=== PATIENT | female | born 1970 | race Hispanic/Latino ===

== ENCOUNTER 2018-05-09 15:28 | Observation (INO) | payer BC ==
[2018-05-09 16:14] LABS: Absolute Lymphocytes (CBC) 1.6 K/uL (0.7-4.9); Absolute Monocytes 0.3 K/uL (0.1-1.3); Absolute Neutrophil 4.6 K/uL (1.8-8.0); Basophils % 0.3 % (0-1.3); Eosinophils % 1.2 % (0-4.4); Hematocrit 40.6 % (36.0-45.0); Lymphocytes % 23.9 % (15.3-44.8); MCH 28.9 pg (27.0-35.0); MCV 86.2 fL (80-100); MPV 8.1 fL (7.6-11.3); Monocytes % 5.3 % (3.3-12.3)
[2018-05-09 16:32] LABS: ALT/SGPT 38 U/L (12-78); AST/SGOT 22 U/L (15-37); Albumin 3.5 g/dL (3.4-5.0); Alkaline Phosphatase 75 U/L (45-117); BUN Blood Urea Nitrogen 15 mg/dL (7-18); Bicarbonate 26 mmol/L (21-32); Bilirubin Direct < 0.1 mg/dL (0-0.2); Bilirubin Total 0.2 mg/dL (0.2-1.0); CKMB Creatine Kinase MB 1.6 ng/mL (0.3-3.6); Creatine Phosphokinase 101 U/L (26-192); Glucose Level 157 mg/dL (74-106); Potassium 3.4 mmol/L (3.5-5.1); Protein, Total 6.9 g/dL (6.4-8.2); Sodium Level 143 mmol/L (136-145)
--- NOTE | 2018-05-09 17:13 | RAD REPORT ---
EXAM DESCRIPTION: RAD - Chest Single View - 05/09/2018 4:58 pm CLINICAL HISTORY: Left-sided chest pain COMPARISON: October 2016 TECHNIQUE: AP portable chest image was obtained 1615 hour . FINDINGS: Lung volumes are low. This accentuates heart, vasculature and lung markings. Significant f ailure or volume overload are not suspected. No focal lung parenchymal process. Heart and vasculature are normal. No measurable pleural effusion and no pneumothorax. No gross bony abnormality seen. No a cute aortic findings suspected. IMPRESSION: No acute cardiopulmonary process. After adjusting for shallow inspiration, chest is not substantially different from comparison.
--- NOTE | 2018-05-09 17:14 | EDPHYS ---
Physician Documentation [facility] Name: Ema Turner Age: 47 yrs Sex: Female : 1970 Arrival Date: 05/09/2018 Time: 15:29 Bed 27 Private MD: Jarrod Martin E ED Physician Garett Demarco HPI: 05/09 17:08 This 47 yrs old Female presents to ER via Ambulatory with complaints of Chest rn Pain, Arm Pain, Numbness Of Arm. 17:08 The patient or guardian reports chest pain that is located primarily in the substernal rn area. Onset: yesterday. The pain radiates to the left arm. Associated signs and symptoms: Pertinent positives: nausea, Pertinent negatives: abdominal pain, shortness of breath, syncope, vomiting. The chest pain is described as a heaviness, squeezing. Duration: The patient or guardian reports multiple episodes, that are intermittent. Modifying factors: The symptoms are alleviated by nothing. the symptoms are aggravated by nothing. Severity of pain: At its worst the pain was moderate in the emergency department the pain is unchanged. The patient has not experienced similar symptoms in the past. Reports chest pain, radiates to left arm, significant famhx of CAD, this feels different from previous anxiety, no fever/cough. 10/10 pain. . 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 - Social history:: Smoking status: Patient/guardian denies using tobacco. - Ebola Screening: : No symptoms or risks identified at this time. - Family history:: not pertinent. - Hospitalizations: : No recent hospitalization is reported. ROS: 17:08 Constitutional: Negative for fever, chills, and weight loss, Eyes: Negative for injury, rn pain, redness, and discharge, Neck: Negative for injury, pain, and swelling, Cardiovascular: Negative for palpitations, and edema, Respiratory: Negative for shortness of breath, cough, wheezing, and pleuritic chest pain, Abdomen/GI: Negative for abdominal pain,vomiting, diarrhea, and constipation, MS/Extremity: Negative for injury and deformity, Skin: Negative for injury, rash, and discoloration, Neuro: Negative for headache, weakness, and seizure. Exam: 17:08 Constitutional: This is a well developed, well nourished patient who is awake, alert, rn appears emotional Head/Face: Normocephalic, atraumatic. Eyes: Pupils equal round and reactive to light, extra-ocular motions intact. Lids and lashes normal. Conjunctiva and sclera are non-icteric and not injected. Cornea within normal limits. Periorbital areas with no swelling, redness, or edema. Cardiovascular: Regular rate and rhythm with a normal S1 and S2. No gallops, murmurs, or rubs. Normal PMI, no JVD. No pulse deficits. Respiratory: Lungs have equal breath sounds bilaterally, clear to auscultation and percussion. No rales, rhonchi or wheezes noted. No increased work of breathing, no retractions or nasal flaring. Abdomen/GI: Soft, non-tender, with normal bowel sounds. No distension or tympany. No guarding or rebound. No evidence of tenderness throughout. Skin: Warm, dry with normal turgor. Normal color with no rashes, no lesions, and no evidence of cellulitis. MS/ Extremity: Pulses equal, no cyanosis. Neurovascular intact. Full, normal range of motion. Equal circumference. Neuro: Awake and alert, GCS 15, oriented to person, place, time, and situation. Cranial nerves II-XII grossly intact. Motor strength 5/5 in all extremities. Sensory grossly intact. Vital Signs: 15:41 BP 159 / 91; Pulse 89; Resp 15; Temp 97.9; Pulse Ox 97% on R/A; Pain 10/10; hb 17:12 BP 146 / 76; Pulse 82; Pulse Ox 97% on R/A; rv 18:13 BP 150 / 81; Pulse 77; Pulse Ox 98% on R/A; rv MDM: 15:41 Patient medically screened. rn 17:08 Differential diagnosis: abnormal EKG, acute myocardial infarction, acute pericarditis, rn anxiety, coronary artery disease chest wall pain, costochondritis, pleurisy, pneumonia, pneumothorax, pulmonary embolus. The patient was given aspirin in the Emergency Department. Data reviewed: vital signs, nurses notes, lab test result(s), EKG, radiologic studies, plain films, and as a result, I will admit patient. Counseling: I had a detailed discussion with the patient and/or guardian regarding: the historical points, exam findings, and any diagnostic results supporting the discharge/admit diagnosis, lab results, radiology results, the need for further work-up and treatment in the hospital. Admission orders: after a detailed discussion of the patient's condition and case, the admit orders are written by me. 05/09 15:50 Order name: Basic Metabolic Panel; Complete Time: 16:37 rn 05/09 15:50 Order name: CBC with Diff; Complete Time: 16:37 rn 05/09 15:50 Order name: Ckmb; Complete Time: 16:37 rn 05/09 15:50 Order name: CPK; Complete Time: 16:37 rn 05/09 15:50 Order name: LFT's; Complete Time: 16:37 rn 05/09 15:50 Order name: Troponin (emerg Dept Use Only); Complete Time: 16:37 rn 05/09 15:50 Order name: XRAY Chest (1 view); Complete Time: 17:14 rn 05/09 15:50 Order name: EKG; Complete Time: 15:51 rn 05/09 15:50 Order name: Cardiac monitoring; Complete Time: 16:07 rn 05/09 15:50 Order name: EKG - Nurse/Tech; Complete Time: 16:25 rn 05/09 15:50 Order name: IV Saline Lock; Complete Time: 16: rn 05/09 15:50 Order name: D-Dimer; Complete Time: 16:37 rn 05/09 15:50 Order name: Labs collected and sent; Complete Time: 16:07 rn 05/09 15:50 Order name: O2 Per Protocol; Complete Time: 17:05 rn 05/09 15:50 Order name: O2 Sat Monitoring; Complete Time: 16:07 rn Administered Medications: 17:31 Drug: Aspirin Chewable Tablet 324 mg Route: PO; rv 18:11 Follow up: Response: No adverse reaction rv 17:31 Drug: Nitroglycerin 0.4 mg Route: Sublingual; rv 18:12 Follow up: Response: No adverse reaction rv Disposition: 08/12/18 17:13 Hospitalization ordered by Matty Pruitt for Observation. Preliminary diagnosis is Chest pain, unspecified. - Bed requested for Telemetry/MedSurg (observation). - Status is Observation. rv - Condition is Stable. - Problem is new. - Symptoms have improved. UTI on Admission? No Signatures: Dispatcher [employer] EDLA Garett Demarco MD MD rn Baxter, Heather, RN RN hb Botello, Elizabeth eb Vicente, Ronaldo, RN RN rv Corrections: (The following items were deleted from the chart) 17:53 17:13 Hospitalization Ordered by Matty Pruitt DO for Observation. Preliminary eb diagnosis is Chest pain, unspecified. Bed requested for Telemetry/MedSurg (observation). Status is Observation. Condition is Stable. Problem is new. Symptoms have improved. UTI on Admission? No. rn 18:13 17:53 05/09/2018 17:13 Hospitalization Ordered by Matty Pruitt DO for Observation. rv Preliminary diagnosis is Chest pain, unspecified. Bed requested for Telemetry/MedSurg (observation). Status is Observation. Condition is Stable. Problem is new. Symptoms have improved. UTI on Admission? No. eb
--- NOTE | 2018-05-09 17:14 | ER ---
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 Transition of care: patient was not received from another setting of care. Onset of symptoms was May 09, 2018. Risk Assessment: Do you want to hurt yourself or someone else? Patient reports no desire to harm self or others. Care prior to arrival: None. 15:39 Method Of Arrival: Ambulatory hb 15:39 Acuity: AGUSTIN 3 hb 16:26 Initial Sepsis Screen: Does the patient meet any 2 criteria? No. Patient's initial rv sepsis screen is negative. Does the patient have a suspected source of infection? No. Patient's initial sepsis screen is negative. 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 - Social history:: Smoking status: Patient/guardian denies using tobacco. - Ebola Screening: : No symptoms or risks identified at this time. - Family history:: not pertinent. - Hospitalizations: : No recent hospitalization is reported. Screenin:42 Abuse screen: Denies threats or abuse. Denies injuries from another. Nutritional hb screening: No deficits noted. Tuberculosis screening: No symptoms or risk factors identified. Fall Risk None identified. Assessment: 16:15 General: Appears in no apparent distress. comfortable, Behavior is calm, cooperative. rv 16:15 Pain: Complains of pain in chest Pain does not radiate. Pain began 3 hours ago. Neuro: rv Level of Consciousness is awake, alert, obeys commands, Oriented to person, place, time, situation. Cardiovascular: Capillary refill < 3 seconds. Respiratory: Airway is patent. GI: No signs and/or symptoms were reported involving the gastrointestinal system. : No signs and/or symptoms were reported regarding the genitourinary system. EENT: No signs and/or symptoms were reported regarding the EENT system. Derm: Skin is intact. Vital Signs: 15:41 BP 159 / 91; Pulse 89; Resp 15; Temp 97.9; Pulse Ox 97% on R/A; Pain 10/10; hb 17:12 BP 146 / 76; Pulse 82; Pulse Ox 97% on R/A; rv 18:13 BP 150 / 81; Pulse 77; Pulse Ox 98% on R/A; rv ED Course: 15:29 Patient arrived in ED. as 15:29 Jarrod Martin MD is Private Physician. as 15:40 Triage completed. hb 15:41 Garett Demarco MD is Attending Physician. rn 15:41 Arm band placed on left wrist. hb 16:00 Inserted saline lock: 20 gauge in right antecubital area, using aseptic technique. kr2 Blood collected. 16:27 Patient has correct armband on for positive identification. Placed in gown. Bed in low rv position. Call light in reach. Side rails up X 1. Adult w/ patient. monitoring analyst on. Pulse ox on. NIBP on. 16:27 Patient maintains SpO2 saturation greater than 95% on room air. rv 16:58 XRAY Chest (1 view) In Process Unspecified. EDMS 17:13 Matty Pruitt DO is Hospitalizing Provider. rn 18:12 No provider procedures requiring assistance completed. Patient admitted, IV remains in rv place. intact. Administered Medications: 17:31 Drug: Aspirin Chewable Tablet 324 mg Route: PO; rv 18:11 Follow up: Response: No adverse reaction rv 17:31 Drug: Nitroglycerin 0.4 mg Route: Sublingual; rv 18:12 Follow up: Response: No adverse reaction rv Outcome: 17:13 Decision to Hospitalize by Provider. rn 18:12 Admitted to Tele accompanied by augie, via wheelchair, room 426, with chart, Report rv called to TAMIE RN 18:12 Condition: good 18:12 Instructed on the need for admit. 18:13 Patient left the ED. rv Signatures: Dispatcher [employer] EDMS Dwayne, Katerin as Demarco, Garett, MD MD rn Freda Phelan RN RN Flaca Mckeon RN RN kr2 Randall Santos RN RN rv
[2018-05-09] MEDS ORDERED: ALPRAZOLAM 0.25 MG TABLET PO PRN (17:24)
[2018-05-09] MEDS ORDERED: ACETAMINOPHEN 500 MG TAB PO PRN (17:24)
[2018-05-09] MEDS ORDERED: HYDROCODONE/APAP 7.5/325 MG TAB PO PRN (17:24)
[2018-05-09] MEDS ORDERED: NITROGLYCERIN 0.4 MG/TAB SL PRN (17:24)
[2018-05-09] MEDS ORDERED: ONDANSETRON 4 MG/2 ML VIAL IV PRN (17:24)
[2018-05-09] MEDS ORDERED: TRAMADOL HCL 50 MG TAB PO PRN (17:24)
[2018-05-09] MEDS ORDERED: ASPIRIN 81 MG CHEWABLE TABLET ONE (17:28)
[2018-05-09] MEDS ORDERED: NITROGLYCERIN 0.4 MG/TAB SL ONE (17:28)
--- NOTE | 2018-05-09 17:37 | P.HP ---
Certification for Inpatient Patient admitted to: Observation With expected LOS: <2 Midnights Patient will require the following post-hospital care: None Practitioner: I am a practitioner with admitting privileges, knowledge of patient current condition, hospital course, and medical plan of care. Services: Services provided to patient in accordance with Admission requirements found in Title 42 Section 412.3 of the Code of Federal Regulations Patient History Date of Service: 05/09/18 Primary Care Provider: Dr. Martin Reason for admission: Chest pain, shortness of breath History of Present Illness: 47 yo HF presented to the ER with chest pain and shortness of breath. She reports the pain started yesterday and got worse. It a constant pain that would settle but then get worse. It is mainly to the left side. She rates the pain about a 10/10. While in [facility] she had more pain. The pain would radiate to the left arm. She felt a heaviness. It was associated with shortness of breath. It was not worse with anything. She has not had this chest pain before. No palpitations, nausea or vomiting was noted. She has HTN and no longer smokes. She drinks on occasion. She has anxiety and takes Cymbalta. She has not been under stress. Her sister was recently hospitalized and had a stent placed. In the ER her BP was elevated. Lab showed K 3.4, troponin was normal. Her d dimer was normal. CXR unremarkable. No EKG changes noted. She was admitted for observation. When I saw her in the ER, she remained stable and in no distress. Family at bedside. She appeared anxious. Allergies No Known Allergies Allergy (Unverified 04/21/12 00:42) Home medications list reviewed: Yes - Past Medical/Surgical History Diabetic: No -: HTN -: Anxiety -: Former tobacco use -: Hysterectomy -: Eye surgery Psychosocial/ Personal History: She is . SHe has 2 children. 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 - Family History Sister -: Heart disease, Hypertension - Social History Smoking Status: Former smoker Alcohol use: Yes CD- Drugs: No Caffeine use: Yes Place of Residence: Home Review of Systems General: As per HPI Eyes: Unremarkable ENT: Unremarkable Respiratory: Shortness of Breath, As per HPI Cardiovascular: Chest Pain, As per HPI Gastrointestinal: As per HPI Genitourinary: Unremarkable Musculoskeletal: Unremarkable Integumentary: Unremarkable Neurological: As per HPI Lymphatics: Unremarkable Physical Examination - Physical Exam General: Alert, In no apparent distress, Oriented x3, Cooperative, Other ( anxious) HEENT: Atraumatic, Normocephalic, PERRLA, Mucous membr. moist/pink Neck: Supple, No Thyromegaly Respiratory: Clear to auscultation bilaterally, Normal air movement, Other ( poor inspiration effort) Cardiovascular: Normal pulses, Regular rate/rhythm Gastrointestinal: Normal bowel sounds, Soft and benign, Non-distended, No ascites, No tenderness, No masses, No rebound, No guarding Musculoskeletal: No erythema, No tenderness, No warmth Integumentary: No tenderness/swelling, No erythema, No warmth, No cyanosis Neurological: Normal speech, Normal strength at 5/5 x4 extr, Normal tone, Abnormal affect (very anxious appearing) - Studies Laboratory Data (last 24 hrs) 05/09/18 16:00: WBC 6.6, Hgb 13.6, Hct 40.6, Plt Count 227 05/09/18 16:00: Sodium 143, Potassium 3.4 L, BUN 15, Creatinine 0.70, Glucose 157 H, Total Bilirubin 0.2, AST 22, ALT 38, Alkaline Phosphatase 75 Assessment and Plan - Problems (Diagnosis) (1) Chest pain Current Visit: Yes Status: Acute Plan: Will monitor on telemetry, check ECHO, and follow cardiac enzymes. Will consult Cardiology to further address. Patient has family history of heart disease. Her BP is not well controlled. Will increase her metoprolol. Will add ASA, Lipitor. Anticipate cardiac workup due to her cardiac risk factors. Await recommendations by Cardiology. Will keep her NPO after midnight. Qualifiers: Chest pain type: unspecified Qualified Code(s): R07.9 - Chest pain, unspecified (2) Shortness of breath Current Visit: Yes Status: Acute Plan: Will monitor. D dimer negative. Likely related to anxiety. (3) HTN (hypertension) Current Visit: Yes Status: Chronic Plan: Not well controlled. Will increase her Metoprolol. May need to add Lisinopril for better control. Qualifiers: Hypertension type: essential hypertension Qualified Code(s): I10 - Essential (primary) hypertension (4) Anxiety Current Visit: Yes Status: Chronic Plan: Will continue with Cymbalta. Will provide medication for anxiety prn. (5) GERD (gastroesophageal reflux disease) Current Visit: Yes Status: Suspected Plan: Will provide PPI Qualifiers: Esophagitis presence: esophagitis presence not specified Qualified Code(s) : K21.9 - Gastro-esophageal reflux disease without esophagitis (6) Hypokalemia Current Visit: Yes Status: Acute Plan: Will monitor and replace. Replacement protocol in place. Discharge Plan: Home Plan to discharge in: 24 Hours - Advance Directives Does patient have a Living Will: No Does patient have a Durable POA for Healthcare: No - Code Status/Comfort Care Code Status Assessed: Yes Time Spent Managing Pts Care (In Minutes): 55
[2018-05-09] MEDS: PANTOPRAZOLE 40MG TABLET PO SCH (19:16)
[2018-05-09] MEDS: ENOXAPARIN 40 MG/0.4 ML SQ SCH (19:16)
[2018-05-09] MEDS: NA CHLORIDE 0.9% 1,000 ML IV SCH (19:17)
[2018-05-09] MEDS: METOPROLOL TAR 50 MG TAB PO SCH (20:53)
[2018-05-09] MEDS ORDERED: ATORVASTATIN 40 MG TAB PO SCH (21:00)
[2018-05-09 22:46] VITALS: BMI 37.1
[2018-05-09 23:19] LABS: CKMB Creatine Kinase MB 1.7 ng/mL (0.3-3.6)
[2018-05-09] MEDS ORDERED: POTASSIUM 25 MEQ EFFERV TAB PO ONE (23:41)
[2018-05-09 23:51] LABS: Urine Appearance TURBID; Urine Bilirubin NEGATIVE (NEG); Urine Blood NEGATIVE (NEG); Urine Color YELLOW; Urine Glucose NEGATIVE (NEG); Urine Microscopic Reflex ORDER UMIC; Urine Protein NEGATIVE (NEG); Urine Specific Gravity 1.025 (1.005-1.030)
[2018-05-09 23:57] LABS: Urine Amorphous Sediment 4+ /HPF (NONE SEEN); Urine Bacteria 20-50 /HPF (<20); Urine Culture Reflex Order REFLEXED; Urine RBC NONE SEEN /HPF (NONE SEEN)
[2018-05-10] MEDS: NA CHLORIDE 0.9% 1,000 ML IV SCH ×2 (05:09→14:00)
--- NOTE | 2018-05-10 05:42 | EKG ---
Test Date: 2018-05-09 Test Time: 15:43:54 Door Machine Operator: MEASUREMENT RESULTS: Intervals: Rate: 87 AK: 140 QRSD: 90 QT: 384 QTc: 462 [place]: P: 57 AK: 140 QRS: 69 T: 60 INTERPRETIVE STATEMENTS: Normal sinus rhythm Normal ECG Compared to ECG 05/09/2018 15:43:11 No significant changes Electronically Signed On 05-10-18 05:41:37 CDT by Sheldon Adair
--- NOTE | 2018-05-10 05:42 | EKG ---
Test Date: 2018-05-09 Test Time: 15:43:11 Voice Coach: MEASUREMENT RESULTS: Intervals: Rate: 85 UT: 140 QRSD: 88 QT: 376 QTc: 447 [place]: P: 57 UT: 140 QRS: 68 T: 48 INTERPRETIVE STATEMENTS: Normal sinus rhythm Normal ECG Compared to ECG 04/02/2017 10:23:10 Myocardial infarct finding no longer present Electronically Signed On 05-10-18 05:41:40 CDT by Sheldon Adair
[2018-05-10 07:12] LABS: Absolute Lymphocytes (CBC) 2.4 K/uL (0.7-4.9); Absolute Monocytes 0.4 K/uL (0.1-1.3); Absolute Neutrophil 2.2 K/uL (1.8-8.0); Basophils % 0.4 % (0-1.3); Eosinophils % 2.7 % (0-4.4); Hematocrit 38.5 % (36.0-45.0); Lymphocytes % 46.6 % (15.3-44.8); MCV 86.2 fL (80-100); MPV 8.4 fL (7.6-11.3); Monocytes % 8.2 % (3.3-12.3); RBC Red Blood Cell Count 4.46 M/uL (3.86-4.86)
[2018-05-10 07:25] LABS: CKMB Creatine Kinase MB 1.8 ng/mL (0.3-3.6)
[2018-05-10] MEDS: PANTOPRAZOLE 40MG TABLET PO SCH (07:30)
[2018-05-10 07:31] LABS: BUN Blood Urea Nitrogen 13 mg/dL (7-18); Bicarbonate 27 mmol/L (21-32); Glucose Level 104 mg/dL (74-106); HDL Cholesterol 36 mg/dL (40-60); LDL Cholesterol, Calculated 115 (<130); Magnesium 2.2 mg/dL (1.8-2.4); Potassium 4.3 mmol/L (3.5-5.1); Sodium Level 143 mmol/L (136-145)
[2018-05-10] MEDS ORDERED: REGADENOSON 0.4 MG/5 ML SYR IV ONE (07:52)
[2018-05-10 08:11] VITALS: BP 122/65; TEMP 97.8
[2018-05-10 08:19] VITALS: O2SAT 96
--- NOTE | 2018-05-10 08:30 | EKG ---
Test Date: 2018-05-09 Test Time: 20:46:29 Regional Administrative Assistant: RT Jacobo MEASUREMENT RESULTS: Intervals: Rate: 72 [place]: 144 QRSD: 86 QT: 404 QTc: 442 [place]: P: 61 WI: 144 QRS: 61 T: 65 INTERPRETIVE STATEMENTS: Normal sinus rhythm Normal ECG Compared to ECG 05/09/2018 15:43:54 No significant changes Electronically Signed On 05-10-18 08:29:53 CDT by Sheldon Adair
[2018-05-10] MEDS: METOPROLOL TAR 50 MG TAB PO SCH (09:00)
[2018-05-10] MEDS: ENOXAPARIN 40 MG/0.4 ML SQ SCH (09:00)
[2018-05-10] MEDS: DULOXETINE 30 MG CAP PO SCH ×2 (09:00→13:47)
[2018-05-10] MEDS: ASPIRIN EC 81 MG TAB PO SCH ×2 (09:00→13:47)
[2018-05-10 09:07] LABS: Blood Morphology Comment NOT SEEN (NOT SEEN); Platelet Estimate ADEQ
--- NOTE | 2018-05-10 10:44 | P.DS ---
Admission Date: 05/09/18 Discharge Date: 05/10/18 Primary Care Provider: Dr. Martin Disposition: ROUTINE DISCHARGE Discharge Condition: GOOD Reason for Admission: Chest pain, shortness of breath Consultations: Cardiology-Dr. Adair Procedures: Echocardiogram: Ejection fraction within normal range. LEFT VENTRICULAR WALL MOTION: NORMAL. DOPPLER/COLOR FLOW: PHYSIOLOGIC TRICUSPID REGURGITATION. NORMAL RIGHT VENTRICULAR SYSTOLIC PRESSURE. COMMENTS: NORMAL LEFT VENTRICULAR EJECTION FRACTION. DILATED LEFT ATRIUM OTHERWISE NORMAL 2D ECHO WITH DOPPLER. Cardiac stress test: FINDINGS: The end diastolic volume is 86 ml, the end systolic volume is 28 ml, and the ejection fraction is 67 %. No definite evidence for stress induced ischemia. Small focus of diminished activity in the anterior wall near the apex not clearly different from the rest sequencing. Activity within the left ventricular myocardium is somewhat heterogeneous. No large area of scarring. Diminished activity along the inferolateral wall is believed to be attenuation artifact and does not change between rest and stress imaging. IMPRESSION: No evidence for stress induced ischemia. No large area of scarring identifiable. Ventricular volumes and ejection fraction are normal range. - Problems (1) Chest pain Onset Date: 05/10/18 Current Visit: Yes Status: Acute Qualifiers: Chest pain type: unspecified Qualified Code(s): R07.9 - Chest pain, unspecified (2) Shortness of breath Onset Date: 05/10/18 Current Visit: Yes Status: Acute (3) HTN (hypertension) Onset Date: 05/10/18 Current Visit: Yes Status: Chronic Qualifiers: Hypertension type: essential hypertension Qualified Code(s): I10 - Essential (primary) hypertension (4) Anxiety Onset Date: 05/10/18 Current Visit: Yes Status: Chronic (5) GERD (gastroesophageal reflux disease) Onset Date: 05/10/18 Current Visit: Yes Status: Suspected Qualifiers: Esophagitis presence: esophagitis presence not specified Qualified Code(s) : K21.9 - Gastro-esophageal reflux disease without esophagitis (6) Hypokalemia Onset Date: 05/10/18 Current Visit: Yes Status: Acute (7) Hyperlipidemia Current Visit: Yes Status: Chronic Qualifiers: Hyperlipidemia type: unspecified Qualified Code(s): E78.5 - Hyperlipidemia , unspecified Brief History of Present Illness: 47 yo HF presented to the ER with chest pain and shortness of breath. She reports the pain started yesterday and got worse. It a constant pain that would settle but then get worse. It is mainly to the left side. She rates the pain about a 10/10. While in [facility] she had more pain. The pain would radiate to the left arm. She felt a heaviness. It was associated with shortness of breath. It was not worse with anything. She has not had this chest pain before. No palpitations, nausea or vomiting was noted. She has HTN and no longer smokes. She drinks on occasion. She has anxiety and takes Cymbalta. She has not been under stress. Her sister was recently hospitalized and had a stent placed. In the ER her BP was elevated. Lab showed K 3.4, troponin was normal. Her d dimer was normal. CXR unremarkable. No EKG changes noted. She was admitted for observation. When I saw her in the ER, she remained stable and in no distress. Family at bedside. She appeared anxious. Hospital Course: Patient did well in the course of her stay. Patient presented with chest pain. Cardiac enzymes remained negative. Cardiology evaluated patient. Echocardiogram and stress test was ordered. Echo showed normal ejection fraction. Stress test showed no stress induced ischemia. No further intervention was required. At discharge, Patient may continue with aspirin 81 mg daily. Patient has hypertension. Medications were adjusted. Metoprolol was increased. At discharge she will continue with metoprolol 50 mg 1 pill twice daily. Recommendation is to maintain blood pressures less 150/80. Further adjustment can be done by her PCP. Patient has anxiety. Patient will continue with her medication-Cymbalta 20 mg daily. Patient will need to be further evaluated as an outpatient. Further adjustment in medication can be done by PCP as an outpatient. Patient likely has GERD. Patient will continue with Protonix 40 mg 1 pill once daily. Patient may require GI evaluation as an outpatient. Patient has hyperlipidemia. Total cholesterol 174, total triglycerides 115, LDL 115, HDL 36. Recommendation to continue with a [employer] diet. Recommendation to recheck lab in 4 weeks. Patient may require medication in the future. Vital Signs/Physical Exam: Temp Pulse Resp BP Pulse Ox 97.8 F 61 20 122/65 97 05/10/18 08:00 05/10/18 08:00 05/10/18 08:00 05/10/18 08:00 05/10/18 08:00 General: Alert, In no apparent distress, Oriented x3, Cooperative HEENT: Atraumatic Neck: Supple Respiratory: Clear to auscultation bilaterally, Normal air movement Cardiovascular: Normal pulses, Regular rate/rhythm Gastrointestinal: Normal bowel sounds, Soft and benign, Non-distended, No tenderness, No masses, No rebound, No guarding Musculoskeletal: No erythema, No tenderness, No warmth Integumentary: No tenderness/swelling, No erythema, No warmth, No cyanosis Neurological: Normal speech, Normal strength at 5/5 x4 extr, Normal tone, Abnormal affect (Increase anxiety noted.) Laboratory Data at Discharge: WBC 5.1 K/uL (4.3-10.9) D 05/10/18 06:47 Hgb 12.9 g/dL (12.0-15.0) 05/10/18 06:47 Hct 38.5 % (36.0-45.0) 05/10/18 06:47 Plt Count 227 K/uL (152-406) 05/10/18 06:47 Sodium 143 mmol/L (136-145) 05/10/18 06:47 Potassium 4.3 mmol/L (3.5-5.1) 05/10/18 06:47 BUN 13 mg/dL (7-18) 05/10/18 06:47 Creatinine 0.50 mg/dL (0.55-1.3) L 05/10/18 06:47 Glucose 104 mg/dL (74-106) 05/10/18 06:47 Magnesium 2.2 mg/dL (1.8-2.4) 05/10/18 06:47 Total Bilirubin 0.2 mg/dL (0.2-1.0) 05/09/18 16:00 AST 22 U/L (15-37) 05/09/18 16:00 ALT 38 U/L (12-78) 05/09/18 16:00 Alkaline Phosphatase 75 U/L (45-117) 05/09/18 16:00 Troponin I < 0.02 ng/mL (0.0-0.045) 05/10/18 06:47 Triglycerides 115 mg/dL (<150) 05/10/18 06:47 Cholesterol 174 mg/dL (<200) 05/10/18 06:47 HDL Cholesterol 36 mg/dL (40-60) L 05/10/18 06:47 Cholesterol/HDL Ratio 4.83 05/10/18 06:47 Home Medications: Duloxetine [Cymbalta *] 20 mg PO BEDTIME 05/09/18 Aspirin [Aspirin EC 81 MG] 81 mg PO DAILY #30 tablet. 05/10/18 Metoprolol Tartrate [Lopressor*] 50 mg PO BID #60 tab 05/10/18 Pantoprazole [Protonix Tab*] 40 mg PO DAILY #30 tab 05/10/18 New Medications: Aspirin [Aspirin EC 81 MG] 81 mg PO DAILY #30 tablet. Metoprolol Tartrate [Lopressor*] 50 mg PO BID #60 tab Pantoprazole [Protonix Tab*] 40 mg PO DAILY #30 tab Patient Discharge Instructions: 1. Patient will need a follow up with her PCP in 1 week to follow up this hospitalization. 2. Patient presented with chest pain. Cardiac enzymes were unremarkable. Cardiology evaluated patient. Cardiology recommended echocardiogram and cardiac stress test. Echo showed normal ejection fraction. Cardiac stress test showed no stress induced ischemia. No further intervention was required. Recommendation to continue with aspirin 81 mg daily. 3. Patient has hypertension. Medications were adjusted. Metoprolol was increased. At discharge she will continue with metoprolol 50 mg 1 pill twice daily. Recommendation is to maintain blood pressures less 150/80. Further adjustment can be done by her PCP. 4. Patient has anxiety. Patient will continue with her medication-Cymbalta 20 mg daily. Patient will need to be further evaluated as an outpatient. Further adjustment in medication can be done by PCP as an outpatient. 5. Patient likely has GERD. Patient continue with Protonix 40 mg 1 pill once daily. Patient may require GI evaluation as an outpatient. 6. Patient has hyperlipidemia. Total cholesterol 174, total triglycerides 115, LDL 115, HDL 36. Recommendation to continue with a [employer] diet. Recommendation to recheck lab in 4 weeks. Patient may require medication in the future. Diet: AHA Activity: Ad tommie Time spent managing pt's care (in minutes): 55
--- NOTE | 2018-05-10 11:36 | CON ---
Identification: A 47-year-old woman. Chief Complaint: Chest pain. History Of Present Illness: Ms. Turner has been having chest pain for about 2 days, roughly 48 katt rs at this point. It has not really increased or lead-up. It has been nearly constant. Does not se em to get worse with taking a deep breath, different body positions, or anything else that she can th ink of. Since she has been in the hospital, EKGs and enzymes reveal no myocardial necrosis. She has never had myocardial infarction, stroke, diabetes, or dyslipidemia. She takes blood pressure medici jhoan. Social History: Uses no tobacco. Outpatient Medications: Metoprolol and duloxetine. Physical Examination: General: She is 5 feet 2 inches, 203 pounds. HEENT: Normal. Neck: Carotids, no bruit. Lungs: Clear. Cardiac: Normal. No friction rub, murmur, or gallop. Abdomen: Soft. Extremities: No cyanosis, clubbing, or edema. Distal pulses palpable. Impression: This is probably noncardiac pain. We will do an echo and pharmacologic nuclear stress t est. If those are normal, she could be discharged. LAURYN/ALICIA Voice ID: [id number] Report ID: [id number]
--- NOTE | 2018-05-10 12:39 | ECHO ---
HEIGHT: 5 ft 2 in WEIGHT: 203 lb 0 oz DATE OF STUDY: 05/10/[address]: Matty Pruitt DO 2-DIMENSIONAL: YES M.MODE: YES DOPPLER: YES COLOR FLOW: YES TDS: YES PORTABLE: NO DEFINITY: NO BUBBLE STUDY: NO DIAGNOSIS: CHEST PAIN CARDIAC HISTORY: CATHERIZATION: NO SURGERY: NO PROSTHETIC VALVE: NO PACEMAKER: NO MEASUREMENTS (cm) DIASTOLIC (NORMALS) SYSTOLIC (NORMALS) IVSd 1.1 (0.6-1.2) LA Diam 4.2 (1.9-4.0) LVEF 61% LVIDd 4.1 (3.5-5.7) LVIDs 2.8 (2.0-3.5) %FS 32% LVPWd 1.2 (0.6-1.2) Ao Diam 2.5 (2.0-3.7) 2 DIMENSIONAL ASSESSMENT: RIGHT ATRIUM: NORMAL LEFT ATRIUM: DILATED RIGHT VENTRICLE: NORMAL LEFT VENTRICLE: NORMAL TRICUSPID VALVE: NORMAL MITRAL VALVE: NORMAL PULMONIC VALVE: NORMAL AORTIC VALVE: NORMAL PERICARDIAL EFFUSION: NONE AORTIC ROOT: NORMAL LEFT VENTRICULAR WALL MOTION: NORMAL. DOPPLER/COLOR FLOW: PHYSIOLOGIC TRICUSPID REGURGITATION. NORMAL RIGHT VENTRICULAR SYSTOLIC PRESSURE. COMMENTS: NORMAL LEFT VENTRICULAR EJECTION FRACTION. DILATED LEFT ATRIUM OTHERWISE NORMAL 2D ECHO WITH DOPPLER. TECHNOLOGIST: ROSEMARY MOORE
--- NOTE | 2018-05-10 12:45 | TREADPHA ---
DX: CHEST PAIN, HYPERTENSION Date of Study: 05/10/2018 Ht: 5 2 Wt: 203 lb 0 oz Consulting Physician: JEFF MEDICATIONS: TYLENOL, NORCO, XANAX, LIPITOR, ASPIRIN, LOVENOX, LOPRESSOR, PROTONIX, ULTRAM HISTORY: 47 YEAR OLD FEMALE HERE FOR CHEST PAIN AND HYPERTENSION. HISTORY OF HYPERTENSION. PHYSICIAL EXAMINATION: RESTING B.P.: 124/80 RESTING H.R.: 66 RESTING EKG: NORMAL PROTOCOL: LEXISCAN EXERCISE TIME: 3:30 B.P. AT PEAK STRESS: 128/70 IMPRESSION: LEXISCAN STRESS TEST PERFORMED. CARDIOLITE INJECTED PER PROTOCOL. NO ARRHYTHMIAS. COMPLAINTS OF LEFT SIDED CHEST PAIN THAT RADIEATES TO LEFT ARM AND HAND THAT TINGLES ON A SCALE OF SEVEN OUT OF 10 THROUGHOUT TEST. SEE NUCLEAR MEDICINE REPORT. NON-DIAGNOSTIC ELECTROCARDIOGRAM WITH LEXISCAN STRESS.
--- NOTE | 2018-05-10 12:59 | RAD REPORT ---
EXAM DESCRIPTION: NM - Rest Stress Cardiac Imaging - 05/10/2018 12:31 pm CLINICAL HISTORY: Chest pain COMPARISON: None. TECHNIQUE: The patient was administered 10.8 mCi of Tc 99m Sestamibi prior to resting SPECT imaging of the heart. The patient was then administered 32.9 mCi of Tc 99m Sestamibi following exercise or ph armacologic stress. Multiplanar SPECT images were reviewed. FINDINGS: The end diastolic volume is 86 ml, the end systolic volume is 28 ml, and the ejection frac tion is 67 %. No definite evidence for stress induced ischemia. Small focus of diminished activity in the anterior wall near the apex not clearly different from the rest sequencing. Activity within the left ventricul ar myocardium is somewhat heterogeneous. No large area of scarring. Diminished activity along the inf erolateral wall is believed to be attenuation artifact and does not change between rest and stress im aging. IMPRESSION: No convincing evidence for stress induced ischemia. No large area of scarring identifiab le. Ventricular volumes and ejection fraction are normal range.
== END 2018-05-10 15:54 | disposition home or self-care (01) ==
LOC: ER 15:28 → ERHOLD 17:15 → 4TH 18:03
PROVIDERS: ADMIT Family Medicine; ATTEND Family Medicine
DX: R07.9 Chest pain, unspecified (principal); I07.1 Rheumatic tricuspid insufficiency; I10 Essential (primary) hypertension; R06.02 Shortness of breath; E87.6 Hypokalemia; E78.5 Hyperlipidemia, unspecified; Z87.891 Personal history of nicotine dependence; F41.9 Anxiety disorder, unspecified; Z79.82 Long term (current) use of aspirin
CPT/HCPCS: 36415; 71045; 78452; 80048; 80061; 80076; 81003; 81015; 82550; 82553; 83735; 84439; 84443; 84484; 85025; 85379; 87077; 87086; 87088; 87186; 93005; 93017; 93306; 99285; A9500; G0378; J1650; J2785; J7030

== ENCOUNTER 2018-08-29 09:36 | Emergency (ER) | payer BC ==
[2018-08-29] MEDS ORDERED: HYDROCODONE/APAP 10/325 TAB ONE (11:54)
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
--- NOTE | 2018-08-29 12:41 | EDPHYS ---
Physician Documentation [facility] Name: Ema Turner Age: 47 yrs Sex: Female : 1970 Arrival Date: 08/29/2018 Time: 09:38 Bed 9 Private MD: Jarrod Martin E ED Physician Juan Warner HPI: 08/29 11:53 This 47 yrs old Female presents to ER via Ambulatory with complaints of Back kb Pain, Shoulder Pain. 11:53 The patient or guardian complains of decreased range of motion, pain, that is acute, kb tenderness. left shoulder. Context: The problem was sustained outdoors, resulted from walking into parked truck, The patient experiences decreased range of motion, when attempts to raise arm, The patient reports no obvious deformity. Onset: The symptoms/episode began/occurred yesterday. Modifying factors: the symptoms are alleviated by nothing. The symptoms are aggravated by movement. Associated signs and symptoms: Pertinent positives: severe pain, Pertinent negatives: abdominal pain, chest pain, diaphoresis, dyspnea, neck pain, shortness of breath, tingling. Severity of symptoms: At their worst the symptoms were moderate, severe, in the emergency department the symptoms are unchanged. Treatment prior to arrival includes: no previous treatment. The patient has not experienced similar symptoms in the past. The patient has not recently seen a physician. Pt states she walked backwards into a parked truck and hit her shoulder on the rearview mirror. Reports severe pain to left shoulder ("around shoulder blade") that radiates to entire left side of back. STates she needs to be checked for fibromyalgia because she always has a lot of pain. . 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 - Social history:: Smoking status: Patient/guardian denies using tobacco. - Ebola Screening: : No symptoms or risks identified at this time. ROS: 11:50 Constitutional: Negative for fever, chills, and weight loss, Cardiovascular: Negative kb for chest pain, palpitations, and edema, Respiratory: Negative for shortness of breath, cough, wheezing, and pleuritic chest pain, Abdomen/GI: Negative for abdominal pain, nausea, vomiting, diarrhea, and constipation, : Negative for injury, bleeding, discharge, and swelling, Skin: Negative for injury, rash, and discoloration, Neuro: Negative for headache, weakness, numbness, tingling, and seizure. 11:50 Back: Positive for pain at rest, pain with movement. 11:50 MS/extremity: Positive for injury or acute deformity, decreased range of motion, pain, tenderness, of the posterior aspect of left shoulder. Exam: 11:51 Constitutional: This is a well developed, well nourished patient who is awake, alert, kb and in no acute distress. Head/Face: Normocephalic, atraumatic. Neck: Trachea midline, no thyromegaly or masses palpated, and no cervical lymphadenopathy. Supple, full range of motion without nuchal rigidity, or vertebral point tenderness. No Meningismus. Chest/axilla: Normal chest wall appearance and motion. Nontender with no deformity. No lesions are appreciated. Cardiovascular: Regular rate and rhythm with a normal S1 and S2. No gallops, murmurs, or rubs. Normal PMI, no JVD. No pulse deficits. Respiratory: Lungs have equal breath sounds bilaterally, clear to auscultation and percussion. No rales, rhonchi or wheezes noted. No increased work of breathing, no retractions or nasal flaring. Abdomen/GI: Soft, non-tender, with normal bowel sounds. No distension or tympany. No guarding or rebound. No evidence of tenderness throughout. Skin: Warm, dry with normal turgor. Normal color with no rashes, no lesions, and no evidence of cellulitis. Neuro: Awake and alert, GCS 15, oriented to person, place, time, and situation. Cranial nerves II-XII grossly intact. Motor strength 5/5 in all extremities. Sensory grossly intact. Cerebellar exam normal. Normal gait. 11:51 Back: pain, that is moderate, of the left flank, ROM is painful, normal spinal alignment noted. 11:51 Musculoskeletal/extremity: Extremities: grossly normal except: noted in the posterior aspect of left shoulder: decreased ROM, pain, tenderness, ROM: limited active range of motion due to pain, Circulation is intact in all extremities. Sensation intact. Vital Signs: 09:54 BP 152 / 75; Pulse 69; Resp 16; Temp 98.2; Pulse Ox 98% on R/A; Weight 90.72 kg; Height hb 5 ft. 1 in. (154.94 cm); Pain 10/10; 12:00 BP 142 / 74; Pulse 66; Resp 16; Pulse Ox 100% on R/A; Pain 5/10; hb 09:54 Body Mass Index 37.79 (90.72 kg, 154.94 cm) hb MDM: 11:36 Patient medically screened. kb 11:50 Data reviewed: vital signs, nurses notes. Data interpreted: Pulse oximetry: on room air kb is 98 %. Interpretation: normal. 12:31 Counseling: I had a detailed discussion with the patient and/or guardian regarding: the kb historical points, exam findings, and any diagnostic results supporting the discharge/admit diagnosis, radiology results, the need for outpatient follow up, a family practitioner, to return to the emergency department if symptoms worsen or persist or if there are any questions or concerns that arise at home. 08/29 11:44 Order name: Shoulder Left (2 View) XRAY kb 08/29 12:31 Order name: Sling; Complete Time: 12:41 kb Administered Medications: 11:51 Drug: [place] 10 mg-325 mg 1 tabs Route: PO; hb 12:45 Follow up: Response: No adverse reaction; Pain is decreased hb Disposition: 08/30 07:29 Co-signature as Attending Physician, Juan Warner MD I agree with the assessment and tang plan of care. Disposition: 08/29/18 12:40 Discharged to Home. Impression: Pain in left shoulder. - Condition is Stable. - Discharge Instructions: Muscle Pain, Adult, Shoulder Pain, [id number]. - Prescriptions for Cyclobenzaprine 10 mg Oral Tablet - take 1 tablet by ORAL route every 8 hours As needed; 21 tablet. Diclofenac Sodium 75 mg Oral Tablet, Delayed Release (E.C.) - take 1 tablet by ORAL route 2 times per day As needed; 30 tablet. - Medication Reconciliation Form, Thank You Letter, Antibiotic Education, Prescription Opioid Use form. - Follow up: Emergency Department; When: As needed; Reason: Worsening of condition. Follow up: Private Physician; When: 2 - 3 days; Reason: Recheck today's complaints, Continuance of care, Re-evaluation by your physician. Signatures: Dispatcher [employer] EDShelly Armijo, MANAGER OF HUMAN RESOURCES-C MANAGER OF HUMAN RESOURCES-Stevenb Juan Warner MD MD cha Baxter, Heather, RN RN hb Corrections: (The following items were deleted from the chart) 08/29 13:01 12:40 08/29/2018 12:40 Discharged to Home. Impression: Pain in left shoulder. Condition hb is Stable. Discharge Instructions: Muscle Pain, Adult, Shoulder Pain, [id number]. Prescriptions for Cyclobenzaprine 10 mg Oral Tablet - take 1 tablet by ORAL route every 8 hours As needed; 21 tablet, Diclofenac Sodium 75 mg Oral Tablet, Delayed Release (E.C.) - take 1 tablet by ORAL route 2 times per day As needed; 30 tablet. and Forms are Medication Reconciliation Form, Thank You Letter, Antibiotic Education, Prescription Opioid Use. Follow up: Emergency Department; When: As needed; Reason: Worsening of condition. Follow up: Private Physician; When: 2 - 3 days; Reason: Recheck today's complaints, Continuance of care, Re-evaluation by your physician. kb
--- NOTE | 2018-08-29 13:40 | RAD REPORT ---
EXAM DESCRIPTION: RAD - Shoulder Left 2 View - 08/29/2018 12:38 pm CLINICAL HISTORY: Left shoulder pain, lifting injury COMPARISON: None. TECHNIQUE: Internal and external rotation views of the left shoulder were obtained. FINDINGS: There is no fracture or dislocation. Degenerative changes are present along the undersurfa ce of the acromion and there is slight narrowing of the acromial humeral joint space. No abnormal sof t tissue calcifications. No acute or suspicious findings. IMPRESSION: Negative two-view left shoulder examination for acute finding. Degenerative changes of the acromial humeral joint space noted.
[2018-08-29 16:15] VITALS: TEMP 98.2
[2018-08-29 16:27] VITALS: BP 142/74; O2SAT 100
== END 2018-08-29 13:01 | disposition home or self-care (01) ==
LOC: ER 09:36
DX: M25.512 Pain in left shoulder (principal); W22.8XXA Striking against or struck by other objects, initial encounter; I10 Essential (primary) hypertension; Z79.899 Other long term (current) drug therapy
CPT/HCPCS: 99283

== ENCOUNTER 2019-12-31 21:37 | Emergency (ER) | payer BC ==
--- OUTSIDE RECORDS SUMMARY | 2019-12-31 21:39 | XMS REPORT ---
:1970 [facility] Address [address] [place] [address] Dr. Nunez [address] [place] [id number] Care Team Providers Name Role Phone Unavailable Unavailable Unavailable Problems This patient has no known problems. Allergies, Adverse Reactions, Alerts This patient has no known allergies or adverse reactions. Medications This patient has no known medications.
[2019-12-31 22:14] LABS: Absolute Lymphocytes (CBC) 2.7 K/uL (0.7-4.9); Basophils % 0.3 % (0-1.3); Hematocrit 43.4 % (36.0-45.0); Lymphocytes % 33.1 % (15.3-44.8); MPV 8.2 fL (7.6-11.3); RBC Red Blood Cell Count 4.97 M/uL (3.86-4.86)
[2019-12-31] MEDS ORDERED: MORPHINE 4 MG/ML SYR ONE (22:16)
[2019-12-31] MEDS ORDERED: ONDANSETRON 4 MG/2 ML VIAL ONE (22:17)
[2019-12-31 22:22] LABS: Urine Bacteria <20 /HPF (<20); Urine Culture Reflex Order NOT NEEDED; Urine RBC <5 /HPF (NONE SEEN)
[2019-12-31 22:29] LABS: ALT/SGPT 30 U/L (12-78); AST/SGOT 17 U/L (15-37); Alkaline Phosphatase 108 U/L (45-117); BUN Blood Urea Nitrogen 16 mg/dL (7-18); Bicarbonate 28 mmol/L (21-32); Bilirubin Direct < 0.1 mg/dL (0-0.2); Bilirubin Total 0.2 mg/dL (0.2-1.0); Glucose Level 133 mg/dL (74-106); Lipase 124 U/L (73-393); Potassium 4.1 mmol/L (3.5-5.1); Protein, Total 7.7 g/dL (6.4-8.2); Sodium Level 140 mmol/L (136-145)
[2019-12-31] MEDS ORDERED: FENTANYL CITR 100 MCG/2 ML ONE (23:32)
[2020-01-01] MEDS ORDERED: metroNIDAZOLE 500 MG TABLET ONE (00:36)
[2020-01-01] MEDS ORDERED: levoFLOXacin 500 MG TAB ONE (00:36)
--- NOTE | 2020-01-01 00:43 | EDPHYS ---
Physician Documentation [facility] Name: Ema Turner Age: 49 yrs Sex: Female : 1970 Arrival Date: 12/31/2019 Time: 21:39 Bed 19 Private MD: Jarrod Martin E ED Physician Karl Ferguson HPI: 12/31 06:43 This 49 yrs old Female presents to ER via Ambulatory with complaints of tw4 Abdominal Pain. 06:43 The patient presents with abdominal pain. Onset: The symptoms/episode began/occurred 3 tw4 day(s) ago. The symptoms do not radiate. Associated signs and symptoms: none. The symptoms are described as dull, sharp. Modifying factors: The symptoms are alleviated by remaining still, the symptoms are aggravated by movement. The patient has not experienced similar symptoms in the past. 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 Historical: - Allergies: 21:51 Motrin; fc - Home Meds: 21:51 Cymbalta 60 mg oral cpDR 1 cap once daily [Active]; meloxicam 15 mg oral tab 1 tab once fc daily [Active]; hydrochlorothiazide 12.5 mg Oral cap 1 cap once daily [Active]; atorvastatin 10 mg oral tab 1 tab once daily [Active]; clonazepam 1 mg Oral tab 1 tab 2 times per day [Active]; metoprolol tartrate 50 mg oral tab 1 tab 2 times per day [Active]; aspirin 81 mg Oral chew 1 tab once daily [Active]; ProAir HFA 90 mcg/actuation inhalation HFAA 2 puffs as needed [Active]; - PMHx: 21:51 Hypertension; High Cholesterol; Arthritis; Anxiety; Fibromyalgia; fc - PSHx: 21:51 Tubal ligation; L eye; Hysterectomy; Left ovary removal; fc - Immunization history:: Last tetanus immunization: up to date Flu vaccine is up to date. - Social history:: Smoking status: Patient denies any tobacco usage or history of. Patient uses alcohol, occasionally. Patient/guardian denies using street drugs. ROS: 12/31 06:43 Constitutional: Negative for fever, chills, and weight loss, Eyes: Negative for injury, tw4 pain, redness, and discharge, Cardiovascular: Negative for chest pain, palpitations, and edema, Abdomen/GI: Negative for abdominal pain, nausea, vomiting, diarrhea, and constipation, MS/Extremity: Negative for injury and deformity, Skin: Negative for injury, rash, and discoloration, Neuro: Negative for headache, weakness, numbness, tingling, and seizure. Abdomen/GI: Positive for Abdomen/GI: Positive for abdominal pain, nausea, Negative for diarrhea, abdominal cramps, abdominal distension, anorexia, dysphagia, hematemesis, black/tarry stool. Exam: 06:43 Constitutional: This is a well developed, well nourished patient who is awake, alert, tw4 and in no acute distress. Head/Face: Normocephalic, atraumatic. Chest/axilla: Normal chest wall appearance and motion. Nontender with no deformity. No lesions are appreciated. Cardiovascular: Regular rate and rhythm with a normal S1 and S2. No gallops, murmurs, or rubs. Normal PMI, no JVD. No pulse deficits. Respiratory: Lungs have equal breath sounds bilaterally, clear to auscultation and percussion. No rales, rhonchi or wheezes noted. No increased work of breathing, no retractions or nasal flaring. Back: No spinal tenderness. No costovertebral tenderness. Full range of motion. MS/ Extremity: Pulses equal, no cyanosis. Neurovascular intact. Full, normal range of motion. Neuro: Awake and alert, GCS 15, oriented to person, place, time, and situation. Cranial nerves II-XII grossly intact. Motor strength 5/5 in all extremities. Sensory grossly intact. Cerebellar exam normal. Normal gait. 06:43 Abdomen/GI: Inspection: abdomen appears normal, Bowel sounds: normal, Palpation: moderate abdominal tenderness, in the left lower quadrant. Vital Signs: 12/30 22:04 BP 170 / 87; Pulse 71; Resp 20; Temp 97.8(O); Pulse Ox 100% ; lt1 23:00 BP 159 / 79; Pulse 67; Resp 16; Pulse Ox 99% ; rv 12/31 00:00 BP 149 / 81; Pulse 65; Resp 16; Pulse Ox 98% on R/A; rv 00:59 BP 150 / 76; Pulse 62; Resp 15; Temp 98; Pulse Ox 99% on R/A; rv MDM: 12/30 21:54 Patient medically screened. tw4 12/31 06:46 Data reviewed: vital signs, nurses notes, lab test result(s), CBC, electrolytes, hepatic panel, radiologic studies, CT scan. Data interpreted: sql ssis developer: Interpretation: Pulse oximetry: Interpretation: normal. Counseling: I had a detailed discussion with the patient and/or guardian regarding: the historical points, exam findings, and any diagnostic results supporting the discharge/admit diagnosis, radiology results. Medication response: Response to treatment: There is no appreciated change of the patient's symptoms at this time. Special discussion: Based on the patient's Hx, exam, and Dx evaluation, there is no indication for emergent surgery or inpatient Tx. It is understood by the patient/guardian that if the Sx's persist or worsen they need to return immediately for re-evaluation. I discussed with the patient/guardian in detail that at this point there is no indication for admission to the hospital. It is understood, however, that if the symptoms persist or worsen the patient needs to return immediately for re-evaluation. 12/30 21:57 Order name: Basic Metabolic Panel; Complete Time: 00:14 12/31 00:14 Interpretation: Normal except: GLUC 133. 12/30 21:57 Order name: CBC with Diff; Complete Time: 00:14 12/31 00:14 Interpretation: Normal except: RBC 4.97. 12/30 21:57 Order name: Creatinine for Radiology; Complete Time: 00:14 12/31 00:15 Interpretation: Within normal limits: CRE 0.65. 12/30 21:57 Order name: Hepatic Function; Complete Time: 00:14 12/31 00:14 Interpretation: Normal except: GLOB 3.7. 12/30 21:57 Order name: Lipase; Complete Time: 00:14 12/31 00:15 Interpretation: Within normal limits: LIP 124. 12/30 21:57 Order name: Urine Microscopic Only; Complete Time: 00:14 12/31 00:15 Interpretation: Within normal limits. 12/30 21:57 Order name: IV Saline Lock; Complete Time: 22:15 12/30 21:57 Order name: Labs collected and sent; Complete Time: 22:15 12/30 22:46 Order name: CT Abd/Pelvis - IV Contrast Only rr5 12/30 21:57 Order name: Urine Dipstick-Ancillary (obtain specimen); Complete Time: 22:15 tw4 Administered Medications: 12/30 22:15 Drug: Zofran (Ondansetron) 4 mg Route: IVP; Site: right forearm; rr5 23:11 Follow up: Response: No adverse reaction rv 22:17 Drug: morphine 4 mg {Note: rass 0.} Route: IVP; Site: right forearm; rr5 23:12 Follow up: Response: No adverse reaction; Pain is unchanged, physician notified; RASS: rv Alert and Calm (0) 23:30 Drug: fentaNYL (PF) 50 mcg Route: IVP; Site: right forearm; rv 12/31 00:58 Follow up: Response: No adverse reaction; Pain is decreased; RASS: Alert and Calm (0) rv 00:58 Drug: LevaQUIN 500 mg Route: PO; rv 00:58 Follow up: Response: Medication administered at discharge. rv 00:58 Drug: Flagyl 500 mg Route: PO; rv 00:58 Follow up: Response: Medication administered at discharge. rv Disposition: 01/01/20 00:42 Discharged to Home. Impression: Diverticulitis of large intestine without perforation or abscess without bleeding. - Condition is Stable. - Discharge Instructions: High-Fiber Diet, Diverticulitis. - Prescriptions for Flagyl 500 mg Oral Tablet - take 1 tablet by ORAL route every 6 hours for 10 days; 40 tablet. Levaquin 500 mg Oral Tablet - take 1 tablet by ORAL route once daily for 7 days; 7 tablet. - Medication Reconciliation Form, Thank You Letter, Antibiotic Education, Prescription Opioid Use form. - Follow up: Orion Romero MD; When: Upon discharge from the Emergency Department; Reason: Recheck today's complaints, Continuance of care, Re-evaluation by your physician. Follow up: Lianna Stoll MD; When: Upon discharge from the Emergency Department; Reason: Recheck today's complaints, Continuance of care, Re-evaluation by your physician. - Problem is new. - Symptoms have improved. Signatures: Dispatcher [employer] EDMS Eleanor Samuel RN RN fc Wadley, Terrence, MD MD tw4 Randall Santos RN RN Roberto Emerson RN RN rr5 Corrections: (The following items were deleted from the chart) 01:00 00:42 01/01/2020 00:42 Discharged to Home. Impression: Diverticulitis of large rv intestine without perforation or abscess without bleeding. Condition is Stable. Forms are Medication Reconciliation Form, Thank You Letter, Antibiotic Education, Prescription Opioid Use. Follow up: Orion Romero; When: Upon discharge from the Emergency Department; Reason: Recheck today's complaints, Continuance of care, Re-evaluation by your physician. Follow up: Lianna Stoll; When: Upon discharge from the Emergency Department; Reason: Recheck today's complaints, Continuance of care, Re-evaluation by your physician. Problem is new. Symptoms have improved. tw4
--- NOTE | 2020-01-01 00:43 | ER ---
Nurse's Notes [facility] Name: Ema Turner Age: 49 yrs Sex: Female : 1970 Arrival Date: 12/31/2019 Time: 21:39 Bed 19 Private MD: Jarrod Martin E Diagnosis: Diverticulitis of large intestine without perforation or abscess without bleeding Presentation: 12/30 21:45 Chief complaint: Patient states: that 2 days ago she started to have pain to left back fc and left lower abd. Denies any fever, diarrhea, constipation or urinary problems. Coronavirus screen: Patient denies fever greater than 100.4F, cough, shortness of breath, or difficulty breathing. Proceed with normal triage process. Ebola Screen: Patient negative for fever greater than or equal to 101.5 degrees Fahrenheit, and additional compatible Ebola Virus Disease symptoms Patient denies exposure to infectious person. Patient denies travel to an Ebola-affected area in the 21 days before illness onset. Risk Assessment: Do you want to hurt yourself or someone else? Patient reports no desire to harm self or others. Onset of symptoms was December 29, 2019. Care prior to arrival: None. 21:45 Method Of Arrival: Ambulatory fc 21:45 Acuity: AGUSTIN 3 fc 22:12 Initial Sepsis Screen: Does the patient meet any 2 criteria? No. Patient's initial fc sepsis screen is negative. Does the patient have a suspected source of infection? No. Patient's initial sepsis screen is negative. 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 fc Historical: - Allergies: 21:51 Motrin; fc - Home Meds: 21:51 Cymbalta 60 mg oral cpDR 1 cap once daily [Active]; meloxicam 15 mg oral tab 1 tab once fc daily [Active]; hydrochlorothiazide 12.5 mg Oral cap 1 cap once daily [Active]; atorvastatin 10 mg oral tab 1 tab once daily [Active]; clonazepam 1 mg Oral tab 1 tab 2 times per day [Active]; metoprolol tartrate 50 mg oral tab 1 tab 2 times per day [Active]; aspirin 81 mg Oral chew 1 tab once daily [Active]; ProAir HFA 90 mcg/actuation inhalation HFAA 2 puffs as needed [Active]; - PMHx: 21:51 Hypertension; High Cholesterol; Arthritis; Anxiety; Fibromyalgia; fc - PSHx: 21:51 Tubal ligation; L eye; Hysterectomy; Left ovary removal; fc - Immunization history:: Last tetanus immunization: up to date Flu vaccine is up to date. - Social history:: Smoking status: Patient denies any tobacco usage or history of. Patient uses alcohol, occasionally. Patient/guardian denies using street drugs. Screenin:59 Abuse screen: Denies threats or abuse. Denies injuries from another. Nutritional rv screening: No deficits noted. Tuberculosis screening: No symptoms or risk factors identified. Fall Risk None identified. Assessment: 22:15 General: Appears in no apparent distress. uncomfortable, Behavior is calm, cooperative. rv 22:15 Pain: Complains of pain in abdomen. Neuro: Level of Consciousness is awake, alert, rv obeys commands, Oriented to person, place, time, situation. Cardiovascular: Patient's skin is warm and dry. Respiratory: Airway is patent. GI: Bowel sounds present X 4 quads. Abd is soft and non tender X 4 quads. Derm: Skin is intact. 23:14 Reassessment: patient taken to CT scan. rv 12/31 01:01 Reassessment: test results explained to the patient and plan of care. patient rv understood and agreed. discharged ambulatory. Vital Signs: 12/30 22:04 BP 170 / 87; Pulse 71; Resp 20; Temp 97.8(O); Pulse Ox 100% ; lt1 23:00 BP 159 / 79; Pulse 67; Resp 16; Pulse Ox 99% ; rv 12/31 00:00 BP 149 / 81; Pulse 65; Resp 16; Pulse Ox 98% on R/A; rv 00:59 BP 150 / 76; Pulse 62; Resp 15; Temp 98; Pulse Ox 99% on R/A; rv ED Course: 12/30 21:39 Patient arrived in ED. mr 21:40 Jarrod Martin MD is Private Physician. mr 21:47 Triage completed. fc 21:51 Arm band placed on Patient placed in an exam room, on a stretcher. fc 21:54 Karl Ferguson MD is Attending Physician. tw4 22:03 Inserted saline lock: 20 gauge in right forearm, using aseptic technique. Blood rr5 collected. 22:56 Randall Santos RN is Primary Nurse. rv 22:59 Patient has correct armband on for positive identification. Bed in low position. Call rv light in reach. Side rails up X 1. Pulse ox on. NIBP on. 23:32 CT Abd/Pelvis - IV Contrast Only In Process Unspecified. EDAL 12/31 00:41 Orion Romero MD is Referral Physician. tw4 00:41 Lianna Stoll MD is Referral Physician. tw4 00:59 No provider procedures requiring assistance completed. IV discontinued, intact, rv bleeding controlled, No redness/swelling at site. Pressure dressing applied. Administered Medications: 12/30 22:15 Drug: Zofran (Ondansetron) 4 mg Route: IVP; Site: right forearm; rr5 23:11 Follow up: Response: No adverse reaction rv 22:17 Drug: morphine 4 mg {Note: rass 0.} Route: IVP; Site: right forearm; rr5 23:12 Follow up: Response: No adverse reaction; Pain is unchanged, physician notified; RASS: rv Alert and Calm (0) 23:30 Drug: fentaNYL (PF) 50 mcg Route: IVP; Site: right forearm; rv 12/31 00:58 Follow up: Response: No adverse reaction; Pain is decreased; RASS: Alert and Calm (0) rv 00:58 Drug: LevaQUIN 500 mg Route: PO; rv 00:58 Follow up: Response: Medication administered at discharge. rv 00:58 Drug: Flagyl 500 mg Route: PO; rv 00:58 Follow up: Response: Medication administered at discharge. rv Outcome: 00:42 Discharge ordered by . tw4 01:00 Discharged to home ambulatory, with family. rv 01:00 Condition: good 01:00 Discharge instructions given to patient, Instructed on discharge instructions, follow up and referral plans. medication usage, Demonstrated understanding of instructions, follow-up care, medications, Prescriptions given X 2. 01:00 Patient left the ED. rv Signatures: Dispatcher [employer] EDAL HéctorCaitphilippEleanor, RN Karl Moore MD MD tw4 Randall Santos RN RN rv Roque, Raymond, RN RN rr5 Elsie Mcintyre lt1
[2020-01-01 01:16] VITALS: BP 150/76; TEMP 98; O2SAT 99
--- NOTE | 2020-01-01 13:10 | RAD REPORT ---
EXAM DESCRIPTION: CT Abdomen Pelvis W Contrast CLINICAL HISTORY: 49 years Female Left-sided abdominal pain. TECHNIQUE: Contiguous axial images obtained through the abdomen and pelvis following intravenous con trast administration. Coronal and sagittal reformatted images provided. This CT exam was performed according to our departmental dose-optimization program, which includes on e or more of the following dose reduction techniques: automated exposure control, adjustment of the m A and/or kV according to patient size, and/or use of iterative reconstruction technique. COMPARISON: No prior exams provided for comparison. FINDINGS: Minimal bibasilar atelectasis. Steatosis of the liver, which is mildly enlarged without focal lesion. The biliary tree, gallbladder, pancreas, spleen, adrenal glands, kidneys, urinary bladder, and osseou s structures demonstrate no acute findings. Prior hysterectomy. There is diffuse descending colonic diverticulosis without diverticulitis, bowel inflammation, obstru ction, free intraperitoneal air, or ascites. The appendix is normal. Small fat containing periumbilical hernia. IMPRESSION: No acute abdominal or pelvic abnormalities. Colonic diverticulosis without diverticulitis. Steatosis of the liver, which is mildly enlarged. Electronically signed by: Nereida White MD 12/31/2019 11:47 PM CDT Due to temporary technical issues with the PACS/Fluency reporting system, reports are being signed by the in house radiologist as a courtesy to ensure prompt reporting. The interpreting radiologist is f ully responsible for the content of the report.
== END 2020-01-01 01:00 | disposition home or self-care (01) ==
LOC: ER 21:37
DX: K57.32 Diverticulitis of large intestine without perforation or abscess without bleeding (principal); I10 Essential (primary) hypertension; E78.00 Pure hypercholesterolemia, unspecified; F41.9 Anxiety disorder, unspecified; Z79.82 Long term (current) use of aspirin; Z88.8 Allergy status to other drugs, medicaments and biological substances
CPT/HCPCS: 85025; 80048; 36415; 80076; 81015; 83690; 74177; 96375; 96374; 99284; Q9967; J3010; J2405

== ENCOUNTER 2020-10-12 13:34 | Emergency (ER) | payer SELFPAY ==
--- NOTE | 2020-10-12 14:00 | ER ---
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 Had SOB and airway irritation right away. Used her inhaler albuterol, which helped. SOB began again today while at work. Coronavirus screen: Client denies travel out of the [place] in the last 14 days. cough unrelated to allergies, difficulty breathing, shortness of breath, sore throat, Client presents with at least one sign or symptom that may indicate coronavirus-19. Standard/surgical mask placed on the client. Ebola Screen: Patient denies travel to an Ebola-affected area in the 21 days before illness onset. Initial Sepsis Screen: Does the patient meet any 2 criteria? No. Patient's initial sepsis screen is negative. Does the patient have a suspected source of infection? Yes: Productive cough/pneumonia. Risk Assessment: Do you want to hurt yourself or someone else? Patient reports no desire to harm self or others. Onset of symptoms was October 11, 2020. 13:39 Method Of Arrival: Ambulatory ll1 13:39 Acuity: AGUSTIN 3 ll1 Triage Assessment: 13:44 General: Appears uncomfortable, Behavior is calm, cooperative, appropriate for age. ll1 Pain:. Neuro: No deficits noted. Cardiovascular: No deficits noted. Respiratory: Reports shortness of breath cough that is Airway is patent Trachea midline Respiratory effort is even, labored, Respiratory pattern is regular, symmetrical, Breath sounds are clear bilaterally. Onset: The symptoms/episode began/occurred yesterday, the patient has mild shortness of breath. Historical: - Allergies: 13:43 Motrin; ll1 - PMHx: 13:43 Anxiety; High Cholesterol; Hypertension; Fibromyalgia; Arthritis; Diverticulitis; ll1 - PSHx: 13:43 L eye; Tubal ligation; Hysterectomy; Left ovary removal; ll1 - Immunization history:: Flu vaccine is not up to date. - Social history:: Smoking status: Patient denies any tobacco usage or history of. Vital Signs: 13:39 BP 150 / 80; Pulse 88; Resp 18; Temp 97.6; Pulse Ox 99% on R/A; Weight 90.72 kg; Height ll1 5 ft. 1 in. (154.94 cm); Pain 8/10; 13:39 Body Mass Index 37.79 (90.72 kg, 154.94 cm) ll1 ED Course: 13:36 Patient arrived in ED. rg4 13:42 Triage completed. ll1 13:44 Arm band placed on. ll1 Administered Medications: No medications were administered Outcome: 13:59 Patient left the ED. ll1 13:59 AMA Other Her boss wanted her to go to occupational health for her job since this is a ll1 work related incident. Left without being seen. Signatures: Lisa Adamson rg4 Izabela Sandoval, RN RN ll1
--- OUTSIDE RECORDS SUMMARY | 2020-10-12 14:54 | XMS REPORT | Continuity of Care Document ---
:1970 [address] [facility] t Address [address] [place] [address] Care Team Providers Name Role Phone Radiology Attending Clinician Unavailable Doctor Unassigned, Name Attending Clinician Unavailable Problems This patient has no known problems. Allergies, Adverse Reactions, Alerts This patient has no known allergies or adverse reactions. Medications This patient has no known medications. Procedures This patient has no known procedures. Encounters Start End Encounter Admission Attending Care Care Encounter Source Date/Time Date/Time Type Type Clinicians Facility Department ID 2020-08-16 2020-08-16 [facility] Radiology [facility] [id number] 11:35:20 23:59:00 Encounter SPECIALTY [id number] [facility] [id number] CENTER AT [phone] [place] [address] [facility] 2020-08-16 2020-08-16 [facility] Radiology [facility] [id number] 11:32:50 11:34:00 Encounter SPECIALTY [id number] [facility] [id number] CENTER AT [id number] [place] 800 [facility] 2020-04-24 2020-04-24 [facility] Radiology [facility] [id number] 14:40:00 23:59:00 Encounter [place] [id number] [place] [id number] [place] [phone] 800 2020-04-24 2020-04-24 Orders Doctor GARCIA [id number] 00:00:00 00:00:00 Only Unassigned, ANYA [id number] [place] [facility] [id number] Results This patient has no known results.
--- OUTSIDE RECORDS SUMMARY | 2020-10-12 14:55 | XMS REPORT | Summary of Care ---
:1970 Author Organization [facility] Address [address] [place] [address] Care Team Providers Name Role Phone [facility] Primary Care Provider Reason for Visit Radiology Services (Routine) Status Reason Specialty Diagnoses / Referred By Referred To Procedures Contact Contact New Request Diagnostic Diagnoses Abnormal mammogram [facility] Radiology Procedures BI ULTRASOUND BREAST COMPLETE LEFT BI ULTRASOUND BREAST LIMITED LEFT [address] [facility] [address] [place] [address] Encounter Details Date Type Department Care Team Description 08/16/2020 Hospital Encounter [facility] Radiology [facility] Breast [address] [facility] [place] [address] [address] [place] [address] Allergies No Known Allergiesdocumented as of this encounter (statuses as of 08/17/2020) Medications Medication Sig Dispensed Refills Start Date End Date Status metoprolol tartrate Take 1 Tab by 60 Tab 0 03/30/2015 Active (LOPRESSOR) 25 mg mouth 2 (two) tablet times daily. 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 DOS: 12/07/2012. Pelvic US: Large fundal submucosal uterine fibroid. Uterus is enlarged measuring 10.5x 6.0x7 .0cm and contains a large 6cm fundal fibroid. Endometrial stripe is distorted and not measurable. 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 Irregular menstrual cycle 11/24/2012 01/10/2015 Morbid obesity 11/24/2012 01/10/2015 documented as of this encounter (statuses as of 08/17/2020) Immunizations Name Administration Dates Next Due TDAP (ADACEL) VACCINE 11/27/2015 Td 09/28/2006 documented as of this encounter Social History Tobacco Use Types Packs/Day Years Used Date Former Smoker 0.05 5 05/18/2000 - 0 09/28/2002 Smokeless Tobacco: Never Used Alcohol Use Drinks/Week oz/Week Comments No Sex Assigned at Date Recorded Not on file COVID-19 Exposure Response Date Recorded In the last month, have you been in contact with No / Unsure 08/16/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 documented as of this encounter Last Filed Vital Signs Not on filedocumented in this encounter Plan of Treatment Health Maintenance Due Date Last Done Comments Depression Screening 1980 COLON CANCER SCREENING 2018 ANNUAL FIT/FOBT COLON CANCER SCREENING FIT 2018 DNA EVERY 3 YEARS COLON CANCER SCREENING 2018 SIGMOIDOSCOPY EVERY 5 YEARS COLONOSCOPY 2018 Colorectal Cancer Screening 2018 Zoster Recombinant Vaccine 2018 (SHINGRIX) (1 of 2) INFLUENZA VACCINE (#1) 2020 Breast Cancer Screening 04/24/2021 04/24/2020, 12/06/2012, (MAMMOGRAM) 05/27/2010 DTaP,Tdap,and Td Vaccines 11/26/2025 11/27/2015, 09/28/2006 (2 - Td) PAP SMEAR Discontinued 01/12/2015, 11/24/2012, 01/15/2010, Additional history exists PNEUMOCOCCAL 0-64 YEARS Aged Out No longe r eligible COMBINED SERIES based on patient 's age to complete this topic documented as of this encounter Procedures Procedure Name Priority Date/Time Associated Comments Diagnosis BI ULTRASOUND BREAST Routine 08/16/2020 12:36 PM Abnormal mamm ogram Results for this COMPLETE LEFT FLIGHT TEST MECHANIC procedure are in the results section. documented in this encounter Results BI ULTRASOUND BREAST COMPLETE LEFT (08/16/2020 12:36 PM FLIGHT TEST MECHANIC) Specimen Narrative Performed At This result has an attachment that is no t available. Examination: PACS BI DIAGNOSTIC TOMOSYNTHESIS LEFT BI ULTRASOUND BREAST COMPLETE LEFT History: Patient is 49 year old and is seen for: Subtle signs of possible lesion in central retro areloar left breast, not consistently seen in all views. further evaluation by ultrasound and, if necessary, wi th spot compression tomosynthesis requested.. Computer-aided detection (CAD) utilized. Comparisons: 04/24/2020 BI SCREENING MAMMOGRAM BILATER AL, 12/06/2012 DIGITAL MAMMOGRAM, SCREENING, and 05/27/2010 DIGITAL M AMMOGRAM, SCREENING Exam dated 04/24/20 with the following findings: Impression: Subtle signs of possible lesion in central retro arelo ar LEFT breast, not consistently seen in all views. Further evaluation by ultrasound and, if necessary, with spot compression tomosynthesis request ed. CURRENT EXAM: Findings: BI DIAGNOSTIC TOMOSYNTHESIS LEFT The left breast is almost entirely fatty. There is no evidence of suspicious masses, calcifications, or other abnormal f indings in the left breast. The mammographic asymmetry noted at recent scr eening mammography in the central retroareolar region of the left breast did not persist with additional imaging and this is most consistent with dodd perimposition of normal breast tissue. BI ULTRASOUND BREAST COMPLETE LEFT Survey ultrasound of the left breast and axilla was pe rformed. There is no evidence of suspicious masses or other abn ormal findings in the left breast. Specifically, normal-appearing breast tissue is identi fied in the subareolar region of the left breast. Normal-appearing left axillary lymph nodes are identif ied. Impression: Left: There is no evidence of malignancy. The patient is due for annual bilateral mammogram in March 2021. Recommendation: Annual mammographic follow-up - Left BI-RADS Category: Left 1 - Negative Performing Organization Address City/State/Zipcode Phone Number PACS documented in this encounter Visit Diagnoses Diagnosis Abnormal mammogram Abnormal mammogram, unspecified documented in this encounter Insurance Payer Benefit Plan Subscriber ID Effective Dates Phone Address Type / Group [facility] [id number] 2020-Prese [phone] [address] [place] PPO/POS [place] - [place] OF nt [id number] [place] [address] (Work) [id number] documented as of this encounter Advance Directives Name Relationship Healthcare Agent Relationship Co mmunication Nam Card Child Health Care Agent
--- OUTSIDE RECORDS SUMMARY | 2020-10-12 14:55 | XMS REPORT | Summary of Care ---
:1970 Author Organization [facility] Address [address] [place] [address] Care Team Providers Name Role Phone [place] Primary Care Provider Reason for Referral Radiology Services (Routine) Status Reason Specialty Diagnoses / Referred By Referred To Procedures Contact Contact Closed Diagnostic Diagnoses Abnormal mammogram [facility] Radiology Procedures BI DIAGNOSTIC TOMOSYNTHESIS LEFT [address] [place] [address] Reason for Visit Radiology Services (Routine) Status Reason Specialty Diagnoses / Referred By Referred To Procedures Contact Contact Closed Diagnostic Diagnoses Abnormal mammogram [facility] Radiology Procedures BI DIAGNOSTIC TOMOSYNTHESIS LEFT 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 DOS: 12/07/2012. Pelvic US: Large fundal submucosal uterine fibroid. Uterus is enlarged measuring 10.5x 6.0x7 .0cm and contains a large 6cm fundal fibroid. Endometrial stripe is distorted and not measurable. 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 documented in this encounter Results BI DIAGNOSTIC TOMOSYNTHESIS LEFT (08/16/2020 12:05 PM STEAM AND GAS TURBINE ASSEMBLER) Specimen Narrative Performed At This result has an attachment that is no t available. Examination: PACS BI DIAGNOSTIC TOMOSYNTHESIS LEFT BI ULTRASOUND BREAST COMPLETE LEFT History: Patient is 49 year old and is seen for: Subtle signs of possible lesion in central retro areloar left breast, not consistently seen in all views. further evaluation by ultrasound and, if necessary, wi spot compression tomosynthesis requested.. Computer-aided detection (CAD) [...] Effective Dates Phone Address Type / Group [facility] [facility] [id number] 2020-Prese [phone] [address] PPO/POS [place] - OUT OF nt [id number] [place] [address] (Work) [id number] documented as of this encounter Advance Directives Name Relationship Healthcare Agent Relationship Co mmunication Nam Card Child Health Care Agent
== END 2020-10-12 13:59 | disposition left against medical advice (07) ==
LOC: ER 13:34
DX: Z53.21 Procedure and treatment not carried out due to patient leaving prior to being seen by health care provider (principal)
CPT/HCPCS: 99281

== ENCOUNTER 2021-03-22 16:06 | Observation (INO) | payer BC ==
--- OUTSIDE RECORDS SUMMARY | 2021-03-22 16:10 | XMS REPORT | Continuity of Care Document ---
:1970 Author Organization [facility] t Address [address] [place] [address] Care Team Providers Name Role Phone Radiology [...] Type Clinicians Facility Department ID 2020-08-16 2020-08-16 [facility] Radiology [facility] [id number] 11:35:20 23:59:00 Encounter SPECIALTY [id number] [facility] [id number] CENTER AT [phone] Z[place]A [address] [facility] 2020-08-16 2020-08-16 [facility] Radiology [facility] [id number] 11:32:50 11:34:00 Encounter SPECIALTY [id number] [facility] [id number] CENTER AT [phone] Z[place]IL[place] [address] [facility] 2020-04-24 2020-04-24 [facility] Radiology [facility] [id number] 14:40:00 23:59:00 Encounter [place] [id number] [place] [id number] [place] [phone] 800 2020-04-24 2020-04-24 Orders Doctor GARCIA [id number] 00:00:00 00:00:00 Only Unassigned, ANYA [id number] [place] [facility] [id number] Results This patient has no known results.
[2021-03-22 17:18] LABS: Urine Blood Negative (Negative); Urine Glucose Negative (Negative); Urine Protein Negative (Negative)
[2021-03-22 17:20] LABS: Absolute Lymphocytes (CBC) 2.3 K/uL (0.7-4.9); Basophils % 0.6 % (0-1.3); Hematocrit 42.2 % (36.0-45.0); Lymphocytes % 33.5 % (15.3-44.8); MPV 8.1 fL (7.6-11.3); RBC Red Blood Cell Count 5.01 M/uL (3.86-4.86)
[2021-03-22 17:26] LABS: Protime INR 0.97
--- NOTE | 2021-03-22 17:37 | RAD REPORT ---
EXAM DESCRIPTION: RAD - Chest Single View - 03/22/2021 5:31 pm CLINICAL HISTORY: CHEST PAIN Chest pain. COMPARISON: Chest Single View dated 05/09/2018; Chest Single View dated 11/07/2016; Chest Single View dated 01/06/2016 FINDINGS: Portable technique limits examination quality. The lungs are grossly clear. The heart is normal in size. No displaced fractures. IMPRESSION: No acute intrathoracic process suspected.
[2021-03-22] MEDS ORDERED: ASPIRIN 81 MG CHEWABLE TABLET ONE (17:40)
[2021-03-22] MEDS ORDERED: NA CHLORIDE 0.9% 1,000 ML ONE (17:40)
[2021-03-22] MEDS ORDERED: NITROGLYCERIN 0.4 MG/TAB SL ONE (17:41)
[2021-03-22 17:42] LABS: ALT/SGPT 31 U/L (12-78); AST/SGOT 17 U/L (15-37); Albumin 3.9 g/dL (3.4-5.0); Alkaline Phosphatase 100 U/L (45-117); BUN Blood Urea Nitrogen 15 mg/dL (7-18); Bicarbonate 28 mmol/L (21-32); Bilirubin Direct 0.1 mg/dL (0-0.2); Bilirubin Total 0.4 mg/dL (0.2-1.0); Glucose Level 96 mg/dL (74-106); Magnesium 2.1 mg/dL (1.8-2.4); NT PRO-BNP 40 pg/mL (<125); Potassium 3.7 mmol/L (3.5-5.1); Protein, Total 8.2 g/dL (6.4-8.2); Sodium Level 140 mmol/L (136-145); Troponin (Emerg Dept Use Only) < 0.02 ng/mL (0.0-0.045)
--- NOTE | 2021-03-22 18:19 | ER ---
Nurse's Notes [facility] Name: Ema Turner Age: 50 yrs Sex: Female : 1970 Arrival Date: 03/22/2021 Time: 16:08 Bed 19 Private MD: Diagnosis: Chest pain, unspecified Presentation: 03/22 16:15 Chief complaint: Patient states: Pain and and tingling to left arm and left side of kg face/jaw at 14:00. Pt stated she felt as though she is slurring but it has resolved. No slurring noted on speach. Coronavirus screen: Client denies travel out of the [place] in the last 14 days. At this time, unable to obtain information related to travel outside the [place] At this time, the client does not indicate any symptoms associated with coronavirus-19. Ebola Screen: Patient negative for fever greater than or equal to 101.5 degrees Fahrenheit, and additional compatible Ebola Virus Disease symptoms Patient denies exposure to infectious person. Patient denies travel to an Ebola-affected area in the 21 days before illness onset. Initial Sepsis Screen: Does the patient meet any 2 criteria? No. Patient's initial sepsis screen is negative. Does the patient have a suspected source of infection? No. Patient's initial sepsis screen is negative. Risk Assessment: Do you want to hurt yourself or someone else? Patient reports no desire to harm self or others. Onset of symptoms was March 22, 2021 at 14:00. 16:15 Method Of Arrival: Ambulatory kg 16:15 Acuity: AGUSTIN 3 kg Triage Assessment: 16:19 General: Appears. General: Appears in no apparent distress. Behavior is calm, kg cooperative, appropriate for age, quiet. Pain: Complains of pain in chest Pain radiates to left arm Pain currently is 9 out of 10 on a pain scale. at worst was 9 out of 10 on a pain scale. level that patient reports is acceptable is 3 out of 10 on a pain scale. Quality of pain is described as aching, tingling. 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 - Social history:: Smoking status: Patient denies any tobacco usage or history of. Screenin:19 Abuse screen: Denies threats or abuse. Denies injuries from another. Nutritional kg screening: No deficits noted. Tuberculosis screening: No symptoms or risk factors identified. Fall Risk None identified. No fall in past 12 months (0 pts). No secondary diagnosis (0 pts). IV access (20 points). Ambulatory Aid- None/Bed Rest/Nurse Assist (0 pts). Gait- Normal/Bed Rest/Wheelchair (0 pts) Mental Status- Oriented to own ability (0 pts). Total Abdul Fall Scale indicates No Risk (0-24 pts). Assessment: 16:30 General: SEE TRIAGE NOTE. bp 17:33 Reassessment: No changes from previously documented assessment. Patient and/or family bp updated on plan of care and expected duration. Pain level reassessed. Patient is alert, oriented x 3, equal unlabored respirations, skin warm/dry/pink. 19:30 General: Appears in no apparent distress. uncomfortable. Pain: Complains of pain in rr5 chest Pain radiates to left arm Pain Quality of pain is described as aching, Pain began gradually, Is intermittent. Neuro: Level of Consciousness is awake, alert, obeys commands, Oriented to person, place, time, Reports numbness in left arm. Cardiovascular: Reports chest pain, Capillary refill < 3 seconds Patient's skin is warm and dry. Respiratory: Airway is patent Respiratory effort is even, unlabored, Respiratory pattern is regular, symmetrical. GI: No signs and/or symptoms were reported involving the gastrointestinal system. : No signs and/or symptoms were reported regarding the genitourinary system. EENT: No signs and/or symptoms were reported regarding the EENT system. Derm: Skin is intact, is healthy with good turgor, Skin temperature is warm. Musculoskeletal: Circulation, motion, and sensation intact. 20:30 Reassessment: Patient appears in no apparent distress at this time. Patient is alert, rr5 oriented x 3, equal unlabored respirations, skin warm/dry/pink. 20:47 Reassessment: awaiting for covid result. rr5 21:48 Reassessment: Patient appears in no apparent distress at this time. Patient is alert, rr5 oriented x 3, equal unlabored respirations, skin warm/dry/pink. for admission to 4 th floor. awaiting for covid result. Vital Signs: 16:15 BP 150 / 92; Pulse 85; Resp 20; Temp 97.7(TE); Pulse Ox 99% on R/A; Weight 87 kg (M); kg Height 5 ft. 1 in. (154.94 cm); Pain 9/10; 17:33 BP 105 / 57; Pulse 79; Resp 23; Pulse Ox 99% ; bp 19:30 BP 110 / 50; Pulse 70; Resp 19; Temp 98; Pulse Ox 99% ; rr5 20:35 BP 126 / 89; Pulse 85; Resp 17; Pulse Ox 98% ; rr5 21:49 BP 134 / 81; Pulse 59; Resp 17; Temp 98; Pulse Ox 100% ; rr5 22:50 BP 121 / 70; Pulse 60; Resp 19; Pulse Ox 98% ; rr5 16:15 Body Mass Index 36.24 (87.00 kg, 154.94 cm) kg ED Course: 16:08 Patient arrived in ED. am2 16:19 Triage completed. kg 16:20 Arm band placed on right wrist. kg 16:24 Patient has correct armband on for positive identification. Placed in gown. Bed in low kg position. Call light in reach. Side rails up X2. 16:25 Juan Willis PA is PHCP. cp 16:26 Juan Warner MD is Attending Physician. cp 16:33 Todd Davis, EKATERINA is Primary Nurse. bp 17:00 Inserted saline lock: 20 gauge in right forearm, using aseptic technique. Blood bp collected. 17:31 XRAY Chest (1 view) In Process Unspecified. EDMS 18:18 Micheal Brennan FNP-C is Hospitalizing Provider. cp 18:22 CT Head Brain wo Cont In Process Unspecified. EDMS 19:45 COVID swab sent to lab. rr5 20:04 Primary Nurse role handed off by Todd Davis RN mw2 20:42 Roberto Garrison, RN is Primary Nurse. rr5 21:47 Patient admitted, IV remains in place. intact, No redness/swelling at site. rr5 21:48 No provider procedures requiring assistance completed. rr5 Administered Medications: 17:00 Drug: Aspirin Chewable Tablet 324 mg Route: PO; bp 18:42 Follow up: Response: No adverse reaction bp 17:00 Drug: Nitroglycerin 0.4 mg Route: Sublingual; bp 18:42 Follow up: Response: Pain is decreased; Blood pressure is lowered bp 17:00 Drug: NS 0.9% 1000 ml Route: IV; Rate: 1 bolus; Site: right forearm; bp 18:42 Follow up: IV Status: Completed infusion; IV Intake: 1000ml bp 18:30 Drug: fentaNYL (PF) 25 mcg Route: IVP; Site: right forearm; bp 18:42 Follow up: Response: No adverse reaction; Pain is decreased bp Intake: 18:42 IV: 1000ml; Total: 1000ml. bp Outcome: 18:19 Decision to Hospitalize by Provider. cp 21:47 Admitted to Tele accompanied by tech, via stretcher, room 430, with chart, Report rr5 called to caprice 21:47 Condition: stable 21:47 Instructed on the need for admit. 22:53 Patient left the ED. mw2 Signatures: Dispatcher [employer] EDDC Juan Willsi PA PA cp Cheyenne Jose am2 Todd Davis RN RN bp Tae Goodwin mw2 Roberto Garrison, EKATERINA TOBAR rr5 Emmie Taylor RN RN kg Corrections: (The following items were deleted from the chart) 22:50 21:49 BP 134 / 81; Pulse 99bpm; Resp 17bpm; Pulse Ox 100%; Temp 98F; rr5 rr5
--- NOTE | 2021-03-22 18:19 | EDPHYS ---
Physician Documentation [facility] Name: Ema Turner Age: 50 yrs Sex: Female : 1970 Arrival Date: 03/22/2021 Time: 16:08 Bed 19 Private MD: ED Physician Juan Warner HPI: 03/22 16:35 This 50 yrs old Female presents to ER via Ambulatory with complaints of Arm cp Pain, Numbness Of Face. 16:35 The patient or guardian reports chest pain that is located primarily in the anterior cp chest wall, left. 16:35 Onset: today, at 14:00. cp 16:35 The pain radiates to the left arm, the left shoulder, left jaw. Associated signs and cp symptoms: Pertinent positives: numbness of left hand and left jaw, Pertinent negatives: abdominal pain, diaphoresis, headache, lower extremity pain, lower extremity swelling, shortness of breath, syncope, vomiting. The chest pain is described as sharp. Duration: The patient or guardian reports a single episode, that is still ongoing, and unchanged. 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 - Social history:: Smoking status: Patient denies any tobacco usage or history of. ROS: 16:40 Cardiovascular: Positive for chest pain, of the left side of chest, Negative for edema, cp palpitations. 16:40 Eyes: Negative for injury, pain, redness, and discharge. cp 16:40 Constitutional: Negative for body aches, chills, fever, poor PO intake. 16:40 Neck: Negative for pain with movement, pain at rest, stiffness. 16:40 Respiratory: Negative for cough, shortness of breath, wheezing. 16:40 Abdomen/GI: Negative for abdominal pain, nausea, vomiting, and diarrhea. 16:40 MS/extremity: Positive for pain, tingling, of the left hand and left arm, Negative for injury or acute deformity, decreased range of motion. 16:40 Neuro: Negative for altered mental status, headache, weakness. 16:40 All other systems are negative. Exam: 16:44 Constitutional: The patient appears in no acute distress, alert, awake, cp non-diaphoretic, non-toxic, well developed, well nourished, obese. 16:44 Head/Face: Normocephalic, atraumatic. cp 16:44 Eyes: Periorbital structures: appear normal, Conjunctiva: normal, no exudate, no injection, Sclera: no appreciated abnormality, Lids and lashes: appear normal, bilaterally. 16:44 ENT: External ear(s): are unremarkable, Nose: is normal, Mouth: Lips: moist, Oral mucosa: moist, Posterior pharynx: Airway: no evidence of obstruction, patent. 16:44 Neck: ROM/movement: is normal, is supple, without pain, no range of motions limitations. 16:44 Chest/axilla: Inspection: normal. 16:44 Cardiovascular: Rate: normal, Rhythm: regular, Edema: is not appreciated, JVD: is not appreciated. 16:44 Respiratory: the patient does not display signs of respiratory distress, Respirations: normal, no use of accessory muscles, no retractions, labored breathing, is not present, Breath sounds: are clear throughout, no decreased breath sounds, no stridor, no wheezing. 16:44 Abdomen/GI: Exam negative for discomfort, distension, guarding, Inspection: abdomen appears normal. 16:44 Back: pain, is absent, ROM is normal. 16:44 Musculoskeletal/extremity: Exam is negative for decreased range of motion, deformity, injury, Extremities: grossly normal except: noted in the left arm: pain. 16:44 Skin: cellulitis, is not appreciated, no rash present. 16:44 Neuro: Orientation: to person, place \\T\\ time. Mentation: is normal, Motor: moves all fours, strength is normal, Sensation: tingling, that is mild, of the left hand and left arm. 16:47 ECG was reviewed by the Attending Physician. Vital Signs: 16:15 BP 150 / 92; Pulse 85; Resp 20; Temp 97.7(TE); Pulse Ox 99% on R/A; Weight 87 kg (M); kg Height 5 ft. 1 in. (154.94 cm); Pain 9/10; 17:33 BP 105 / 57; Pulse 79; Resp 23; Pulse Ox 99% ; bp 19:30 BP 110 / 50; Pulse 70; Resp 19; Temp 98; Pulse Ox 99% ; rr5 20:35 BP 126 / 89; Pulse 85; Resp 17; Pulse Ox 98% ; rr5 21:49 BP 134 / 81; Pulse 59; Resp 17; Temp 98; Pulse Ox 100% ; rr5 22:50 BP 121 / 70; Pulse 60; Resp 19; Pulse Ox 98% ; rr5 16:15 Body Mass Index 36.24 (87.00 kg, 154.94 cm) kg MDM: 16:33 Patient medically screened. cp 18:20 The patient was given aspirin in the Emergency Department. cp 18:20 Data reviewed: vital signs, nurses notes, lab test result(s), EKG, radiologic studies, cp plain films, and as a result, I will admit patient. Test interpretation: by ED physician or midlevel provider: ECG, plain radiologic studies. 18:20 Physician consultation: Micheal MCGILL was contacted at 18:15, regarding admission, cp to the telemetry unit. patient's condition. 03/22 16:32 Order name: Basic Metabolic Panel; Complete Time: 17:44 cp 03/22 16:32 Order name: CBC with Diff; Complete Time: 17:44 cp 03/22 16:32 Order name: LFT's; Complete Time: 17:44 cp 03/22 16:32 Order name: Magnesium; Complete Time: 17:44 cp 03/22 16:32 Order name: NT PRO-BNP; Complete Time: 17:44 cp 03/22 16:32 Order name: PT-INR; Complete Time: 17:44 cp 03/22 16:32 Order name: Troponin (emerg Dept Use Only); Complete Time: 17:44 cp 03/22 17:45 Interpretation: Within normal limits: TROPED < 0.02. 03/22 16:32 Order name: XRAY Chest (1 view); Complete Time: 17:44 03/22 17:18 Order name: Urine Dipstick-Ancillary; Complete Time: 17:44 EDMN 03/22 18:05 Order name: CT Head Brain wo Cont; Complete Time: 20:07 03/22 20:07 Interpretation: Report reviewed. 03/22 19:33 Order name: COVID-19 : Document "Date of Symptom Onset" if Symptomatic. rr5 03/22 21:11 Order name: CORONAVIRUS [facility] 03/22 22:14 Order name: SARS-COV-2 RT PCR [facility] 03/22 16:32 Order name: EKG; Complete Time: 16:33 03/22 16:32 Order name: Cardiac monitoring; Complete Time: 17:07 03/22 16:32 Order name: EKG - Nurse/Tech; Complete Time: 17:07 03/22 16:32 Order name: IV Saline Lock; Complete Time: 17:06 03/22 16:32 Order name: Labs collected and sent; Complete Time: 17:06 03/22 16:32 Order name: O2 Per Protocol; Complete Time: 16:34 03/22 16:32 Order name: O2 Sat Monitoring; Complete Time: 16:34 03/22 16:32 Order name: Urine Dipstick-Ancillary (obtain specimen); Complete Time: 17:29 03/22 16:32 Order name: Urine Test (obtain specimen); Complete Time: 17:29 cp EC:47 Rate is 74 beats/min. Rhythm is regular. CA interval is normal. QRS interval is normal. cp QT interval is normal. T waves are Inverted in lead aVR. Interpreted by me. Reviewed by me. Administered Medications: 17:00 Drug: Aspirin Chewable Tablet 324 mg Route: PO; bp 18:42 Follow up: Response: No adverse reaction bp 17:00 Drug: Nitroglycerin 0.4 mg Route: Sublingual; bp 18:42 Follow up: Response: Pain is decreased; Blood pressure is lowered bp 17:00 Drug: NS 0.9% 1000 ml Route: IV; Rate: 1 bolus; Site: right forearm; bp 18:42 Follow up: IV Status: Completed infusion; IV Intake: 1000ml bp 18:30 Drug: fentaNYL (PF) 25 mcg Route: IVP; Site: right forearm; bp 18:42 Follow up: Response: No adverse reaction; Pain is decreased bp Disposition: 03/23 21:14 Co-signature as Attending Physician, Juan Warner MD I agree with the assessment and [facility] plan of care. Disposition: 03/22/21 18:19 Hospitalization ordered by Micheal Brennan for Observation. Preliminary diagnosis is Chest pain, unspecified. - Bed requested for Telemetry/MedSurg (observation). - Status is Observation. mw2 - Condition is Stable. - Problem is new. - Symptoms have improved. Signatures: Dispatcher [employer] EDMN Juan Warner MD MD cha Page, Corey, PA PA cp Todd Davis, RN RN bp Tae Goodwin mw2 Emmie Taylor RN RN kg Corrections: (The following items were deleted from the chart) 03/22 20:11 18:19 Hospitalization Ordered by Micheal Brennan SENIOR RESERVOIR ENGINEER-C for Observation. Preliminary mw2 diagnosis is Chest pain, unspecified. Bed requested for Telemetry/MedSurg (observation). Status is Observation. Condition is Stable. Problem is new. Symptoms have improved. cp 22:53 20:11 03/22/2021 18:19 Hospitalization Ordered by Micheal Brennan SENIOR RESERVOIR ENGINEER-C for Observation. mw2 Preliminary diagnosis is Chest pain, unspecified. Bed requested for Telemetry/MedSurg (observation). Status is Observation. Condition is Stable. Problem is new. Symptoms have improved. mw2
--- NOTE | 2021-03-22 18:53 | RAD REPORT ---
EXAM DESCRIPTION: CT - Head Brain Wo Cont - 03/22/2021 6:22 pm CLINICAL HISTORY: tingling left arm;Pain Headache, drowsiness COMPARISON: No comparisons TECHNIQUE: All CT scans are performed using dose optimization technique as appropriate and may inclu de automated exposure control or mA/KV adjustment according to patient size. FINDINGS: No intracranial hemorrhage, hydrocephalus or extra-axial fluid collection.No areas of brai n edema or evidence of midline shift. The paranasal sinuses and mastoids are clear. The calvarium is intact. IMPRESSION: No acute intracranial abnormality.
[2021-03-22] MEDS ORDERED: FENTANYL CITR 100 MCG/2 ML ONE (18:57)
--- NOTE | 2021-03-22 19:25 | P.HP ---
Certification for Inpatient Patient admitted to: Observation With expected LOS: <2 Midnights Patient will require the following post-hospital care: None Practitioner: I am a practitioner with admitting privileges, knowledge of patient current condition, hospital course, and medical plan of care. Services: Services provided to patient in accordance with Admission requirements found in Title 42 Section 412.3 of the Code of Federal Regulations Patient History Date of Service: 03/22/21 Primary Care Provider: Dr. Martin Reason for admission: Chest pain History of Present Illness: 50-year-old female with history of hypertension hyperlipidemia, anxiety, arthritis, diverticulitis presents emergency department for chest pain. Patient reports the pain began around 1400 today radiating to left jaw, left shoulder, down left arm pain is described as pressure-like/sharp/tingling associated with some lightheadedness. Patient evaluated in the emergency department, labs remarkable nurse troponin negative EKG unremarkable chest x-ray unremarkable. ED provider wishes to admit for chest pain rule out. Allergies No Known Allergies Allergy (Unverified 04/21/12 00:42) Home Medications: Duloxetine [Cymbalta *] 20 mg PO BEDTIME 05/09/18 Aspirin [Aspirin EC 81 MG] 81 mg PO DAILY #30 tablet. 05/10/18 Metoprolol Tartrate [Lopressor*] 50 mg PO BID #60 tab 05/10/18 Pantoprazole [Protonix Tab*] 40 mg PO DAILY #30 tab 05/10/18 - Past Medical/Surgical History Diabetic: No -: HTN -: Anxiety -: Former tobacco use -: Hyperlipidemia -: Diverticulitis -: Hysterectomy -: Eye surgery Psychosocial/ Personal History: She is . SHe has 2 children. She works in the local [employer]. - Family History Sister -: Heart disease, Hypertension Father -: Heart disease Mother -: Heart disease, Other (see notes) Notes: aneurysm abdominal - Social History Smoking Status: Former smoker Alcohol use: Yes CD- Drugs: No Caffeine use: Yes Place of Residence: Home Review of Systems 10-point ROS is otherwise unremarkable Cardiovascular: Chest Pain, Light Headedness, As per HPI Physical Examination - Physical Exam General: Alert, In no apparent distress, Oriented x3 HEENT: Atraumatic, PERRLA, Mucous membr. moist/pink Neck: Supple, 2+ carotid pulse no bruit, No LAD Respiratory: Clear to auscultation bilaterally, Normal air movement Cardiovascular: Regular rate/rhythm, Normal S1 S2 Gastrointestinal: Normal bowel sounds, No tenderness Musculoskeletal: No tenderness Integumentary: No rashes Neurological: Normal speech, Normal strength at 5/5 x4 extr, Normal tone, Normal affect - Studies Laboratory Data (last 24 hrs) 03/22/21 17:00: PT 11.2, INR 0.97 03/22/21 17:00: WBC 6.90, Hgb 13.9, Hct 42.2, Plt Count 267 03/22/21 17:00: Sodium 140, Potassium 3.7, BUN 15, Creatinine 0.72, Glucose 96, Magnesium 2.1, Total Bilirubin 0.4, AST 17, ALT 31, Alkaline Phosphatase 100 Assessment and Plan - Plan Assessment Chest pain rule out ACS Hypertension Hyperlipidemia Plan: Chest pain rule out ACS: Monitor on telemetry, trend troponins, aspirin, statin, beta-constantine therapy. Cardiology consult in place. DVT prophylaxis Lovenox 40 mg subcutaneous once daily. Hypertension: Continue medications, adjust as necessary Hyperlipidemia: Initiate statin therapy, lipid panel with morning labs Discharge Plan: Home Plan to discharge in: 24 Hours - Advance Directives Does patient have a Living Will: No Does patient have a Durable POA for Healthcare: No - Code Status/Comfort Care Code Status Assessed: Yes (Full code) Critical Care: No Time Spent Managing Pts Care (In Minutes): 55
[2021-03-22] MEDS ORDERED: MORPHINE 2 MG/ML SYR IV PRN (22:59)
[2021-03-22] MEDS ORDERED: ONDANSETRON 4 MG/2 ML VIAL IV PRN (22:59)
[2021-03-22] MEDS ORDERED: ATORVASTATIN 40 MG TAB PO SCH (22:59)
[2021-03-22 23:16] VITALS: O2SAT 98
[2021-03-23 02:47] VITALS: BMI 36.2
[2021-03-23] MEDS ORDERED: METOPROLOL TAR 25 MG TAB PO SCH (06:00)
--- NOTE | 2021-03-23 06:21 | P.DS ---
Admission Date: 03/22/21 Discharge Date: 03/23/21 Primary Care Provider: Dr. Martin Disposition: ROUTINE DISCHARGE Discharge Condition: GOOD Reason for Admission: Chest pain Consultations: Cardiology: Dr. Garcia Procedures: Medical problem list: Chest pain Hypertension Hyperlipidemia Brief History of Present Illness: 50-year-old female with history of hypertension, GERD, hyperlipidemia, anxiety, arthritis, and diverticulitis presents emergency department for chest pain. Patient reports the pain began around 1400 today radiating to left jaw, left shoulder, down left arm pain is described as pressure-like/sharp/tingling associated with some lightheadedness. Patient evaluated in the emergency depa rtment, labs remarkable nurse troponin negative EKG unremarkable chest x-ray unremarkable. Patient was admitted for further evaluation and observation. Hospital Course: Patient presented with chest pain. Patient with history of hypertension, hyperlipidemia and GERD. Patient was monitored overnight. No significant EKG changes noted. Cardiac enzymes unremarkable. Patient was seen and evaluated by cardiology. No inpatient cardiac intervention was required. Blood pressure remained stable. At discharge she will continue with aspirin 81 mg daily and metoprolol 50 mg 1 pill twice daily. Patient will follow up with cardiology in 1 to 2 weeks to follow-up hospitalization. Patient will have outpatient cardiac stress test and echocardiogram to further evaluate. Recommend follow-up with PCP in 1 week to follow-up his hospitalization. Patient with hypertension. This is remained stable. At discharge she will continue with metoprolol 50 mg 1 pill twice daily. Recommend to maintain blood pressure less than 150/80. Further adjustment can be done by her PCP. Patient with history of hyperlipidemia. LDL 117. Patient has maintained this with diet. Recommend to continue with dietary changes. Recommend to recheck fasting lipid panel in 4 to 6 weeks. If still elevated recommend initiation of medication. This can be done with the help of her PCP. Patient with GERD. At discharge she will continue with Protonix 40 mg daily. Patient with anxiety. At discharge she will continue with Cymbalta 20 mg at bedtime. Vital Signs/Physical Exam: Temp Pulse Resp BP Pulse Ox 97.8 F 57 16 121/58 L 96 03/23/21 04:00 03/23/21 05:55 03/23/21 04:00 03/23/21 05:55 03/23/21 04:00 General: Alert, In no apparent distress, Oriented x3, Cooperative HEENT: Atraumatic Neck: Supple Respiratory: Clear to auscultation bilaterally, Normal air movement Cardiovascular: Normal pulses, Regular rate/rhythm Gastrointestinal: Normal bowel sounds, No tenderness, No masses, No rebound, No guarding Musculoskeletal: No erythema, No tenderness, No warmth Integumentary: No tenderness/swelling Neurological: Normal speech, Normal strength at 5/5 x4 extr, Normal tone, Normal affect Laboratory Data at Discharge: WBC 6.90 K/uL (4.3-10.9) 03/22/21 17:00 Hgb 13.9 g/dL (12.0-15.0) 03/22/21 17:00 Hct 42.2 % (36.0-45.0) 03/22/21 17:00 Plt Count 267 K/uL (152-406) 03/22/21 17:00 PT 11.2 SECONDS (9.5-12.5) 03/22/21 17:00 INR 0.97 03/22/21 17:00 Sodium 140 mmol/L (136-145) 03/22/21 17:00 Potassium 3.7 mmol/L (3.5-5.1) 03/22/21 17:00 BUN 15 mg/dL (7-18) 03/22/21 17:00 Creatinine 0.72 mg/dL (0.55-1.3) 03/22/21 17:00 Glucose 96 mg/dL (74-106) 03/22/21 17:00 Magnesium 2.1 mg/dL (1.8-2.4) 03/22/21 17:00 Total Bilirubin 0.4 mg/dL (0.2-1.0) 03/22/21 17:00 AST 17 U/L (15-37) 03/22/21 17:00 ALT 31 U/L (12-78) 03/22/21 17:00 Alkaline Phosphatase 100 U/L (45-117) 03/22/21 17:00 Troponin I < 0.02 ng/mL (0.0-0.045) 03/22/21 23:28 Home Medications: Duloxetine [Cymbalta *] 20 mg PO BEDTIME 05/09/18 Aspirin [Aspirin EC 81 MG] 81 mg PO DAILY #30 tablet.dr 05/10/18 Metoprolol Tartrate [Lopressor*] 50 mg PO BID #60 tab 05/10/18 Pantoprazole [Protonix Tab*] 40 mg PO DAILY #30 tab 05/10/18 Physician Discharge Instructions: Patient presented with chest pain. Patient with history of hypertension, hyperlipidemia and GERD. Patient was monitored overnight. No significant EKG changes noted. Cardiac enzymes unremarkable. Patient was seen and evaluated by cardiology. No inpatient cardiac intervention was required. Blood pressure remained stable. At discharge she will continue with aspirin 81 mg daily and metoprolol 50 mg 1 pill twice daily. Patient will follow up with cardiology in 1 to 2 weeks to follow-up hospitalization. Patient will have outpatient cardiac stress test and echocardiogram to further evaluate. Recommend follow-up with PCP in 1 week to follow-up his hospitalization. Patient with hypertension. This is remained stable. At discharge she will continue with metoprolol 50 mg 1 pill twice daily. Recommend to maintain blood pressure less than 150/80. Further adjustment can be done by her PCP. Patient with history of hyperlipidemia. LDL 117. Patient has maintained this with diet and weight loss. Recommend to continue with dietary changes. Recommend to recheck fasting lipid panel in 4 to 6 weeks. If still elevated recommend initiation of medication. This can be done with the help of her PCP. Patient with GERD. At discharge she will continue with Protonix 40 mg daily. Patient with anxiety. At discharge she will continue with Cymbalta 20 mg at bedtime. Diet: AHA Activity: Ad tommie Followup: Porter Pizarro PA [Primary Care Provider] - Time spent managing pt's care (in minutes): 55
--- NOTE | 2021-03-23 06:58 | EKG ---
Test Date: 2021-03-22 Test Time: 16:40:46 Wrapping Machine Tender: STEFANIA MEASUREMENT RESULTS: Intervals: Rate: 74 MD: 138 QRSD: 88 QT: 392 QTc: 435 [place]: P: 57 MD: 138 QRS: 63 T: 48 INTERPRETIVE STATEMENTS: Normal sinus rhythm Normal ECG Compared to ECG 05/09/2018 20:46:29 No significant changes Electronically Signed On 03-23-21 06:56:22 CDT by Alphonse Garcia
[2021-03-23 07:06] LABS: Absolute Lymphocytes (CBC) 2.2 K/uL (0.7-4.9); Basophils % 0.4 % (0-1.3); Hematocrit 38.8 % (36.0-45.0); Lymphocytes % 41.7 % (15.3-44.8); MPV 8.1 fL (7.6-11.3)
[2021-03-23 07:32] LABS: ALT/SGPT 26 U/L (12-78); AST/SGOT 13 U/L (15-37); Albumin 3.3 g/dL (3.4-5.0); Alkaline Phosphatase 90 U/L (45-117); BUN Blood Urea Nitrogen 12 mg/dL (7-18); Bicarbonate 25 mmol/L (21-32); Bilirubin Total 0.5 mg/dL (0.2-1.0); Glucose Level 101 mg/dL (74-106); HDL Cholesterol 37 mg/dL (40-60); LDL Cholesterol, Calculated 117 (<130); Potassium 3.7 mmol/L (3.5-5.1); Protein, Total 6.8 g/dL (6.4-8.2); Sodium Level 141 mmol/L (136-145); Troponin I < 0.02 ng/mL (0.0-0.045)
[2021-03-23] MEDS ORDERED: ENOXAPARIN 40 MG/0.4 ML SQ SCH (09:00)
[2021-03-23] MEDS ORDERED: ASPIRIN EC 81 MG TAB PO SCH (09:00)
[2021-03-23 09:30] VITALS: BP 130/68; TEMP 97.2
--- NOTE | 2021-03-25 11:13 | CON ---
Date of Consultation: 03/22/2021 Reason For Consultation: Chest pain. History Of Present Illness: Johnny is a 50-year-old woman who has a history of hypertension, depre ssion, gastroesophageal reflux disease and fibromyalgia. Came in with chest pain, arm pain, numbness of the face, nonexertional. No nausea, vomiting, diaphoresis, PND, orthopnea, pedal edema, palpitat ions, or syncope. She has already ruled out for [place]. Allergies: NONE. Review of Systems: Negative. Social History: Negative. Family History: Noncontributory. Medications: At home include aspirin, Cymbalta, Lopressor, and Protonix. Physical Examination: Vital Signs: Stable. She was afebrile. HEENT: Negative. Neck: Supple without any bruit, lymphadenopathy, JVD, or thyromegaly. Chest: Clear to auscultation and percussion. Cardiac: Revealed a regular rhythm and rate. No murmurs, gallops, or rubs. Abdomen: Benign. Extremities: Revealed no clubbing, cyanosis, or edema. Diagnostic Data: All normal EKG, normal troponin, normal chest x-ray, normal CT of her head. Impression And Plan: My impression is that she has atypical chest pain, could certainly be related t o cervical spondylosis considering her face numbness and her arm numbness. She does have hypertensio n. She is over 48 and I think she deserves to have an echocardiogram and an MPI as an outpatient. S he can go home whenever it is okay with Dr. Pruitt and I will make an arrangement for her for outpati ent workup. MARIELLA/ALICIA Voice ID: [id number] Report ID: [id number]
== END 2021-03-23 10:20 | disposition home or self-care (01) ==
LOC: ER 16:06 → ERHOLD 19:29 → 4TH 22:45
PROVIDERS: ADMIT Family Medicine; ATTEND Family Medicine
DX: R07.89 Other chest pain (principal); I10 Essential (primary) hypertension; E78.5 Hyperlipidemia, unspecified; F41.9 Anxiety disorder, unspecified; K21.9 Gastro-esophageal reflux disease without esophagitis; M19.90 Unspecified osteoarthritis, unspecified site; M79.7 Fibromyalgia; K57.92 Diverticulitis of intestine, part unspecified, without perforation or abscess without bleeding; F32.9 Major depressive disorder, single episode, unspecified; Z20.822 Contact with and (suspected) exposure to COVID-19; Z79.82 Long term (current) use of aspirin; Z87.891 Personal history of nicotine dependence; Z90.710 Acquired absence of both cervix and uterus; Z82.49 Family history of ischemic heart disease and other diseases of the circulatory system
CPT/HCPCS: 96361; 93005; 85025 ×2; 80048; 36415; 83735; 85610; 80061; 80076; 84443; 81003; 84484 ×3; 84439; 80053; 83880; 70450; 71045; 96374; 99285; U0003; J1650; J3010; J7030; G0378 ×2

== ENCOUNTER 2022-06-25 15:08 | Emergency (ER) | payer SELFPAY ==
--- OUTSIDE RECORDS SUMMARY | 2022-06-25 15:12 | XMS REPORT | Continuity of Care Document ---
:1970 Author Organization [facility] t Address [address] [place] [address] Care Team Providers Name Role Phone LANDON OCONNOR Attending Clinician Unavailable Radiology Attending Clinician Unavailable RADIOLOGY Attending Clinician Unavailable Doctor Unassigned, [place] Attending Clinician Unavailable Payers Payer Name Policy Type Policy Number Effective Date Expiration Date S [facility] - [id number] 2020 00:00:00 OUT OF STATE Problems Condition Condition Condition Status Onset Resolution Last Treating Co mments Source Name Details Category Date Date Treatment Clinician Date History of History of Disease Active U nivers hysterecto hysterecto 2-13 it y of my my 00:00: Medical Branch BMI BMI Disease Active 2019- Univers 37.0-37.9, 37.0-37.9, 2-13 it y of adult adult 00:00: Medical Branch Slow Slow Disease Active Univers transit transit 2-13 ity of constipati [place] 00:[place] Pelvic Pelvic Disease Active 2019-0 Univers pain in pain in 2-13 ity of female female 00:00: [place] [facility] History of History of Disease Active U nivers tubal tubal 4-15 ity of ligation ligation 00:00: Medical Branch Essential Essential Disease Active Overview: Univers hypertensi hypertensi 2-27 ICD10 it y of on on 00:00: 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 Allergies, Adverse Reactions, Alerts Allergy Allergy Status Severity Reaction(s) Onset Inactive Treating Comm ents Source Name Type Date Date Clinician NO KNOWN Drug Active Univers ALLERGIE Class ity of S [facility] Social History Social Habit Start Date Stop Date Quantity Comments Source Sex Assigned At Universit y of [facility] Exposure to Not sure [facility] SARS-CoV-2 (event) [facility] Cigarettes smoked 2018-11-10 2018-11-10 Univers ity of current (pack per 00:00:00 00:00:00 [place] ) - Reported Branch Cigarette 2018-11-10 2018-11-10 University of pack-years 00:00:00 00:00:00 [facility] Alcohol intake 2018-11-10 2018-11-10 Current University of 00:00:00 00:00:00 non-drinker of [facility] alcohol [place] (finding) Tobacco use and 2018-11-10 2018-11-10 Never used Universit y of exposure 00:00:00 00:00:00 [facility] History of tobacco 2000-05-18 2002-09-28 Smoker Univer sity of use 00:00:00 00:00:00 [facility] Smoking Status Start Date Stop Date Source Former smoker 2018-11-10 00:00:00 2018-11-10 00:00:00 Universi ty [facility] Medications Ordered Filled Start Stop Current Ordering Indication Dosage Frequency Signature Comments Components Source Medication Medication Date Date Medication? Clinician (SIG) Name Name metoprolol 2015 Yes 25mg Take 1 Tab U nivers tartrate 7-03 by mouth 2 ity o f (LOPRESSOR) 00:00: (two) [place] 25 mg 00 times Medical tablet daily. Branch metoprolol 2014-0 Yes 25mg Take 1 Tab U nivers tartrate 7-03 by mouth 2 ity o f (LOPRESSOR) 00:00: (two) [place] 25 mg 00 times Medical tablet daily. Branch metoprolol 2014-0 Yes 25mg Take 1 Tab U nivers tartrate 7-03 by mouth 2 ity o f (LOPRESSOR) 00:00: (two) [place] 25 mg 00 times Medical tablet daily. Branch metoprolol 2015-0 Yes 25mg Take 1 Tab U nivers tartrate 7-03 by mouth 2 ity o f (LOPRESSOR) 00:00: (two) [place] 25 mg 00 times Medical tablet daily. Branch Immunizations Ordered Filled Immunization Date Status Comments [facility] e Immunization Name Name TDAP (ADACEL) 2015-11-27 Completed University of VACCINE 00:00:00 [facility] Branch TDAP (ADACEL) 2015-11-27 Completed University of VACCINE 00:00:00 [facility] Branch TDAP (ADACEL) 2015-11-27 Completed University of VACCINE 00:00:00 [facility] Branch TDAP (ADACEL) 2015-11-27 Completed University of VACCINE 00:00:00 [place] [facility] Td 2006-09-28 Completed University of 00:00:00 [place] [facility] Td 2006-09-28 Completed University of 00:00:00 [place] [facility] Td 2006-09-28 Completed University of 00:00:00 [place] [facility] Td 2006-09-28 Completed University of 00:00:00 [facility] Procedures Procedure Date / Time Performing Clinician Source Performed BI ULTRASOUND BREAST 2020-08-16 18:36:53 Requisition, Paper [facility] COMPLETE LEFT Medical Branch BI DIAGNOSTIC 2020-08-16 18:05:19 Requisition, Paper [facility] TOMOSYNTHESIS LEFT Medical [facility] h BI SCREENING MAMMOGRAM 2020-04-24 20:11:00 Requisition, Paper [facility] BILATERAL Medical Branch ASSIGNMENT OF BENEFITS 2020-04-24 19:40:32 Doctor Unassigned, No [facility] Name Medical Branch Encounters Start End Encounter Admission Attending Care Care Encounter Source Date/Time Date/Time Type Type Clinicians Facility Department ID 2020-12-25 2020-12-[address] [facility] [id number] Univers 10:10:00 10:10:00 LANDON [facility] 2020-12-04 2020-12-[address] [facility] [id number] Univers 10:10:00 10:10:00 LANDON [facility] 2020-08-16 2020-08-16 [facility] Radiology [facility] [id number] 11:35:20 23:59:00 Encounter SPECIALTY [id number] CARE [id number] CENTER AT [id number] ZOILA [address] [place] [address] 2020-08-16 2020-08-16 [facility] Radiology [facility] [id number] Univers 11:35:20 23:59:00 Encounter SPECIALTY [id number] ity of CARE [id number] [facility] C[facility] AT [id number] Sd kyler CUMMINGS [address] [place] [address] 2020-08-16 2020-08-[address] [facility] [id number] Univers 12:00:00 12:00:00 [id number] ity of [facility] 2020-08-16 2020-08-16 [facility] [place]iology [place] [id number] 11:32:50 11:34:00 Encounter SPECIALTY [id number] CARE [id number] CENTER AT [id number] ZOILA [address] [place] [address] 2020-08-16 2020-08-16 [facility] Radiology [place] [id number] Univers 11:32:50 11:34:00 Encounter SPECIALTY [id number] ity of CARE [id number] [facility] s CENTER AT [id number] Sd kyler CUMMINGS [address] [place] [address] 2020-08-16 2020-08-[address] [facility] [id number] Univers 00:00:00 00:00:00 ity of [facility] 2020-07-19 2020-07-[address] [facility] [id number] Univers 10:00:00 10:00:00 [id number] ity of [facility] 2020-06-19 2020-06-[address] [facility] [id number] Univers 00:00:00 00:00:00 [id number] ity of [facility] 2020-06-19 2020-06-[address] [facility] [id number] Univers 00:00:00 00:00:00 ity of [facility] 2020-05-24 2020-05-[address] [facility] [id number] Univers 08:30:00 08:30:00 [id number] ity of [facility] 2020-05-24 2020-05-[address] [facility] [id number] Univers 00:00:00 00:00:00 ity of [facility] 2020-04-24 2020-04-24 [facility] Radiology [place] [id number] 14:40:00 23:59:00 Encounter [place] [id number] [place] [id number] [place] [id number] 2020-04-24 2020-04-24 Hospital Radiology [facility] [id number] Univers 14:40:00 23:59:00 Encounter [place] [id number] ity of [place] [id number] [facility] [place] [id number] [facility] 800 Branch 2020-04-24 2020-04-[address] [facility] [id number] Univers 15:00:00 15:00:00 [id number] ity of [facility] 2020-04-24 2020-04-[address] [facility] [id number] Univers 00:00:00 00:00:00 ity of [facility] 2020-04-24 2020-04-24 Orders Doctor RADHA [id number] Univers 00:00:00 00:00:00 Only Unassigned, ANYA [id number] ity of [place] [facility] [id number] [place] [id number] [facility] 009 Branch 2020-04-24 2020-04-24 Orders Doctor RADHA [id number] 00:00:00 00:00:00 Only Unassigned, ANYA [id number] [place] [facility] [id number] Results Test Description Test Time Test Comments Results Result [facility] e Comments BI ULTRASOUND 2020-07-29 Examination:BI Univers ity of BREAST COMPLETE 9 DIAGNOSTIC [facility] ical LEFT 19:46:03 TOMOSYNTHESIS Branch LEFTBI ULTRASOUND BREAST COMPLETE LEFT History:Patient is 49 year old and is seen for: ?Subtle signs of possible lesion in central retro areloar left breast, not consistently seen in all views. further evaluation by ultrasound and, if necessary, with spot compression tomosynthesis requested.. Computer-aided detection (CAD) utilized. Comparisons: 04/24/2020 BI SCREENING MAMMOGRAM BILATERAL, 12/06/2012 DIGITAL MAMMOGRAM, SCREENING, and 05/27/2010 DIGITAL MAMMOGRAM, SCREENING Exam dated 04/24/20 with the following findings: Impression:Subtle signs of possible lesion in central retro areloar LEFT breast, not consistently seen in all views. Further evaluation by ultrasound and, if necessary, with spot compression tomosynthesis requested. CURRENT EXAM: Findings:BI DIAGNOSTIC TOMOSYNTHESIS LEFTThe left breast is almost entirely fatty. There is no evidence of suspicious masses, calcifications, or other abnormal findings in the left breast. The mammographic asymmetry noted at recent screening mammography in the central retroareolar region of the left breast did not persist with additional imaging and this is most consistent with superimposition of normal breast tissue. BI ULTRASOUND BREAST COMPLETE LEFTSurvey ultrasound of the left breast and axilla was performed. There is no evidence of suspicious masses or other abnormal findings in the left breast. Specifically, normal-appearing breast tissue is identified in the subareolar region of the left breast. Normal-appearing left axillary lymph nodes are identified. Impression: Left: There is no evidence of malignancy. The patient is due for annual bilateral mammogram in March 2021. Recommendation:Leandra cantrell mammographic follow-up - Left BI-RADS Category: Left 1 - Negative BI DIAGNOSTIC 2020-07-29 Examination:BI Univers ity of TOMOSYNTHESIS LEFT 9 DIAGNOSTIC [facility] 19:46:02 TOMOSYNTHESIS Branch LEFTBI ULTRASOUND BREAST COMPLETE LEFT History:Patient is 49 year old and is seen for: ?Subtle signs of possible lesion in central retro areloar left breast, not consistently seen in all views. further evaluation by ultrasound and, if necessary, with spot compression tomosynthesis requested.. Computer-aided detection (CAD) utilized. Comparisons: 04/24/2020 BI SCREENING MAMMOGRAM BILATERAL, 12/06/2012 DIGITAL MAMMOGRAM, SCREENING, and 05/27/2010 DIGITAL MAMMOGRAM, SCREENING Exam dated 04/24/20 with the following findings: Impression:Subtle signs of possible lesion in central retro areloar LEFT breast, not consistently seen in all views. Further evaluation by ultrasound and, if necessary, with spot compression tomosynthesis requested. CURRENT EXAM: Findings:BI DIAGNOSTIC TOMOSYNTHESIS LEFTThe left breast is almost entirely fatty. There is no evidence of suspicious masses, calcifications, or other abnormal findings in the left breast. The mammographic asymmetry noted at recent screening mammography in the central retroareolar region of the left breast did not persist with additional imaging and this is most consistent with superimposition of normal breast tissue. BI ULTRASOUND BREAST COMPLETE LEFTSurvey ultrasound of the left breast and axilla was performed. There is no evidence of suspicious masses or other abnormal findings in the left breast. Specifically, normal-appearing breast tissue is identified in the subareolar region of the left breast. Normal-appearing left axillary lymph nodes are identified. Impression: Left: There is no evidence of malignancy. The patient is due for annual bilateral mammogram in March 2021. Recommendation:Leandra cantrell mammographic follow-up - Left BI-RADS Category: Left 1 - Negative BI SCREENING 2020-03-29 Examination:BI Universi ty of MAMMOGRAM 8 SCREENING MAMMOGRAM [facility] 21:24:53 BILATERAL Branch History:Patient is 49 year old and is seen for: ?Visit for screening mammogram. Computer-aided detection (CAD) utilized. Comparisons: 12/06/2012 DIGITAL MAMMOGRAM, SCREENING and 05/27/2010 DIGITAL MAMMOGRAM, SCREENING Findings:The breasts are almost entirely fatty. LeftThere is an 8 mm equal density, round mass with microlobulated margins seen in the retroareolar region of the left breast in the anterior depth, 3 cm from the nipple on the XCCL view. RightThere is no evidence of suspicious masses, calcifications, or other abnormal findings in the right breast. Impression:Subtle signs of possible lesion in central retro areloar LEFT breast, not consistently seen in all views. Further evaluation by ultrasound and, if necessary, with spot compression tomosynthesis requested. Recommendation:Leandra cantrell mammographic follow-up - RightUltrasound with possible tomosynthesis spot compression - Left BI-RADS Category: Left: 0 - Incomplete: Needs Additional Imaging EvaluationRight: 1 - NegativeOverall: 0 - Incomplete: Needs Additional Imaging Evaluation
[2022-06-25 15:36] LABS: Urine Blood Trace-intact (Negative); Urine Glucose Negative (Negative); Urine Protein Negative (Negative); Urine Specific Gravity 1.025 (1.005-1.030)
[2022-06-25] MEDS ORDERED: ONDANSETRON 4 MG/2 ML VIAL ONE ×2 (15:39→15:42)
[2022-06-25] MEDS ORDERED: NA CHLORIDE 0.9% 1,000 ML ONE (15:42)
[2022-06-25] MEDS ORDERED: MORPHINE 2 MG/ML SYR ONE (15:42)
[2022-06-25 15:53] LABS: Absolute Lymphocytes (CBC) 2.3 K/uL (0.7-4.9); Hematocrit 40.5 % (36.0-45.0); Lymphocytes % 39.8 % (15.3-44.8); MCV 86.1 fL (80-100); MPV 7.9 fL (7.6-11.3)
[2022-06-25 16:07] LABS: Albumin 3.8 g/dL (3.4-5.0); Bilirubin Total 0.2 mg/dL (0.2-1.0); Potassium 4.1 mmol/L (3.5-5.1); Protein, Total 7.5 g/dL (6.4-8.2)
--- NOTE | 2022-06-25 16:45 | RAD REPORT ---
EXAM DESCRIPTION: CT - Abdomen Pelvis W Contrast - 06/25/2022 4:29 pm CLINICAL HISTORY: Abdominal pain COMPARISON: October 2021 TECHNIQUE: Computed axial tomography of the abdomen pelvis was obtained. 100 cc Isovue-300 was admin istered intravenously. Oral contrast was not requested which limits evaluation of bowel and appendix All CT scans are performed using dose optimization technique as appropriate and may include automated exposure control or mA/KV adjustment according to patient size. FINDINGS: Fatty liver The Spleen, pancreas, adrenal and kidneys appear unremarkable. There is no evidence of diverticulitis. Normal appendix. Hysterectomy. No adnexal mass Small umbilical hernia IMPRESSION: No acute abnormality is displayed.
--- NOTE | 2022-06-25 17:08 | EDPHYS ---
Physician Documentation [facility] Name: Ema Turner Age: 51 yrs Sex: Female : 1970 Arrival Date: 06/25/2022 Time: 15:11 Bed 8 Private MD: ED Physician Garett Demarco HPI: 06/25 16:52 This 51 yrs old Female presents to ER via Ambulatory with complaints of jl9 Abdominal Pain. Patient reports having lower abdominal pain s/p lifting a heavy object yesterday. Patient states she may have overextended. . 16:52 The patient presents with abdominal pain in the lower abdomen. Onset: The jl9 symptoms/episode began/occurred yesterday. The symptoms do not radiate. Associated signs and symptoms: none. The symptoms are described as dull. Modifying factors: The symptoms are alleviated by remaining still, the symptoms are aggravated by movement. Severity of pain: in the emergency department the pain is a 3 / 10. The patient has not experienced similar symptoms in the past. 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 iw Historical: - Home Meds: 15:20 aspirin 81 mg Oral chew 1 tab once daily [Active]; atorvastatin 10 mg Oral tab 1 tab iw once daily [Active]; metoprolol tartrate 50 mg Oral tab 1 tab 2 times per day [Active]; Cymbalta 60 mg Oral cpDR 1 cap once daily [Active]; hydrochlorothiazide 12.5 mg Oral cap 1 cap once daily [Active]; - PMHx: 15:20 Hypertension; High Cholesterol; Fibromyalgia; Diverticulitis; Arthritis; Anxiety; iw - Immunization history:: Adult Immunizations up to date, Client reports receiving the 2nd dose of the Covid vaccine, Client reports receiving the 1st dose of the Covid vaccine. - Social history:: Smoking status: Patient denies any tobacco usage or history of. ROS: 16:53 Constitutional: Negative for fever, chills, and weight loss, Eyes: Negative for injury, jl9 pain, redness, and discharge, ENT: Negative for injury, pain, and discharge, Neck: Negative for injury, pain, and swelling, Cardiovascular: Negative for chest pain, palpitations, and edema, Respiratory: Negative for shortness of breath, cough, wheezing, and pleuritic chest pain. 16:53 Back: Negative for injury and pain, : Negative for injury, bleeding, discharge, and swelling, MS/Extremity: Negative for injury and deformity, Skin: Negative for injury, rash, and discoloration, Neuro: Negative for headache, weakness, numbness, tingling, and seizure, Psych: Negative for depression, anxiety, suicide ideation, homicidal ideation, and hallucinations, Allergy/Immunology: Negative for hives, rash, and allergies, Endocrine: Negative for neck swelling, polydipsia, polyuria, polyphagia, and marked weight changes, Hematologic/Lymphatic: Negative for swollen nodes, abnormal bleeding, and unusual bruising. 16:53 Abdomen/GI: Positive for abdominal pain. Exam: 16:53 Constitutional: This is a well developed, well nourished patient who is awake, alert, jl9 and in no acute distress. Head/Face: Normocephalic, atraumatic. Eyes: Pupils equal round and reactive to light, extra-ocular motions intact. Lids and lashes normal. Conjunctiva and sclera are non-icteric and not injected. Cornea within normal limits. Periorbital areas with no swelling, redness, or edema. ENT: Mucous membranes moist. Neck: Trachea midline, no thyromegaly or masses palpated, and no cervical lymphadenopathy. Supple, full range of motion without nuchal rigidity, or vertebral point tenderness. No Meningismus. Chest/axilla: Normal chest wall appearance and motion. Nontender with no deformity. No lesions are appreciated. Cardiovascular: Regular rate and rhythm with a normal S1 and S2. No gallops, murmurs, or rubs. Normal PMI, no JVD. No pulse deficits. Respiratory: Lungs have equal breath sounds bilaterally, clear to auscultation and percussion. No rales, rhonchi or wheezes noted. No increased work of breathing, no retractions or nasal flaring. 16:53 Back: No spinal tenderness. No costovertebral tenderness. Full range of motion. Pelvic Exam: Normal external genitalia. Speculum exam with closed cervical os, no discharge or bleeding noted. Bimanual exam with normal adnexa, no adnexal or cervical motion tenderness. Normal uterus. Skin: Warm, dry with normal turgor. Normal color with no rashes, no lesions, and no evidence of cellulitis. MS/ Extremity: Pulses equal, no cyanosis. Neurovascular intact. Full, normal range of motion. Neuro: Awake and alert, GCS 15, oriented to person, place, time, and situation. Cranial nerves II-XII grossly intact. Motor strength 5/5 in all extremities. Sensory grossly intact. Cerebellar exam normal. Normal gait. Psych: Awake, alert, with orientation to person, place and time. Behavior, mood, and affect are within normal limits. 16:53 Abdomen/GI: Inspection: abdomen appears normal, Bowel sounds: normal, Palpation: mild abdominal tenderness, in the right lower quadrant and left lower quadrant. Vital Signs: 15:18 BP 158 / 81; Pulse 71; Resp 16; Temp 98.7(TE); Pulse Ox 98% on R/A; Weight 90.72 kg iw (R); Height 5 ft. 1 in. (154.94 cm); Pain 9/10; 15:59 BP 143 / 73; Pulse 68; Resp 16; Pulse Ox 95% ; mb8 16:35 BP 136 / 66; Pulse 69; Resp 16; Pulse Ox 99% ; Pain 7/10; mb8 17:26 BP 134 / 79; Pulse 75; Resp 16; Pulse Ox 98% ; Pain 6/10; mb8 15:18 Body Mass Index 37.79 (90.72 kg, 154.94 cm) iw MDM: 15:13 Patient medically screened. [facility] 16:53 Data reviewed: vital signs, nurses notes. [facility] 16:54 Counseling: I had a detailed discussion with the patient and/or guardian regarding: the [facility] historical points, exam findings, and any diagnostic results supporting the discharge/admit diagnosis, lab results, radiology results, to return to the emergency department if symptoms worsen or persist or if there are any questions or concerns that arise at home. 17:07 Response to treatment: the patient's symptoms have resolved after treatment. [facility] 06/25 15:22 Order name: CBC with Diff; Complete Time: 15:58 [facility] 06/25 15:22 Order name: CMP; Complete Time: 16:11 [facility] 06/25 15:22 Order name: Lipase; Complete Time: 16:11 [facility] 06/25 15:37 Order name: Urine Dipstick-Ancillary; Complete Time: 15:38 [facility] 06/25 15:38 Order name: CT Abd/Pelvis - IV Contrast Only; Complete Time: 16:51 [facility] 06/25 15:22 Order name: IV Saline Lock; Complete Time: 15:38 [facility] 06/25 15:22 Order name: Labs collected and sent; Complete Time: 15:38 [facility] 06/25 15:22 Order name: Urine Dipstick-Ancillary (obtain specimen); Complete Time: 15:38 jl Administered Medications: 15:43 Drug: Zofran (Ondansetron) 4 mg Route: IVP; Site: left antecubital; [facility] 15:47 Drug: morphine 2 mg Route: IVP; Infused Over: 4 mins; Site: left antecubital; [facility] 17:12 Follow up: Response: No adverse reaction 8 15:47 Drug: NS 0.9% 1000 ml Route: IV; Rate: 1000 ml; Site: left antecubital; [facility] 17:12 Follow up: Response: No adverse reaction; IV Status: Completed infusion mb8 17:20 Drug: Cyclobenzaprine 10 mg Route: PO; mb8 Disposition: 17:31 Co-signature as Attending Physician, Garett Demarco MD. rn Disposition Summary: 06/25/22 17:07 Discharge Ordered Location: Home jl9 Condition: Stable jl9 Diagnosis - Abdominal pain, unspecified jl9 Followup: jl9 - With: Private Physician - When: 1 - 2 days - Reason: Recheck today's complaints, Continuance of care, Re-evaluation by your physician Discharge Instructions: - Discharge Summary Sheet jl9 - Abdominal Pain, Adult, [id number] jl9 - Muscle Strain, [id number] jl9 Forms: - Medication Reconciliation Form jl9 - Thank You Letter jl9 - Antibiotic Education jl9 - Prescription Opioid Use jl9 Prescriptions: - Cyclobenzaprine 5 mg Oral Tablet - take 1 tablet by ORAL route 3 times per day As needed; 15 tablet; Refills: 0, jl9 Product Selection Permitted Signatures: Dispatcher [employer] Radhika Harmon RN RN iw Nieto, Roman, MD MD rn Hastedt, Jennifer, RN RN jh Drake Soares jl9 Niles Plunkett RN RN mb8 Corrections: (The following items were deleted from the chart) 15:21 15:20 Home Meds: clonazepam 1 mg Oral tab 1 tab 2 times per day; [facility] 16:54 16:52 This 51 yrs old Female presents to ER via Ambulatory with complaints of jl9 Abdominal Pain. Patient reports having lower abdominal pain s/p lifting a heavy object yesterday. . jl9
--- NOTE | 2022-06-25 17:08 | ER ---
Nurse's Notes [facility] Name: Ema Turner Age: 51 yrs Sex: Female : 1970 Arrival Date: 06/25/2022 Time: 15:11 Bed 8 Private MD: Diagnosis: Abdominal pain, unspecified Presentation: 06/25 15:19 Chief complaint: Patient states: I am having really bad lower abdominal pain that is iw going into my back with some nausea. I am not sure if I pulled a muscle or something else is going on. Coronavirus screen: At this time, the client does not indicate any symptoms associated with coronavirus-19. Ebola Screen: No symptoms or risks identified at this time. Initial Sepsis Screen: Does the patient meet any 2 criteria? Does the patient have a suspected source of infection? No. Patient's initial sepsis screen is negative. Risk Assessment: Do you want to hurt yourself or someone else? Patient reports no desire to harm self or others. Onset of symptoms is unknown. 15:19 Method Of Arrival: Ambulatory iw 15:19 Acuity: AGUSTIN 3 iw Triage Assessment: 15:20 General: Appears in no apparent distress. uncomfortable, Behavior is calm, cooperative, iw appropriate for age. Pain: Complains of pain in right lower quadrant and left lower quadrant Pain radiates to back. EENT: No deficits noted. No signs and/or symptoms were reported regarding the EENT system. Neuro: No deficits noted. Cardiovascular: No deficits noted. Respiratory: No deficits noted. GI: Abdomen is round non-distended, Bowel sounds present X 4 quads. Abd is soft X 4 quads Abdomen is tender to palpation in right lower quadrant and left lower quadrant. : No deficits noted. No signs and/or symptoms were reported regarding the genitourinary system. Derm: No deficits noted. No signs and/or symptoms reported regarding the dermatologic system. Musculoskeletal: Reports pain in back. 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 iw Historical: - Home Meds: 15:20 aspirin 81 mg Oral chew 1 tab once daily [Active]; atorvastatin 10 mg Oral tab 1 tab iw once daily [Active]; metoprolol tartrate 50 mg Oral tab 1 tab 2 times per day [Active]; Cymbalta 60 mg Oral cpDR 1 cap once daily [Active]; hydrochlorothiazide 12.5 mg Oral cap 1 cap once daily [Active]; - PMHx: 15:20 Hypertension; High Cholesterol; Fibromyalgia; Diverticulitis; Arthritis; Anxiety; iw - Immunization history:: Adult Immunizations up to date, Client reports receiving the 2nd dose of the Covid vaccine, Client reports receiving the 1st dose of the Covid vaccine. - Social history:: Smoking status: Patient denies any tobacco usage or history of. Screenin:51 Abuse screen: Denies threats or abuse. Denies injuries from another. Nutritional jh6 screening: No deficits noted. Tuberculosis screening: No symptoms or risk factors identified. Fall Risk IV access (20 points). Assessment: 15:48 General: Appears in no apparent distress. Behavior is calm, cooperative. Pain: jh6 Complains of pain in suprapubic area, right inguinal area and left inguinal area Pain currently is 8 out of 10 on a pain scale. Quality of pain is described as sharp, shooting, Pain began A WEEK AGO. GI: Abdomen is flat, Abd is soft X 4 quads Abdomen is tender to palpation in suprapubic area, right lower quadrant and left lower quadrant Reports lower abdominal pain. 16:34 Reassessment: Patient and/or family updated on plan of care and expected duration. Pain mb8 level reassessed. Patient is alert, oriented x 3, equal unlabored respirations, skin warm/dry/pink. Patient states feeling better. Vital Signs: 15:18 BP 158 / 81; Pulse 71; Resp 16; Temp 98.7(TE); Pulse Ox 98% on R/A; Weight 90.72 kg iw (R); Height 5 ft. 1 in. (154.94 cm); Pain 9/10; 15:59 BP 143 / 73; Pulse 68; Resp 16; Pulse Ox 95% ; mb8 16:35 BP 136 / 66; Pulse 69; Resp 16; Pulse Ox 99% ; Pain 7/10; mb8 17:26 BP 134 / 79; Pulse 75; Resp 16; Pulse Ox 98% ; Pain 6/10; mb8 15:18 Body Mass Index 37.79 (90.72 kg, 154.94 cm) ED Course: 15:11 Patient arrived in ED. mr 15:13 [facility] jl9 15:13 Garett Demarco MD is Attending Physician. jl9 15:20 Triage completed. iw 15:20 Arm band placed on right wrist. iw 15:33 Niles Plunkett, RN is Primary Nurse. mb8 15:38 CBC with Diff Sent. kc6 15:38 CMP Sent. kc6 15:38 Lipase Sent. kc6 15:38 Inserted saline lock: 20 gauge in left antecubital area, using aseptic technique. Blood kc6 collected. 15:51 Placed in gown. Bed in low position. Call light in reach. Side rails up X 1. jh6 16:31 CT Abd/Pelvis - IV Contrast Only In Process Unspecified. EDMS 17:27 No provider procedures requiring assistance completed. IV discontinued, intact, mb8 bleeding controlled, No redness/swelling at site. Pressure dressing applied. Administered Medications: 15:43 Drug: Zofran (Ondansetron) 4 mg Route: IVP; Site: left antecubital; 6 15:47 Drug: morphine 2 mg Route: IVP; Infused Over: 4 mins; Site: left antecubital; 6 17:12 Follow up: Response: No adverse reaction mb8 15:47 Drug: NS 0.9% 1000 ml Route: IV; Rate: 1000 ml; Site: left antecubital; jh6 17:12 Follow up: Response: No adverse reaction; IV Status: Completed infusion mb8 17:20 Drug: Cyclobenzaprine 10 mg Route: PO; mb8 Medication: 17:27 VIS not applicable for this client. mb8 Outcome: 17:07 Discharge ordered by . jl9 17:27 Discharged to home ambulatory. mb8 17:27 Condition: stable 17:27 Discharge instructions given to patient, Instructed on discharge instructions, follow up and referral plans. no drinking with medication, no driving heavy equipment, medication usage, Demonstrated understanding of instructions, follow-up care, medications, Prescriptions given X 1. 17:28 Patient left the ED. mb8 Signatures: Dispatcher [employer] EDUT Cait Anaya Radhika Salinas RN RN Michelle Bhardwaj RN RN 6 Drake Soares jl9 Bridgette Ureña kc6 Niles Plunkett, RN RN mb8 Corrections: (The following items were deleted from the chart) 15:21 15:20 Home Meds: clonazepam 1 mg Oral tab 1 tab 2 times per day; [facility]
[2022-06-25] MEDS ORDERED: CYCLOBENZAPRINE 10 MG TAB ONE (17:17)
[2022-06-27 09:36] VITALS: TEMP 98.7
[2022-06-27 09:40] VITALS: BP 134/79; O2SAT 98
== END 2022-06-25 17:28 | disposition home or self-care (01) ==
LOC: ER 15:08
DX: R10.30 Lower abdominal pain, unspecified (principal); I10 Essential (primary) hypertension; Z79.82 Long term (current) use of aspirin
CPT/HCPCS: 36415; 74177; 80053; 81003; 83690; 85025; 96361; 96374; 96375; 99284; J2270; J2405; J7030; Q9967

== ENCOUNTER 2024-05-08 22:56 | Emergency (ER) | payer OTHER, SELFPAY ==
--- OUTSIDE RECORDS SUMMARY | 2024-05-08 23:00 | XMS REPORT | Continuity of Care Document ---
Author Name Unknown Address [address] [facility] [address] [place] [address] [facility] thconnect Address [address] [facility]. [address] [place] [address] Care Team Providers Care Returned Telephone Equipment Appraiser Name Role Phone Geoff Shore Primary Care Physician [phone] Sudhakar Baker Attending Clinician Unavailable Doctor Unassigned, [place] Attending Clinician U LANODN Dow Attending Clinician Unavailable Radiology Attending Clinician Unavailable RADIOLOGY Attending Clinician Unavailable Ralph Slater Admitting Clinician Unavailable Payers Payer Name Policy Type Policy Number Effective Date Expirati on Date Source Problems Condition Name Condition Details Condition Category Status Onset Date Resolution Date Last Treatment Date Treating Clinician Comments Source History of hysterecto my History of hysterecto my Disease Active 11-10 00:00: 00 [facility] BMI 37.0-37.9, adult BMI 37.0-37.9, adult Disease Active 11-10 00:00: 00 [facility] Slow transit constipati on Slow transit constipati on Disease Active 11-10 00:00: 00 [facility] Pelvic pain in female Pelvic pain in female Disease Active 11-10 00:00: 00 [facility] History of tubal ligation History of tubal ligation Disease Active 01-10 00:00: 00 [facility] Essential hypertensi on Essential hypertensi on Disease Active 11-24 00:00: 00 Overview: Formattin g of this note might be different from the original. 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 [facility] Allergies, Adverse Reactions, Alerts Allergy Name Allergy Type Status Severity Reaction(s) Onset Date Inactive Date Treating Clinician Comments Source No Known Allergie s DA Active U 2021-09 00:00: 00 [facility] NO KNOWN ALLERGIE S Drug Class Active [facility] Social History Social Habit Start Date Stop Date Quantity Comments Source Exposure to SARS-CoV-2 (event) Not sure [facility] Sexual orientation [facility] History of Social function 2019-04-07 00:00:00 2019-04-07 00:00:00 [facility] Alcohol intake 2018-11-10 00:00:00 2018-11-10 00:00:00 Current non-drinker of alcohol (finding) [facility] Cigarettes smoked current (pack per day) - Reported 2017-05-18 00:00:00 2017-05-18 00:00:00 [facility] Cigarette pack-years 2017-05-18 00:00:00 2017-05-18 00:00:00 [facility] Tobacco use and exposure 2017-05-18 00:00:00 2017-05-18 00:00:00 Smokeless tobacco non-user [facility] History of tobacco use 2000-05-18 00:00:00 2002-09-28 00:00:00 Cigarette Smoker [facility] Sex Assigned At 1970 00:00:00 1970 00:00:00 [facility] Smoking Status Start Date Stop Date Source Ex-smoker 2017-05-18 00:00:00 2017-05-18 00:00:00 [facility] Medications Ordered Medication Name Filled Medication Name Start Date Stop Date Current Medication? Ordering Clinician Indication Dosage Frequency Signature (SIG) Comments Components Source metformin 500 mg tablet 04-18 00:00: 00 Yes 1mg Juvenal Buenrostro lisinopril 20 mg-hydrochl orothiazide 12.5 mg tablet 04-18 00:00: 00 Yes 1mg Juvenal Buenrostro metformin 500 mg tablet 8- 00:00: 00 Yes mg Juvenal Buenrostro lisinopril 20 mg-hydrochl orothiazide 12.5 mg tablet 05-19 00:00: 00 Yes mg Juvenal Buenrostro LISINOPRIL/ HYDROCHLORO THIAZIDE 20-12.5 MG TABS 6-16 00:00: 00 Yes Juvenal Buenrostro TAKE 1 TABLET DAILY. 6-16 00:00: 00 12-22 00:00 :00 No 500 Juvenal Buenrostro TAKE 1 TABLET TWICE DAILY WITH FOOD. -18 00:00: 00 12-22 00:00 :00 No [id number] Juvenal Buenrostro TAKE 1 TABLET DAILY. 01-13 00:00: 00 12-22 00:00 :00 No 10 Juvenal Buenrostro TAKE 1 TABLET DAILY. 12-24 00:00: 00 12-22 00:00 :00 No [id number] Juvenal Buenrostro INJECT 0.25 WEEKLY 12-24 00:00: 00 12-22 00:00 :00 No 215 Juvenal Buenrostro TAKE 1 TABLET DAILY. 12-24 00:00: 00 12-22 00:00 :00 No 500 Juvenal Buenrostro TAKE 5 ML EVERY 4 TO 6 HOURS NEEDED. 1- 00:00: 00 12-22 00:00 :00 No Juvenal Buenrostro TAKE 2 TABLETS ON DAY 1 THEN TAKE 1 TABLET A DAY FOR 4 DAYS. 1- 00:00: 00 12-22 00:00 :00 No Juvenal Buenrostro Dose Unknown 2021-09- 00:00: 00 Yes Juvenal Buenrostro Dose Unknown 2021-09 00:00: 00 Yes Juvenal Buenrostro Dose Unknown 2020-09 00:00: 00 Yes Juvenal Buenrostro fluticasone propionate 50 mcg/actuati on nasal spray,suspe nsion 2020-09 00:00: 00 Yes 12mcg/a ctuatio n Juvenal Buenrostro Dose Unknown 2020-09 00:00: 00 Yes Juvenal Buenrostro prednisone 10 mg tablet 06-10 00:00: 00 Yes 1mg Juvenal Buenrostro Zithromax 250 mg tablet 06-10 00:00: 00 Yes 1mg Juvenal Buenrostro ProAir HFA 90 mcg/actuati on aerosol inhaler 01-07 00:00: 00 Yes 12mcg/a ctuatio n Juvenal Buenrostro metoprolol tartrate 25 mg tablet 01-07 00:00: 00 Yes 1mg Juvenal Buenrostro promethazin e-DM 6.25 mg-15 mg/5 mL syrup 01-07 00:00: 00 Yes 5mg/5 mL Juvenal Buenrostro meloxicam 15 mg tablet 2014-09 00:00: 00 Yes 1mg Juvenal Buenrostro metoprolol tartrate 25 mg tablet 2014-09 00:00: 00 Yes 1mg Juvenal Buenrostro metoprolol tartrate (LOPRESSOR) 25 mg tablet 03-30 00:00: 00 Yes 25mg Take 1 Tab by mouth 2 (two) times daily. [facility] Ciprodex 0.3 %-0.1 % ear drops,suspe nsion 02-22 00:00: 00 Yes 4% Juvenal Buenrostro metoprolol tartrate 25 mg tablet 02-22 00:00: 00 Yes 1mg Juvenal Buenrostro metoprolol tartrate 25 mg tablet 02-21 00:00: 00 Yes 1mg Juvenal Buenrostro meloxicam 15 mg tablet 10-16 00:00: 00 Yes 1mg Juvenal Buenrostro Immunizations Ordered Immunization Name Filled Immunization Name Date Status Comments Source TDAP (ADACEL) VACCINE 2015-11-27 00:00:00 Completed [facility] TDAP (ADACEL) VACCINE 2015-11-27 00:00:00 Completed [facility] TDAP (ADACEL) VACCINE 2015-11-27 00:00:00 Completed [facility] TDAP (ADACEL) VACCINE 2015-11-27 00:00:00 Completed [facility] Td 2006-09-28 00:00:00 Completed [facility] Td 2006-09-28 00:00:00 Completed [facility] Td 2006-09-28 00:00:00 Completed [facility] Td 2006-09-28 00:00:00 Completed [facility] TD, NOS Unknown Completed [facility] TDAP (ADACEL) VACCINE Unknown Completed [facility] SARS-COV-2 COVID-19 PFIZER VACCINE Unknown Completed [facility] SARS-COV-2 COVID-19 PFIZER VACCINE Unknown Completed [facility] Vital Signs Vital Name Observation Time Observation Value Comments S ource Respiratory Rate 2024-04-18 11:28:00 18.00 /min Juvenal F Porter BP Systolic 2024-04-18 11:28:00 157 mm[Hg] Step hen F Porter BP Diastolic 2024-04-18 11:28:00 79 mm[Hg] Rick phen F Porter Weight Measured 2024-04-18 11:28:00 226.00 pounds Juvenal F Porter Height Measured 2024-04-18 11:28:00 61.00 inches Juvenal F Porter Body Temperature 2024-04-18 11:28:00 97.40 degrees Juvenal F Porter Heart Rate 2024-04-18 11:28:00 72.00 /min Mary Beth en F Porter BP Systolic 2023-06-09 10:16:00 136 mm[Hg] Step hen F Porter BP Diastolic 2023-06-09 10:16:00 84 mm[Hg] Rick phen F Porter Weight Measured 2023-06-09 10:16:00 212.00 pounds Juvenal F Porter Height Measured 2023-06-09 10:16:00 61.00 inches Juvenal F Porter Body Temperature 2023-06-09 10:16:00 98.40 degrees Juvenal F Porter Heart Rate 2023-06-09 10:16:00 62.00 /min Mary Beth en F Porter Respiratory Rate 2023-06-09 10:16:00 Juvenal F Porter BP Systolic 2023-03-13 09:57:00 149 mm[Hg] Step hen F Porter BP Diastolic 2023-03-13 09:57:00 83 mm[Hg] Rick phen F Porter Weight Measured 2023-03-13 09:57:00 210.80 pounds Juvenal F Porter Height Measured 2023-03-13 09:57:00 61.00 inches Juvenal F Porter Body Temperature 2023-03-13 09:57:00 98.30 degrees Juvenal F Porter Heart Rate 2023-03-13 09:57:00 73.00 /min Mary Beth en F Porter Respiratory Rate 2023-03-13 09:57:00 17.00 /min Juvenal F Porter BP Systolic 2023-01-13 11:33:00 132 mm[Hg] Step hen F Porter BP Diastolic 2023-01-13 11:33:00 83 mm[Hg] Rick phen F Porter Weight Measured 2023-01-13 11:33:00 213.40 pounds Juvenal F Porter Height Measured 2023-01-13 11:33:00 61.00 inches Juvenal F Porter Body Temperature 2023-01-13 11:33:00 97.10 degrees Juvenal F Porter Heart Rate 2023-01-13 11:33:00 74.00 /min Mary Beth en F Porter Respiratory Rate 2023-01-13 11:33:00 Juvenal F Porter BP Systolic 2022-12-24 16:17:00 156 mm[Hg] Step hen F Porter BP Diastolic 2022-12-24 16:17:00 83 mm[Hg] Rick phen F Porter Weight Measured 2022-12-24 16:17:00 219.80 pounds Juvenal F Porter Height Measured 2022-12-24 16:17:00 61.00 inches Juvenal F Porter Body Temperature 2022-12-24 16:17:00 98.20 degrees Juvenal F Porter Heart Rate 2022-12-24 16:17:00 89.00 /min Mary Beth en F Porter Respiratory Rate 2022-12-24 16:17:00 17.00 /min Juvenal F Porter BP Systolic 2022-10-01 10:43:00 140 mm[Hg] Step hen F Porter BP Diastolic 2022-10-01 10:43:00 80 mm[Hg] Rick phen F Porter Weight Measured 2022-10-01 10:43:00 216.00 pounds Juvenal F Porter Height Measured 2022-10-01 10:43:00 61.00 inches Juvenal F Porter Body Temperature 2022-10-01 10:43:00 97.50 degrees Juvenal F Porter Heart Rate 2022-10-01 10:43:00 75.00 /min Mary Beth en F Porter Respiratory Rate 2022-10-01 10:43:00 18.00 /min Juvenal F Porter BP Systolic 2022-09-24 15:49:00 158 mm[Hg] Step hen F Porter BP Diastolic 2022-09-24 15:49:00 86 mm[Hg] Rick phen F Porter Weight Measured 2022-09-24 15:49:00 218.40 pounds Juvenal F Porter Height Measured 2022-09-24 15:49:00 61.00 inches Juvenal F Porter Body Temperature 2022-09-24 15:49:00 99.40 degrees Juvenal F Porter Heart Rate 2022-09-24 15:49:00 72.00 /min Mary Beth en F Porter Respiratory Rate 2022-09-24 15:49:00 17.00 /min Juvenal F Porter BP Systolic 2016-07-31 15:58:00 151 mm[Hg] Step hen F Porter BP Diastolic 2016-07-31 15:58:00 87 mm[Hg] Rick phen F Porter Weight Measured 2016-07-31 15:58:00 205.00 pounds Juvenal F Porter Height Measured 2016-07-31 15:58:00 61.00 inches Juvenal F Porter Body Temperature 2016-07-31 15:58:00 97.90 degrees Juvenal F Porter Heart Rate 2016-07-31 15:58:00 78.00 /min Mary Beth en F Porter Respiratory Rate 2016-07-31 15:58:00 16.00 /min Juvenal F Porter BP Systolic 2016-06-10 13:43:00 151 mm[Hg] Step hen F Porter BP Diastolic 2016-06-10 13:43:00 84 mm[Hg] Rick phen F Porter Weight Measured 2016-06-10 13:43:00 208.20 pounds Juvenal F Porter Height Measured 2016-06-10 13:43:00 61.00 inches Juvenal F Porter Body Temperature 2016-06-10 13:43:00 97.60 degrees Juvenal F Porter Heart Rate 2016-06-10 13:43:00 58.00 /min Mary Beth en F Porter Respiratory Rate 2016-06-10 13:43:00 17.00 /min Juvenal F Porter BP Systolic 2016-01-08 13:12:00 140 mm[Hg] Step hen F Porter BP Diastolic 2016-01-08 13:12:00 83 mm[Hg] Rick Buenrostro Weight Measured 2016-01-08 13:12:00 198.00 pounds Juvenal Buenrostro Height Measured 2016-01-08 13:12:00 61.00 inches Juvenal Buenrostro Body Temperature 2016-01-08 13:12:00 98.00 degrees Juvenal Buenrostro Heart Rate 2016-01-08 13:12:00 16.00 /min Mary Beth Buenrostro Respiratory Rate 2016-01-08 13:12:00 16.00 /min Juvneal Buenrostro Procedures Procedure Date / Time Performed Performing Clinician Source [id number] 2022-09-08 00:00:00 JEROM [facility] [id number] 2022-09-08 00:00:00 JEROM [facility] BI ULTRASOUND BREAST COMPLETE LEFT 2020-08-16 18:36:53 Requisition, Paper [facility] BI DIAGNOSTIC TOMOSYNTHESIS LEFT 2020-08-16 18:05:19 Requisition, Paper [facility] BI SCREENING MAMMOGRAM BILATERAL 2020-04-24 20:11:00 Requisition, Paper [facility] ASSIGNMENT OF BENEFITS 2020-04-24 19:40:32 Docto r Unassigned, [place] [facility] Encounters Start Date/Time End Date/Time Encounter Type Admission Type Attending Clinicians Care Facility Care Department Encounter ID Source 2024-04-18 11:17:36 2024-04-18 11:17:36 Outpatient [facility] [id number] Juvenal Buenrostro 2024-04-18 00:00:00 2024-04-18 00:00:00 Outpatient Visit SFA [id number] Juvenal Buenrostro 2023-06-09 10:10:40 2023-06-09 10:10:40 Outpatient S[facility] [id number] Juvenal Buenrostro 2023-03-13 09:43:37 2023-03-13 09:43:37 Outpatient SFA [facility] [id number] Juvenal Buenrostro 2023-01-13 11:28:20 2023-01-13 11:28:20 Outpatient SFA SFA [id number] Juvenal Buenrostro 2022-12-24 16:04:29 2022-12-24 16:04:29 Outpatient S[facility] [id number] Juvenal Buenrostro 2022-10-01 10:38:57 2022-10-01 10:38:57 Outpatient SFA [facility] [id number] Juvenal Buenrostro 2022-09-06 12:03:00 2022-09-08 21:56:00 Inpatient EM Sudhakar Baker HCACL MEDI.01 [id number] [facility] 2021-09-13 00:00:00 2021-09-13 00:00:00 Patient Secure Msg Doctor Unassigned, [place] [facility] [id number] [id number] [id number] [facility] 2020-12-25 10:10:00 2020-12-25 10:10:00 Outpatient LANDON ALVARADO [facility] [id number] [facility] 2020-12-04 10:10:00 2020-12-04 10:10:00 Outpatient LANDON ALVARADO [facility] [id number] [facility] 2020-08-16 11:35:20 2020-08-16 23:59:00 Hospital Encounter Radiology [facility] [place] [facility] [id number] [facility] 2020-08-16 11:35:20 2020-08-16 23:59:00 Hospital Encounter Radiology [facility] [id number] [id number] 2020-08-16 11:32:50 2020-08-16 11:34:00 Hospital Encounter Radiology [facility] [id number] [id number] [id number] [facility] 2020-08-16 11:32:50 2020-08-16 11:34:00 Hospital Encounter Radiology [facility] [id number] [id number] [id number] 2020-08-16 00:00:00 2020-08-16 00:00:00 Outpatient R RADIOLOGY [facility] [id number] [facility] 2020-06-19 00:00:00 2020-06-19 00:00:00 Outpatient R RADIOLOGY [facility] [id number] [facility] 2020-05-24 00:00:00 2020-05-24 00:00:00 Outpatient R RADIOLOGY [facility] [id number] [facility] 2020-04-24 14:40:00 2020-04-24 23:59:00 Hospital Encounter Radiology [facility] [id number] [id number] [id number] [facility] 2020-04-24 14:40:00 2020-04-24 23:59:00 Hospital Encounter Radiology [facility] [id number] 350.1.13.10 4.2.7.2.686 [id number] 2020-04-24 00:00:00 2020-04-24 00:00:00 Outpatient R RADIOLOGY [facility] [id number] [facility] 2020-04-24 00:00:00 2020-04-24 00:00:00 Orders Only Doctor Unassigned, [place] [facility] [id number] [id number] [id number] [id number] [facility] 2020-04-24 00:00:00 2020-04-24 00:00:00 Orders Only Doctor Unassigned, [place] [facility] [id number] [id number] Results Test Description Test Time Test Comments Results Result Co mments Source LIPID [id number] 05:00:53* Test Item Value Reference Range Interpretation Comme nts CHOLESTEROL (test code = 2210) 222 MG/DL <200 H TRIGLYCERIDES (test code = 2232) 112 MG/DL <150 HDL CHOLESTEROL (test code = 2220) 42 MG/DL >39 CALC LDL CHOL (test code = 2237) 157 MG/DL <100 H NOTE: CALCULATED LDL IS BASED ON RAYMOND-DUENAS METHOD WHICHINCLUDES ADJUSTABLE TRIGLYCERIDE:VLDL CHOLESTEROL RATIO.THIS FACTOR VARIES BY MEASURED TRIGLYCERIDE AND NON-HDLCHOLESTEROL CONCENTRATIONS WITH INCREASED CALCULATED LDL SEENIN HIGHER TRIGLYCERIDE OR LOWER NON-HDL SPECIMENS. FOR MOREINFORMATION, SEE CLIENT ANNOUNCEMENT AT [email or web address] [email or web address] RATIO LDL/HDL (test code = 2238) 3.74 RATIO <3.22 H COMPREHENSIVE METABOLIC [id number] 05:00:53* Test Item Value Reference Range Interpretation Comme nts GLUCOSE (test code = 2217) 121 MG/DL 70-99 H BUN (test code = 2208) 11 MG/DL 6-20 CREATININE (test code = 2214) 0.73 MG/DL 0.60-1.30 eGFR (2020 CKD-EPI) (test code = 03359) 97 ML/MIN/1.73 >60 CALC BUN/CREAT (test code = 2235) 15 RATIO 6-28 SODIUM (test code = 223) 142 MEQ/L 133-146 POTASSIUM (test code = 2228) 4.4 MEQ/L 3.5-5.4 CHLORIDE (test code = 2215) 106 MEQ/L 95-107 CARBON DIOXIDE (test code = 2206) 24 MEQ/L 19-31 CALCIUM (test code = 2209) 9.0 MG/DL 8.5-10.5 PROTEIN, TOTAL (test code = 222) 6.7 G/DL 6.1-8.3 ALBUMIN (test code = 2201) 4.2 G/DL 3.5-5.2 CALC GLOBULIN (test code = 2240) 2.5 G/DL 1.9-3.7 CALC A/G RATIO (test code = 2234) 1.7 RATIO 1.0-2.6 BILIRUBIN, TOTAL (test code = 2207) 0.4 MG/DL <=1.2 ALKALINE PHOSPHATASE (test code = 2204) 99 U/L 40-133 AST (test code = 2218) 22 U/L 9-40 ALT (test code = 2219) 28 U/L 5-40 UNLESS OTHERWISE INDICATED, ALL TESTING PERFORMED AT [facility] [address] [place] [id number] SUPERVISOR COMPRESSED YEAST: AMINAH SANCHEZ M.D. [place] NUMBER [id number] [facility] [place]. [id number] COMPREHENSIVE METABOLIC [id number] 04:13:15* Test Item Value Reference Range Interpretation Comme nts GLUCOSE (test code = 2217) 113 MG/DL 70-99 H BUN (test code = 2208) 13 MG/DL 6-20 CREATININE (test code = 2214) 0.66 MG/DL 0.60-1.30 eGFR (2020 CKD-EPI) (test code = 53711) 104 ML/MIN/1.73 >60 CALC BUN/CREAT (test code = 2235) 20 RATIO 6-28 SODIUM (test code = 2231) 140 MEQ/L 133-146 POTASSIUM (test code = 2228) 4.4 MEQ/L 3.5-5.4 CHLORIDE (test code = 2215) 103 MEQ/L 95-107 CARBON DIOXIDE (test code = 2206) 26 MEQ/L 19-31 CALCIUM (test code = 2209) 9.3 MG/DL 8.5-10.5 PROTEIN, TOTAL (test code = 2229) 6.9 G/DL 6.1-8.3 ALBUMIN (test code = 2201) 4.5 G/DL 3.5-5.2 CALC GLOBULIN (test code = 2240) 2.4 G/DL 1.9-3.7 CALC A/G RATIO (test code = 2234) 1.9 RATIO 1.0-2.6 BILIRUBIN, TOTAL (test code = 2207) 0.4 MG/DL See_Comment [Automated me ssage] The system which generated this result transmitted reference range: <=1.2. The reference range was not used to interpret this result as normal/abnormal. ALKALINE PHOSPHATASE (test code = 2204) 90 U/L 40-133 AST (test code = 2218) 25 U/L 9-40 ALT (test code = 2219) 34 U/L 5-40 LIPID [id number] 04:13:15* Test Item Value Reference Range Interpretation Comme nts CHOLESTEROL (test code = 2210) 213 MG/DL <200 H TRIGLYCERIDES (test code = 2232) 122 MG/DL <150 HDL CHOLESTEROL (test code = 2220) 39 MG/DL >39 L CALC LDL CHOL (test code = 2237) 150 MG/DL <100 H NOTE: CALCULATED LDL IS BASED ON RAYMOND-DUENAS METHOD WHICHINCLUDES ADJUSTABLE TRIGLYCERIDE:VLDL CHOLESTEROL RATIO.THIS FACTOR VARIES BY MEASURED TRIGLYCERIDE AND NON-HDLCHOLESTEROL CONCENTRATIONS WITH INCREASED CALCULATED LDL SEENIN HIGHER TRIGLYCERIDE OR LOWER NON-HDL SPECIMENS. FOR MOREINFORMATION, SEE CLIENT ANNOUNCEMENT AT [email or web address] [email or web address] RATIO LDL/HDL (test code = 2238) 3.85 RATIO <3.22 H HEMOGLOBIN [id number] 02:47:35* Test Item Value Reference Range Interpretation Comme nts HEMOGLOBIN A1c (test code = 10276) 6.3 % 4.2-5.6 H [employer] GUIDELINES FOR HGB A1C: PREDIABETES/INCREASED RISK . . . . . . . 5.7-6.4% DIAGNOSIS OF DIABETES . . . . . . . . . >=6.5% WITH CONFIRMATION OR APPROPRIATE SYMPTOMS NOTE: ASSAY MAY BE AFFECTED BY HEMOGLOBINOPATHIES (SICKLE CELL ANEMIA, S-C DISEASE, OTHERS) OR ARTIFICIALLY LOWERED BY DECREASED RED CELL SURVIVAL (HEMOLYTIC ANEMIAS, BLOOD LOSS, ETC.). CONSIDER ALTERNATE TESTING OR LABORATORY CONSULTATION. UNLESS OTHERWISE INDICATED, ALL TESTING PERFORMED AT [facility] [address] [place] [address] SUPERVISOR COMPRESSED YEAST: AMINAH SANCHEZ M.D. CLIA NUMBER [id number] [facility] [place]. [id number] CBC W/AUTO DIFF WITH [id number] 02:01:11* Test Item Value Reference Range Interpretation Comme nts WBC (test code = 1001) 5.5 K/UL 3.5-11.0 RBC (test code = 1002) 4.80 M/UL 3.80-5.40 HEMOGLOBIN (test code = 1003) 13.7 G/DL 11.5-15.5 HEMATOCRIT (test code = 1004) 40.5 % 34.0-45.0 MCV (test code = 1005) 84.4 fL 80.0-99.0 MCH (test code = 1006) 28.5 PG 25.0-33.0 MCHC (test code = 1007) 33.8 G/DL 31.0-36.0 RDW (test code = 1038) 13.1 % 11.5-15.0 NEUTROPHILS (test code = 1008) 50.3 % LYMPHOCYTES (test code = 1010) 41.8 % MONOCYTES (test code = 1011) 5.6 % EOSINOPHILS (test code = 1012) 1.6 % BASOPHILS (test code = 1013) 0.5 % IMMATURE GRANULOCYTES (test code = 1036) 0.2 % NUCLEATED RBCS (test code = 1065) 0.0 /100 WBC'S See_Comment [Automated messa ge] The system which generated this result transmitted reference range: 0.0. The reference range was not used to interpret this result as normal/abnormal. PLATELET COUNT (test code = 1015) 283 K/UL 130-400 ABSOLUTE NEUTROPHILS (test code = 1066) 2.78 K/UL 1.50-7.50 ABSOLUTE LYMPHOCYTES (test code = 1067) 2.31 K/UL 1.00-4.00 ABSOLUTE MONOCYTES (test code = 1068) 0.31 K/UL 0.2-3.8 ABSOLUTE EOSINOPHILS (test code = 1040) 0.09 K/UL 0.00-0.50 ABSOLUTE BASOPHILS (test code = 1069) 0.03 K/UL 0.00-0.20 ABS IMMATURE GRANULOCYTES (test code = 1020) 0.01 K/UL 0.00-0.10 ABS NUCLEATED RBCS (test code = 04878) 0.00 K/UL 0.00-0.11 CBC W/AUTO [id number] 00:00:00* Test Item Value Reference Range Interpretation Comme nts WBC (test code = 1001) 5.5 K/UL RBC (test code = 1002) 4.80 M/UL HEMOGLOBIN (test code = 1003) 13.7 G/DL HEMATOCRIT (test code = 1004) 40.5 % MCV (test code = 1005) 84.4 fL MCH (test code = 1006) 28.5 PG MCHC (test code = 1007) 33.8 G/DL RDW (test code = 1038) 13.1 % NEUTROPHILS (test code = 1008) 50.3 % LYMPHOCYTES (test code = 1010) 41.8 % MONOCYTES (test code = 1011) 5.6 % EOSINOPHILS (test code = 1012) 1.6 % BASOPHILS (test code = 1013) 0.5 % IMMATURE GRANULOCYTES (test code = 1036) 0.2 % NUCLEATED RBCS (test code = 1065) 0.0 /100WBC'S PLATELET COUNT (test code = 1015) 283 K/UL ABSOLUTE NEUTROPHILS (test c ode = 1066) 2.78 K/UL ABSOLUTE LYMPHOCYTES (test c ode = 1067) 2.31 K/UL ABSOLUTE MONOCYTES (test cod e = 1068) 0.31 K/UL ABSOLUTE EOSINOPHILS (test c ode = 1040) 0.09 K/UL ABSOLUTE BASOPHILS (test cod e = 1069) 0.03 K/UL ABS IMMATURE GRANULOCYTES (t est code = 1020) 0.01 K/UL ABS NUCLEATED RBCS (test cod e = 45638) 0.00 K/UL Juvenal BuenrostroCOMPREHENSIVE METABOLIC [id number] 00:00:00* Test Item Value Reference Range Interpretation Comme nts GLUCOSE (test code = 2217) 113 MG/DL BUN (test code = 2208) 13 MG/DL CREATININE (test code = 2214) 0.66 MG/DL eGFR (2020 CKD-EPI) (test code = 21880) 104 ML/MIN/1.73 CALC BUN/CREAT (test code = 2235) 20 RATIO SODIUM (test code = 2231) 140 MEQ/L POTASSIUM (test code = 2228) 4.4 MEQ/L CHLORIDE (test code = 2215) 103 MEQ/L CARBON DIOXIDE (test code = 2206) 26 MEQ/L CALCIUM (test code = 2209) 9.3 MG/DL PROTEIN, TOTAL (test code = 2229) 6.9 G/DL ALBUMIN (test code = 2201) 4.5 G/DL CALC GLOBULIN (test code = 2240) 2.4 G/DL CALC A/G RATIO (test code = 2234) 1.9 RATIO BILIRUBIN, TOTAL (test code = 2207) 0.4 MG/DL ALKALINE PHOSPHATASE (test code = 2204) 90 U/L AST (test code = 2218) 25 U/L ALT (test code = 2219) 34 U/L Juvenal BuenrostroLIPID [id number] 00:00:00* Test Item Value Reference Range Interpretation Comme nts CHOLESTEROL (test code = 2210) 213 MG/DL TRIGLYCERIDES (test code = 2232) 122 MG/DL HDL CHOLESTEROL (test code = 2220) 39 MG/DL CALC LDL CHOL (test code = 2237) 150 MG/DL RISK RATIO LDL/HDL (test cod e = 2238) 3.85 RATIO Juvenal BuenrostroHEMOGLOBIN [id number] 00:00:00* Test Item Value Reference Range Interpretation Comme jo HEMOGLOBIN A1c (test code = 98443) 6.3 % Juvenal BuenrostroTSH, THIRD [id number] 05:10:00* Test Item Value Reference Range Interpretation Comme jo TSH, THIRD GENERATION (test code = 2821) 0.650 UIU/ML 0.400-4.100 UNLESS OTHERWISE INDICATED, ALL TESTING PERFORMED [email or web address] [employer] [address] [place] [address] SUPERVISOR COMPRESSED YEAST: JACOB OCHOA M.D. CLIA NUMBER [id number] [facility] [place]. [id number] HEMOGLOBIN [id number] 04:49:05* Test Item Value Reference Range Interpretation Comme nts HEMOGLOBIN A1c (test code = 07724) 6.4 % 4.2-5.6 H COMPREHENSIVE METABOLIC [id number] 04:05:12* Test Item Value Reference Range Interpretation Comme nts GLUCOSE (test code = 2217) 137 MG/DL 70-99 H BUN (test code = 2208) 17 MG/DL 6-20 CREATININE (test code = 2214) 0.67 MG/DL 0.60-1.30 eGFR (2020 CKD-EPI) (test code = 82915) 104 ML/MIN/1.73 >60 CALC BUN/CREAT (test code = 2235) 25 RATIO 6-28 SODIUM (test code = 2231) 140 MEQ/L 133-146 POTASSIUM (test code = 2228) 4.7 MEQ/L 3.5-5.4 CHLORIDE (test code = 2215) 103 MEQ/L 95-107 CARBON DIOXIDE (test code = 2206) 26 MEQ/L 19-31 CALCIUM (test code = 2208) 9.7 MG/DL 8.5-10.5 PROTEIN, TOTAL (test code = 2228) 7.1 G/DL 6.1-8.3 ALBUMIN (test code = 2201) 4.4 G/DL 3.5-5.2 CALC GLOBULIN (test code = 2240) 2.7 G/DL 1.9-3.7 CALC A/G RATIO (test code = 2234) 1.6 RATIO 1.0-2.6 BILIRUBIN, TOTAL (test code = 2206) 0.5 MG/DL See_Comment [Automated me ssage] The system which generated this result transmitted reference range: <=1.2. The reference range was not used to interpret this result as normal/abnormal. ALKALINE PHOSPHATASE (test code = 2203) 102 U/L 40-133 AST (test code = 2218) 17 U/L 9-40 ALT (test code = 2218) 34 U/L 5-40 LIPID [id number] 04:05:12* Test Item Value Reference Range Interpretation Comme nts CHOLESTEROL (test code = 2210) 215 MG/DL <200 H TRIGLYCERIDES (test code = 2) 75 MG/DL <150 HDL CHOLESTEROL (test code = 0) 50 MG/DL >39 CALC LDL CHOL (test code = 2236) 147 MG/DL <100 H NOTE: CALCULATED LDL IS BASED ON RAYMOND-DUENAS METHOD WHICHINCLUDES ADJUSTABLE TRIGLYCERIDE:VLDL CHOLESTEROL RATIO.THIS FACTOR VARIES BY MEASURED TRIGLYCERIDE AND NON-HDLCHOLESTEROL CONCENTRATIONS WITH INCREASED CALCULATED LDL SEENIN HIGHER TRIGLYCERIDE OR LOWER NON-HDL SPECIMENS. FOR MOREINFORMATION, SEE CLIENT ANNOUNCEMENT AT [email or web address] RISK RATIO LDL/HDL (test code = 2238) 2.94 RATIO <3.22 CBC W/AUTO DIFF WITH [id number] 03:58:54* Test Item Value Reference Range Interpretation Comme nts WBC (test code = 1001) 10.5 K/UL 3.5-11.0 RBC (test code = 1002) 5.05 M/UL 3.80-5.40 HEMOGLOBIN (test code = 1003) 14.3 G/DL 11.5-15.5 HEMATOCRIT (test code = 1004) 41.2 % 34.0-45.0 MCV (test code = 1005) 81.6 fL 80.0-99.0 MCH (test code = 1006) 28.3 PG 25.0-33.0 MCHC (test code = 1007) 34.7 G/DL 31.0-36.0 RDW (test code = 1038) 12.8 % 11.5-15.0 NEUTROPHILS (test code = 1008) 80.2 % LYMPHOCYTES (test code = 1010) 17.4 % MONOCYTES (test code = 1011) 1.9 % EOSINOPHILS (test code = 1012) 0.0 % BASOPHILS (test code = 1013) 0.1 % IMMATURE GRANULOCYTES (test code = 1036) 0.4 % NUCLEATED RBCS (test code = 1065) 0.0 /100 WBC'S See_Comment [Automated messa ge] The system which generated this result transmitted reference range: 0.0. The reference range was not used to interpret this result as normal/abnormal. PLATELET COUNT (test code = 1015) 305 K/UL 130-400 ABSOLUTE NEUTROPHILS (test code = 1066) 8.42 K/UL 1.50-7.50 H ABSOLUTE LYMPHOCYTES (test code = 1067) 1.83 K/UL 1.00-4.00 ABSOLUTE MONOCYTES (test code = 1068) 0.20 K/UL 0.20-1.00 ABSOLUTE EOSINOPHILS (test code = 1040) 0.00 K/UL 0.00-0.50 ABSOLUTE BASOPHILS (test code = 1069) 0.01 K/UL 0.00-0.20 ABS IMMATURE GRANULOCYTES (test code = 1020) 0.04 K/UL 0.00-0.10 ABS NUCLEATED RBCS (test code = 41087) 0.00 K/UL 0.00-0.11 HEMOGLOBIN [id number] 00:00:00* Test Item Value Reference Range Interpretation Comme nts HEMOGLOBIN A1c (test code = 17283) 6.4 % [facility]AUTO [id number] 00:00:00* Test Item Value Reference Range Interpretation Comme nts WBC (test code = 1001) 10.5 K/UL RBC (test code = 1002) 5.05 M/UL HEMOGLOBIN (test code = 1003) 14.3 G/DL HEMATOCRIT (test code = 1004) 41.2 % MCV (test code = 1005) 81.6 fL MCH (test code = 1006) 28.3 PG MCHC (test code = 1007) 34.7 G/DL RDW (test code = 1038) 12.8 % NEUTROPHILS (test code = 1008) 80.2 % LYMPHOCYTES (test code = 1010) 17.4 % MONOCYTES (test code = 1011) 1.9 % EOSINOPHILS (test code = 1012) 0.0 % BASOPHILS (test code = 1013) 0.1 % IMMATURE GRANULOCYTES (test code = 1036) 0.4 % NUCLEATED RBCS (test code = 1065) 0.0 /100WBC'S PLATELET COUNT (test code = 1015) 305 K/UL ABSOLUTE NEUTROPHILS (test c ode = 1066) 8.42 K/UL ABSOLUTE LYMPHOCYTES (test c ode = 1067) 1.83 K/UL ABSOLUTE MONOCYTES (test cod e = 1068) 0.20 K/UL ABSOLUTE EOSINOPHILS (test c ode = 1040) 0.00 K/UL ABSOLUTE BASOPHILS (test cod e = 1069) 0.01 K/UL ABS IMMATURE GRANULOCYTES (t est code = 1020) 0.04 K/UL ABS NUCLEATED RBCS (test cod e = 32450) 0.00 K/UL Juvenal BuenrostroCOMPREHENSIVE METABOLIC [id number] 00:00:00* Test Item Value Reference Range Interpretation Comme nts GLUCOSE (test code = 2217) 137 MG/DL BUN (test code = 2208) 17 MG/DL CREATININE (test code = 2214) 0.67 MG/DL eGFR (2020 CKD-EPI) (test code = 26712) 104 ML/MIN/1.73 CALC BUN/CREAT (test code = 2235) 25 RATIO SODIUM (test code = 2231) 140 MEQ/L POTASSIUM (test code = 2228) 4.7 MEQ/L CHLORIDE (test code = 2215) 103 MEQ/L CARBON DIOXIDE (test code = 2206) 26 MEQ/L CALCIUM (test code = 2209) 9.7 MG/DL PROTEIN, TOTAL (test code = 2229) 7.1 G/DL ALBUMIN (test code = 2201) 4.4 G/DL CALC GLOBULIN (test code = 2240) 2.7 G/DL CALC A/G RATIO (test code = 2234) 1.6 RATIO BILIRUBIN, TOTAL (test code = 2207) 0.5 MG/DL ALKALINE PHOSPHATASE (test code = 2204) 102 U/L AST (test code = 2218) 17 U/L ALT (test code = 2219) 34 U/L Juvenal BuenrostroLIPID [id number] 00:00:00* Test Item Value Reference Range Interpretation Comme nts CHOLESTEROL (test code = 2210) 215 MG/DL TRIGLYCERIDES (test code = 2232) 75 MG/DL HDL CHOLESTEROL (test code = 2220) 50 MG/DL CALC LDL CHOL (test code = 2237) 147 MG/DL RISK RATIO LDL/HDL (test cod e = 2238) 2.94 RATIO Juvenal BuenrostroTSH, THIRD [id number] 00:00:00* Test Item Value Reference Range Interpretation Comme nts TSH, THIRD GENERATION (test code = 2821) 0.650 UIU/ML Juvenal BuenrostroBASIC METABOLIC [id number] 07:22:00* Test Item Value Reference Range Interpretation Comme nts SODIUM (test code = NA) 142 mEq/L 134-147 N POTASSIUM (test code = K) 4.2 mEq/L 3.4-5.0 N CHLORIDE (test code = CL) 107 mEq/L 100-108 N CARBON DIOXIDE (test code = CO2) 27 mEq/l 21-33 N ANION GAP (test code = GAP) 12 0-20 N GLUCOSE (test code = GLU) 112 mg/dL 70-110 H BLOOD UREA NITROGEN (test code = BUN) 11 mg/dL 7-18 N GLOMERULAR FILTRATION RATE (test code = GFR) 103.4 90-95 H The Glomerular Filtration Rate is a calculated parameterbased on serum Creatinine, patient age and sex. GFR valuesless than 60 mL/min/1.73 square meters are indicative ofChronic Kidney Disease. Values less than 15 mL/min/1.73square meters indicate Kidney failure. The calculation forGFR is based on the CKD-EPI (2020) calculation. This formulais race indifferent and is the recommended formula for GFRby the National Kidney Foundation for Adults.The GFR will not calculate if the sex is unknown or if thepatient's age is <18 years. CREATININE (test code = CREAT) 0.7 mg/dL 0.6-1.3 N CALCIUM (test code = CA) 8.6 mg/dL 8.0-10.5 N COMMENTS: To be done morning of Heart CathCBC W/AUTO [id number] 06:56:00* Test Item Value Reference Range Interpretation Comme nts WHITE BLOOD CELL (test code = WBC) 5.3 x10 3/uL 4.5-11.0 N RED BLOOD CELL (test code = RBC) 4.85 x10 6/uL 3.54-5.02 N HEMOGLOBIN (test code = HGB) 13.5 g/dL 11.0-15.0 N HEMATOCRIT (test code = HCT) 41.7 % 33.0-45.0 N MEAN CELL VOLUME (test code = MCV) 86.0 fL 81.0-99.0 N MEAN CELL HGB (test code = MCH) 27.8 pg 27.0-33.0 N MEAN CELL HGB CONCETRATION (test code = MCHC) 32.4 g/dL 33.0-37.0 L RED CELL DISTRIBUTION WIDTH CV (test code = RDW) 12.8 % 11.5-14.5 N RED CELL DISTRIBUTION WIDTH SD (test code = RDW-SD) 40.3 fL 37.0-54.0 N PLATELET COUNT (test code = PLT) 247 x10 3/uL 150-400 N MEAN PLATELET VOLUME (test c ode = MPV) 9.7 fL 7.0-9.0 H NEUTROPHIL % (test code = NT%) 46.8 % 56.0-77.0 L IMMATURE GRANULOCYTE % (test code = IG%) 0.2 % 0.0-2.0 N LYMPHOCYTE % (test code = LY%) 43.5 % 14.0-32.0 H MONOCYTE % (test code = MO%) 6.6 % 4.8-9.0 N EOSINOPHIL % (test code = EO%) 2.3 % 0.3-3.7 N BASOPHIL % (test code = BA%) 0.6 % 0.0-2.0 N NUCLEATED RBC % (test code = NRBC%) 0.0 % 0-0 N NEUTROPHIL # (test code = NT#) 2.50 x10 3/uL 2.0-7.6 N IMMATURE GRANULOCYTE # (test code = IG#) 0.01 x10 3/uL 0.00-0.03 N LYMPHOCYTE # (test code = LY#) 2.32 x10 3/uL 1.0-3.8 N MONOCYTE # (test code = MO#) 0.35 x10 3/uL 0.1-0.8 N EOSINOPHIL # (test code = EO#) 0.12 x10 3/uL 0.0-0.2 N BASOPHIL # (test code = BA#) 0.03 x10 3/uL 0.0-0.2 N NUCLEATED RBC # (test code = NRBC#) 0.00 x10 3/uL 0.0-0.1 N MANUAL DIFF REQUIRED (test c ode = MDIFF) NO COMMENTS: To be done morning of Heart CathLIPID PROFILE (CORONARY RISK) 2022-09-06 14:03:00* Test Item Value Reference Range Interpretation Comme nts TRIGLYCERIDES (test code = TRIG) 134 mg/dL 40-150 N CHOLESTEROL (test code = CHOL) 175 mg/dL <200 CHOLESTEROL/HDL RATIO (test code = CHOLHDL) 5.95 RATIO 3.27-4.44 H RISK ASSOCIATED WITH CHOL/HDL RATIOS: RISK MALE FEMALE1/2 AVERAGE 3.43 3.27AVERAGE 4.97 4.442X AVERAGE 9.55 7.053X AVERAGE 23.39 11.04 NOTE THAT THE REFERENCE VALUE IS RELATEDTO RISK LEVELS RECOMMENDED BY THE NATL.HEART, LUNG, AND BLOOD INST. HDL CHOLESTEROL (test code = HDL) 29.4 mg/dL 39-96 L LIPOPROTEIN LDL (test code = LDL) 152.2 mg/dL 0-100 H <100 [id number] 0-129 NEAR OPTIMAL/ABOVE [id number] HIGH>WS=533 VERY HIGH*Guidelines provided by the National Cholesterol EducationProgram Adult Treatment Panel III COMMENTS: If already ordered in ED, Adjust times to equal only 3 sets 2 hoursComment: apart.TSH REFLEX TO [id number] 14:03:00* Test Item Value Reference Range Interpretation Comme nts TSH REFLEX TO FT4 (test code = TSHREFLEX) 1.22 IU/mL 0.42-5.47 N COMMENTS: If already ordered in ED, Adjust times to equal only 3 sets 2 hoursComment: apart.TROP-I HIGH [id number] 14:03:00* Test Item Value Reference Range Interpretation Comme nts TROP-I HIGH SENSITIVITY (test code = TROPIHS) < 3 ng/L 0-34 N CAUTION: Units o f the current test methodology (ng/L) differfrom the prior test methodology (ng/mL) by a factor of 1000. 99th Percentile Upper Reference Limit (URL): Females: 34 ng/LMales: 54 ng/L In order to distinguish acute elevations of high sensitivitytroponin from other clinical conditions, the FourthUniversal Definition of Myocardial Infarction stressesclinical assessment and the demonstration of a rise and/orfall in serial troponin results above the URL. These results were obtained using Siemens [employer] IM TnIHreagent. Results from different methodologies should not becompared to one another as quantitative results and URLs mayvary by method. COMMENTS: If already ordered in ED, Adjust times to equal only 3 sets 2 hoursComment: apart.SED RATE [id number] 12:16:00* Test Item Value Reference Range Interpretation Comme nts SED RATE GIBERTREN (test co de = SEDW) 8 mm/hr 0-20 N HGBA1C%2022-09-06 11:57:00* Test Item Value Reference Range Interpretation Comme nts HGBA1C% (test code = HGBA1C%) 5.9 %A1C 4.8-6.0 N C REACTIVE [id number] 11:43:00* Test Item Value Reference Range Interpretation Comme nts C REACTIVE PROTEIN (test cod e = CRP) 10.0 mg/L <10.0 H HGBA1C%2022-09-06 10:14:00* Test Item Value Reference Range Interpretation Comme nts HGBA1C% (test code = HGBA1C%) 5.9 %A1C 4.8-6.0 N COMMENTS: If patient DiabeticB-TYPE NATRIURETIC [id number] 08:26:00* Test Item Value Reference Range Interpretation Comme nts B-TYPE NATRIURETIC PEPTIDE ( test code = BNP) 12.0 PG/ML 0-100 N COMPREHENSIVE METABOLIC [id number] 08:10:00* Test Item Value Reference Range Interpretation Comme nts SODIUM (test code = NA) 140 mEq/L 134-147 N POTASSIUM (test code = K) 3.8 mEq/L 3.4-5.0 N CHLORIDE (test code = CL) 109 mEq/L 100-108 H CARBON DIOXIDE (test code = CO2) 27 mEq/l 21-33 N ANION GAP (test code = GAP) 8 0-20 N GLUCOSE (test code = GLU) 108 mg/dL 70-110 N BLOOD UREA NITROGEN (test code = BUN) 14 mg/dL 7-18 N GLOMERULAR FILTRATION RATE (test code = GFR) 103.4 90-95 H The Glomerular Filtration Rate is a calculated parameterbased on serum Creatinine, patient age and sex. GFR valuesless than 60 mL/min/1.73 square meters are indicative ofChronic Kidney Disease. Values less than 15 mL/min/1.73square meters indicate Kidney failure. The calculation forGFR is based on the CKD-EPI (2020) calculation. This formulais race indifferent and is the recommended formula for GFRby the National Kidney Foundation for Adults.The GFR will not calculate if the sex is unknown or if thepatient's age is <18 years. CREATININE (test code = CREAT) 0.7 mg/dL 0.6-1.3 N TOTAL PROTEIN (test code = PROT) 6.1 g/dL 6.4-8.2 L ALBUMIN (test code = ALB) 3.30 g/dL 3.4-5.0 L CALCIUM (test code = CA) 8.2 mg/dL 8.0-10.5 N BILIRUBIN TOTAL (test code = BILT) 0.40 mg/dL 0.0-1.0 N SGOT/AST (test code = AST) 17 IUnit/L 15-37 N SGPT/ALT (test code = ALT) 25 IUnit/L 30-65 L ALKALINE PHOSPHATASE TOTAL (test code = ALKP) 74 IUnit/L 20-125 N COMMENTS: If already ordered in ED, Adjust times to equal only 3 sets 2 hoursComment: apart.[id number] 08:10:00* Test Item Value Reference Range Interpretation Comme nts MAGNESIUM (test code = MAG) 1.80 mg/dL 1.80-2.40 N COMMENTS: If already ordered in ED, Adjust times to equal only 3 sets 2 hoursComment: apart.TROP-I HIGH [id number] 08:10:00* Test Item Value Reference Range Interpretation Comme nts TROP-I HIGH SENSITIVITY (test code = TROPIHS) < 3 ng/L 0-34 N CAUTION: Units o f the current test methodology (ng/L) differfrom the prior test methodology (ng/mL) by a factor of 1000. 99th Percentile Upper Reference Limit (URL): Females: 34 ng/LMales: 54 ng/L In order to distinguish acute elevations of high sensitivitytroponin from other clinical conditions, the FourthUniversal Definition of Myocardial Infarction stressesclinical assessment and the demonstration of a rise and/orfall in serial troponin results above the URL. These results were obtained using Siemens [employer] IM TnIHreagent. Results from different methodologies should not becompared to one another as quantitative results and URLs mayvary by method. COMMENTS: If already ordered in ED, Adjust times to equal only 3 sets 2 hoursComment: apart.TROP-I HIGH [id number] 07:12:00* Test Item Value Reference Range Interpretation Comme nts TROP-I HIGH SENSITIVITY (test code = TROPIHS) < 3 ng/L 0-34 N CAUTION: Units o f the current test methodology (ng/L) differfrom the prior test methodology (ng/mL) by a factor of 1000. 99th Percentile Upper Reference Limit (URL): Females: 34 ng/LMales: 54 ng/L In order to distinguish acute elevations of high sensitivitytroponin from other clinical conditions, the FourthUniversal Definition of Myocardial Infarction stressesclinical assessment and the demonstration of a rise and/orfall in serial troponin results above the URL. These results were obtained using Siemens [employer] IM TnIHreagent. Results from different methodologies should not becompared to one another as quantitative results and URLs mayvary by method. COMMENTS: If already ordered in ED, Adjust times to equal only 3 sets 2 hoursComment: apart.PROTHROMBIN [id number] 05:42:00* Test Item Value Reference Range Interpretation Comme nts PROTHROMBIN TIME PATIENT (test code = PTP) 11.5 SECONDS 9.3-12.9 N INTERNATIONAL NORMAL RATIO (test code = INR) 1.0 0.8-1.2 N TARGET INR BY INDICATION Indication INR1. Prophylaxis of venous thrombosis 2.0 - 3.0 (orthopedic surgery), Prophylaxis of venous thrombosis (other than high-risk surgery), Treatment of Deep Vein Thrombosis/Pulmonary Embolism, Prevention of systemic embolism - Tissue heart valves, Acute Myocardial Infarction (to prevent systemic embolism), Valvular heart disease, Atrial Fibrillation, Bileaflet mechanical valve in aortic position.2. Mechanical prosthetic valves (high risk), 2.5 - 3.5 Presence of Lupus Anticoagulant or Antiphospholipid Antibodies, Prevention of systemic embolism - Acute Myocardial Infarction (to prevent recurrent infarct). COMMENTS: If on Coumadin/with pacer/Swanz-Cortney insertion/heparinization therapy THROMBOPLASTIN TIME [id number] 05:42:00* Test Item Value Reference Range Interpretation Comme nts THROMBOPLASTIN TIME PARTIAL (test code = PTT) 29.0 Seconds 25.0-39.5 N Therapeutic Rang e: 50.4 - 88.3 Seconds Effective 01/11/2019 COMMENTS: If on Coumadin/with pacer/Swanz-Cortney insertion/heparinization therapy CBC W/AUTO [id number] 00:10:00* Test Item Value Reference Range Interpretation Comme nts WHITE BLOOD CELL (test code = WBC) 5.9 K/uL 3.5-11.0 N RED BLOOD CELL (test code = RBC) 4.63 M/uL 3.54-5.02 N HEMOGLOBIN (test code = HGB) 13.4 GM/DL 11.0-15.0 N HEMATOCRIT (test code = HCT) 39.1 % 37.0-47.0 N MEAN CELL VOLUME (test code = MCV) 84.4 fL 81.0-99.0 N MEAN CELL HGB (test code = MCH) 28.9 pg 27.0-31.0 N MEAN CELL HGB CONCETRATION ( test code = MCHC) 34.3 GM/DL 33.0-37.0 N RED CELL DISTRIBUTION WIDTH CV (test code = RDW) 13.6 % 11.5-14.5 N PLATELET COUNT (test code = PLT) 257 K/mm3 150-400 N MEAN PLATELET VOLUME (test c ode = MPV) 9.8 FL 8.8-13.1 N NEUTROPHIL % (test code = NT%) 53.4 % 40.0-76.0 N LYMPHOCYTE % (test code = LY%) 38.6 % 15.0-40.0 N MIXED % (test code = MX%) 8.0 % 3.0-15.0 N NEUTROPHIL # (test code = NT#) 3.1 K/uL 1.8-7.6 N LYMPHOCYTE # (test code = LY#) 2.3 K/uL 1.0-3.8 N MIXED # (test code = MX#) 0.5 k/mm3 0.1-0.8 N GLUCOSE [id number] 22:33:00* Test Item Value Reference Range Interpretation Comme [facility] GLUCOSE BEDSIDE (test code = GLUBED) 109 MG/DL 70-110 N Performed by Copyright Agent window machine operator at [facility] TROPONIN-I [id number] 22:33:00* Test Item Value Reference Range Interpretation Comme [facility] TROPONIN-I RAPID (test code = TROPIRAP) < 0.05 <0.05 Performed by Copyright Agent window machine operator at [facility]"Point of Care test critical value notification anddocumentation is completed by nursing staff. Negative <0.05 ng/mLPositive >/= 0.05 ng/mL Test results should not be used as absolute evidence or lackof evidence of myocardial infarction and should be evaluatedin the context of all the clinical and laboratory dataavailable. In those instances where the test results do notagree with the clinical evaluation, additional tests shouldbe performed.An elevated troponin alone is not sufficient to diagnosemyocardial infarction. Rather, the patient's clinicalpresentation (history, physical exam) and ECG should be usedin conjunction with troponin in the diagnostic evaluation ofsuspected myocardial infarction. A serial sampling protocolis recommended to facilitate the identification of temporalchanges in troponin levels. - XR CHEST 1 [id number] 00:00:00 [facility] 1970 Sex: FFAX: Pio Demarco DO [phone] [place]: [place] St: PRE Name: EMA DYER FSED : 1970 Age/S: 51/F [address] [facility] Unit #: [id number] Loc: [place] [address] Phys: Pio Demarco DO Acct: [id number] Dis Date: Status: PRE ER PHONE #: Exam Date: 09/05/2022 [id number] FAX #: Reason: Chest Pain EXAMS: CPT CODE: [id number] XR CHEST 1 V [id number] PROCEDURE INFORMATION: Exam: XR Chest Exam date and time: 09/05/2022 9:39 PM Age: 51 years old Clinical indication: Chest wall pain; Additional info: Chest pain TECHNIQUE: Imaging protocol: Radiologic exam of the chest. Views: 1 view. COMPARISON: No relevant prior studies available. FINDINGS: Lungs: Mild decreased lung volumes. No consolidation. Pleural spaces: No pleural effusion. No pneumothorax. Heart/Mediastinum: The cardiac silhouette is not enlarged. Bones/joints: No destructive bone lesions. IMPRESSION: No acute cardiopulmonary findings. at 2245 Reported and signed by: Israel Pacheco M.D. CC: Pio Demarco DO Technologist: Kandace Greer RT(R)(CT) Trnscrd Date/Time/By: 09/05/2022 (2244) : By: [email or web address] Orig Print D/T: S: 09/05/2022 (2244) PAGE 1 Signed ReportBI ULTRASOUND BREAST COMPLETE LEFT 2020-08-16 19:46:03Examination:BI DIAGNOSTIC TOMOSYNTHESIS LEFTBI ULTRASOUND BREAST COMPLETE LEFT History:Patient is [...] is almost entirely fatty. There is no evidenceof suspicious masses, calcifications, or other abnormal findings [...] identified in the subareolar region of the leftbreast. Normal-appearing left axillary lymph nodes are identified. Impression: Left: There is no evidence of malignancy. The patient is due for annual bilateral mammogram in March 2021. Recommendation:Annual mammographic follow-up - Left BI-RADS Category: Left 1 [facility]THES[facility] LEFT 2020-08-16 19:46:02Examination:BI DIAGNOSTIC TOMOSYNTHESIS LEFTBI ULTRASOUND BREAST COMPLETE LEFT History:Patient is [...] is almost entirely fatty. There is no evidenceof suspicious masses, calcifications, or other abnormal findings [...] identified in the subareolar region of the leftbreast. Normal-appearing left axillary lymph nodes are identified. Impression: Left: There is no evidence of malignancy. The patient is due for annual bilateral mammogram in March 2021. Recommendation:Annual mammographic follow-up - Left BI-RADS Category: Left 1 - [facility]UnColumb[facility] SCREENING MAMMOGRAM BILATERAL 2020-04-24 21:24:53Examination:BI SCREENING MAMMOGRAM BILATERAL History:Patient is 49 year old and is seen for: ?Visitfor screening mammogram. Computer-aided detection (CAD) utilized. Comparisons: [...] if necessary, with spot compression tomosynthesis requested. Recommendation:Annual mammographic follow-up - RightUltrasound with possible tomosynthesis spot compression - Left BI-RADS Category: Left: 0 - Incomplete: Needs Additional Imaging EvaluationRight: 1 - NegativeOverall: 0 - Incomplete: Needs Additional Imaging EvaluationUnMethodist Mansfield Medical CenterVITAMIN D,1,74-[id number] 00:00:00* Test Item Value Reference Range Interpretation Comme nts VITAMIN D,1,25-DIHYDROXY (te st code = 4960) 62.3 PG/ML Juvenal F PorterCOMPREHENSIVE METABOLIC [id number] 00:00:00* Test Item Value Reference Range Interpretation Comme nts GLUCOSE (test code = 2217) 93 MG/DL BUN (test code = 2208) 9 MG/DL CREATININE (test code = 2214) 0.6 MG/DL eGFR AMER. (test cod e = 94952) 130 ML/MIN/1.73 eGFR NON- AMER. (test code = 35940) 108 ML/MIN/1.73 CALCULATED BUN/CREAT (test code = 2235) 15 RATIO SODIUM (test code = 2231) 136 MEQ/L POTASSIUM (test code = 2228) 4.5 MEQ/L CHLORIDE (test code = 2215) 104 MEQ/L CARBON DIOXIDE (test code = 2206) 21 MEQ/L CALCIUM (test code = 2209) 8.8 MG/DL PROTEIN, TOTAL (test code = 2229) 7.1 G/DL ALBUMIN (test code = 2201) 3.9 G/DL CALCULATED GLOBULIN (test code = 2240) 3.2 G/DL CALCULATED A/G RATIO (test code = 2234) 1.2 RATIO BILIRUBIN, TOTAL (test code = 2207) 0.4 MG/DL ALKALINE PHOSPHATASE (test code = 2204) 81 U/L SGOT (AST) (test code = 2218) 14 U/L SGPT (ALT) (test code = 2219) 16 U/L Juvenal BuenrostroLIPID [id number] 00:00:00* Test Item Value Reference Range Interpretation Comme nts CHOLESTEROL (test code = 2210) 188 MG/DL TRIGLYCERIDES (test code = 2232) 126 MG/DL HDL CHOLESTEROL (test code = 2220) 40 MG/DL CALCULATED LDL CHOL (test co de = 2237) 123 MG/DL RISK RATIO LDL/HDL (test cod e = 2238) 3.07 RATIO Juvenal [id number] 00:00:00* Test Item Value Reference Range Interpretation Comme nts TSH (test code = 2821) 1.6 UIU/ML Juvenal BuenrostroCBC W/AUTO [id number] 00:00:00* Test Item Value Reference Range Interpretation Comme nts WBC (test code = 1001) 6.5 K/UL RBC (test code = 1002) 4.91 M/UL HEMOGLOBIN (test code = 1003) 11.5 G/DL HEMATOCRIT (test code = 1004) 37.8 % MCV (test code = 1005) 77.0 fL MCH (test code = 1006) 23.4 PG MCHC (test code = 1007) 30.4 G/DL RDW (test code = 1038) 18.3 % NEUTROPHILS (test code = 1008) 59 % LYMPHOCYTES (test code = 1010) 32 % MONOCYTES (test code = 1011) 6 % EOSINOPHILS (test code = 1012) 2 % PLATELET COUNT (test code = 1015) 293 K/UL Juvenal BuenrostroHEMOGLOBIN [id number] 00:00:00* Test Item Value Reference Range Interpretation Comme nts HEMOGLOBIN A1c (test code = 63206) 6.4 % Juvenal Contreras Porter Notes Date/Time Note Provider Source Juvenal ContrerasAbdiel Porter [facility]2022-12-12 17:43:00 [facility] ([facility]) Hospitalist Discharge Summary REPORT#:[id number] REPORT STATUS: Signed DATE:09/08/22 TIME: 4413 PATIENT: EMA DYER UNIT #: [id number] ROOM/BED: [place] [address] : 68 AGE: 51 SEX: F ATTEND: Sudhakar Baker MD ADM AUTHOR: Sudhakar Baker MD * ALL edits or amendments must be made on the electronic/computer document * General Information Free Text General Notes Free Text General Notes: NO CP, DAUGHTER AT BS, EAGER TO GO HOME, INFORMED OF NEGATIVE CATH. Discharge date: 09/08/22 Discharge diagnosis: SEE BELOW. Hospital course: 51 LAF WITH OBESITY, ADMITTED WITH ATYPICAL CP, AND CARDIAC RISKS, THUS SEEN BY CARD AND HAD A CAHT THAT WAS NEGATIVE. Pt. condition on discharge: improved, stable Free Text DxA P Notes Free text DxA P notes: ATYPICAL CP - RESOLVED, CATH NEGATIVE, ECHO E 55-60%, D/C HOME, CONT ASA 81, LIPITOR 40 -EKG showed NSR and troponin is negative, trend trop - aspirin, cont metoprolol. - o2 support to keep SO2> 92% - nitro and morphine as needed for pain. - consulted Card. Appreciate input. 09/07- awaiting possible stress test on THURSDAY HLP - LDL 152, CONT LIPITOR 40 HTN - GOOD, CONT LOPRESSOR HOME MEDS, 09/07- controlled. VTE proph with lovenox. 09/07- awaiting stress test for THURSDAY. dispo per cards Med Rec Med Rec Discharge meds: Continue taking these medications: METOPROLOL TARTRATE (LOPRESSOR) 50 MG TAB 50 MILLIGRAM ORAL TWICE DAILY. DULoxetine DR (CYMBALTA) 60 MG CAP.DR 60 MILLIGRAM ORAL DAILY. as needed for ANXIETY Start taking the following new medications: ATORVASTATIN (LIPITOR) 40 MG TAB 40 MILLIGRAM ORAL 2100 Days = 30 Qty = 30 Refills = 5 ASPIRIN (ASPIRIN) 81 MG TAB.CHEW 81 MILLIGRAM ORAL DAILY. Days = 30 Qty = 30 No Refills Instructions: CAN GET THIS OTC. Objective VS/I O Last Documented: Result Date Time Pulse Ox 96 09/08 1519 B/P 151/74 09/08 1519 B/P Mean 99.3 09/08 1519 O2 Delivery Room air 09/08 1519 Temp 97.7 09/08 151 Pulse 63 09/08 151 Resp 16 09/08 151 FiO2 21 09/06 0743 24 hour I O ending at 0700: 09/08 0700 09/07 1900 Intake Total 650 Output Total Balance 650 Intake, Oral 650 Patient 220 lb Weight Weight Standing scale Measurement Method General appearance: obese, alert, awake Neck: no JVD Cardiovascular: normal heart sounds, regular rate rhythm Respiratory: aerating well, clear to auscultation, no distress Abdomen: obese, non-tender, normal bowel sounds, soft, no distention Extremities: no edema Musculoskeletal: normal inspection Neuro/MANAGER ENGINE: alert, oriented X 3, normal speech Skin: dry, no rash Psychiatry: normal affect Results Findings/Data: Laboratory Tests: 09/08 0537 Chemistry Sodium (134 - 147 mEq/L) 142 Potassium (3.4 - 5.0 mEq/L) 4.2 Chloride (100 - 108 mEq/L) 107 Carbon Dioxide (21 - 33 mEq/l) 27 Anion Gap (0 - 20) 12 BUN (7 - 18 mg/dL) 11 Creatinine (0.6 - 1.3 mg/dL) 0.7 Glomerular Filtr Rate (90 - 95) 103.4 H Glucose (70 - 110 mg/dL) 112 H Calcium (8.0 - 10.5 mg/dL) 8.6 Hematology WBC (4.5 - 11.0 x10 3/uL) 5.3 RBC (3.54 - 5.02 x10 6/uL) 4.85 Hgb (11.0 - 15.0 g/dL) 13.5 Hct (33.0 - 45.0 %) 41.7 MCV (81.0 - 99.0 fL) 86.0 MCH (27.0 - 33.0 pg) 27.8 MCHC (33.0 - 37.0 g/dL) 32.4 L RDW (11.5 - 14.5 %) 12.8 Plt Count (150 - 400 x10 3/uL) 247 MPV (7.0 - 9.0 fL) 9.7 H Neut % (Auto) (56.0 - 77.0 %) 46.8 L Lymph % (Auto) (14.0 - 32.0 %) 43.5 H [place] % (Auto) (4.8 - 9.0 %) 6.6 Eos % (Auto) (0.3 - 3.7 %) 2.3 Baso % (Auto) (0.0 - 2.0 %) 0.6 Neut # (Auto) (2.0 - 7.6 x10 3/uL) 2.50 Lymph # (Auto) (1.0 - 3.8 x10 3/uL) 2.32 [place] # (Auto) (0.1 - 0.8 x10 3/uL) 0.35 Eos # (Auto) (0.0 - 0.2 x10 3/uL) 0.12 Baso # (Auto) (0.0 - 0.2 x10 3/uL) 0.03 Abs Immat Gran (auto) (0.00 - 0.03 x10 3/uL) 0.01 Add Manual Diff NO Immature Gran % (0.0 - 2.0 %) 0.2 Nucleated RBC % (0 - 0 %) 0.0 Nucleated RBCs # (Man) (0.0 - 0.1 x10 3/uL) 0.00 Discharge Instructions PCP PCP follow-up: PCP: No Primary or Family Physician Discharge to: Home/Self Care Additional Discharge Routines: PCP Follow-Up, Residential Driver Follow-Up Diet: Cardiac Activity: Resume Normal Activity Follow-up Appointments PCP follow-up: PCP: No Primary or Family Physician PCP follow up timeframe: In 1-2 weeks Consulting provider 1: Provider 1: Torsten Christianson MD Specialty: CardiologyInterventional Consult follow up timeframe: In 1-2 weeks Quality: Discharge Advanced Care Plan 65 or Older Discussed with: patient, DAUGHTER AT at 1748 RPT #:[id number] END OF [id number] 11:43:00 [facility] ([facility] Cardiology Progress Note REPORT#:[id number] REPORT STATUS: Signed DATE:09/08/22 TIME: 1143 PATIENT: EMA DYER UNIT #: [id number] ROOM[address]BED: [address] : 68 AGE: 51 SEX: F ATTEND: Sudhakar Baker MD ADM AUTHOR: Lluvia Christianson MD * ALL edits or amendments must be made on the electronic/computer document * Subjective Chief complaint: Chest pain HPI: This is a 51-year-old female with a past medical history of hypertension. The patient presented to the hospital in the emergency department in the setting of some lightheadedness and dizziness that occurred. She also felt associated left -sided chest pain that was severe with associated numbness and tingling in the left upper extremities down to the fingers. This was relatively transient until she presented to the emergency department. She states that she has anxiety overall however is overall concerned about her family history. She used to smoke remotely. She has had multiple family members with cardiac issues including sisters as well as mother. Mother has had prior stenting. Sister has had open heart surgery. She presently does not have chest pain. Patient reports: Yes: chest pain, fatigue. No: abdominal pain, confused, dizziness, fever, nausea, palpitations, shortness of breath, swelling. Objective General VS/I O: 24 hour I O ending at 0700: 09/08 0700 09/07 1900 Intake Total 650 Output Total Balance 650 Intake, Oral 650 Patient 99.6 kg Weight Weight Standing scale Measurement Method Vital Signs: Date Time Temp Pulse Resp B/P B/P Pulse O2 O2 Flow FiO2 Mean Ox Delivery Rate 09/08 1042 36.2 58 16 123/77 92.0 97 Room air 09/08 0722 36.6 53 16 127/78 94.6 95 Room air 09/08 0525 36.6 58 16 121/72 88.4 94 Room air 09/07 2324 36.9 50 16 109/66 80.5 95 Room air 09/07 1921 37.1 65 16 137/79 98.4 97 Room air 09/07 1519 36.8 61 16 118/71 86.7 97 Room air PATIENT WEIGHT: Weight (lb): 219 Weight (oz): 9.29 Weight (kg): 99.600 Medications: Active Meds + DC'd Last 24 Hrs Iopamidol (ISOVUE-370 100ML) 100 ML .STK-MED ONE IV (DC) Fentanyl Citrate (SUBLIMAZE) 0 .STK-MED ONE .ROUTE (DC) Midazolam HCl (VERSED) 0 .STK-MED ONE .ROUTE (DC) Heparin Sodium/Sodium Chloride (HEPARIN 2,000 UNITS/NS 1,000mL) 1,000 ML .STK-MED ONE IV (DC) Heparin Sodium/Sodium Chloride (HEPARIN 1,000 UNITS/NS 500ML) 500 ML .STK- MED ONE IV (DC) Lidocaine HCl (LIDOCAINE HCL/PF) 0 .STK-MED ONE .ROUTE (DC) Nitroglycerin/Dextrose (NITROGLYCERIN 50,000MCG/D5W 250ML) 250 ML .STK-MED ONE IV (DC) Verapamil HCl (ISOPTIN) 0 .STK-MED ONE IV (DC) Sodium Chloride (SODIUM CHLORIDE 0.9%) 1,000 ML .[id number] ONE IV (DC) Aspirin (ASPIRIN) 81 MG DAILY PO Duloxetine HCl (CYMBALTA) 60 MG DAILY PO Atorvastatin Calcium (LIPITOR) 40 MG 2100 PO Metoprolol Tartrate (LOPRESSOR) 50 MG BID PO Enoxaparin Sodium (lovENOX) 40 MG Q24H SUBQ Acetaminophen (TYLENOL) 650 MG Q4H PRN PRN PO Magnesium Hydroxide (MILK OF MAGNESIA) 30 ML BEDTIME PRN PRN PO Morphine Sulfate (morphine SULFATE) 2 MG Q1H PRN PRN IV Nitroglycerin (NITROSTAT) 0.4 MG Q5M PRN PRN SL Ondansetron HCl (ZOFRAN) 4 MG Q6H PRN PRN IV Physical Exam General appearance: alert, awake, oriented, conversational Head/Eyes: atraumatic, normal conjunctiva/sclera, normocephalic ENT: moist mucosal membranes, normal pharynx Neck: full range of motion, non-tender Cardiovascular: CV assessment: regular rate and rhythm, no rub Respiratory: clear to auscultation, no distress Abdomen: soft, non-tender, no distention Upper extremity: UE assessment: normal temperature, no clubbing, no cyanosis Lower extremity: LE assessment: normal temperature, no clubbing, no cyanosis Musculoskeletal: full range of motion, normal inspection Neuro/MANAGER ENGINE: alert, normal speech Skin: dry, intact Psychiatry: normal affect, normal mood Results Findings/Data: Laboratory Tests 09/08 0537 Chemistry Sodium (134 - 147 mEq/L) 142 Potassium (3.4 - 5.0 mEq/L) 4.2 Chloride (100 - 108 mEq/L) 107 Carbon Dioxide (21 - 33 mEq/l) 27 Anion Gap (0 - 20) 12 BUN (7 - 18 mg/dL) 11 Creatinine (0.6 - 1.3 mg/dL) 0.7 Glomerular Filtr Rate (90 - 95) 103.4 H Glucose (70 - 110 mg/dL) 112 H Calcium (8.0 - 10.5 mg/dL) 8.6 Laboratory Tests 09/08 0537 Hematology WBC (4.5 - 11.0 x10 3/uL) 5.3 RBC (3.54 - 5.02 x10 6/uL) 4.85 Hgb (11.0 - 15.0 g/dL) 13.5 Hct (33.0 - 45.0 %) 41.7 MCV (81.0 - 99.0 fL) 86.0 MCH (27.0 - 33.0 pg) 27.8 MCHC (33.0 - 37.0 g/dL) 32.4 L RDW (11.5 - 14.5 %) 12.8 Plt Count (150 - 400 x10 3/uL) 247 MPV (7.0 - 9.0 fL) 9.7 H Neut % (Auto) (56.0 - 77.0 %) 46.8 L Lymph % (Auto) (14.0 - 32.0 %) 43.5 H [place] % (Auto) (4.8 - 9.0 %) 6.6 Eos % (Auto) (0.3 - 3.7 %) 2.3 Baso % (Auto) (0.0 - 2.0 %) 0.6 Neut # (Auto) (2.0 - 7.6 x10 3/uL) 2.50 Lymph # (Auto) (1.0 - 3.8 x10 3/uL) 2.32 [place] # (Auto) (0.1 - 0.8 x10 3/uL) 0.35 Eos # (Auto) (0.0 - 0.2 x10 3/uL) 0.12 Baso # (Auto) (0.0 - 0.2 x10 3/uL) 0.03 Abs Immat Gran (auto) (0.00 - 0.03 x10 3/uL) 0.01 Add Manual Diff NO Immature Gran % (0.0 - 2.0 %) 0.2 Nucleated RBC % (0 - 0 %) 0.0 Nucleated RBCs # (Man) (0.0 - 0.1 x10 3/uL) 0.00 Diagnosis, Assessment Plan Free Text DxA P Notes Free Text DxA P Notes: 1. Chest pain episode, concern for unstable angina 2. Hypertension 3. Family history of coronary artery atherosclerosis and multiple family members including female family members 4. Morbid obesity with BMI greater than 40 09/06/2022 This is a patient that came in with an episode of chest discomfort with some atypical features. However notably, the patient has a significant family history of heart disease and heart issues including coronary artery atherosclerosis and several primary relatives including female relatives. Her troponin is strongly negative at this time. We will trend EKG as well as obtain echocardiogram. We will monitor on telemetry. We will continue her on beta- constantine as well as aspirin and statin therapy. We will further evaluate overall between stress test versus cardiac CTA. Cardiac CTA may be more amenable given her morbid obesity with BMI greater than 40 as well as her heart rate which has been relatively nice and slow. I discussed with her that given her risk factors , she warrants further cardiac evaluation. Unfortunately stress will not happen over the weekend, likely ischemia evaluation will be Thursday. 09/07/2022 Discussed in detail with the patient. She has atypical symptoms however overall very strong family history especially in female members of her family. She would like to proceed with the most definitive testing which will be cardiac catheterization. I will set her up for cardiac catheterization tomorrow. Risks , benefits, and alternatives were discussed with the patient and she was agreeable to proceed. We will evaluate her coronary anatomy and if there is significant disease we will address it as it arises. 09/08/2022: -s/p Lt Cath: Left dominant Circulation, angiographically normal coronary arteries, LVEDP is 12mmHg, no gradient across AoV -Findings of cath discussed with the patient including limitations -Post cardiac catheterization wound care restrictions on right wrist -Reassurances given, medical therapy -Ok to go home later today if ok by primary team at 1145 RPT #:[id number] END OF [id number]:[id number] [place], [place] [address] PATIENT NAME: EMA DYER ADMIT DATE: 09/06/22 ACCOUNT NO: [id number] ROOM NO: G.4406 AGE: 51 REPORT TYPE: CARDIAC CATHETERIZATION REPORT SEX: F ADMITTING PHYSICIAN:Ralph Slater MD ATTENDING PHYSICIAN:Sudhakar Baker MD PROCEDURE DATE: 09/08/2022 CARDIAC CATHETERIZATION REPORT PROCEDURES PERFORMED: 1. Left heart cardiac catheterization with coronary angiography. 2. Left ventricular pressure assessment. OPERATORS: 1. Lluvia hCristianson MD 2. Torsten Christianson MD INDICATIONS FOR PROCEDURE: A 51-year-old female with history of hypertension, hypercholesterolemia, obesity, strong family history of CAD, comes in to this institution with repeated chest pain episodes, highly concerning for unstable angina pectoris. In light of extensive family history with premature coronary artery disease, she is here for definitive ischemic evaluation. DESCRIPTION OF PROCEDURE: After risks, benefits, pros and cons of this procedure were explained, the patient agreed to proceed. She was brought to the Cardiac Catheterization Laboratory where the right wrist was prepped and draped in the usual sterile fashion. Preprocedure Juan Antonio's and Barbeau's test was noted to be normal. Then, 1% lidocaine solution was used to numb was used to numb the right and left groin region. Access of the right radial artery was obtained and we ended up placing a 6-[place] Terumo slender sheath. Selective coronary angiography of the kake left and right groin was performed with a [place] 4.0 diagnostic catheter. This catheter was dropped in the ventricle for ventricular pressure assessment across the aortic valve. In summary, the patient was found to have no CAD. So we decided to conclude the case. The sheath was removed and a Terumo TR band was successfully deployed utilizing patent hemostasis technique with a total of 15 mL of air placed. COMPLICATIONS: None. ESTIMATED BLOOD LOSS: None. FINDINGS: 1. Left main angiographically normal, gives rise to an LAD and circumflex branch. 2. LAD and its branches are angiographically normal. 3. Left circumflex artery is dominant and gives rise to several marginal branches. Distal vessel branches are angiographically normal. PATIENT NAME: EMA DYER 4. RCA small and nondominant and angiographically normal. 5. Left ventricular end diastolic pressure is 12 mmHg. There is no LV to aortic pullback gradient. CONCLUSIONS: Overall, the patient has angiographically normal coronary arteries. RECOMMENDATIONS: 1. We will just recommend risk factor modification and medical therapy. 2. Removal of TR band per protocol. Dictated By: Lluvia Christianson MD Date Dictated: 09/08/2022 11:33:28 Date Transcribed: 09/08/2022 12:54:45 JESSE/MISHEL/ERIK/AMARJIT Receipt ID: [id number] Authenticated by Lluvia Christianson MD On 09/10/2022 02:43:38 PM at 0243 PATIENT NAME: EMA DYER 13:20:00 [facility] [place] Cardiology Progress Note REPORT#:[id number] REPORT STATUS: Signed DATE:09/07/22 TIME: 1320 PATIENT: EMA DYER UNIT #: [id number] ROOM/BED: [place] [address] : 68 AGE: 51 SEX: F ATTEND: Ralph Slater MD ADM AUTHOR: Torsten Christianson MD * ALL edits or amendments must be made on the electronic/computer document * Subjective Chief complaint: Chest pain HPI: This is a 51-year-old female with a past medical history of hypertension. The patient presented to the hospital in the emergency department in the setting of some lightheadedness and dizziness that occurred. She also felt associated left -sided chest pain that was severe with associated numbness and tingling in the left upper extremities down to the fingers. This was relatively transient until she presented to the emergency department. She states that she has anxiety overall however is overall concerned about her family history. She used to smoke remotely. She has had multiple family members with cardiac issues including sisters as well as mother. Mother has had prior stenting. Sister has had open heart surgery. She presently does not have chest pain. Free Text Subj Notes Free Text Subj Notes: Patient reports some discomfort yesterday otherwise not having any today, resting in bed comfortably. Objective General VS/I O: 24 hour I O ending at 0700: 09/07 0700 09/06 1900 Intake Total Output Total Balance Patient 100.8 kg Weight Weight Standing scale Measurement Method Vital Signs: Date Time Temp Pulse Resp B/P B/P Pulse O2 O2 Flow FiO2 Mean Ox Delivery Rate 09/07 1044 98.1 65 16 119/51 73.3 94 Room air 09/07 0805 97.7 70 16 128/83 98.0 94 Room air 09/07 0406 98.6 65 16 112/73 86.1 97 Room air 09/07 0041 97.9 61 16 108/69 81.9 95 Room air 09/06 2014 98.4 73 16 124/71 88.9 95 Room air 09/06 1739 98.6 71 14 108/65 79.7 93 PATIENT WEIGHT: Weight (lb): 222 Weight (oz): 3.62 Weight (kg): 100.800 Medications: Active Meds + DC'd Last 24 Hrs Sodium Chloride (SODIUM CHLORIDE 0.9%) 1,000 ML .[id number] ONE IV Aspirin (ASPIRIN) 81 MG DAILY PO Duloxetine HCl (CYMBALTA) 60 MG DAILY PO Atorvastatin Calcium (LIPITOR) 40 MG 2100 PO Duloxetine HCl (CYMBALTA) 60 MG DAILY PRN PO (DC) Metoprolol Tartrate (LOPRESSOR) 50 MG BID PO Enoxaparin Sodium (lovENOX) 40 MG Q24H SUBQ Acetaminophen (TYLENOL) 650 MG Q4H PRN PRN PO Magnesium Hydroxide (MILK OF MAGNESIA) 30 ML BEDTIME PRN PRN PO Morphine Sulfate (morphine SULFATE) 2 MG Q1H PRN PRN IV Nitroglycerin (NITROSTAT) 0.4 MG Q5M PRN PRN SL Ondansetron HCl (ZOFRAN) 4 MG Q6H PRN PRN IV Physical Exam General appearance: alert, awake, no acute distress Head/Eyes: atraumatic, normal conjunctiva/sclera, normocephalic ENT: moist mucosal membranes, normal pharynx Neck: full range of motion, non-tender Cardiovascular: CV assessment: regular rate and rhythm, no rub Respiratory: clear to auscultation, no distress Abdomen: soft, non-tender, no distention Upper extremity: UE assessment: normal temperature, no clubbing, no cyanosis Lower extremity: LE assessment: normal temperature, no clubbing, no cyanosis Musculoskeletal: full range of motion, normal inspection Neuro/MANAGER ENGINE: alert, normal speech Skin: dry, intact Psychiatry: normal affect, normal mood Results Results: no new labs, vital signs reviewed, rhythm personally rev'd, current med profile rev'd Diagnosis, Assessment Plan Free Text DxA P Notes Free Text DxA P Notes: 1. Chest pain episode, concern for unstable angina 2. Hypertension 3. Family history of coronary artery atherosclerosis and multiple family members including female family members 4. Morbid obesity with BMI greater than 40 09/06/2022 This is a patient that came in with an episode of chest discomfort with some atypical features. However notably, the patient has a significant family history of heart disease and heart issues including coronary artery atherosclerosis and several primary relatives including female relatives. Her troponin is strongly negative at this time. We will trend EKG as well as obtain echocardiogram. We will monitor on telemetry. We will continue her on beta- constantine as well as aspirin and statin therapy. We will further evaluate overall between stress test versus cardiac CTA. Cardiac CTA may be more amenable given her morbid obesity with BMI greater than 40 as well as her heart rate which has been relatively nice and slow. I discussed with her that given her risk factors , she warrants further cardiac evaluation. Unfortunately stress will not happen over the weekend, likely ischemia evaluation will be Thursday. 09/07/2022 Discussed in detail with the patient. She has atypical symptoms however overall very strong family history especially in female members of her family. She would like to proceed with the most definitive testing which will be cardiac catheterization. I will set her up for cardiac catheterization tomorrow. Risks , benefits, and alternatives were discussed with the patient and she was agreeable to proceed. We will evaluate her coronary anatomy and if there is significant disease we will address it as it arises. at 1322 RPT #:[id number] END OF [id number] 10:10:00 [facility] ([facility]) Hospitalist Progress Note REPORT#:[id number] REPORT STATUS: Signed DATE:09/07/22 TIME: 1010 PATIENT: EMA DYER UNIT #: [id number] ROOM/BED: [place] [address] : 68 AGE: 51 SEX: F ATTEND: Ralph Slater MD ADM AUTHOR: Ralph Slater MD * ALL edits or amendments must be made on the electronic/computer document * Subjective Chief complaint: no cp. no sob. Objective General VS/I O: Vital Signs: Date Time Temp Pulse Resp B/P B/P Pulse O2 O2 Flow FiO2 Mean Ox Delivery Rate 09/07 0805 97.7 70 16 128/83 98.0 94 Room air 09/07 0406 98.6 65 16 112/73 86.1 97 Room air 09/07 0041 97.9 61 16 108/69 81.9 95 Room air 09/06 2014 98.4 73 16 124/71 88.9 95 Room air 09/06 1739 98.6 71 14 108/65 79.7 93 09/06 1131 98.2 60 14 110/67 81.2 96 24 hour I O ending at 0700: 09/07 0700 09/06 1900 Intake Total Output Total Balance Patient 100.8 kg Weight Weight Standing scale Measurement Method PATIENT WEIGHT: Weight (lb): 222 Weight (oz): 3.62 Weight (kg): 100.800 Physical Exam General appearance: alert, awake, oriented Head/Eyes: atraumatic, normocephalic ENT: moist mucosal membranes, normal nose Neck: full range of motion, no JVD Cardiovascular: normal heart sounds, regular rate rhythm Respiratory: aerating well, clear to auscultation, no distress Abdomen: non-tender, normal bowel sounds, soft, no distention Extremities: moves all, no edema Neuro/MANAGER ENGINE: alert, oriented X 3, normal speech Skin: dry, no rash Diagnosis, Assessment Plan Free Text DxA P Notes Free text DxA P notes: CP - admit to tele bed -EKG showed NSR and troponin is negative, trend trop - aspirin, cont metoprolol. - o2 support to keep SO2> 92% - nitro and morphine as needed for pain. - consulted Card. Appreciate input. 09/07- awaiting possible stress test on THURSDAY HTN - resumed home meds. 09/07- controlled. VTE proph with lovenox. 09/07- awaiting stress test for THURSDAY. dispo per cards at 1012 RPT #:[id number] END OF [id number]:40:[id number] [place] 843878 PATIENT NAME: EMA DYER ADMIT DATE: 09/06/22 ACCOUNT NO: [id number] ROOM NO: G.4406 AGE: 51 REPORT TYPE: eELECTROCARDIOGRAM REPORT SEX: F ADMITTING PHYSICIAN:Ralph Slater MD ATTENDING PHYSICIAN:Sudhakar Baker MD Order: [id number] Test Reason : chest pain Test Date/Time Stamp: [place] Sep 07 2022 07:40:39 Blood Pressure : / mmHG Vent. Rate : 074 BPM Atrial Rate : 074 BPM P-R Int : 148 ms QRS Dur : 088 ms QT Int : 386 ms P-R-T Axes : 071 082 042 degrees QTc Int : 428 ms Normal sinus rhythm Low voltage QRS Borderline ECG Confirmed by MD MEGHAN TORSTEN ([id number]) on 09/09/2022 10:44:52 AM Referred By: Self Referred Confirmed by:TORSTEN CHRISTIANSON MD at 1044 PATIENT NAME: EMA DYER 14:11:00 [id number] [place] [address] PATIENT NAME: EMA DYER ADMIT DATE: 09/06/22 ACCOUNT NO: [id number] ROOM NO: G.4406 AGE: 51 REPORT TYPE: eECHOCARDIOGRAM REPORT SEX: F ADMITTING PHYSICIAN:Ralph Slater MD ATTENDING PHYSICIAN:Ralph Slater MD *[place] [address] Transthoracic Echocardiogram Patient: Ema Dyer Study Date: 09/06/2022 BP: Location: [facility] URN: [id number] : 1970 Age: 51 Height: 61 in / 154.9 cm Gender: F Weight: 232 lb / 105.5 kg BMI/BSA: 43.9 kg/m 2 / 2.19 m 2 *Ordering Physician: * Torsten Christianson MD *Interpreting Physician: * Torsten Christianson MD *Communication Signals Intelligence: * Diamond Anderson [facility] Indications: Chest Pain, unspecified. Study data: Transthoracic echocardiogram. Procedure: Transthoracic echocardiography was performed. The study was technically limited due to body habitus. Intravenous contrast (Optison) was administered. Complete 2D, complete spectral Doppler, and color Doppler. Location: Bedside. Patient room number: 4406. Findings Left ventricle: The cavity size is normal. Wall thickness is mildly increased. Systolic function is normal. The estimated ejection fraction is 55-60%. Wall motion is normal; there are no regional wall motion abnormalities. Left ventricular diastolic function parameters are normal for the patient's age. PATIENT NAME: EMA DYER Right ventricle: Not well visualized. Systolic function is normal. Left atrium: The atrium is normal in size. Right atrium: Not well visualized. Aorta: Aortic root: The aortic root is normal in size. Aortic valve: Not well visualized. There is no evidence of stenosis. There is no regurgitation. Mitral valve: The valve is structurally normal. There is no evidence of stenosis. There is trivial regurgitation. Tricuspid valve: The valve is structurally normal. There is mild regurgitation. PASP estimated at 30 mmHg. Pulmonic valve: Not well visualized. There is no regurgitation. Pericardium: There is no pericardial effusion. Systemic veins: Inferior vena cava: Not visualized. Measurements Left ventricle Value Ref VIANNEY, LAX 4.2 cm 3.8 - 5.2 ESD, LAX 2.8 cm 2.2 - 3.5 ESD/bsa, LAX 1.3 cm/m 2 1.3 - 2.1 FS, LAX 34 % 27 - 45 ESD/bsa major ax, 3.0 cm/m 2 ------- A4C VIANNEY/bsa minor ax, 3.0 cm/m 2 ------- A4C VIANNEY major ax, A2C 7.6 cm ------- ESD major ax, A2C 6.8 cm ------- VIANNEY/bsa major ax, 3.4 cm/m 2 ------- A2C ESD/bsa major ax, 3.1 cm/m 2 ------- A2C PW, ED 1.2 cm 0.6 - 0.9 IVS/PW, ED 0.99 ------- EF 63 % 54 - 74 E', lat bess, TDI 11.3 cm/sec >=10.0 E/e', lat bess, TDI 9 ------- E', med bess, TDI 7.5 cm/sec >=7.0 E/e', med bess, TDI 14 ------- E', avg, TDI 9.4 cm/sec ------- E/e', avg, TDI 11 <=14 LVOT Value Ref Diam, S 2.09 cm ------- Area 3.4 cm 2 ------- Peak skyler, S 1.22 m/sec ------- Mean skyler, S 0.78 m/sec ------- VTI, S 26.4 cm ------- Peak grad, S 6 mm Hg ------- PATIENT NAME: EMA DYER Mean grad, S 3 mm Hg ------- SV 90 ml ------- Qs 6.67 L/min ------- Qs/bsa 3 L/(min-m 2) ------- SV/bsa 41 ml/m 2 ------- Ventricular septum Value Ref IVS, ED 1.2 cm 0.6 - 0.9 Right ventricle Value Ref VIANNEY, LAX 2.2 cm ------- Aortic valve Value Ref Peak v, S 1.66 m/sec ------- Mean v, S 1.04 m/sec ------- VTI, S 34.3 cm ------- Mean grad, S 5.1 mm Hg ------- Peak grad, S 11.0 mm Hg ------- LVOT/AV, VTI ratio 0.77 ------- LUCILA, VTI 2.62 cm 2 ------- LVOT/AV, Vpeak 0.74 ------- ratio LUCILA, Vmax 2.52 cm 2 ------- Mitral valve Value Ref Peak E 0.09 m/sec ------- Peak A 0.81 m/sec ------- Mean v, D 0.59 m/sec ------- VTI leaflet coapt 24.0 cm ------- Decel time 214 ms ------- Mean grad, D 1.6 mm Hg ------- Peak grad, D 3.8 mm Hg ------- Peak E/A ratio 1.27 ------- Pulmonic valve Value Ref PA v, ED 0.74 m/sec ------- Tricuspid valve Value Ref TR peak v 2.52 m/sec <=2.8 Peak RV-RA grad, S 25 mm Hg ------- Aortic root Value Ref Root diam 2.7 cm <4.3 Ascending aorta Value Ref AAo AP diam, S 2.7 cm ------- AAo AP diam/bsa, S 1.2 cm/m 2 ------- Conclusions Summary: PATIENT NAME: EMA DYER 1. Left ventricle: The cavity size is normal. Wall thickness is mildly increased. Systolic function is normal. The estimated ejection fraction is 55-60%. Wall motion is normal; there are no regional wall motion abnormalities. Left ventricular diastolic function parameters are normal for the patient's age. 2. Right ventricle: Systolic function is normal. 3. Tricuspid valve: There is mild regurgitation. PASP estimated at 30 mmHg. 4. Pericardium, extracardiac: There is no pericardial effusion. Prepared and electronically signed by Torsten Christianson MD 09/06/2022 14:11 at 1411 PATIENT NAME: EMA DYER 12:25:00 [facility] ([facility] Cardiology Consultation REPORT#:[id number] REPORT STATUS: Signed DATE:09/06/22 TIME: 1225 PATIENT: EMA DYER UNIT #: [id number] [place] [facility] [place] AGE: 51 SEX: F ATTEND: Ralph Slater MD ADM AUTHOR: Torsten Christianson MD * ALL edits or amendments must be made on the electronic/computer document * History of Present Illness HPI Requesting Clinician: Dr. Slater Reason for consult: Chest pain Chief complaint: Chest pain PCP: PCP: No Primary or Family Physician HPI: This is a 51-year-old female with a past medical history of hypertension. The patient presented to the hospital in the emergency department in the setting of some lightheadedness and dizziness that occurred. She also felt associated left -sided chest pain that was severe with associated numbness and tingling in the left upper extremities down to the fingers. This was relatively transient until she presented to the emergency department. She states that she has anxiety overall however is overall concerned about her family history. She used to smoke remotely. She has had multiple family members with cardiac issues including sisters as well as mother. Mother has had prior stenting. Sister has had open heart surgery. She presently does not have chest pain. History - Adult longitudinal Additional medical history: Hypertension Additional surgical history: Denies prior cardiac surgical history Additional family history: Mother and sisters with cardiac disease Alcohol use: Denies EtOH use Drug use: Denies recreational drugs Smoking status for patients 13 years old or older: Former Smoker Home medications: Home Medications: METOPROLOL TARTRATE (LOPRESSOR) 50 MG PO BID DULoxetine DR (CYMBALTA) 60 MG PO DAILY PRN ANXIETY Allergies: Coded Allergies: No Known Allergies (09/05/22) Review of Systems Constitutional: fatigue. Denies: chills. Skin: Denies: abrasion, bruising. Allergy/Immun: Denies: allergic reaction, anaphylaxis. Eyes: Denies: redness, discharge. ENT: Denies: ear drainage, ear ringing. Respiratory: Reports: PALACIOS (dyspnea on exertion). Denies: hemoptysis. Cardiovascular: Reports: chest pain, dyspnea on exertion. GI: Denies: abdominal pain, anorexia. : Denies: dysuria, flank pain. Musculoskeletal: Denies: arthritis, extremity pain. Heme: Denies: adenopathy, bleeding. Endocrine: Denies: cold intolerance, heat intolerance. Neuro: Denies: bladder dysfunction, bowel dysfunction. Psych: anxiety. Denies: agitation. Objective General VS/I O: Vital Signs: Date Time Temp Pulse Resp B/P B/P Pulse O2 O2 Flow FiO2 Mean Ox Delivery Rate 09/06 1131 98.2 60 14 110/67 81.2 96 09/06 0743 95 Room air 21 09/06 0654 97.7 58 14 108/68 81.7 96 09/06 0452 97.9 62 16 98/61 73.5 97 Room air 09/06 0153 97.3 58 16 107/65 78.9 96 Room air 09/06 0100 98.7 67 17 138/63 88 99 Room air 09/06 0021 65 17 122/58 79 99 Room air 09/05 2305 70 18 133/68 89 99 Room air 09/05 2135 98.1 82 17 148/62 90 98 Room air 24 hour I O ending at 0700: 09/06 0700 09/05 1900 Intake Total Output Total Balance Patient 105.4 kg Weight Weight Bed scale Measurement Method PATIENT WEIGHT: Weight (lb): 232 Weight (oz): 5.88 Weight (kg): 105.400 Medications: Active Meds + DC'd Last 24 Hrs Duloxetine HCl (CYMBALTA) 60 MG DAILY PO Perflutren Protein Type A Microsphe (OPTISON 3ML VIAL) 0 .STK-MED ONE IV (DC) Aspirin (ASPIRIN) 325 MG DAILY PO Duloxetine HCl (CYMBALTA) 60 MG DAILY PRN PO Metoprolol Tartrate (LOPRESSOR) 50 MG BID PO Enoxaparin Sodium (lovENOX) 40 MG Q24H SUBQ Acetaminophen (TYLENOL) 650 MG Q4H PRN PRN PO Magnesium Hydroxide (MILK OF MAGNESIA) 30 ML BEDTIME PRN PRN PO Morphine Sulfate (morphine SULFATE) 2 MG Q1H PRN PRN IV Nitroglycerin (NITROSTAT) 0.4 MG Q5M PRN PRN SL Ondansetron HCl (ZOFRAN) 4 MG Q6H PRN PRN IV Sodium Chloride (SODIUM CHLORIDE 0.9%) 1,000 ML .[id number] IV (DC) Nitroglycerin (NITROSTAT) 0.4 MG X1ED STA SL (DC) Aspirin (ASPIRIN) 324 MG X1ED STA PO (DC) Physical Exam General appearance: alert, awake, oriented Head/Eyes: atraumatic, normal conjunctiva/sclera, normocephalic ENT: moist mucosal membranes, normal pharynx Neck: full range of motion, non-tender Cardiovascular: CV assessment: regular rate and rhythm, no rub Respiratory: clear to auscultation, no distress Abdomen: soft, non-tender, no distention Upper extremity: UE assessment: normal temperature, no clubbing, no cyanosis Lower extremity: LE assessment: normal temperature, no clubbing, no cyanosis Musculoskeletal: full range of motion, normal inspection Neuro/MANAGER ENGINE: alert, normal speech Skin: dry, intact Psychiatry: normal affect, normal mood Results Findings/Data: Laboratory Tests 09/06 09/06 09/06 09/06 09/06 1100 1100 1100 0630 0430 Chemistry Hemoglobin A1c (4.8 - 6.0 %A1C) 5.9 5.9 Troponin I High Sens (0 - 34 ng/L) < 3 C-Reactive Protein (<10.0 mg/L) 10.0 H TSH (0.42 - 5.47 IU/mL) 1.22 09/06 09/06 09/05 09/05 0430 0430 2222 2221 Chemistry Sodium (134 - 147 mEq/L) 140 Potassium (3.4 - 5.0 mEq/L) 3.8 Chloride (100 - 108 mEq/L) 109 H Carbon Dioxide (21 - 33 mEq/l) 27 Anion Gap (0 - 20) 8 BUN (7 - 18 mg/dL) 14 Creatinine (0.6 - 1.3 mg/dL) 0.7 Glomerular Filtr Rate (90 - 95) 103.4 H Glucose (70 - 110 mg/dL) 108 POC Glucose (70 - 110 MG/DL) 109 Calcium (8.0 - 10.5 mg/dL) 8.2 Magnesium (1.80 - 2.40 mg/dL) 1.80 Total Bilirubin (0.0 - 1.0 mg/dL) 0.40 AST (15 - 37 IUnit/L) 17 ALT (30 - 65 IUnit/L) 25 L Total Alk Phosphatase (20 - 125 IUnit/L) 74 Rapid Troponin I (<0.05) < 0.05 Troponin I High Sens (0 - 34 ng/L) < 3 B-Natriuretic Peptide (0 - 100 PG/ML) 12.0 Total Protein (6.4 - 8.2 g/dL) 6.1 L Albumin (3.4 - 5.0 g/dL) 3.30 L Laboratory Tests 09/06 0430 Coagulation INR (0.8 - 1.2) 1.0 PTT (Murray) (25.0 - 39.5 Seconds) 29.0 PT Patient/Control Mix (9.3 - 12.9 SECONDS) 11.5 Laboratory Tests 09/06 09/05 1100 2144 Hematology WBC (3.5 - 11.0 K/uL) 5.9 RBC (3.54 - 5.02 M/uL) 4.63 Hgb (11.0 - 15.0 GM/DL) 13.4 Hct (37.0 - 47.0 %) 39.1 MCV (81.0 - 99.0 fL) 84.4 MCH (27.0 - 31.0 pg) 28.9 MCHC (33.0 - 37.0 GM/DL) 34.3 RDW (11.5 - 14.5 %) 13.6 Plt Count (150 - 400 K/mm3) 257 MPV (8.8 - 13.1 FL) 9.8 Neut % (Auto) (40.0 - 76.0 %) 53.4 Lymph % (Auto) (15.0 - 40.0 %) 38.6 Mixed Cells % (Auto) (3.0 - 15.0 %) 8.0 Neut # (Auto) (1.8 - 7.6 K/uL) 3.1 Lymph # (Auto) (1.0 - 3.8 K/uL) 2.3 Mixed Cells # (0.1 - 0.8 k/mm3) 0.5 ESR Westergren (0 - 20 mm/hr) 8 Laboratory Tests 09/06 09/06 0430 0430 Chemistry Magnesium (1.80 - 2.40 mg/dL) 1.80 B-Natriuretic Peptide (0 - 100 PG/ML) 12.0 Radiology Data: Recent Impressions: RADIOLOGY - XR CHEST 1 V 09/05 2157 Report Impression - Status: SIGNED Entered: 09/05/2022 4701 IMPRESSION: No acute cardiopulmonary findings. Impression By: [email or web address] - Israel Pacheco M.D. Results: labs reviewed, vital signs reviewed, EKG personally reviewed, rhythm personally rev'd, current med profile rev'd Diagnosis, Assessment Plan Free Text DxA P Notes Free Text DxA P Notes: 1. Chest pain episode, concern for unstable angina 2. Hypertension 3. Family history of coronary artery atherosclerosis and multiple family members including female family members 4. Morbid obesity with BMI greater than 40 09/06/2022 This is a patient that came in with an episode of chest discomfort with some atypical features. However notably, the patient has a significant family history of heart disease and heart issues including coronary artery atherosclerosis and several primary relatives including female relatives. Her troponin is strongly negative at this time. We will trend EKG as well as obtain echocardiogram. We will monitor on telemetry. We will continue her on beta- constantine as well as aspirin and statin therapy. We will further evaluate overall between stress test versus cardiac CTA. Cardiac CTA may be more amenable given her morbid obesity with BMI greater than 40 as well as her heart rate which has been relatively nice and slow. I discussed with her that given her risk factors , she warrants further cardiac evaluation. Unfortunately stress will not happen over the weekend, likely ischemia evaluation will be Thursday. at 1251 RPT #:[id number] END OF [id number] 11:52:00 [facility] ([facility]) Clinical Note REPORT#:[id number] REPORT STATUS: Signed DATE:09/06/22 TIME: 1152 PATIENT: EMA DYER UNIT #: [id number] ROOM/BED: [place] [address] : 68 AGE: 51 SEX: F ATTEND: Ralph Slater MD ADM AUTHOR: Ralph Slater MD * ALL edits or amendments must be made on the electronic/computer document * Clinical Note Note: seen by Dr León this morning 51 y/o with CP CP - w/u per cards. stress test or cath on THURSDAY. echo pending depression - cont cymbalta HTN - on metopolol dispo - per cards at 1152 RPT #:[id number] END OF [id number] 07:51:[id number] [place] [address] PATIENT NAME: EMA DYER ADMIT DATE: 09/06/22 ACCOUNT NO: [id number] ROOM NO: [facility] [place] AGE: 51 REPORT TYPE: eELECTROCARDIOGRAM REPORT SEX: F ADMITTING PHYSICIAN:Ralph Slater MD ATTENDING PHYSICIAN:Ralph Slater MD Order: [id number] Test Reason : chest pain Test Date/Time Stamp: Sat Sep 06 2022 07:51:36 Blood Pressure : / mmHG Vent. Rate : 063 BPM Atrial Rate : 063 BPM P-R Int : 154 ms QRS Dur : 086 ms QT Int : 430 ms P-R-T Axes : 080 086 086 degrees QTc Int : 440 ms Normal sinus rhythm Low voltage QRS Borderline ECG Confirmed by MD CHRISTIANSON OMAR ([id number]) on 09/06/2022 2:12:29 PM Referred By: Eryn Rosas Confirmed by:TORSTEN CHRISTIANSON MD at 1412 PATIENT NAME: EMA DYER 04:34:00 [facility] Hospitalist History Physical REPORT#:[id number] REPORT STATUS: Signed DATE:09/06/22 TIME: 0434 PATIENT: EMA DYER UNIT #: [id number] [place] [facility] [place] AGE: 51 SEX: F ATTEND: Eryn Rosas MD ADM AUTHOR: Yessenia León MD * ALL edits or amendments must be made on the electronic/computer document * History of Present Illness HPI Chief complaint: dizziness and chest heaviness. PCP: PCP: No Primary or Family Physician HPI: A 51-year-old female with past medical history significant for hypertension who presented with dizziness started last night while she was in the shower she then went outside to sit and her face was pale white and then started to have sharp left-sided chest pain was 8 or 9/10 in severity and associated with numbness/ tingling feeling in the left upper extremities down to the fingers. She also had shortness of breath. The symptoms last a while until patient received nitroglycerin in the ER. She has history of anxiety but symptoms at this time are different from her anxiety symptoms. She reports no fever no nausea or vomiting and no recent trauma. Patient used to smoke 25 years ago but no illicit or EtOH abuse. She has strong family history of coronary artery disease in both sisters and her mom has more than 7 stents and her father from massive heart attack. History Past Medical Surgical Hx Additional medical history: Hypertension Social History Alcohol use: Denies EtOH use Drug use: Denies recreational drugs Smoking status for patients 13 years old or older: Former Smoker Medication/Allergy-Vaccine Hx Allergies: Coded Allergies: No Known Allergies (09/05/22) Review of Systems Free Text ROS Notes Free Text ROS Notes: 14 point review of system is negative unless stated above Physical Exam VS/I O: Vital Signs Date Temp Pulse Resp B/P B/P Mean Pulse Ox FiO2 09/05-09/06 97.3-98.7 58-82 16-18 107-148/58-68 78.9-90 96-99 Last Documented: Result Date Time Pulse Ox 96 09/06 0153 B/P 107/65 09/06 0153 B/P Mean 78.9 09/06 0153 O2 Delivery Room air 09/06 015 Temp 97.3 09/06 0153 Pulse 58 09/06 0153 Resp 16 09/06 0153 24 hour I O ending at 0700: 09/06 0700 09/05 1900 Intake Total Output Total Balance Patient 100.6 kg Weight Weight Standing scale Measurement Method Patient Weight and BMI Weight (kg): 100.600 BMI: 41.9 General appearance: alert, awake, oriented Head/Eyes: atraumatic, normocephalic ENT: moist mucosal membranes, normal nose Neck: full range of motion, no JVD Cardiovascular: normal heart sounds, regular rate rhythm Respiratory: aerating well, clear to auscultation, no distress Abdomen: non-tender, normal bowel sounds, soft, no distention Extremities: moves all, no edema Neuro/MANAGER ENGINE: alert, oriented X 3, normal speech Skin: dry, no rash Results Findings/Data: Laboratory Tests: 09/05 09/05 09/05 2222 2221 2144 Chemistry POC Glucose (70 - 110 MG/DL) 109 Rapid Troponin I (<0.05) < 0.05 Hematology WBC (3.5 - 11.0 K/uL) 5.9 RBC (3.54 - 5.02 M/uL) 4.63 Hgb (11.0 - 15.0 GM/DL) 13.4 Hct (37.0 - 47.0 %) 39.1 MCV (81.0 - 99.0 fL) 84.4 MCH (27.0 - 31.0 pg) 28.9 MCHC (33.0 - 37.0 GM/DL) 34.3 RDW (11.5 - 14.5 %) 13.6 Plt Count (150 - 400 K/mm3) 257 MPV (8.8 - 13.1 FL) 9.8 Neut % (Auto) (40.0 - 76.0 %) 53.4 Lymph % (Auto) (15.0 - 40.0 %) 38.6 Mixed Cells % (Auto) (3.0 - 15.0 %) 8.0 Neut # (Auto) (1.8 - 7.6 K/uL) 3.1 Lymph # (Auto) (1.0 - 3.8 K/uL) 2.3 Mixed Cells # (0.1 - 0.8 k/mm3) 0.5 Laboratory Tests 09/05/22 2144: [Embedded Image Not Available] Radiology data: Recent Impressions: RADIOLOGY - XR CHEST 1 V 09/05 2157 Report Impression - Status: SIGNED Entered: 09/05/20222244 IMPRESSION: No acute cardiopulmonary findings. Impression By: [email or web address] - Israel Pacheco M.D. Diagnosis, Assessment Plan Free Text A P: Unstable angina! - admit to tele bed -EKG showed NSR and troponin is negative, trend trop - aspirin, cont metoprolol. - o2 support to keep SO2> 92% - nitro and morphine as needed for pain. - consulted Card. Appreciate input. HTN - resumed home meds. VTE proph with lovenox. at 0447 RPT #:[id number] END OF [id number] 21:44:00 [facility] ([facility]) EMERGENCY PROVIDER REPORT REPORT#:[id number] REPORT STATUS: Signed DATE:09/05/22 TIME: 2143 PATIENT: EMA DYER UNIT #: [id number] ROOM/BED: [place] [address] AGE: 51 SEX: F PCP PHYS: No Primary or Family Physician SERVICE AUTHOR: Pio Demarco DO * ALL edits or amendments must be made on the electronic/computer document * HPI-Chest Pain 40 and Over Free Text HPI Notes Free Text HPI Notes 51-year-old female with past medical history of hypertension, strong family history of PA, CAD, presents with acute left-sided chest pain radiating to the left arm with associated left arm tingling, dizziness, generalized weakness 1 hour prior to arrival. Patient denies cough, shortness of breath or fever, abdominal pain or back pain. Patient denies syncope. Patient denies history of PE or DVT. General Initial Greet Date/Time 09/05/222135 Presentation Chief Complaint Chest pain Hx Obtained From Patient Sudden in Onset? No )( Migration/Movement None Risk-Chest Pain 40 and Over Risk Stratification )( Coronary Artery Disease Family history, Hypertension )( Thoracic Aortic Dissection Hypertension )( Pulmonary Embolism No risk factors )( AMI-Aspirin Aspirin Last 24 Hrs None )( HEART for MACE )( HEART for MACE Response Value History High index of suspicion 2 ECG Interpretation Normal ECG 0 Age Age 45 - 65 1 Risk Factors for CAD 1-2 CAD risk factors 1 Troponin < or = to NL troponin 0 Total 4 HEART Score for MACE 4-7 (mod risk 12%-16.6%) Review of Systems ROS Statements All systems rev neg except as marked. Past Medical History - Adult Stated Complaint CHEST PAIN Allergies Coded Allergies: No Known Allergies (09/05/22) Home Medications Reported Medications METOPROLOL TARTRATE (LOPRESSOR) 50 MG PO BID DULoxetine DR (CYMBALTA) 60 MG PO DAILY PRN ANXIETY Physical Exam Vital Signs Vital Signs First Documented: Result Date Time Pulse Ox 98 09/05 2135 B/P 148/62 09/05 2135 B/P Mean 90 09/05 2135 O2 Delivery Room air 09/05 2135 Temp 36.7 09/05 2135 Pulse 82 09/05 2135 Resp 17 09/05 2135 Last Documented: Result Date Time Pulse Ox 98 09/05 2135 B/P 148/62 09/05 2135 B/P Mean 90 09/05 2135 O2 Delivery Room air 09/05 2135 Temp 36.7 09/05 2135 Pulse 82 09/05 2135 Resp 17 09/05 2135 Review of Vital Signs Reviewed Free Text PE Notes Free Text PE Notes General/Const - Awake, alert, no acute distress, well nourished. MS Head - Normocephalic. Eyes - No redness or swelling. Ears/Nose/Throat - Airway patent. Normal oropharynx. No nasal drainage or edema. TM bilaterally negative for redness or bulging MS Neck - Supple, Full ROM. No adenopathy Resp/Chest - Breath sounds clear bilaterally. No respiratory distress. Cardiovascular - Heart rate and rhythm regular, no murmurs. Abdomen - Abdomen is soft, no tenderness, nondistended. Skin - No rash, Warm, Dry, Intact. Extremities -negative for cyanosis, clubbing, edema. Neurologic - Oriented X3, Speech is clear, Face is symmetric, No extremity weakness, sensation is intact to light touch. Interpretation Diagnostics Lab Results Interpretation Results Laboratory Tests 09/05/222143: [Embedded Image Not Available] Laboratory Tests: 09/05 2221 214 Chemistry POC Glucose (70 - 110 MG/DL) 109 Rapid Troponin I (<0.05) < 0.05 Hematology WBC (3.5 - 11.0 K/uL) 5.9 RBC (3.54 - 5.02 M/uL) 4.63 Hgb (11.0 - 15.0 GM/DL) 13.4 Hct (37.0 - 47.0 %) 39.1 MCV (81.0 - 99.0 fL) 84.4 MCH (27.0 - 31.0 pg) 28.9 MCHC (33.0 - 37.0 GM/DL) 34.3 RDW (11.5 - 14.5 %) 13.6 Plt Count (150 - 400 K/mm3) 257 MPV (8.8 - 13.1 FL) 9.8 Neut % (Auto) (40.0 - 76.0 %) 53.4 Lymph % (Auto) (15.0 - 40.0 %) 38.6 Mixed Cells % (Auto) (3.0 - 15.0 %) 8.0 Neut # (Auto) (1.8 - 7.6 K/uL) 3.1 Lymph # (Auto) (1.0 - 3.8 K/uL) 2.3 Mixed Cells # (0.1 - 0.8 k/mm3) 0.5 Recent Impressions: RADIOLOGY - XR CHEST 1 V 09/05 2157 Report Impression - Status: SIGNED Entered: 09/05/2022 2647 IMPRESSION: No acute cardiopulmonary findings. Impression By: [email or web address] - Israel Pacheco M.D. Lab Imaging Statement Laboratory radiographic studies reviewed and considered in the medical decision-making. ECG #1 Interpretation Text/Dict Note Time collected at 9:31 PM interpreted by me at 9:33 PM No STEMI. Normal sinus rhythm, rate 79, NO axis deviation, Normal Intervals, no ST segment depressions, No T wave abnormalities. Re-Evaluation MDM Free Text MDM Notes Free Text MDM Notes 50-year-old female complaints of chest pain radiating to left arm with strong family history of cardiac disease And personal history of chest pain. Work-up includes troponin, EKG, chest x-ray and basic labs. Aspirin and nitroglycerin. Re-Evaluation/Progress #1 Text/Dict Note Patient was reassessed and is feeling better. Discussed lab results and diagnosis with pt and family. Troponin is negative, EKG is neg for STEMI or ischemia. CXR is normal. Heart score of 4. Advised pt to admit for chest pain workup and cardiology evaluation. Pt agrees with plan. All questions were answered. ED Course Medication(s) Ordered Medication(s) Ordered: Cardiovascular Drugs Sig/Onesimo Start time Last Medication Dose Route Stop Time Status Admin Nitroglycerin 0.4 MG X1ED STA 09/05 2158 DC 09/05 SL 09/05 2159 2201 Central Nervous System Agents Sig/Onesimo Start time Last Medication Dose Route Stop Time Status Admin Aspirin 324 MG X1ED STA 09/05 2144 DC 09/05 PO 09/05 2145 215 Consultation Consultation Referral/Consult Name Torsten Christianson MD Residential Driver Called Cardiology Requested Call Date 09/05/22 Call Returned Call returned Call Returned Date 09/05/22 Patient Discharge Departure Vital Signs/Condition Vital Signs First Documented: Result Date Time Pulse Ox 98 09/05 2135 B/P 148/62 09/05 2135 B/P Mean 90 09/05 2135 O2 Delivery Room air 09/05 2135 Temp 36.7 09/05 2135 Pulse 82 09/05 2135 Resp 17 09/05 2135 Last Documented: Result Date Time Pulse Ox 98 09/05 2135 B/P 148/62 09/05 2135 B/P Mean 90 09/05 2135 O2 Delivery Room air 09/05 2135 Temp 36.7 09/05 2135 Pulse 82 09/05 2135 Resp 17 09/05 2135 All vital signs available at the time of this entry have been reviewed. Condition Stable Clinical Impression Clinical Impression Primary Impression: Chest pain Secondary Impressions: Angina at rest Disposition Decision Admit Admit Physician Name Yessenia León MD Admit Physician Hospitalist Request Time 2236 Request Date 09/05/22 )( Admission Accepts Yes )( Accepted Time 2236 )( Accepted Date 09/05/22 Call Information will see patient Discharge/Care Plan Counseled Regarding Diagnosis, Lab results, Imaging studies, Need for admission Admit Note I have spoken with the patient and/or caregivers. I have explained the patient's condition, diagnoses and treatment plan based on the information available to me at this time. I have answered the patient's and/or caregiver's questions and addressed any concerns. The patient and/or caregivers have as good an understanding of the patient's diagnosis, condition and treatment plan as can be expected at this point. The patient has been stabilized within the capability of the emergency department. The patient will be transported for further care and management or will be moved to an observation or inpatient service. I have communicated with the staff or medical practitioner taking over this patient's care. at 0248 RPT #:[id number] END OF REPORTHCACL
[2024-05-08] MEDS ORDERED: ONDANSETRON 4 MG/2 ML VIAL ONE (23:33)
[2024-05-08] MEDS ORDERED: MORPHINE 4 MG/ML SYR ONE (23:33)
[2024-05-08] MEDS ORDERED: FAMOTIDINE 20 MG/2 ML VIAL IV ONE (23:34)
[2024-05-08 23:50] LABS: Absolute Eosinophils 0.1 K/uL (0-0.5); Absolute Lymphocytes (CBC) 2.7 K/uL (0.7-4.9); Absolute Monocytes 0.5 K/uL (0.1-1.3); Absolute Neutrophil 4.3 K/uL (1.8-8.0); Basophils % 0.6 % (0-1.3); Eosinophils % 1.8 % (0-4.4); Hematocrit 43.3 % (36.0-45.0); Hemoglobin 14.2 g/dL (12.0-15.0); Lymphocytes % 35.4 % (15.3-44.8); MCH 28.6 pg (27.0-35.0); MCHC 32.8 g/dL (32.0-36.0); MCV 87.2 fL (80-100); MPV 8.5 fL (7.6-11.3); Monocytes % 6.8 % (3.3-12.3); Neutrophils % 55.4 % (41.7-73.7); Platelets 265 thou/uL (152-406); RBC Red Blood Cell Count 4.97 M/uL (3.86-4.86); Red Cell Distribution Width 14.1 % (12.1-15.2)
[2024-05-08 23:59] LABS: Albumin 3.8 g/dL (3.4-5.0); Anion Gap 8.8 mEq/L (5.0-15.0); Bilirubin Total 0.4 mg/dL (0.2-1.0); Globulin 3.7 g/dL (2.3-3.5); Potassium 3.8 mEq/L (3.5-5.1); Protein, Total 7.5 g/dL (6.4-8.2); Troponin High Sensitivity 3.6 pg/mL (<58.9)
[2024-05-09] MEDS ORDERED: MAGNES/ALUMIN/SIMET 30ML UCUP ONE (01:04)
[2024-05-09] MEDS ORDERED: LIDOCAINE VISCOUS 2% 10ML ORAL SOLN ONE (01:04)
--- NOTE | 2024-05-09 01:29 | EDPHYS ---
Physician Documentation [facility] Name: Ema Turner Age: 53 yrs Sex: Female : 1970 Arrival Date: 05/08/2024 Time: 22:56 Bed 5 Private MD: ED Physician Berlin Darling HPI: 05/09 00:42 This 53 yrs old Female presents to ER via Ambulatory with complaints of ms3 epigastric pain. 00:42 53-year-old female with past medical history anxiety, arthritis, diverticulitis, ms3 fibromyalgia, hyperlipidemia, hypertension presents to the emergency department for epigastric pain has been ongoing for months and became worse tonight. Patient states pain is a 9/10 described as being sharp. She endorses nausea. Denies shortness of breath, chest pain, vomiting.. 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 - Infectious Disease History:: Denies. - Social history:: Smoking status: Patient denies any tobacco usage or history of. ROS: 05/09 00:42 Constitutional: Negative for fever, and chills. Neck: Negative for injury, pain, and ms3 swelling, Cardiovascular: Negative for chest pain, and palpitations. Respiratory: Negative for shortness of breath, cough, wheezing, and pleuritic chest pain, MS/Extremity: Negative for injury and deformity, Skin: Negative for injury, rash, and discoloration, Abdomen/GI: Positive for abdominal pain, nausea, Negative for vomiting, diarrhea, Exam: 00:42 Constitutional: This is a well developed, well nourished patient who is awake, alert, ms3 and in no acute distress. Head/Face: Normocephalic, atraumatic. Chest/axilla: Normal chest wall appearance and motion. Nontender with no deformity. Cardiovascular: Regular rate and rhythm with a normal S1 and S2. No gallops, murmurs, or rubs. Normal PMI, no JVD. No pulse deficits. Respiratory: Lungs have equal breath sounds bilaterally, clear to auscultation and percussion. No rales, rhonchi or wheezes noted. No increased work of breathing, no retractions or nasal flaring. 00:42 ECG was reviewed by the Attending Physician. 00:42 Abdomen/GI: Inspection: abdomen appears normal, Bowel sounds: normal, Palpation: moderate abdominal tenderness, in the epigastric area and right upper quadrant, Vital Signs: 05/08 23:10 BP 177 / 72; Pulse 79; Resp 20; Temp 97.1; Pulse Ox 99% ; cp4 12 00:34 BP 144 / 63; Pulse 73; Resp 18; Pulse Ox 96% ; cp4 01:21 BP 123 / 64; Pulse 71; Resp 17; Temp 97.1; Pulse Ox 97% ; Weight 70.31 kg; Height 5 ft. bm8 1 in. ; Pain 5/10; 01:21 Body Mass Index 29.29 (70.31 kg, 154.94 cm) bm8 01:21 Pain Scale: Adult bm8 [place] Coma Score: 01:21 Eye Response: spontaneous(4). Motor Response: obeys commands(6). Verbal Response: bm8 oriented(5). Total: 15. MDM: 05/08 23:22 Patient medically screened. ms3 05/09 01:31 Differential diagnosis: appendicitis, cholecystitis, Cholelithiasis, non-specific abd ms3 pain, pancreatitis. Data reviewed: vital signs, nurses notes, lab test result(s), radiologic studies, and as a result, I will discharge patient. I considered the following discharge prescriptions or medication management in the emergency department Medications were administered in the Emergency Department. See MAR. Independent interpretation of the following test(s) in the Emergency Department EKG: See my EKG interpretation above. Counseling: I had a detailed discussion with the patient and/or guardian regarding the historical points, exam findings, and any diagnostic results supporting the discharge/admit diagnosis, lab results, radiology results, the need for outpatient follow up, to return to the emergency department if symptoms worsen or persist or if there are any questions or concerns that arise at home. Special discussion: Based on the patient's Hx, exam, and Dx evaluation, there is no indication for emergent surgery or inpatient Tx. It is understood by the patient/guardian that if the Sx's persist or worsen they need to return immediately for re-evaluation. ED course: Discussed labs, CT, ultrasound results with patient. Patient to follow-up with gastroenterology in 2 to 3 days. Patient understands agrees with plan. All questions were answered. Return precautions discussed include worsening symptoms, or any other concerns. On reevaluation patient is improved, alert and oriented x 4, no apparent distress, nontoxic-appearing, speaking full sentences. 05/08 23:17 Order name: CBC with Diff; Complete Time: 00:41 ms3 05/08 23:17 Order name: CMP; Complete Time: 00:41 ms3 05/08 23:17 Order name: Lipase; Complete Time: 00:41 ms3 05/08 23:17 Order name: Troponin High Sensitivity; Complete Time: 00:41 ms3 05/08 23:17 Order name: CT Abd/Pelvis - IV Contrast Only ms3 05/08 23:22 Order name: US Abdomen Limited ms3 05/08 23:17 Order name: IV Saline Lock; Complete Time: 23:28 ms3 05/08 23:17 Order name: Labs collected and sent; Complete Time: 23:28 ms3 05/08 23:17 Order name: EKG - Nurse/Tech; Complete Time: 23:28 ms3 EC:42 Rate is 76 beats/min. Rhythm is regular. QRS [place] is Normal. [place] interval is normal. QRS ms3 interval is normal. Clinical impression: Normal ECG. Interpreted by me. Reviewed by me. Administered Medications: 05/08 23:38 Drug: Famotidine IVP 20 mg IVP once; dilute with 10 mL 0.9% NaCl; give over 2 minutes cp4 Route: IVP; Site: right antecubital; 23:45 Follow up: Response: No adverse reaction cp4 23:38 Drug: Ondansetron IVP 4 mg IVP once; over 2 minutes Route: IVP; Site: right antecubital;cp4 23:46 Follow up: Response: No adverse reaction cp4 23:38 Drug: morphine IVP or IV 4 mg IVP once over 4 mins Route: IVP; Infused Over: 4 mins; cp4 Site: right antecubital; 23:46 Follow up: Response: No adverse reaction cp4 05/09 01:06 Drug: GI Cocktail with - (Maalox PO 30 ml, Lidocaine Mucous Membrane 2 % 20 cp4 ml, Phenobarbital-Belladonna PO 10 ml) PO once Route: PO; 01:23 Follow up: Response: No adverse reaction bm8 Disposition Summary: 05/09/24 01:28 Discharge Ordered Notes: Location: Home ms3 Condition: Stable ms3 Diagnosis - Abdominal pain, unspecified ms3 Followup: ms3 - With: Orion Romero MD - When: 2 - 3 days - Reason: Recheck today's complaints Discharge Instructions: - Discharge Summary Sheet ms3 - Abdominal Pain, Adult ms3 Forms: - Medication Reconciliation Form ms3 - Antibiotic Education ms3 - Prescription Opioid Use ms3 - Patient Portal Instructions ms3 - Leadership Thank You Letter ms3 Prescriptions: - Pepcid 20 mg Oral Tablet - take 1 tablet ORAL route every 12 hours for 10 days; 20 tablet; Refills: 0, ms3 Product Selection Permitted Signatures: Dispatcher [employer] EDMS Berlin Darling DO DO ms3 Kalani Leary cp4 Shamar Mcqueen RN bm8 Corrections: (The following items were deleted from the chart) 05/08 23:18 23:18 CBC+H.LAB.BRZ ordered. EDMS EDMS 23:18 23:18 COMPREHENSIVE METABOLIC PANEL+C.LAB.BRZ ordered. EDMS EDMS 23:18 23:18 LIPASE+C.LAB.BRZ ordered. EDMS EDMS 23:18 23:18 Troponin High Sensitivity+C.LAB.BRZ ordered. EDMS EDMS
--- NOTE | 2024-05-09 01:29 | ER ---
Nurse's Notes [facility] Name: Ema Turner Age: 53 yrs Sex: Female : 1970 Arrival Date: 05/08/2024 Time: 22:56 Bed 5 Private MD: Diagnosis: Abdominal pain, unspecified Presentation: 05/08 23:10 Chief complaint: Patient states: epigastric pain that radiates to the right abdomen. cp4 Coronavirus screen: Client denies travel out of the [place] in the last 14 days. At this time, the client does not indicate any symptoms associated with coronavirus-19. Ebola Screen: Patient negative for fever greater than or equal to 101.5 degrees Fahrenheit, and additional compatible Ebola Virus Disease symptoms Patient denies exposure to infectious person. Patient denies travel to an Ebola-affected area in the 21 days before illness onset. No symptoms or risks identified at this time. Initial Sepsis Screen: Does the patient meet any 2 criteria? No. Patient's initial sepsis screen is negative. Does the patient have a suspected source of infection? No. Patient's initial sepsis screen is negative. Risk Assessment: Do you want to hurt yourself or someone else? Patient reports no desire to harm self or others. Onset of symptoms was May 08, 2024. 23:10 Method Of Arrival: Ambulatory cp4 23:10 Acuity: AGUSTIN 3 cp4 Triage Assessment: 23:13 General: Appears uncomfortable, Behavior is calm, cooperative, appropriate for age. cp4 Pain: Complains of pain in abdomen Pain currently is 8 out of 10 on a pain scale. EENT: No signs and/or symptoms were reported regarding the EENT system. Neuro: Level of Consciousness is awake, alert, obeys commands, Oriented to person, place, time, situation. Cardiovascular: Denies chest pain. Respiratory: Airway is patent Respiratory effort is even, unlabored. GI: Reports epigastric pain, gaseousness, indigestion. 23:13 : No signs and/or symptoms were reported regarding the genitourinary system. Derm: No cp4 signs and/or symptoms reported regarding the dermatologic system. Musculoskeletal: No signs and/or symptoms reported regarding the musculoskeletal system. 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 - Infectious Disease History:: Denies. - Social history:: Smoking status: Patient denies any tobacco usage or history of. Screenin:15 [facility] ED Fall Risk Assessment (Adult) History of falling in the last 3 months, cp4 including since admission No falls in past 3 months (0 pts) Confusion or Disorientation No (0 pts) Intoxicated or Sedated No (0 pts) Impaired Gait No (0 pts) Mobility Assist Device Used No (0 pt) Altered Elimination No (0 pt) Score/Fall Risk Level 0 - 2 = Low Risk Oriented to surroundings, Maintained a safe environment, Assessed \T\ reinforced patient's understanding of fall precautions, Hourly rounding (assess needs \T\ fall precautionary measures) done. Abuse screen: Denies threats or abuse. Nutritional screening: No deficits noted. Tuberculosis screening: No symptoms or risk factors identified. Assessment: 23:15 Reassessment: No changes from previously documented assessment. cp4 05/09 01:21 Reassessment: Patient appears in no apparent distress at this time. Patient and/or bm8 family updated on plan of care and expected duration. Pain level reassessed. Patient is alert, oriented x 3, equal unlabored respirations, skin warm/dry/pink. Patient states feeling better. Patient states symptoms have improved. Pain: Pain currently is 5 out of 10 on a pain scale. Vital Signs: 05/08 23:10 BP 177 / 72; Pulse 79; Resp 20; Temp 97.1; Pulse Ox 99% ; cp4 05/09 00:34 BP 144 / 63; Pulse 73; Resp 18; Pulse Ox 96% ; cp4 01:21 BP 123 / 64; Pulse 71; Resp 17; Temp 97.1; Pulse Ox 97% ; Weight 70.31 kg; Height 5 ft. bm8 1 in. ; Pain 5/10; 01:21 Body Mass Index 29.29 (70.31 kg, 154.94 cm) bm8 01:21 Pain Scale: Adult bm8 [place] Coma Score: 01:21 Eye Response: spontaneous(4). Motor Response: obeys commands(6). Verbal Response: bm8 oriented(5). Total: 15. ED Course: 05/08 23:02 Patient arrived in ED. ra3 23:02 Berlin Darling DO is Attending Physician. ms3 23:13 Triage completed. cp4 23:13 Arm band placed on right wrist. Patient placed in waiting room. cp4 23:15 Bed in low position. Call light in reach. Side rails up X2. cp4 23:27 Kalani Leary is Primary Nurse. cp4 23:39 No provider procedures requiring assistance completed. Initial lab(s) drawn, by ED cp4 staff, sent to lab. Inserted saline lock: 20 gauge in right antecubital area, using aseptic technique. Blood collected. Flushed with 10 mL NS. 23:47 US Abdomen Limited In Process Unspecified. EDMS 05/09 00:17 CT Abd/Pelvis - IV Contrast Only In Process Unspecified. EDMS 01:27 Orion Romero MD is Referral Physician. ms3 01:41 Provided Education on: post er care. bm8 01:41 IV discontinued, intact, bleeding controlled, No redness/swelling at site. Pressure bm8 dressing applied. Administered Medications: 05/08 23:38 Drug: Famotidine IVP 20 mg IVP once; dilute with 10 mL 0.9% NaCl; give over 2 minutes cp4 Route: IVP; Site: right antecubital; 23:45 Follow up: Response: No adverse reaction cp4 23:38 Drug: Ondansetron IVP 4 mg IVP once; over 2 minutes Route: IVP; Site: right antecubital;cp4 23:46 Follow up: Response: No adverse reaction cp4 23:38 Drug: morphine IVP or IV 4 mg IVP once over 4 mins Route: IVP; Infused Over: 4 mins; cp4 Site: right antecubital; 23:46 Follow up: Response: No adverse reaction cp4 05/09 01:06 Drug: GI Cocktail with - (Maalox PO 30 ml, Lidocaine Mucous Membrane 2 % 20 cp4 ml, Phenobarbital-Belladonna PO 10 ml) PO once Route: PO; 01:23 Follow up: Response: No adverse reaction bm8 Medication: 05/08 23:15 VIS not applicable for this client. cp4 Outcome: 05/09 01:28 Discharge ordered by . ms3 01:41 Discharged to home ambulatory, bm8 01:41 Condition: stable 01:41 Discharge instructions given to patient, family, Instructed on discharge instructions, follow up and referral plans. no drinking with medication, no driving heavy equipment, medication usage, safety practices, Demonstrated understanding of instructions, follow-up care, medications, Prescriptions given X 1, 01:41 Patient left the ED. bm8 Signatures: Dispatcher [employer] EDMS Berlin Darling DO DO ms3 Kalani Leary cp4 Marian Tamayo ra3 Shamar Mcqueen, RN RN bm8
[2024-05-09 01:50] VITALS: TEMP 97.1
[2024-05-09 02:02] VITALS: BP 123/64; O2SAT 97
--- NOTE | 2024-05-09 12:32 | RAD REPORT ---
EXAM DESCRIPTION: CT - Abdomen Pelvis W Contrast - 05/09/2024 12:16 am CLINICAL HISTORY: The patient is 53 years old and is Female; ABD PAIN TECHNIQUE: Axial computed tomography images of the abdomen and pelvis with intravenous contrast. S agittal and coronal reformatted images were created and reviewed. This CT exam was performed using one or more of the following dose reduction techniques: automated exposure control, adjustment of t he mA and/or kV according to patient size, and/or use of iterative reconstruction technique. COMPARISON: No relevant prior studies available. FINDINGS: Lung bases: Unremarkable. No mass. No consolidation. ABDOMEN: Liver: Hepatomegaly with diffuse hepatic steatosis. Gallbladder and bile ducts: Unremarkable. No calcified stones. No ductal dilation. Pancreas: Unremarkable. No mass. No ductal dilation. Spleen: Unremarkable. No splenomegaly. Adrenals: Unremarkable. No mass. Kidneys and ureters: Unremarkable. No solid mass. No hydronephrosis. Stomach and bowel: Scattered colonic diverticula. No obstruction. No mucosal thickening. PELVIS: Appendix: The appendix is normal. Bladder: Unremarkable. Reproductive: Unremarkable as visualized. ABDOMEN and PELVIS: Intraperitoneal space: Unremarkable. No free air. No significant fluid collection. Bones/joints: No acute fracture. No dislocation. Soft tissues: Unremarkable. Vasculature: Unremarkable. No abdominal aortic aneurysm. Lymph nodes: Unremarkable. No enlarged lymph nodes. IMPRESSION: No acute finding in the abdomen/pelvis. Electronically signed by: Niles Ruiz MD 05/09/2024 01:00 AM CDT 8 Due to temporary technical issues with the PACS/Fluency reporting system, reports are being signed by the in house radiologist without review as a courtesy to ensure prompt reporting. The interpreting r adiologist is fully responsible for the content of the report.
--- NOTE | 2024-05-09 12:38 | RAD REPORT ---
EXAM DESCRIPTION: US - Abdomen Exam Limited - 05/08/2024 11:45 pm CLINICAL HISTORY: Abdominal pain COMPARISON: CT abdomen/pelvis with contrast 06/25/2022 TECHNIQUE: Grayscale, color Doppler, and duplex Doppler images of right upper abdomen. FINDINGS: Evaluation difficult due to patient body habitus. No significant free fluid. Liver parenchyma grossly unremarkable. Common bile duct measuring 3.5 mm diameter and within normal limits. No intra or extrahepatic biliary ductal dilatation. Gallbladder unremarkable without evidence of stones or inflammation. Negative sonographic Hernandez sign. IMPRESSION: Evaluation difficult due to patient body habitus. Grossly unremarkable US of liver and gallbladder. Electronically signed by: Merritt Huggins MD 05/09/2024 12:48 AM CDT RP Due to temporary technical issues with the PACS/Fluency reporting system, reports are being signed by the in house radiologist without review as a courtesy to ensure prompt reporting. The interpreting r adiologist is fully responsible for the content of the report.
--- NOTE | 2024-05-09 13:44 | EKG ---
Test Date: 2024-05-08 Test Time: 23:24:07 Acds Block 1 Operator: JAD MEASUREMENT RESULTS: Intervals: Rate: 76 [place]: 138 QRSD: 100 QT: 396 QTc: 445 [place]: P: 69 [place]: 138 QRS: 78 T: 48 INTERPRETIVE STATEMENTS: Normal sinus rhythm Normal ECG Compared to ECG 03/22/2021 16:40:46 No significant changes Electronically Signed On 05-09-24 13:43:28 CDT by Carlos Velazquez
== END 2024-05-09 01:41 | disposition home or self-care (01) ==
LOC: SUPCPDRO 22:56 → ER 22:56
DX: R10.13 Epigastric pain (principal)
CPT/HCPCS: 93005; 85025; 36415; 84484; 83690; 80053; 74177; 76705; 96375; 96374; 99284; Q9967; J2405

== ENCOUNTER 2024-09-20 18:56 | Emergency (ER) | payer OTHER ==
--- OUTSIDE RECORDS SUMMARY | 2024-09-20 19:00 | XMS REPORT | Continuity of Care Document ---
Author Name Unknown Address [address] [facility] [address] [place] [address] [facility] thconnect Address [address] [facility] [address] [place] [address] Care Team Providers Care Area Attendant Name Role Phone Lolly Sandoval Primary Care Physician Sudhakar Baker Attending Clinician Unavailable Doctor Unassigned, Susank Attending Clinician U LANDON Dow Attending Clinician Unavailable Radiology Attending Clinician Unavailable RADIOLOGY Attending Clinician Unavailable Ralph Slater Admitting Clinician Unavailable Payers Payer Name Policy Type Policy Number Effective Date Expirati on Date Source Problems Condition Name Condition Details Condition Category Status Onset Date Resolution Date Last Treatment Date Treating Clinician Comments Source History of hysterecto my History of hysterecto my Disease Active 11-10 00:00: 00 [facility] BMI 37.0-37.9, adult BMI 37.0-37.9, adult Disease Active 11-10 00:00: 00 [facility] Slow transit constipati on Slow transit constipati on Disease Active 11-10 00:00: 00 [facility] Pelvic pain in female Pelvic pain in female Disease Active 11-10 00:00: 00 [facility] History of tubal ligation History of tubal ligation Disease Active 01-10 00:00: 00 [facility] Essential hypertensi on Essential hypertensi on Disease Active 11-24 00:00: 00 Overview: Formattin g of this note might be different from the original. 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 History of Social function 2019-04-07 00:00:00 2019-04-07 00:00:00 [facility] Alcohol intake 2018-11-10 00:00:00 2018-11-10 00:00:00 Current non-drinker of alcohol (finding) [facility] Cigarettes smoked current (pack per day) - Reported 2017-05-18 00:00:00 2017-05-18 00:00:00 [facility] Cigarette pack-years 2017-05-18 00:00:00 2017-05-18 00:00:00 [facility] Tobacco use and exposure 2017-05-18 00:00:00 2017-05-18 00:00:00 Smokeless tobacco non-user [facility] History of tobacco use 2000-05-18 00:00:00 2002-09-28 00:00:00 Cigarette Smoker [facility] Sex Assigned At 1970 00:00:00 1970 00:00:00 [facility] Smoking Status Start Date Stop Date Source Ex-smoker 2017-05-18 00:00:00 2017-05-18 00:00:00 [facility] Medications Ordered Medication Name Filled Medication Name Start Date Stop Date Current Medication? Ordering Clinician Indication Dosage Frequency Signature (SIG) Comments Components Source metformin 500 mg tablet 04-18 00:00: 00 Yes 1mg Juvenal Buenrostro lisinopril 20 mg-hydrochl orothiazide 12.5 mg tablet 04-18 00:00: 00 Yes 1mg Juvenal Buenrostro metformin 500 mg tablet - 00:00: 00 Yes mg Juvenal Buenrostro lisinopril 20 mg-hydrochl orothiazide 12.5 mg tablet 05-19 00:00: 00 Yes mg Juvenal Buenrostro LISINOPRIL/ HYDROCHLORO THIAZIDE 20-12.5 MG TABS 6-16 00:00: 00 Yes Juvenal Buenrostro TAKE 1 TABLET DAILY. 616 00:00: 00 12-22 00:00 :00 No 500 Juvenal Buenrostro TAKE 1 TABLET TWICE DAILY WITH FOOD. - 00:00: 00 12-22 00:00 :00 No [id number] Juvenal Buenrostro TAKE 1 TABLET DAILY. 01-13 00:00: 00 12-22 00:00 :00 No 10 Juvenal Buenrostro TAKE 1 TABLET DAILY. 12-24 00:00: 00 12-22 00:00 :00 No [id number] Juvenal Buenrostro INJECT 0.25 WEEKLY 12-24 00:00: [...] 00:00 :00 No Juvenal Buenrostro Dose Unknown 2021-09 00:00: 00 Yes Juvenal Buenrostro Dose Unknown 2021-09 00:00: 00 Yes Juvenal Buenrostro Dose Unknown 2020-09 00:00: 00 Yes Juvenal Buenrostro fluticasone propionate 50 mcg/actuati on nasal spray,suspe nsion 2020-09 2 00:00: 00 Yes 12mcg/a ctuatio n Juvenal Buenrostro Dose Unknown 2021-1 2-20 00:00: 00 Yes Juvenal Buenrostro prednisone 10 [...] Tab by mouth 2 (two) times daily. [facility] Ciprodex 0.3 %-0.1 % ear drops,suspe nsion [...] Source TDAP (ADACEL) VACCINE 2015-11-27 00:00:00 Completed [facility] TDAP (ADACEL) VACCINE 2015-11-27 00:00:00 Completed [facility] TDAP (ADACEL) VACCINE 2015-11-27 00:00:00 Completed [facility] TDAP (ADACEL) VACCINE 2015-11-27 00:00:00 Completed [facility] Td 2006-09-28 00:00:00 Completed [facility] Td 2006-09-28 00:00:00 Completed [facility] Td 2006-09-28 00:00:00 Completed [facility] Td 2006-09-28 00:00:00 Completed [facility] TD, NOS Unknown Completed [facility] TDAP (ADACEL) VACCINE Unknown Completed [facility] SARS-COV-2 COVID-19 PFIZER VACCINE Unknown Completed [facility] Vital Signs Vital Name Observation Time Observation Value Comments S ource BP Systolic 2024-07-12 17:38:00 153 mm[Hg] Step hen F Porter BP Diastolic 2024-07-12 17:38:00 94 mm[Hg] Rick phen F Porter Weight Measured 2024-07-12 17:38:00 220.40 pounds Juvenal F Porter Height Measured 2024-07-12 17:38:00 61.00 inches Juvenal F Porter Body Temperature 2024-07-12 17:38:00 Juvenal F Porter Heart Rate 2024-07-12 17:38:00 72.00 /min Mary Beth en F Porter Respiratory Rate 2024-07-12 17:38:00 18.00 /min Juvenal F Porter BP Diastolic 2024-04-18 11:28:00 79 mm[Hg] Rick phen F Porter Weight Measured 2024-04-18 11:28:00 226.00 pounds Juvenal F Porter Height Measured 2024-04-18 11:28:00 61.00 inches Juvenal F Porter Body Temperature 2024-04-18 11:28:00 97.40 degrees Juvenal F Porter Heart Rate 2024-04-18 11:28:00 72.00 /min Mary Beth en F Porter Respiratory Rate 2024-04-18 11:28:00 18.00 /min Juvenal F Porter BP Systolic 2024-04-18 11:28:00 157 mm[Hg] Step hen F Porter BP Systolic 2023-06-09 10:16:00 136 mm[Hg] Step hen F Porter BP Diastolic 2023-06-09 10:16:00 84 mm[Hg] Rick phen F Porter Weight Measured 2023-06-09 10:16:00 212.00 pounds Juvenal F Oprter Height Measured 2023-06-09 10:16:00 61.00 inches Juvenal [...] Weight Measured 2016-06-10 13:43:00 208.20 pounds Juvenal Buenrostro Height Measured 2016-06-10 13:43:00 61.00 inches Juvenal F Porter Body Temperature 2016-06-10 13:43:00 97.60 degrees Juvenal F Porter Heart Rate 2016-06-10 13:43:00 58.00 /min Mary Beth en F Porter Respiratory Rate 2016-06-10 13:43:00 17.00 /min Juvenal F Porter BP Systolic 2016-01-08 13:12:00 140 mm[Hg] Step hen F Porter BP Diastolic 2016-01-08 13:12:00 83 mm[Hg] Rick phen F Porter Weight Measured 2016-01-08 13:12:00 198.00 pounds Juvenal F Porter Height Measured 2016-01-08 13:12:00 61.00 inches Juvenal F Porter Body Temperature 2016-01-08 13:12:00 98.00 degrees Juvenal F Porter Heart Rate 2016-01-08 13:12:00 16.00 /min Mary Beth en F Porter Respiratory Rate 2016-01-08 13:12:00 16.00 /min Juvenal Ben Buenrostro Procedures Procedure Date / Time Performed Performing Clinician Source [id number] 2022-09-08 00:00:00 [facility] [id number] 2022-09-08 00:00:00 [facility] BI ULTRASOUND BREAST COMPLETE LEFT 2020-08-16 18:36:53 Requisition, Paper [facility] BI DIAGNOSTIC TOMOSYNTHESIS LEFT 2020-08-16 18:05:19 Requisition, Paper [facility] BI SCREENING MAMMOGRAM BILATERAL 2020-04-24 20:11:00 Requisition, Paper [facility] ASSIGNMENT OF BENEFITS 2020-04-24 19:40:32 Docto r Unassigned, Susank [facility] Encounters Start Date/Time End Date/Time Encounter Type Admission Type Attending Clinicians Care Facility Care Department Encounter ID Source 2024-07-12 17:28:45 2024-07-12 17:28:45 Outpatient [facility] [id number] Juvenal F Porter 2024-07-12 00:00:00 2024-07-12 00:00:00 Outpatient Visit [facility] [id number] Juvenal Buenrostro 2024-04-18 11:17:36 2024-04-18 11:17:36 Outpatient [facility] [id number] Juvenal Buenrostro 2024-04-18 00:00:00 2024-04-18 00:00:00 Outpatient Visit SFA [id number] Juvenal Buenrostro 2023-06-09 10:10:40 2023-06-09 10:10:40 Outpatient [facility] [id number] Juvenal Buenrostro 2023-03-13 09:43:37 2023-03-13 09:43:37 Outpatient [facility] [id number] Juvenal Buenrostro 2023-01-13 11:28:20 2023-01-13 11:28:20 Outpatient [facility] [id number] Juvenal Buenrostro 2022-12-24 16:04:29 2022-12-24 16:04:29 Outpatient [facility] [id number] Juvenal Buenrostro 2022-10-01 10:38:57 2022-10-01 10:38:57 Outpatient [facility] [id number] Juvenal Buenrostro 2022-09-06 12:03:00 2022-09-08 21:56:00 Inpatient Sudhakar Branham [facility].01 [id number] [facility] 2021-09-13 00:00:00 2021-09-13 00:00:00 Patient Secure Msg Doctor Unassigned, Susank [facility] [id number] [id number] [id number] [facility] 2020-12-25 10:10:00 2020-12-25 10:10:00 Outpatient LANDON ALVARADO [facility] [id number] [facility] 2020-12-04 10:10:00 2020-12-04 10:10:00 Outpatient R LANDON OCONNOR [facility] [id number] [facility] 2020-08-16 11:35:20 2020-08-16 23:59:00 Hospital Encounter Radiology [facility] [id number] [id number] [id number] [facility] 2020-08-16 11:35:20 2020-08-16 23:59:00 Hospital Encounter Radiology [facility] [id number] [id number] [id number] 2020-08-16 11:32:50 2020-08-16 11:34:00 Hospital Encounter Radiology [facility] [id number] 4.2.7.2.686 [id number] 2020-08-16 11:32:50 2020-08-16 11:34:00 Hospital Encounter Radiology [facility] [id number] [id number] [id number] [facility] 2020-08-16 00:00:00 2020-08-16 00:00:00 Outpatient R RADIOLOGY [facility] [id number] [facility] 2020-06-19 00:00:00 2020-06-19 00:00:00 Outpatient R RADIOLOGY [facility] [id number] [facility] 2020-05-24 00:00:00 2020-05-24 00:00:00 Outpatient R RADIOLOGY [facility] [id number] [facility] 2020-04-24 14:40:00 2020-04-24 23:59:00 Hospital Encounter Radiology [facility] 1.2.840.114 350.1.13.10 4.2.7.2.686 [id number] 2020-04-24 14:40:00 2020-04-24 23:59:00 Hospital Encounter Radiology [facility] [id number] 350.1.13.10 4.2.7.2.686 [id number] [facility] 2020-04-24 00:00:00 2020-04-24 00:00:00 Outpatient R RADIOLOGY [facility] [id number] [facility] 2020-04-24 00:00:00 2020-04-24 00:00:00 Orders Only Doctor Unassigned, Susank [facility] 1.2.840.114 350.1.13.10 4.2.7.2.686 [id number] 2020-04-24 00:00:00 2020-04-24 00:00:00 Orders Only Doctor Unassigned, Susank [facility] [id number] 350.1.13.10 4.2.7.2.686 [id number] [facility] Results Test Description Test Time Test Comments Results Result Co mments Source LIPID [id number] 05:00:53* Test Item Value Reference Range Interpretation [...] SPECIMENS. FOR MOREINFORMATION, SEE CLIENT ANNOUNCEMENT AT [email or web address] RISK RATIO LDL/HDL (test code = 2238) 3.74 RATIO <3.22 H COMPREHENSIVE METABOLIC [id number] 05:00:53* Test Item Value Reference Range Interpretation Comme nts GLUCOSE (test code = 2217) 121 MG/DL 70-99 H BUN (test code = 2208) 11 MG/DL 6-20 CREATININE (test code = 2214) 0.73 MG/DL 0.60-1.30 eGFR (2020 CKD-EPI) (test code = 79152) 97 ML/MIN/1.73 >60 CALC BUN/CREAT (test code [...] 6.7 G/DL 6.1-8.3 ALBUMIN (test code = 220) 4.2 G/DL 3.5-5.2 CALC GLOBULIN (test code = 2240) 2.5 G/DL 1.9-3.7 CALC A/G RATIO (test code = 223) 1.7 RATIO 1.0-2.6 BILIRUBIN, TOTAL (test code = 2207) 0.4 MG/DL <=1.2 ALKALINE PHOSPHATASE (test code = 220) 99 U/L 40-133 AST (test code = 2218) 22 U/L 9-40 ALT (test code = 2219) 28 U/L 5-40 UNLESS OTHERWISE INDICATED, ALL TESTING PERFORMED AT [facility] [address] [place] [address] TUBE HEATER: AMINAH SANCHEZ M.D. CLIA NUMBER [id number] [facility] [place]. [id number] HEMOGLOBIN [id number] 00:00:00* Test Item Value Reference Range Interpretation Comme nts HEMOGLOBIN A1c (test code = 69240) 6.2 % Juvenal BuenrostroLIPID [id number] 00:00:00* Test Item Value Reference Range Interpretation Comme nts CHOLESTEROL (test code = 2210) 222 MG/DL TRIGLYCERIDES (test code = 2232) 112 MG/DL HDL CHOLESTEROL (test code = 2220) 42 MG/DL CALC LDL CHOL (test code = 2237) 157 MG/DL RISK RATIO LDL/HDL (test cod e = 2238) 3.74 RATIO Juvenal BuenrostroCOMPREHENSIVE METABOLIC [id number] 00:00:00* Test Item Value Reference Range Interpretation Comme nts GLUCOSE (test code = 2217) 121 MG/DL BUN (test code = 2208) 11 MG/DL CREATININE (test code = 2214) 0.73 MG/DL eGFR (2020 CKD-EPI) (test co de = 00651) 97 ML/MIN/1.73 CALC BUN/CREAT (test code = 2235) 15 RATIO SODIUM (test code = 2231) 142 MEQ/L POTASSIUM (test code = 2228) 4.4 MEQ/L CHLORIDE (test code = 2215) 106 MEQ/L CARBON DIOXIDE (test code = 2206) 24 MEQ/L CALCIUM (test code = 2209) 9.0 MG/DL PROTEIN, TOTAL (test code = 2229) 6.7 G/DL ALBUMIN (test code = 2201) 4.2 G/DL CALC GLOBULIN (test code = 2240) 2.5 G/DL CALC A/G RATIO (test code = 2234) 1.7 RATIO BILIRUBIN, TOTAL (test code = 2207) 0.4 MG/DL ALKALINE PHOSPHATASE (test code = 2204) 99 U/L AST (test code = 2218) 22 U/L ALT (test code = 2219) 28 U/L Juvenal BuenrostroCOMPREHENSIVE METABOLIC [id number] 04:13:15* Test Item Value Reference Range Interpretation Comme nts GLUCOSE (test code = 2217) 113 MG/DL 70-99 H BUN (test code = 2208) 13 MG/DL 6-20 CREATININE (test code = 2214) 0.66 MG/DL 0.60-1.30 eGFR (2020 CKD-EPI) (test code = 55006) 104 ML/MIN/1.73 >60 CALC BUN/CREAT (test code [...] normal/abnormal. ALKALINE PHOSPHATASE (test code = 2203) 90 U/L 40-133 AST (test code = 2218) 25 U/L 9-40 ALT (test code = 2219) 34 U/L 5-40 LIPID [id number] 04:13:15* Test Item Value Reference Range Interpretation Comme nts CHOLESTEROL (test code = 0) 213 MG/DL <200 H TRIGLYCERIDES (test code = 2231) 122 MG/DL <150 HDL CHOLESTEROL (test code = 0) 39 MG/DL >39 L CALC LDL CHOL (test code = 7) 150 MG/DL <100 H NOTE: CALCULATED LDL IS BASED ON RAYMOND-DUENAS METHOD WHICHINCLUDES ADJUSTABLE TRIGLYCERIDE:VLDL CHOLESTEROL RATIO.THIS FACTOR VARIES BY MEASURED TRIGLYCERIDE AND NON-HDLCHOLESTEROL CONCENTRATIONS WITH INCREASED CALCULATED LDL SEENIN HIGHER TRIGLYCERIDE OR LOWER NON-HDL SPECIMENS. FOR MOREINFORMATION, SEE CLIENT ANNOUNCEMENT AT [email or web address] RISK RATIO LDL/HDL (test code = 2237) 3.85 RATIO <3.22 H HEMOGLOBIN [id number] 02:47:35* Test Item Value Reference Range Interpretation Comme nts HEMOGLOBIN A1c (test code = 38041) 6.3 % 4.2-5.6 H [employer] GUIDELINES FOR HGB A1C: [...] TESTING PERFORMED AT [facility] [address] [place] [address] TUBE HEATER: AMINAH SANCHEZ M.D. CLIA NUMBER [id number] [facility] [place]. [id number] CBC W/AUTO DIFF WITH [id number] 02:01:11* Test Item Value Reference Range Interpretation [...] 0.00-0.10 ABS NUCLEATED RBCS (test code = 03672) 0.00 K/UL 0.00-0.11 CBC W/AUTO [id number] 00:00:00* Test Item Value Reference Range Interpretation [...] ABS NUCLEATED RBCS (test cod e = 32395) 0.00 K/UL Juvenal F AustinCOMPREHENSIVE METABOLIC [id number] 00:00:00* Test Item Value Reference Range Interpretation Comme nts GLUCOSE (test code = 2217) 113 MG/DL BUN (test code = 2208) 13 MG/DL CREATININE (test code = 2214) 0.66 MG/DL eGFR (2020 CKD-EPI) (test code = 10686) 104 ML/MIN/1.73 CALC BUN/CREAT (test code = [...] code = 2219) 34 U/L Juvenal BuenrostroLIPID [id number] 00:00:00* Test Item Value Reference Range Interpretation Comme nts CHOLESTEROL (test code = 2210) 213 MG/DL TRIGLYCERIDES (test code = 2232) 122 MG/DL HDL CHOLESTEROL (test code = 2220) 39 MG/DL CALC LDL CHOL (test code = 2237) 150 MG/DL RISK RATIO LDL/HDL (test cod e = 2238) 3.85 RATIO Juvenal BuenrostroHEMOGLOBIN [id number] 00:00:00* Test Item Value Reference Range Interpretation Comme [facility] HEMOGLOBIN A1c (test code = 56938) 6.3 % Juvenal BuenrostroCBC W/AUTO [id number] 00:00:00* Test Item Value Reference Range Interpretation [...] ABS NUCLEATED RBCS (test cod e = 67606) 0.00 K/UL Juvenal Contreras PorterCOMPREHENSIVE METABOLIC [id number] 00:00:00* Test Item Value Reference Range Interpretation Comme nts GLUCOSE (test code = 2217) 113 MG/DL BUN (test code = 2208) 13 MG/DL CREATININE (test code = 2214) 0.66 MG/DL eGFR (2020 CKD-EPI) (test code = 62016) 104 ML/MIN/1.73 CALC BUN/CREAT (test code = [...] code = 2219) 34 U/L Juvenal BuenrostroLIPID [id number] 00:00:00* Test Item Value Reference Range Interpretation Comme nts CHOLESTEROL (test code = 2210) 213 MG/DL TRIGLYCERIDES (test code = 2232) 122 MG/DL HDL CHOLESTEROL (test code = 2220) 39 MG/DL CALC LDL CHOL (test code = 2237) 150 MG/DL RISK RATIO LDL/HDL (test cod e = 2238) 3.85 RATIO Juvenal BuenrostroHEMOGLOBIN [id number] 00:00:00* Test Item Value Reference Range Interpretation Comme nts HEMOGLOBIN A1c (test code = 61877) 6.3 % Juvenal Contreras AustinTSH, THIRD [id number] 05:10:00* Test Item Value Reference Range Interpretation Comme nts TSH, THIRD GENERATION (test code = 2821) 0.650 UIU/ML 0.400-4.100 UNLESS OTHERWISE INDICATED, ALL TESTING PERFORMED [facility] [employer] [address] [place] [address] TUBE HEATER: JACOB OCHOA M.D. CLIA NUMBER [id number] [facility] [place]. [id number] HEMOGLOBIN [id number] 04:49:05* Test Item Value Reference Range Interpretation Comme nts HEMOGLOBIN A1c (test code = 51091) 6.4 % 4.2-5.6 H COMPREHENSIVE METABOLIC [id number] 04:05:12* Test Item Value Reference Range Interpretation Comme nts GLUCOSE (test code = 2217) 137 MG/DL 70-99 H BUN (test code = 2208) 17 MG/DL 6-20 CREATININE (test code = 2214) 0.67 MG/DL 0.60-1.30 eGFR (2020 CKD-EPI) (test code = 11167) 104 ML/MIN/1.73 >60 CALC BUN/CREAT (test code = 2235) 25 RATIO 6-28 SODIUM (test code = 2231) 140 MEQ/L 133-146 POTASSIUM (test code = 2228) 4.7 MEQ/L 3.5-5.4 CHLORIDE (test code = 2215) 103 MEQ/L 95-107 CARBON DIOXIDE (test code = 2206) 26 MEQ/L 19-31 CALCIUM (test code = 2209) 9.7 MG/DL 8.5-10.5 PROTEIN, TOTAL (test code = 2229) 7.1 G/DL 6.1-8.3 ALBUMIN (test code = 2201) 4.4 G/DL 3.5-5.2 CALC GLOBULIN (test code = 2240) 2.7 G/DL 1.9-3.7 CALC A/G RATIO (test code = 2234) 1.6 RATIO 1.0-2.6 BILIRUBIN, TOTAL (test code = 2207) 0.5 MG/DL See_Comment [Automated me ssage] The system which generated this result transmitted reference range: <=1.2. The reference range was not used to interpret this result as normal/abnormal. ALKALINE PHOSPHATASE (test code = 2204) 102 U/L 40-133 AST (test code = 2218) 17 U/L 9-40 ALT (test code = 2219) 34 U/L 5-40 LIPID [id number] 04:05:12* Test Item Value Reference Range Interpretation Comme nts CHOLESTEROL (test code = 2210) 215 MG/DL <200 H TRIGLYCERIDES (test code = 2232) 75 MG/DL <150 HDL CHOLESTEROL (test code = 2220) 50 MG/DL >39 CALC LDL CHOL (test code = 7) 147 MG/DL <100 H NOTE: CALCULATED LDL IS BASED ON RAYMOND-DUENAS METHOD WHICHINCLUDES ADJUSTABLE TRIGLYCERIDE:VLDL CHOLESTEROL RATIO.THIS FACTOR VARIES BY MEASURED TRIGLYCERIDE AND NON-HDLCHOLESTEROL CONCENTRATIONS WITH INCREASED CALCULATED LDL SEENIN HIGHER TRIGLYCERIDE OR LOWER NON-HDL SPECIMENS. FOR MOREINFORMATION, SEE CLIENT ANNOUNCEMENT AT [email or web address] RISK RATIO LDL/HDL (test code = 2238) 2.94 RATIO <3.22 CBC W/AUTO DIFF WITH [id number] 03:58:54* Test Item Value Reference Range Interpretation [...] 0.00-0.10 ABS NUCLEATED RBCS (test code = 61139) 0.00 K/UL 0.00-0.11 HEMOGLOBIN [id number] 00:00:00* Test Item Value Reference Range Interpretation Comme nts HEMOGLOBIN A1c (test code = 05840) 6.4 % [facility] [id number] 00:00:00* Test Item Value Reference Range Interpretation [...] ABS NUCLEATED RBCS (test cod e = 39871) 0.00 K/UL Juvenal BuenrostroCOMPREHENSIVE METABOLIC [id number] 00:00:00* Test Item Value Reference Range Interpretation Comme nts GLUCOSE (test code = 2217) 137 MG/DL BUN (test code = 2208) 17 MG/DL CREATININE (test code = 2214) 0.67 MG/DL eGFR (2020 CKD-EPI) (test code = 95928) 104 ML/MIN/1.73 CALC BUN/CREAT (test code = [...] code = 2219) 34 U/L Juvenal BuenrostroLIPID [id number] 00:00:00* Test Item Value Reference Range Interpretation Comme nts CHOLESTEROL (test code = 2210) 215 MG/DL TRIGLYCERIDES (test code = 2232) 75 MG/DL HDL CHOLESTEROL (test code = 2220) 50 MG/DL CALC LDL CHOL (test code = 2237) 147 MG/DL RISK RATIO LDL/HDL (test cod e = 2238) 2.94 RATIO Juvenal BuenrostroTSH, THIRD [id number] 00:00:00* Test Item Value Reference Range Interpretation Comme jo TSH, THIRD GENERATION (test code = 2821) 0.650 UIU/ML Juvenal BuenrostroHEMOGLOBIN [id number] 00:00:00* Test Item Value Reference Range Interpretation Comme jo HEMOGLOBIN A1c (test code = 70471) 6.4 % Juvenal BuenrostroCBC W/AUTO [id number] 00:00:00* Test Item Value Reference Range Interpretation [...] ABS NUCLEATED RBCS (test cod e = 15934) 0.00 K/UL Juvenal BuenrsotroCOMPREHENSIVE METABOLIC [id number] 00:00:00* Test Item Value Reference Range Interpretation Comme nts GLUCOSE (test code = 2217) 137 MG/DL BUN (test code = 2208) 17 MG/DL CREATININE (test code = 2214) 0.67 MG/DL eGFR (2020 CKD-EPI) (test code = 68603) 104 ML/MIN/1.73 CALC BUN/CREAT (test code = [...] code = 2219) 34 U/L Juvenal BuenrostroLIPID [id number] 00:00:00* Test Item Value Reference Range Interpretation Comme nts CHOLESTEROL (test code = 2210) 215 MG/DL TRIGLYCERIDES (test code = 2232) 75 MG/DL HDL CHOLESTEROL (test code = 2220) 50 MG/DL CALC LDL CHOL (test code = 2237) 147 MG/DL RISK RATIO LDL/HDL (test cod e = 2238) 2.94 RATIO Juvenal Contreras PorterTSH, THIRD [id number] 00:00:00* Test Item Value Reference Range Interpretation Comme nts TSH, THIRD GENERATION (test code = 2821) 0.650 UIU/ML Juvenal BuenrostroBASIC METABOLIC [id number] 07:22:00* Test Item Value Reference Range Interpretation [...] calculation forGFR is based on the CKD-EPI (202) calculation. This formulais race indifferent and is the recommended formula for GFRby the National Kidney Foundation for Adults.The GFR will not calculate if the sex is unknown or if thepatient's age is <18 years. CREATININE (test code = CREAT) 0.7 mg/dL 0.6-1.3 N CALCIUM (test code = CA) 8.6 mg/dL 8.0-10.5 N COMMENTS: To be done morning of Heart CathCBC W/AUTO [id number] 06:56:00* Test Item Value Reference Range Interpretation [...] = LDL) 152.2 mg/dL 0-100 H <100 ARXAAIT12 0-129 NEAR OPTIMAL/ABOVE [id number] HIGH>LK=431 VERY HIGH*Guidelines provided by the National Cholesterol EducationProgram Adult Treatment Panel III COMMENTS: If already ordered in ED, Adjust times to equal only 3 sets 2 hoursComment: apart.TSH REFLEX TO [id number] 14:03:00* Test Item Value Reference Range Interpretation Comme nts TSH REFLEX TO FT4 (test code = TSHREFLEX) 1.22 IU/mL 0.42-5.47 N COMMENTS: If already ordered in ED, Adjust times to equal only 3 sets 2 hoursComment: apart.TROP-I HIGH [id number] 14:03:00* Test Item Value Reference Range Interpretation [...] URL. These results were obtained using Siemens Atellhurleypalmerflatt IM TnIHreagent. Results from different methodologies should not becompared to one another as quantitative results and URLs mayvary by method. COMMENTS: If already ordered in ED, Adjust times to equal only 3 sets 2 hoursComment: apart.SED RATE [id number] 12:16:00* Test Item Value Reference Range Interpretation Comme nts SED RATE WESTERGREN (test co de = SEDW) 8 mm/hr 0-20 N HGBA1C%2022-09-06 11:57:00* Test Item Value Reference Range Interpretation Comme nts HGBA1C% (test code = HGBA1C%) 5.9 %A1C 4.8-6.0 N C REACTIVE [id number] 11:43:00* Test Item Value Reference Range Interpretation Comme nts C REACTIVE PROTEIN (test cod e = CRP) 10.0 mg/L <10.0 H HGBA1C%2022-09-06 10:14:00* Test Item Value Reference Range Interpretation Comme nts HGBA1C% (test code = HGBA1C%) 5.9 %A1C 4.8-6.0 N COMMENTS: If patient DiabeticB-TYPE NATRIURETIC [id number] 08:26:00* Test Item Value Reference Range Interpretation Comme nts B-TYPE NATRIURETIC PEPTIDE ( test code = BNP) 12.0 PG/ML 0-100 N TROP-I HIGH [id number] 08:10:00* Test Item Value Reference Range Interpretation [...] the URL. These results were obtained using [employer] IM TnIHreagent. Results from different methodologies should not becompared to one another as quantitative results and URLs mayvary by method. COMMENTS: If already ordered in ED, Adjust times to equal only 3 sets 2 hoursComment: apart.COMPREHENSIVE METABOLIC [id number] 08:10:00* Test Item Value Reference Range Interpretation [...] calculation forGFR is based on the CKD-EPI (202) calculation. This formulais race indifferent and is [...] to equal only 3 sets 2 hoursComment: apart.[id number] 08:10:00* Test Item Value Reference Range Interpretation Comme [facility] MAGNESIUM (test code = MAG) 1.80 mg/dL 1.80-2.40 N COMMENTS: If already ordered in ED, Adjust times to equal only 3 sets 2 hoursComment: apart.TROP-I HIGH [id number] 07:12:00* Test Item Value Reference Range Interpretation [...] URL. These results were obtained using Siemens Atellhurleypalmerflatt IM TnIHreagent. Results from different methodologies should not becompared to one another as quantitative results and URLs mayvary by method. COMMENTS: If already ordered in ED, Adjust times to equal only 3 sets 2 hoursComment: apart.PROTHROMBIN [id number] 05:42:00* Test Item Value Reference Range Interpretation Comme [facility] PROTHROMBIN TIME PATIENT (test code = PTP) [...] on Coumadin/with pacer/Swanz-Cortney insertion/heparinization therapy THROMBOPLASTIN TIME [id number] 05:42:00* Test Item Value Reference Range Interpretation Comme nts THROMBOPLASTIN TIME PARTIAL (test code = PTT) 29.0 Seconds 25.0-39.5 N Therapeutic Rang e: 50.4 - 88.3 Seconds Effective 01/11/2019 COMMENTS: If on Coumadin/with pacer/Swanz-Cortney insertion/heparinization therapy CBC W/AUTO [id number] 00:10:00* Test Item Value Reference Range Interpretation [...] = MX#) 0.5 k/mm3 0.1-0.8 N GLUCOSE [id number] 22:33:00* Test Item Value Reference Range Interpretation Comme nts GLUCOSE BEDSIDE (test code = GLUBED) 109 MG/DL 70-110 N Performed by cer tified screwdown operator at [facility] TROPONIN-I [id number] 22:33:00* Test Item Value Reference Range Interpretation Comme nts TROPONIN-I RAPID (test code = TROPIRAP) < 0.05 <0.05 Performed by cer tified screwdown operator at [facility]"Point of Care test critical value notification anddocumentation [...] in troponin levels. - XR CHEST 1 [id number] 00:00:00 [facility] 1970 Sex: FFAX: Pio Demarco DO [phone] [place]: [place] St: PRE Name: ALICIA DYER FSED : 1970 Age/S: 51/F [address] [facility] Unit #: [id number] Loc: [place] [address] Phys: Pio Demarco DO Acct: [id number] Dis Date: Status: PRE ER PHONE #: Exam Date: 09/05/20223 FAX #: Reason: Chest Pain EXAMS: CPT CODE: [id number] XR CHEST 1 V 37721 PROCEDURE INFORMATION: Exam: XR Chest Exam date and time: 09/05/2022 9:39 PM Age: 51 years old Clinical indication: Chest wall pain; Additional info: Chest pain TECHNIQUE: Imaging protocol: Radiologic exam of the chest. Views: 1 view. COMPARISON: No relevant prior studies available. FINDINGS: Lungs: Mild decreased lung volumes. No consolidation. Pleuralspaces: No pleural effusion. No pneumothorax. Heart/Mediastinum: The cardiac silhouette is not enlarged. Bones/joints: No destructive bone lesions. IMPRESSION: No acute cardiopulmonary findings. at 0475 Reported and signed by: Israel Pacheco M.D. CC: Pio Demarco DO Technologist: RT Kirstin(R)(CT) Trnscrd Date/Time/By: 09/05/2022 (1550) : By: [email or web address] Orig Print D/T: S: 09/05/2022 (0689) PAGE 1 Signed ReportBI ULTRASOUND BREAST COMPLETE [...] - Left BI-RADS Category: Left 1 [facility]OSYNTHESIS LEFT 2020-08-16 19:46:02Examination:BI [...] - Left BI-RADS Category: Left 1 - NegativeUnNorth Central Baptist HospitalBI SCREENING MAMMOGRAM BILATERAL 2020-04-24 21:24:53Examination:BI SCREENING MAMMOGRAM [...] NegativeOverall: 0 - Incomplete: Needs Additional Imaging EvaluationUnNorth Central Baptist HospitalVITAMIN D,1,86-[id number] 00:00:00* Test Item Value Reference Range Interpretation Comme nts VITAMIN D,1,25-DIHYDROXY (te st code = 4960) 62.3 PG/ML Juvenal BuenrostroVITAMIN D,1,25-[id number] 00:00:00* Test Item Value Reference Range Interpretation Comme nts VITAMIN D,1,25-DIHYDROXY (te st code = 4960) 62.3 PG/ML Juvenal BuenrostroCOMPREHENSIVE METABOLIC [id number] 00:00:00* Test Item Value Reference Range Interpretation Comme nts GLUCOSE (test code = 2217) 93 MG/DL BUN (test code = 2208) 9 MG/DL CREATININE (test code = 2214) 0.6 MG/DL eGFR AMER. (test cod e = 50892) 130 ML/MIN/1.73 eGFR NON- AMER. (test code = 97102) 108 ML/MIN/1.73 CALCULATED BUN/CREAT (test code = [...] code = 2219) 16 U/L Juvenal BuenrostroLIPID [id number] 00:00:00* Test Item Value Reference Range Interpretation Comme nts CHOLESTEROL (test code = 2210) 188 MG/DL TRIGLYCERIDES (test code = 2232) 126 MG/DL HDL CHOLESTEROL (test code = 2220) 40 MG/DL CALCULATED LDL CHOL (test co de = 2237) 123 MG/DL RISK RATIO LDL/HDL (test cod e = 2238) 3.07 RATIO Juvenal [id number] 00:00:00* Test Item Value Reference Range Interpretation Comme nts TSH (test code = 2821) 1.6 UIU/ML Juvenal BuenrostroCBC W/AUTO [id number] 00:00:00* Test Item Value Reference Range Interpretation [...] code = 1015) 293 K/UL Juvenal BuenrostroHEMOGLOBIN [id number] 00:00:00* Test Item Value Reference Range Interpretation Comme nts HEMOGLOBIN A1c (test code = 02588) 6.4 % Juvenal BuenrostroCOMPREHENSIVE METABOLIC [id number] 00:00:00* Test Item Value Reference Range Interpretation Comme nts GLUCOSE (test code = 2217) 93 MG/DL BUN (test code = 2208) 9 MG/DL CREATININE (test code = 2214) 0.6 MG/DL eGFR AMER. (test cod e = 69782) 130 ML/MIN/1.73 eGFR NON- AMER. (test code = 72992) 108 ML/MIN/1.73 CALCULATED BUN/CREAT (test code = [...] code = 2219) 16 U/L Juvenal BuenrostroLIPID [id number] 00:00:00* Test Item Value Reference Range Interpretation Comme nts CHOLESTEROL (test code = 2210) 188 MG/DL TRIGLYCERIDES (test code = 2232) 126 MG/DL HDL CHOLESTEROL (test code = 2220) 40 MG/DL CALCULATED LDL CHOL (test co de = 2237) 123 MG/DL RISK RATIO LDL/HDL (test cod e = 2238) 3.07 RATIO Juvenal [id number] 00:00:00* Test Item Value Reference Range Interpretation Comme nts TSH (test code = 2821) 1.6 UIU/ML Juvenal BuenrostroCBC W/AUTO [id number] 00:00:00* Test Item Value Reference Range Interpretation [...] code = 1015) 293 K/UL Juvenal BuenrostroHEMOGLOBIN [id number] 00:00:00* Test Item Value Reference Range Interpretation Comme jo HEMOGLOBIN A1c (test code = 99689) 6.4 % Juvenal Buenrostro
[2024-09-20 20:31] LABS: SARS-CoV-2 Antigen CONTROL BLUE LINE VIS/BG OK; SARS-CoV-2 Antigen Rapid Res Negative (Negative)
[2024-09-20] MEDS ORDERED: HYDROCODONE/CHLORPHEN 5 ML/OSYR ONE (20:32)
[2024-09-20] MEDS ORDERED: KETOROLAC 30 MG/ML INJ ONE (20:32)
[2024-09-20] MEDS ORDERED: ONDANSETRON 4 MG/2 ML VIAL ONE (20:32)
[2024-09-20] MEDS ORDERED: NA CHLORIDE 0.9% 1,000 ML ONE (20:32)
[2024-09-20 20:40] LABS: Absolute Eosinophils 0.2 K/uL (0-0.5); Absolute Lymphocytes (CBC) 2.1 K/uL (0.7-4.9); Absolute Monocytes 0.6 K/uL (0.1-1.3); Basophils % 0.4 % (0-1.3); Eosinophils % 2.9 % (0-4.4); Hematocrit 40.9 % (36.0-45.0); Hemoglobin 13.3 g/dL (12.0-15.0); Lymphocytes % 26.1 % (15.3-44.8); MCH 28.4 pg (27.0-35.0); MCHC 32.4 g/dL (32.0-36.0); MCV 87.6 fL (80-100); MPV 8.2 fL (7.6-11.3); Monocytes % 7.1 % (3.3-12.3); Neutrophils % 63.5 % (41.7-73.7); Platelets 246 thou/uL (152-406); RBC Red Blood Cell Count 4.67 M/uL (3.86-4.86); Red Cell Distribution Width 13.8 % (12.1-15.2)
[2024-09-20 20:49] LABS: Anion Gap 7.8 mEq/L (5.0-15.0); Potassium 3.8 mEq/L (3.5-5.1)
--- NOTE | 2024-09-20 21:17 | RAD REPORT ---
Procedure: Chest Pa And Lat (2 Views) HISTORY: Cough COMPARISON: 2020 FINDINGS: The lungs appear clear of acute infiltrate. No significant pleural effusion noted. The heart is mildly enlarged. IMPRESSION: No acute abnormality is displayed.
--- NOTE | 2024-09-20 23:54 | ER ---
Nurse's Notes [facility] Name: Ema Turner Age: 53 yrs Sex: Female : 1970 Arrival Date: 09/20/2024 Time: 18:56 Bed 25 Private MD: Diagnosis: Acute upper respiratory infection, unspecified;Acute pharyngitis, unspecified Presentation: 09/20 19:06 Chief complaint: Patient states: started yesterday with sore throat, now it feels like hb its on fire. Today I started to have n/v, with a little bit of blood in it. Hurts to swallow, hurts to talk. Cough, runny nose. Coronavirus screen: Client denies travel out of the [place] in the last 14 days. Ebola Screen: Patient negative for fever greater than or equal to 101.5 degrees Fahrenheit, and additional compatible Ebola Virus Disease symptoms Patient denies exposure to infectious person. Patient denies travel to an Ebola-affected area in the 21 days before illness onset. No symptoms or risks identified at this time. Initial Sepsis Screen: Does the patient meet any 2 criteria? No. Patient's initial sepsis screen is negative. Does the patient have a suspected source of infection? No. Patient's initial sepsis screen is negative. Risk Assessment: Do you want to hurt yourself or someone else? Patient reports no desire to harm self or others. Onset of symptoms was September 20, 2024. 19:06 Method Of Arrival: Ambulatory hb 19:06 Acuity: AGUSTIN 4 hb Triage Assessment: 19:06 General: Appears uncomfortable, Behavior is calm, cooperative. Pain: Complains of pain hb in throat Pain currently is 10 out of 10 on a pain scale. Pain began 1 day ago. EENT: Reports nasal congestion nasal discharge pain in throat when swallowing Pain is 10 out of 10 on a pain scale. Neuro: Level of Consciousness is awake, alert, obeys commands, Oriented to person, place, time, situation. Cardiovascular: Patient's skin is warm and dry. Respiratory: Reports cough that is Airway is patent Respiratory effort is even, unlabored, Respiratory pattern is regular, symmetrical. GI: Abdomen is round Reports nausea, vomiting. : No signs and/or symptoms were reported regarding the genitourinary system. Derm: No signs and/or symptoms reported regarding the dermatologic system. Musculoskeletal: No signs and/or symptoms reported regarding the musculoskeletal system. 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 - Infectious Disease History:: Denies. - Social history:: Smoking status: Patient denies any tobacco usage or history of. Screenin:07 [facility] ED Fall Risk Assessment (Adult) History of falling in the last 3 months, me1 including since admission No falls in past 3 months (0 pts) Confusion or Disorientation No (0 pts) Intoxicated or Sedated No (0 pts) Impaired Gait No (0 pts) Mobility Assist Device Used No (0 pt) Altered Elimination No (0 pt) Score/Fall Risk Level 0 - 2 = Low Risk Maintained a safe environment, Provided non-skid footwear, Hourly rounding (assess needs \T\ fall precautionary measures) done. Abuse screen: Denies threats or abuse. Nutritional screening: No deficits noted. Tuberculosis screening: No symptoms or risk factors identified. Assessment: 21:07 General: Appears uncomfortable, ill, well groomed, well developed, well nourished. me1 General: started yesterday with sore throat, now it feels like its on fire. Today I started to have n/v, with a little bit of blood in it. Hurts to swallow, hurts to talk. Cough, runny nose. Pain: Complains of pain in throat Pain does not radiate. Pain currently is 7 out of 10 on a pain scale. Quality of pain is described as burning, Pain began gradually. Pain: Pain began 1 day ago. Is continuous. Neuro: Level of Consciousness is awake, alert, obeys commands, Oriented to person, place, time, situation, Appropriate for age. Cardiovascular: Patient's skin is warm and dry. Respiratory: Airway is patent Trachea midline Respiratory effort is even, unlabored, Respiratory pattern is regular, symmetrical, Breath sounds are clear bilaterally. GI: Reports nausea, vomiting. : No signs and/or symptoms were reported regarding the genitourinary system. EENT: Throat is reddened. Derm: Skin is intact, is healthy with good turgor, Skin is pink, warm \T\ dry. Musculoskeletal: No signs and/or symptoms reported regarding the musculoskeletal system. Vital Signs: 19:04 BP 192 / 99; Pulse 77; Resp 17; Temp 98.4(O); Pulse Ox 100% on R/A; MAP 124 mmHg; hb Weight 90.72 kg; Height 5 ft. 1 in. ; Pain 10/10; 20:00 BP 171 / 81; Pulse 62; Resp 16; Pulse Ox 100% ; me1 20:50 Pain 5/10; me1 21:00 BP 156 / 84; Pulse 77; Resp 16; Pulse Ox 100% ; me1 22:00 BP 150 / 73; Pulse 68; Resp 16; Pulse Ox 100% ; me1 23:00 BP 145 / 75; Pulse 69; Resp 16; Pulse Ox 100% ; me1 09/21 00:06 BP 132 / 68; Pulse 65; Resp 16; Temp 98.6; Pulse Ox 97% ; me1 09/20 19:04 Body Mass Index 37.79 (90.72 kg, 154.94 cm) hb 09/20 19:04 Pain Scale: Adult hb 20:50 Pain Scale: Adult wv1 ED Course: 09/20 18:58 Patient arrived in ED. mr 19:01 Le Winchester PA-C is PHCP. sb4 19:01 Juan Warner MD is Attending Physician. sb4 19:07 Triage completed. hb 19:08 Arm band placed on right wrist. hb 20:01 Flu Sent. tm6 20:01 SARS RAPID Sent. tm6 20:01 Strep Sent. tm6 20:16 Aide Pedroza, EKATERINA is Primary Nurse. me1 20:29 Initial lab(s) drawn, by wv, sent to lab. Inserted saline lock: 22 gauge in left me1 antecubital area, using aseptic technique. 20:29 BMP Sent. me1 20:29 CBC with Diff Sent. me1 20:32 Chest Pa And Lat (2 Views) XRAY In Process Unspecified. EDMS 21:07 Patient has correct armband on for positive identification. Bed in low position. Call me1 light in reach. Side rails up X2. Provided Education on: POC. Verbalized understanding.. Client placed on continuous cardiac and pulse oximetry monitoring. NIBP monitoring applied. Pulse ox on. NIBP on. 21:07 No provider procedures requiring assistance completed. me1 22:39 CT Soft Tissue Neck W/contr In Process Unspecified. EDMS 09/21 00:11 IV discontinued, intact, bleeding controlled, No redness/swelling at site. Pressure me1 dressing applied. Administered Medications: 09/20 20:39 Drug: NS 0.9% IV 1000 ml IV at 1000 ml once; to be given as a bolus over 60 minutes me1 Route: IV; Rate: 1000 ml; Site: left antecubital; 22:51 Follow up: Response: No adverse reaction; IV Status: Completed infusion; IV Intake: me1 1000ml 20:39 Drug: Ketorolac IVP 15 mg IVP once Route: IVP; Site: left antecubital; me1 20:50 Follow up: Pain 5/10 Adult; Response: No adverse reaction; Pain is decreased me1 20:39 Drug: Ondansetron IVP 4 mg IVP once; over 2 minutes Route: IVP; Site: left antecubital; me1 20:50 Follow up: Response: No adverse reaction; Nausea is decreased me1 20:39 Drug: Tussionex Pennkinetic ER PO Suspension 5 ml PO once Route: PO; me1 21:06 Follow up: Response: No adverse reaction; Marked relief of symptoms me1 09/21 00:03 Drug: Viscous Lidocaine Mucous Membrane Liquid (4 %) 5 ml Mucous Membrane once Route: me1 Mucous Membrane; 00:06 Follow up: Response: No adverse reaction; Pain is decreased me1 00:03 Drug: Decadron - Dexamethasone IVP 10 mg IVP once Route: IVP; Site: left antecubital; me1 00:06 Follow up: Response: No adverse reaction me1 Medication: 09/20 21:07 VIS not applicable for this client. me1 Intake: 22:51 IV: 1000ml; Total: 1000ml. me1 Outcome: 23:53 Discharge ordered by MD. aragon 09/21 00:11 Discharged to home ambulatory, me1 Condition: stable Discharge instructions given to patient, Instructed on discharge instructions, follow up and referral plans. medication usage, Demonstrated understanding of instructions, follow-up care, medications, Prescriptions given X 3, 00:12 Patient left the ED. me1 Signatures: Dispatcher [employer] EDMS Cait Anaya, Reg Reg mr PhelanFreda, RN RN hb Le Winchester PA-C PA-C sb4 Aide Pedroza RN RN me1 Radha Hendrickson RN RN tm6 Corrections: (The following items were deleted from the chart) 09/20 19:09 19:06 Chief complaint: Patient states: started yesterday with sore throat, now it feels hb like its on fire. Today I started to have n/v, with a little bit of blood in it. Hurts to swallow, hurts to talk. hb 21:07 19:06 Chief complaint: Patient states: started yesterday with sore throat, now it feels me1 like its on fire. Today I started to have n/v, with a little bit of blood in it. Hurts to swallow, hurts to talk. Cough, runny nose hb
--- NOTE | 2024-09-20 23:54 | EDPHYS ---
Physician Documentation [facility] Name: Ema Turner Age: 53 yrs Sex: Female : 1970 Arrival Date: 09/20/2024 Time: 18:56 Bed 25 Private MD: ED Physician Juan Warner HPI: 09/20 19:21 This 53 yrs old Female presents to ER via Ambulatory with complaints of Cough, sb4 Sore Throat, Vomiting. 19:23 flu like symptoms that began yesterday - sore throat, cough, congestion, nausea, sb4 vomiting. she is concerned because she coughed up some blood and possibly vomited some blood too. denies any sick contacts. denies diarrhea. reports mild abdominal cramping. 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 - Infectious Disease History:: Denies. - Social history:: Smoking status: Patient denies any tobacco usage or history of. ROS: 19:23 Cardiovascular: Negative for chest pain, palpitations, and edema, sb4 19:23 Constitutional: Positive for chills, fatigue, malaise, 19:23 ENT: Positive for nasal discharge, sinus congestion, sore throat, 19:23 Respiratory: Positive for cough, 19:23 Abdomen/GI: Positive for nausea and vomiting, 19:23 All other systems are negative, Exam: 19:25 Head/Face: Normocephalic, atraumatic. Eyes: Extra-ocular motions intact. Periorbital sb4 areas with no swelling, redness, or edema. Cardiovascular: Regular rate and rhythm with a normal S1 and S2. Respiratory: No increased work of breathing, no retractions or nasal flaring. Abdomen/GI: Soft, non-tender, no distension. Skin: Warm, dry with normal turgor. Normal color with no rashes, no lesions, and no evidence of cellulitis. 19:25 Constitutional: The patient appears alert, awake, obviously ill, 19:25 ENT: Posterior pharynx: Tonsils: bilaterally enlarged, with erythema, no exudate, no ulcerations, Vital Signs: 19:04 BP 192 / 99; Pulse 77; Resp 17; Temp 98.4(O); Pulse Ox 100% on R/A; MAP 124 mmHg; hb Weight 90.72 kg; Height 5 ft. 1 in. ; Pain 10/10; 20:00 BP 171 / 81; Pulse 62; Resp 16; Pulse Ox 100% ; me1 20:50 Pain 5/10; me1 21:00 BP 156 / 84; Pulse 77; Resp 16; Pulse Ox 100% ; me1 22:00 BP 150 / 73; Pulse 68; Resp 16; Pulse Ox 100% ; me1 23:00 BP 145 / 75; Pulse 69; Resp 16; Pulse Ox 100% ; me1 09/21 00:06 BP 132 / 68; Pulse 65; Resp 16; Temp 98.6; Pulse Ox 97% ; me1 09/20 19:04 Body Mass Index 37.79 (90.72 kg, 154.94 cm) hb 09/20 19:04 Pain Scale: Adult hb 20:50 Pain Scale: Adult me1 MDM: 09/20 19:15 Medical Screening Exam initiated sb4 23:53 Data reviewed: vital signs, nurses notes, lab test result(s), radiologic studies, and sb4 as a result, I will discharge patient. Counseling: I had a detailed discussion with the patient and/or guardian regarding the historical points, exam findings, and any diagnostic results supporting the discharge/admit diagnosis, the presence of at least one elevated blood pressure reading (>120/80) during this emergency department visit, lab results, radiology results, the need for outpatient follow up, for definitive care, to return to the emergency department if symptoms worsen or persist or if there are any questions or concerns that arise at home. 09/20 19:16 Order name: Strep sb4 09/20 19:16 Order name: SARS RAPID; Complete Time: 20:32 sb4 09/20 19:16 Order name: Flu; Complete Time: 20:34 sb4 09/20 19:16 Order name: CBC with Diff; Complete Time: 20:48 sb4 09/20 19:16 Order name: BMP; Complete Time: 20:49 sb4 09/20 20:35 Order name: Throat Culture EDMD 09/20 19:15 Order name: Chest Pa And Lat (2 Views) XRAY; Complete Time: 21:19 sb4 09/20 21:22 Order name: CT Soft Tissue Neck W/contr; Complete Time: 00:05 sb4 09/20 19:16 Order name: IV Start; Complete Time: 20:29 sb4 Administered Medications: 20:39 Drug: NS 0.9% IV 1000 ml IV at 1000 ml once; to be given as a bolus over 60 minutes me1 Route: IV; Rate: 1000 ml; Site: left antecubital; 22:51 Follow up: Response: No adverse reaction; IV Status: Completed infusion; IV Intake: me1 1000ml 20:39 Drug: Ketorolac IVP 15 mg IVP once Route: IVP; Site: left antecubital; me1 20:50 Follow up: Pain 5/10 Adult; Response: No adverse reaction; Pain is decreased me1 20:39 Drug: Ondansetron IVP 4 mg IVP once; over 2 minutes Route: IVP; Site: left antecubital; me1 20:50 Follow up: Response: No adverse reaction; Nausea is decreased me1 20:39 Drug: Tussionex Pennkinetic ER PO Suspension 5 ml PO once Route: PO; me1 21:06 Follow up: Response: No adverse reaction; Marked relief of symptoms me1 09/21 00:03 Drug: Viscous Lidocaine Mucous Membrane Liquid (4 %) 5 ml Mucous Membrane once Route: me1 Mucous Membrane; 00:06 Follow up: Response: No adverse reaction; Pain is decreased me1 00:03 Drug: Decadron - Dexamethasone IVP 10 mg IVP once Route: IVP; Site: left antecubital; me1 00:06 Follow up: Response: No adverse reaction me1 Disposition Summary: 09/20/24 23:53 Discharge Ordered Notes: Location: Home sb4 Problem: new sb4 Symptoms: have improved sb4 Condition: Stable sb4 Diagnosis - Acute upper respiratory infection, unspecified sb4 - Acute pharyngitis, unspecified sb4 Followup: sb4 - With: Emergency Department - When: As needed - Reason: Trouble breathing, Worsening of condition Discharge Instructions: - Discharge Summary Sheet sb4 - Upper Respiratory Infection, Adult, Njzr-aq-Emut sb4 - Pharyngitis, Zsba-ez-Meen sb4 Forms: - Patient Portal Instructions sb4 - Leadership Thank You Letter sb4 Prescriptions: - Tessalon Perles 100 mg Oral Capsule - take 1 capsule ORAL route every 8 hours As needed; 15 capsule; Refills: 0, sb4 Product Selection Permitted - Prednisone 20 mg Oral Tablet - take 1 tablet ORAL route every 12 hours for 5 days; 10 tablet; Refills: 0, sb4 Product Selection Permitted - ondansetron 8 mg Oral Tablet,disintegrating - take 1 tablet ORAL route every 8 hours; 10 tablet; Refills: 0, Product sb4 Selection Permitted Addendum: 09/22/2024 12:39 Co-signature as Attending Physician, Juan Warner MD I agree with the assessment and c allen plan of care. Signatures: Dispatcher [employer] Juan Gaviria MD MD cha Baxter, Heather, RN RN Le Méndez, PA-C PAMary AliceC sb4 Aide Pedroza RN RN me1
--- NOTE | 2024-09-20 23:55 | RAD REPORT ---
EXAM: CT Neck With Intravenous Contrast CLINICAL HISTORY: The patient is 53 years old and is Female; SORE THROAT TECHNIQUE: Axial computed tomography images of the neck with intravenous contrast. Sagittal and coronal refo rmatted images were created and reviewed. This CT exam was performed using one or more of the following dose reduction techniques: automated exposure control, adjustment of the mA and/or kV acc ording to patient size, and/or use of iterative reconstruction technique. COMPARISON: No relevant prior studies available. FINDINGS: OROPHARYNX: Unremarkable. No significant tonsillar enlargement. No peritonsillar abscess. HYPOPHARYNX: Unremarkable. LARYNX: Unremarkable. Normal epiglottis. TRACHEA: Unremarkable. RETROPHARYNGEAL SPACE: Unremarkable. SUBMANDIBULAR/PAROTID GLANDS: Unremarkable. Glands are normal in size. THYROID: Unremarkable. No enlarged or calcified nodules. BONES/JOINTS: No acute fracture. SOFT TISSUES: The soft tissues are normal. VASCULATURE: Unremarkable. Normal in course and caliber. LYMPH NODES: Unremarkable. No enlarged lymph nodes. LUNG APICES: The lung apices are clear. IMPRESSION: No acute findings on this contrasted CT of the soft tissues of the neck to explain the patient's sy mptoms. Electronically signed by: Precious Gracia MD 09/20/2024 11:47 PM [facility] Due to temporary technical issues with the PACS/[employer] reporting system, reports are being konstantin d by the in-house radiologist without review as a courtesy to ensure prompt reporting the interpreting radiologist is fully responsible for the content of the report. Transcribed Date/Time: 09/20/2024 11:54 PM
[2024-09-20] MEDS ORDERED: dexAMETHasone 10 MG/ML VIAL ONE (23:58)
[2024-09-20] MEDS ORDERED: LIDOCAINE VISCOUS 2% 10ML ORAL SOLN ONE (23:59)
[2024-09-21 00:57] VITALS: BP 132/68; TEMP 98.6; O2SAT 97
== END 2024-09-21 00:12 | disposition home or self-care (01) ==
LOC: ER 18:56
DX: J06.9 Acute upper respiratory infection, unspecified (principal); J02.9 Acute pharyngitis, unspecified; E11.9 Type 2 diabetes mellitus without complications; I10 Essential (primary) hypertension; F41.9 Anxiety disorder, unspecified; M19.90 Unspecified osteoarthritis, unspecified site; M79.7 Fibromyalgia; Z11.52 Encounter for screening for COVID-19
CPT/HCPCS: 96361; 87070; 85025; 80048; 36415; 87081; 87804 ×2; 70491; 71046; 96375; 96374; 99284; 87811; Q9967; J1100; J2405; J7030

== ENCOUNTER 2025-07-17 08:38 | Emergency (ER) | payer OTHER ==
--- OUTSIDE RECORDS SUMMARY | 2025-07-17 08:49 | XMS REPORT | Continuity of Care Document ---
Author Name Unknown Address [address] [facility] [place] [address] Organization [facility] [place] Address [address] [facility] [place] [address] Care Team Providers Care Branch Office Administrator Name Role Phone Unknown Primary Care Physician Unavailab Consuelo Bermudez Attending Clinician Sudhakar Baker Attending Clinician Unavailable Doctor Unassigned, [place] Attending Clinician U LANDON Dow Attending Clinician [...] hysterecto my Disease Active 11-10 00:00: 00 [facility] BMI 37.0-37.9, adult BMI 37.0-37.9, adult Disease Active 11-10 00:00: 00 [facility] Slow transit constipati on Slow transit constipati on Disease Active 11-10 00:00: 00 [facility] Pelvic pain in female Pelvic pain in female Disease Active 11-10 00:00: 00 [facility] History of tubal ligation History of tubal ligation Disease Active 01-10 00:00: 00 [facility] Essential hypertensi on Essential hypertensi on Disease Active 11-24 00:00: 00 Overview: Formattin g of this note might be different from the original. ICD10 Diagnosis Term Senior Benefits Specialist Utility [facility] Obesity Obesity Disease Resolve d 01-10 00:00: 00 2018-11-10 00:00:00 2022-04-13 00:35:35 [facility] S/P laparoscop ic hysterecto my S/P laparoscop ic hysterecto my Disease Resolve d 04-13 00:00: 00 2017-05-18 00:00:00 2017-05-18 09:44:13 [facility] Abnormal glandular Papanicola ou smear of cervix Abnormal glandular Papanicola ou smear of cervix Disease Resolve d 01-10 00:00: 00 2017-05-18 00:00:00 2017-05-18 09:46:27 [facility] Surveillan ce of previously prescribed contracept tamara method Surveillan ce of previously prescribed contracept tamara method Disease Resolve d 01-10 00:00: 00 2017-05-18 00:00:00 2022-04-13 00:35:35 [facility] Intramural leiomyoma of uterus Intramural leiomyoma of uterus Disease Resolve d 02-02 00:00: 00 2017-05-18 00:00:00 2022-04-13 00:24:24 [facility] Encounter for routine gynecologi alexandr examinatio n Encounter for routine gynecologi alexandr examinatio n Disease Resolve d 11-24 00:00: 00 2017-05-18 00:00:00 2022-04-13 00:23:08 [facility] Irregular menstrual cycle Irregular menstrual cycle Disease Resolve d 11-24 00:00: 00 2015-01-10 00:00:00 2015-01-10 16:45:28 [facility] Morbid obesity Morbid obesity Disease Resolve d 11-24 00:00: 00 2015-01-10 00:00:00 2015-01-10 16:45:35 [facility] Allergies, Adverse Reactions, Alerts Allergy Name Allergy Type Status Severity Reaction(s) Onset Date Inactive Date Treating Clinician Comments Source No Known Allergie s DA Active U 2021[facility]09 [facility] KNOWN ALLERGIE S Drug Class Active [facility] Social History Social Habit Start Date Stop Date Quantity Comments Source Sexual orientation [facility] Exposure to SARS-CoV-2 (event) 2020-07-17 00:00:00 2020-08-16 11:30:00 Not sure [facility] History of Social function 2019-04-07 00:00:00 2019-04-07 00:00:00 [facility] Alcohol intake 2018-11-10 00:00:00 2018-11-10 00:00:00 Current non-drinker of alcohol (finding) [facility] Cigarettes smoked current (pack per day) - Reported 2017-05-18 00:00:00 2017-05-18 00:00:00 [facility] Cigarette pack-years 2017-05-18 00:00:00 2017-05-18 00:00:00 [facility] Tobacco use and exposure 2012-11-24 00:00:00 2012-11-24 00:00:00 Smokeless tobacco non-user [facility] Alcoholic beverage intake 2012-11-24 00:00:00 2012-11-24 00:00:00 Current non-drinker of alcohol (finding) [facility] History of tobacco use 2000-05-18 00:00:00 2002-09-28 00:00:00 Cigarette Smoker [facility] Sex assigned at 1970 00:00:00 1970 00:00:00 [facility] Smoking Status Start Date Stop Date Source Ex-smoker 2017-05-18 00:00:00 2017-05-18 00:00:00 [facility] Never smoked tobacco [facility] Medications Ordered Medication Name Filled Medication Name Start Date Stop Date Current Medication? Ordering Clinician Indication Dosage Frequency Signature (SIG) Comments Components Source lisinopril 20 mg-hydrochl orothiazide 12.5 mg tablet 2024-- 00:00: 00 Yes 1mg Juvenal Buenrostro metformin 500 mg tablet - 00:00: 00 Yes 1mg Juvenal Buenrostro ofloxacin 0.3 % ear drops 8- 00:00: 00 Yes 10% Juvenal Buenrostro amoxicillin 500 mg tablet 8- 00:00: 00 Yes 1mg Juvenal Buenrostro cetirizine 10 mg tablet 0 4-12 00:00: 00 Yes 1mg Juvenal Buenrostro Flonase Allergy Relief 50 mcg/actuati on nasal spray,suspe nsion 4-12 00:00: 00 Yes 12mcg/a ctuatio n Juvenal Buenrostro Bromfed DM 2 mg-30 mg-10 mg/5 mL oral syrup 4-12 00:00: 00 Yes 10mg/5 mL Juvenal Buenrostro metformin 500 mg tablet 3-07 00:00: 00 Yes 1mg Juvenal Buenrostro lisinopril 20 mg-hydrochl orothiazide 12.5 mg tablet 3-07 00:00: 00 Yes 1mg Juvenal Buenrostro cetirizine 10 mg tablet 3-06 00:00: 00 Yes 1mg Juvenal Buenrostro Flonase Allergy Relief 50 mcg/actuati on nasal spray,suspe nsion 3-06 00:00: 00 Yes 12mcg/a ctuatio n Juvenal Buenrostro benzonatate 200 mg capsule 3-06 00:00: 00 Yes 1mg Juvenal Buenrostro ondansetron 4 mg disintegrat ing tablet 2-12 00:00: 00 Yes 1mg Juvenal Buenrostro metformin 500 mg tablet 0 7- 00:00: 00 Yes 1mg Juvenal Buenrostro lisinopril 20 mg-hydrochl orothiazide 12.5 mg tablet 0 7-22 00:00: 00 Yes 1mg Juvenal Buenrostro metformin 500 mg tablet 0 8-22 00:00: 00 Yes mg Juvenal Buenrostro lisinopril 20 mg-hydrochl orothiazide 12.5 mg tablet 2022-0 8-22 00:00: 00 Yes mg Juvenal Buenrostro LISINOPRIL/ HYDROCHLORO THIAZIDE 20-12.5 MG TABS 2023-0 6-16 00:00: 00 Yes Juvenal Buenrostro TAKE 1 TABLET DAILY. 6-16 00:00: 00 12-22 00:00 :00 No 500 Juvenal Buenrostro TAKE 1 TABLET TWICE DAILY WITH FOOD. 4-18 00:00: 00 12-22 00:00 :00 No [id number] Juvenal Buenrostro TAKE 1 TABLET DAILY. 01-13 00:00: 00 12-22 00:00 :00 No 10 Juvenal Buenrostro TAKE 1 TABLET DAILY. 12-24 00:00: 00 12-22 00:00 :00 No [id number] Juvenal Buenrostro INJECT 0.25 WEEKLY 12-24 00:00: [...] Tab by mouth 2 (two) times daily. [facility] Ciprodex 0.3 %-0.1 % ear drops,suspe nsion 02-22 00:00: 00 Yes 4% Juvenal Buenrostro metoprolol tartrate 25 mg tablet 02-22 00:00: 00 Yes 1mg Juvenal Buenrostro metoprolol tartrate 25 mg tablet 02-21 00:00: 00 Yes 1mg Juvenal Buenrostro meloxicam 15 mg tablet 10-16 00:00: 00 Yes 1mg Juvenal Buenrostro Immunizations Ordered Immunization Name Filled Immunization Name Date Status Comments Source TD, NOS 2021-09-13 00:00:00 Completed [facility] TDAP (ADACEL) VACCINE 2021-09-13 00:00:00 Completed [facility] SARS-COV-2 COVID-19 PFIZER VACCINE 2021-09-13 00:00:00 Completed [facility] TDAP (ADACEL) VACCINE 2015-11-27 00:00:00 Completed [facility] TDAP (ADACEL) VACCINE 2015-11-27 00:00:00 Completed [facility] TDAP (ADACEL) VACCINE 2015-11-27 00:00:00 Completed [facility] TDAP (ADACEL) VACCINE 2015-11-27 00:00:00 Completed [facility] Td 2006-09-28 00:00:00 Completed [facility] Td 2006-09-28 00:00:00 Completed [facility] Td 2006-09-28 00:00:00 Completed [facility] Td 2006-09-28 00:00:00 Completed [facility] TD, NOS 2006-09-28 00:00:00 Completed [facility] Vital Signs Vital Name Observation Time Observation Value Comments Thomas brooke BP Systolic 2025-05-29 14:52:00 120 mm[Hg] Step hen F Porter BP Diastolic 2025-05-29 14:52:00 77 mm[Hg] Rick phen F Porter Weight Measured 2025-05-29 14:52:00 212.00 pounds Juvenal F Porter Height Measured 2025-05-29 14:52:00 61.00 inches Juvenal F Porter Body Temperature 2025-05-29 14:52:00 98.50 degrees Juvenal F Porter Heart Rate 2025-05-29 14:52:00 81.00 /min Mary Beth en F Porter Respiratory Rate 2025-05-29 14:52:00 18.00 /min Juvenal F Porter BP Systolic 2025-05-24 18:03:00 141 mm[Hg] Step hen F Porter BP Diastolic 2025-05-24 18:03:00 87 mm[Hg] Rick phen F Porter Weight Measured 2025-05-24 18:03:00 214.20 pounds Juvenal F Porter Height Measured 2025-05-24 18:03:00 61.00 inches Juvenal F Porter Body Temperature 2025-05-24 18:03:00 98.10 degrees Juvenal F Porter Heart Rate 2025-05-24 18:03:00 68.00 /min Mary Beth en F Porter Respiratory Rate 2025-05-24 18:03:00 16.00 /min Juvenal F Porter BP Systolic 2025-01-07 12:02:00 134 mm[Hg] Step hen F Porter BP Diastolic 2025-01-07 12:02:00 93 mm[Hg] Rick phen F Porter Weight Measured 2025-01-07 12:02:00 203.60 pounds Juvenal F Porter Height Measured 2025-01-07 12:02:00 61.00 inches Juvenal F Porter Body Temperature 2025-01-07 12:02:00 98.50 degrees Juvenal F Porter Heart Rate 2025-01-07 12:02:00 75.00 /min Mary Beth en F Porter Respiratory Rate 2025-01-07 12:02:00 Juvenal F Porter BP Systolic 2024-12-02 08:06:00 143 mm[Hg] Step hen F Porter BP Diastolic 2024-12-02 08:06:00 83 mm[Hg] Rick phen F Porter Weight Measured 2024-12-02 08:06:00 209.00 pounds Juvenal F Porter Height Measured 2024-12-02 08:06:00 61.00 inches Juvenal F Porter Body Temperature 2024-12-02 08:06:00 Juvenal F Porter Heart Rate 2024-12-02 08:06:00 66.00 /min Mary Beth en F Porter Respiratory Rate 2024-12-02 08:06:00 18.00 /min Juvenal F Porter BP Systolic 2024-12-01 10:47:00 127 mm[Hg] Step hen F Porter BP Diastolic 2024-12-01 10:47:00 80 mm[Hg] Rick phen F Porter Weight Measured 2024-12-01 10:47:00 210.40 pounds Juvenal F Porter Height Measured 2024-12-01 10:47:00 61.00 inches Juvenal F Porter Body Temperature 2024-12-01 10:47:00 98.40 degrees Juvenal F Porter Heart Rate 2024-12-01 10:47:00 77.00 /min Mary Beth en F Porter Respiratory Rate 2024-12-01 10:47:00 18.00 /min Juvenal F Porter BP Systolic 2024-11-09 14:25:00 141 mm[Hg] Step hen F Porter BP Diastolic 2024-11-09 14:25:00 82 mm[Hg] Rick phen F Porter Weight Measured 2024-11-09 14:25:00 213.00 pounds Juvenal F Porter Height Measured 2024-11-09 14:25:00 61.00 inches Juvenal F Porter Body Temperature 2024-11-09 14:25:00 97.40 degrees Juvenal F Porter Heart Rate 2024-11-09 14:25:00 76.00 /min Mary Beth en F Porter Respiratory Rate 2024-11-09 14:25:00 18.00 /min Juvenal F Porter BP Systolic 2024-07-12 17:38:00 153 mm[Hg] Step [...] Measured 2016-07-31 15:58:00 205.00 pounds Juvenal F Oprter Height Measured 2016-07-31 15:58:00 61.00 inches Juvenal [...] Porter BP Systolic 2016-01-08 13:12:00 140 mm[Hg] Freddie Buenrostro BP Diastolic 2016-01-08 13:12:00 83 mm[Hg] Rick Buenrostro Weight Measured 2016-01-08 13:12:00 198.00 pounds Juvenal Buenrostro Height Measured 2016-01-08 13:12:00 61.00 inches Juvenal Buenrostro Body Temperature 2016-01-08 13:12:00 98.00 degrees Juvenal Buenrostro Heart Rate 2016-01-08 13:12:00 16.00 /min Mary Beth en Ben Buenrostro Respiratory Rate 2016-01-08 13:12:00 16.00 /min Juvenal Buenrostro Procedures Procedure Date / Time Performed Performing Clinician Source [id number] 2022-09-08 00:00:00 [facility] [id number] 2022-09-08 00:00:00 [facility] BI ULTRASOUND BREAST COMPLETE LEFT 2020-08-16 18:36:53 Requisition, Paper [facility] BI DIAGNOSTIC TOMOSYNTHESIS LEFT 2020-08-16 18:05:19 Requisition, Paper [facility] BI SCREENING MAMMOGRAM BILATERAL 2020-04-24 20:11:00 Requisition, Paper [facility] ASSIGNMENT OF BENEFITS 2020-04-24 19:40:32 Docto r Unassigned, [place] [facility] BI SCREENING MAMMOGRAM BILATERAL 2012-12-06 20:25:00 Consuelo Mullins [facility] Encounters Start Date/Time End Date/Time Encounter Type Admission Type Attending Clinicians Care Facility Care Department Encounter ID Source 2025-05-29 14:41:50 2025-05-29 14:41:50 Outpatient SFA SFA [id number] Juvenal Buenrostro 2025-05-29 00:00:00 2025-05-29 00:00:00 Outpatient Visit SFA [id number] Juvenal Buenrostro 2025-05-24 18:00:11 2025-05-24 18:00:11 Outpatient SFA SFA [id number] Juvenal Buenrostro 2025-05-24 00:00:00 2025-05-24 00:00:00 Outpatient Visit SFA [id number] Juvenal Buenrostro 2025-01-07 11:34:25 2025-01-07 11:34:25 Outpatient SFA SFA [id number] Juvenal Buenrostro 2025-01-07 00:00:00 2025-01-07 00:00:00 Outpatient Visit SFA [id number] Juvenal Buenrostro 2024-12-05 16:39:00 2024-12-05 16:39:00 Outpatient SFA SFA [id number] Juvenal Buenrostro 2024-12-02 08:04:02 2024-12-02 08:04:02 Outpatient SFA SFA [id number] Juvenal Buernostro 2024-12-02 00:00:00 2024-12-02 00:00:00 Outpatient Visit SFA [id number] Juvenal Buenrostro 2024-12-01 00:00:00 2024-12-01 00:00:00 Outpatient Visit SFA [id number] Juvenal Buenrostro 2012-12-06 00:00:00 2024-11-12 04:50:33 Orders Only Consuelo Mullins [facility] [employer] OPERATOR [facility] 1.2.840.114 350.1.13.10 [id number] [id number] [facility] 2024-11-11 16:16:17 2024-11-11 16:16:17 Outpatient SFA SFA [id number] Juvenal Buenrostro 2024-11-09 14:18:56 2024-11-09 14:18:56 Outpatient SFA SFA [id number] Juvenal Buenrostro 2024-11-09 00:00:00 2024-11-09 00:00:00 Outpatient Visit SFA [id number] Juvenal Buenrostro 2024-07-12 17:28:45 2024-07-12 17:28:45 Outpatient SFA SFA [id number] Juvenal Buenrostro 2024-07-12 00:00:00 2024-07-12 00:00:00 Outpatient Visit SFA [id number] Juvenal Buenrostro 2024-04-18 11:17:36 2024-04-18 11:17:36 Outpatient SFA SFA [id number] Juvenal Buenrostro 2024-04-18 00:00:00 2024-04-18 00:00:00 Outpatient Visit SFA [id number] Juvenal Buenrostro 2023-06-09 10:10:40 2023-06-09 10:10:40 Outpatient SFA SFA [id number] Juvenal Buenrostro 2023-03-13 09:43:37 2023-03-13 09:43:37 Outpatient SFA SFA [id number] Juvenal Buenrostro 2023-01-13 11:28:20 2023-01-13 11:28:20 Outpatient SFA SFA [id number] Juvenal Buenrostro 2022-12-24 16:04:29 2022-12-24 16:04:29 Outpatient SFA SFA [id number] Juvenal Buenrostro 2022-10-01 10:38:57 2022-10-01 10:38:57 Outpatient SFA SFA [id number] Juvenal Buenrostro 2022-09-06 12:03:00 2022-09-08 21:56:00 Inpatient Sudhakar Branham [facility] [id number] 2021-09-13 00:00:00 2021-09-13 00:00:00 Patient Secure Msg Doctor Unassigned, [place] [facility] 1.2.840.114 350.1.13.10 [id number] [id number] [facility] 2020-12-25 10:10:00 2020-12-25 10:10:00 Outpatient LANDON ALVARADO [facility] [id number] [facility] 2020-12-04 10:10:00 2020-12-04 10:10:00 Outpatient LANDON ALVARADO [facility] [id number] [facility] 2020-08-16 11:35:20 2020-08-16 23:59:00 Hospital Encounter Radiology [facility] 1.2.840.114 350.1.13.10 [id number] [id number] [facility] 2020-08-16 11:35:20 2020-08-16 23:59:00 Hospital Encounter Radiology [facility] 1.2.840.114 350.1.13.10 4.2.7.2.686 [id number] 2020-08-16 11:32:50 2020-08-16 11:34:00 Hospital Encounter Radiology [facility] 1.2.840.114 350.1.13.10 4.2.7.2.686 [id number] [facility] 2020-08-16 11:32:50 2020-08-16 11:34:00 Hospital Encounter Radiology [facility] 1.2.840.114 350.1.13.10 4.2.7.2.686 [id number] 2020-08-16 00:00:00 2020-08-16 00:00:00 Outpatient R RADIOLOGY [facility] [id number] [facility] 2020-06-19 00:00:00 2020-06-19 00:00:00 Outpatient R RADIOLOGY [facility] [id number] [facility] 2020-05-24 00:00:00 2020-05-24 00:00:00 Outpatient R RADIOLOGY [facility] [id number] [facility] 2020-04-24 14:40:00 2020-04-24 23:59:00 Hospital Encounter Radiology [facility] 1.2.840.114 350.1.13.10 4.2.7.2.686 [id number] [facility] 2020-04-24 14:40:00 2020-04-24 23:59:00 Hospital Encounter Radiology [facility] 1.2.840.114 350.1.13.10 4.2.7.2.686 [id number] 2020-04-24 00:00:00 2020-04-24 00:00:00 Outpatient R RADIOLOGY [facility] [id number] [facility] 2020-04-24 00:00:00 2020-04-24 00:00:00 Orders Only Doctor Unassigned, [place] [facility] 1.2.840.114 350.1.13.10 4.2.7.2.686 [id number] [facility] 2020-04-24 00:00:00 2020-04-24 00:00:00 Orders Only Doctor Unassigned, [place] [facility] 1.2.840.114 350.1.13.10 [id number] [id number] Results Test Description Test Time Test Comments Results Result Co mments Source Juvenal BuenrostroLIPID [id number] 00:00:00* Test Item Value Reference Range Interpretation Comme nts CHOLESTEROL, TOTAL (test cod e = 2093-3) 243 mg/dL HDL CHOLESTEROL (test code = 2085-9) 49 mg/dL TRIGLYCERIDES (test code = 2571-8) 182 mg/dL LDL-CHOLESTEROL (test code = 13243-7) 160 mg/dL(calc) CHOL/HDLC RATIO (test code = 9830-1) 5.0 (calc) NON HDL CHOLESTEROL (test code = 52674-1) 194 mg/dL(calc) Juvenal Ben PorterHEMOGLOBIN [id number] 00:00:00* Test Item Value Reference Range Interpretation Comme nts HEMOGLOBIN A1c (test code = 4548-4) 6.2 % Juvenal Contreras [facility] (INCLUDES DIFF/PLT)2025-05-30 00:00:00* Test Item Value Reference Range Interpretation Comme nts WHITE BLOOD CELL COUNT (test code = 6690-2) 8.7 Thousand/uL RED BLOOD CELL COUNT (test code = 789-8) 5.39 Million/uL HEMOGLOBIN (test code = 718-7) 15.3 g/dL HEMATOCRIT (test code = 4544-3) 48.2 % MCV (test code = 787-2) 89.4 fL MCH (test code = 785-6) 28.4 pg MCHC (test code = 786-4) 31.7 g/dL RDW (test code = 788-0) 12.5 % PLATELET COUNT (test code = 777-3) 306 Thousand/uL MPV (test code = 776-5) 10.0 fL ABSOLUTE NEUTROPHILS (test code = 751-8) 4924 cells/uL ABSOLUTE BAND NEUTROPHILS (test code = 40987-6) DNR cells/uL ABSOLUTE METAMYELOCYTES (dagmar t code = 00259-3) DNR cells/uL ABSOLUTE MYELOCYTES (test code = 65222-8) DNR cells/uL ABSOLUTE PROMYELOCYTES (test code = 74117-7) DNR cells/uL ABSOLUTE LYMPHOCYTES (test code = 731-0) 3002 cells/uL ABSOLUTE MONOCYTES (test cod e = 742-7) 600 cells/uL ABSOLUTE EOSINOPHILS (test code = 711-2) 131 cells/uL ABSOLUTE BASOPHILS (test cod e = 704-7) 44 cells/uL ABSOLUTE BLASTS (test code = 02028-9) DNR cells/uL ABSOLUTE NUCLEATED RBC (test code = 04188-9) DNR cells/uL NEUTROPHILS (test code = 770-8) 56.6 % BAND NEUTROPHILS (test code = 764-1) DNR % METAMYELOCYTES (test code = 740-1) DNR % MYELOCYTES (test code = 749-2) DNR % PROMYELOCYTES (test code = 783-1) DNR % LYMPHOCYTES (test code = 736-9) 34.5 % REACTIVE LYMPHOCYTES (test code = 29020-0) DNR % MONOCYTES (test code = 5905-5) 6.9 % EOSINOPHILS (test code = 713-8) 1.5 % BASOPHILS (test code = 706-2) 0.5 % BLASTS (test code = 709-6) DNR % NUCLEATED RBC (test code = 18504-3) DNR /100WBC COMMENT(S) (test code = 8251-1) DNR [facility]al [facility]re[facility] [id number] 00:00:00* Test Item Value Reference Range Interpretation Comme nts STAPHYLOCOCCUS AUREUS (test code = 88751-7N) Negative STREPTOCOCCUS PNEUMONIAE (te st code = 89156-4) Negative STREPTOCOCCUS PYOGENES (GROU P A) (test code = 122951-8) Negative ADENOVIRUS (test code = 13810-4) Negative SARS-COV-2 (test code = 45474-0) Negative ENTEROVIRUS D68 (test code = 20348-8) Negative PARAINFLUENZA 1-3 (test code = ?17844-2) Negative RHINOVIRUS/ENTEROVIRUS (test code = 7993-9) Negative CORONAVIRUS (229E) (test cod e = 71303-5) Positive CORONAVIRUS (HKU1) (test cod e = 71306-1) Negative CORONAVIRUS (NL63) (test cod e = 79904-2) Negative CORONAVIRUS (OC43) (test cod e = 18303-6) Negative HUMAN METAPNEUMOVIRUS A/B (t est code = 21471-9) Negative INFLUENZA A (test code = 70639-3) Negative INFLUENZA B (test code = 92408-2) Negative KLEBSIELLA PNEUMONIAE (test code = 61389-7I) Negative RSV A/RSV B (test code = 21114-6S) Negative BORDETELLA PARAPERTUSSIS (te st code = 14968-5) Negative BORDETELLA PERTUSSIS (test c ode = 25904-5) Negative CHLAMYDIA PNEUMONIAE (test c ode = 98526-0) Negative HAEMOPHILUS INFLUENZAE (test code = 90620-4) Negative MORAXELLA CATARRHALIS (test code = 13070-1) Negative MYCOPLASMA PNEUMONIAE (test code = 34243-9) Negative Juvenal Contreras [facility] [id number] 00:00:00* Test Item Value Reference Range Interpretation Comme nts STAPHYLOCOCCUS AUREUS (test code = 02583-9U) Negative STREPTOCOCCUS PNEUMONIAE (te st code = 88262-2) Negative STREPTOCOCCUS PYOGENES (GROU P A) (test code = 616758-8) Negative ADENOVIRUS (test code = 78446-0) Negative SARS-COV-2 (test code = 68109-9) Negative ENTEROVIRUS D68 (test code = 09102-3) Negative PARAINFLUENZA 1-3 (test code = ?94772-3) Negative RHINOVIRUS/ENTEROVIRUS (test code = 7993-9) Negative CORONAVIRUS (229E) (test cod e = 82027-9) Positive CORONAVIRUS (HKU1) (test cod e = 34278-3) Negative CORONAVIRUS (NL63) (test cod e = 68200-9) Negative CORONAVIRUS (OC43) (test cod e = 48653-6) Negative HUMAN METAPNEUMOVIRUS A/B (t est code = 53488-5) Negative INFLUENZA A (test code = 77432-7) Negative INFLUENZA B (test code = 31770-2) Negative KLEBSIELLA PNEUMONIAE (test code = 71307-0V) Negative RSV A/RSV B (test code = 54369-3Y) Negative BORDETELLA PARAPERTUSSIS (te st code = 30496-9) Negative BORDETELLA PERTUSSIS (test c ode = 30836-8) Negative CHLAMYDIA PNEUMONIAE (test c ode = 85648-8) Negative HAEMOPHILUS INFLUENZAE (test code = 01544-6) Negative MORAXELLA CATARRHALIS (test code = 97681-3) Negative MYCOPLASMA PNEUMONIAE (test code = 19205-1) Negative Juvenal F AustinCOMPREHENSIVE METABOLIC [id number] 00:00:00* Test Item Value Reference Range Interpretation Comme nts GLUCOSE (test code = 2345-7) 114 mg/dL UREA NITROGEN (BUN) (test code = 3094-0) 9 mg/dL CREATININE (test code = 2160-0) 0.58 mg/dL EGFR (test code = 59877-4) 106 mL/min/1.73m2 BUN/CREATININE RATIO (test code = 3097-3) SEE NOTE: (calc) SODIUM (test code = 2951-2) 140 mmol/L POTASSIUM (test code = 2823-3) 4.2 mmol/L CHLORIDE (test code = 2075-0) 105 mmol/L CARBON DIOXIDE (test code = 2027-9) 28 mmol/L CALCIUM (test code = 18797-4) 8.5 mg/dL PROTEIN, TOTAL (test code = 2885-2) 6.3 g/dL ALBUMIN (test code = 1751-7) 3.9 g/dL GLOBULIN (test code = 93797-9) 2.4 g/dL(calc) ALBUMIN/GLOBULIN RATIO (test code = 1759-0) 1.6 (calc) BILIRUBIN, TOTAL (test code = 1975-2) 0.4 mg/dL ALKALINE PHOSPHATASE (test code = 6768-6) 86 U/L AST (test code = 1920-8) 19 U/L ALT (test code = 1742-6) 22 U/L Juvenal BuenrostroHEMOGLOBIN [id number] 00:00:00* Test Item Value Reference Range Interpretation Comme nts HEMOGLOBIN A1c (test code = 4548-4) 6.1 %oftotalHgb Juvenal BuenrostroLIPID [id number] 00:00:00* Test Item Value Reference Range Interpretation Comme nts CHOLESTEROL, TOTAL (test cod e = 2093-3) 165 mg/dL HDL CHOLESTEROL (test code = 2085-9) 38 mg/dL TRIGLYCERIDES (test code = 2571-8) 92 mg/dL LDL-CHOLESTEROL (test code = 73503-4) 108 mg/dL(calc) CHOL/HDLC RATIO (test code = 9830-1) 4.3 (calc) NON HDL CHOLESTEROL (test code = 90660-2) 127 mg/dL(calc) Juvenal BuenrostroCOMPREHENSIVE METABOLIC [id number] 00:00:00* Test Item Value Reference Range Interpretation Comme nts GLUCOSE (test code = 2345-7) 114 mg/dL UREA NITROGEN (BUN) (test code = 3094-0) 9 mg/dL CREATININE (test code = 2160-0) 0.58 mg/dL EGFR (test code = 00023-9) 106 mL/min/1.73m2 BUN/CREATININE RATIO (test code = 3097-3) SEE NOTE: (calc) SODIUM (test code = 2951-2) 140 mmol/L POTASSIUM (test code = 2823-3) 4.2 mmol/L CHLORIDE (test code = 2075-0) 105 mmol/L CARBON DIOXIDE (test code = 8-9) 28 mmol/L CALCIUM (test code = 38373-3) 8.5 mg/dL PROTEIN, TOTAL (test code = 2885-2) 6.3 g/dL ALBUMIN (test code = 1751-7) 3.9 g/dL GLOBULIN (test code = 78981-9) 2.4 g/dL(calc) ALBUMIN/GLOBULIN RATIO (test code = 1759-0) 1.6 (calc) BILIRUBIN, TOTAL (test code = 1975-2) 0.4 mg/dL ALKALINE PHOSPHATASE (test code = 6768-6) 86 U/L AST (test code = 1920-8) 19 U/L ALT (test code = 1742-6) 22 U/L Juvenal BuenrostroHEMOGLOBIN [id number] 00:00:00* Test Item Value Reference Range Interpretation Comme nts HEMOGLOBIN A1c (test code = 4548-4) 6.1 %oftotalHgb Juvenal BuenrostroLIPID [id number] 00:00:00* Test Item Value Reference Range Interpretation Comme nts CHOLESTEROL, TOTAL (test cod e = 2093-3) 165 mg/dL HDL CHOLESTEROL (test code = 2085-9) 38 mg/dL TRIGLYCERIDES (test code = 2571-8) 92 mg/dL LDL-CHOLESTEROL (test code = 73385-7) 108 mg/dL(calc) CHOL/HDLC RATIO (test code = 9830-1) 4.3 (calc) NON HDL CHOLESTEROL (test code = 67369-2) 127 mg/dL(calc) Juvenal BuenrostroCOMPREHENSIVE METABOLIC [id number] 00:00:00* Test Item Value Reference Range Interpretation Comme nts GLUCOSE (test code = 2345-7) 114 mg/dL UREA NITROGEN (BUN) (test code = 3094-0) 9 mg/dL CREATININE (test code = 2160-0) 0.58 mg/dL EGFR (test code = 10716-8) 106 mL/min/1.73m2 BUN/CREATININE RATIO (test code = 3097-3) SEE NOTE: (calc) SODIUM (test code = 2951-2) 140 mmol/L POTASSIUM (test code = 2823-3) 4.2 mmol/L CHLORIDE (test code = 2075-0) 105 mmol/L CARBON DIOXIDE (test code = 2027-9) 28 mmol/L CALCIUM (test code = 11384-5) 8.5 mg/dL PROTEIN, TOTAL (test code = 2885-2) 6.3 g/dL ALBUMIN (test code = 1751-7) 3.9 g/dL GLOBULIN (test code = 96569-3) 2.4 g/dL(calc) ALBUMIN/GLOBULIN RATIO (test code = 1759-0) 1.6 (calc) BILIRUBIN, TOTAL (test code = 1975-2) 0.4 mg/dL ALKALINE PHOSPHATASE (test code = 6768-6) 86 U/L AST (test code = 1920-8) 19 U/L ALT (test code = 1742-6) 22 U/L Juvenal BuenrostroHEMOGLOBIN [id number] 00:00:00* Test Item Value Reference Range Interpretation Comme nts HEMOGLOBIN A1c (test code = 4548-4) 6.1 %oftotalHgb Juvenal BuenrostroLIPID [id number] 00:00:00* Test Item Value Reference Range Interpretation Comme nts CHOLESTEROL, TOTAL (test cod e = 3-3) 165 mg/dL HDL CHOLESTEROL (test code = 5-9) 38 mg/dL TRIGLYCERIDES (test code = 2571-8) 92 mg/dL LDL-CHOLESTEROL (test code = 48042-2) 108 mg/dL(calc) CHOL/HDLC RATIO (test code = 9830-1) 4.3 (calc) NON HDL CHOLESTEROL (test code = 59390-2) 127 mg/dL(calc) Juvenal BuenrostroCOMPREHENSIVE METABOLIC [id number] 00:00:00* Test Item Value Reference Range Interpretation Comme nts GLUCOSE (test code = 2345-7) 114 mg/dL UREA NITROGEN (BUN) (test code = 3094-0) 9 mg/dL CREATININE (test code = 2160-0) 0.58 mg/dL EGFR (test code = 69495-9) 106 mL/min/1.73m2 BUN/CREATININE RATIO (test code = 3097-3) SEE NOTE: (calc) SODIUM (test code = 2951-2) 140 mmol/L POTASSIUM (test code = 2823-3) 4.2 mmol/L CHLORIDE (test code = 5-0) 105 mmol/L CARBON DIOXIDE (test code = 2027-9) 28 mmol/L CALCIUM (test code = 54816-9) 8.5 mg/dL PROTEIN, TOTAL (test code = 2885-2) 6.3 g/dL ALBUMIN (test code = 1751-7) 3.9 g/dL GLOBULIN (test code = 71698-1) 2.4 g/dL(calc) ALBUMIN/GLOBULIN RATIO (test code = 1759-0) 1.6 (calc) BILIRUBIN, TOTAL (test code = 1975-2) 0.4 mg/dL ALKALINE PHOSPHATASE (test code = 6768-6) 86 U/L AST (test code = 1920-8) 19 U/L ALT (test code = 1742-6) 22 U/L Juvenal BuenrostroHEMOGLOBIN [id number] 00:00:00* Test Item Value Reference Range Interpretation Comme nts HEMOGLOBIN A1c (test code = 4548-4) 6.1 %oftotalHgb Juvenal Contreras AustinLIPID [id number] 00:00:00* Test Item Value Reference Range Interpretation Comme nts CHOLESTEROL, TOTAL (test cod e = 3-3) 165 mg/dL HDL CHOLESTEROL (test code = 5-9) 38 mg/dL TRIGLYCERIDES (test code = 2571-8) 92 mg/dL LDL-CHOLESTEROL (test code = 63700-9) 108 mg/dL(calc) CHOL/HDLC RATIO (test code = 9830-1) 4.3 (calc) NON HDL CHOLESTEROL (test code = 22903-1) 127 mg/dL(calc) Juvenal Contreras AustinHEMOGLOBIN [id number] 05:14:52* Test Item Value Reference Range Interpretation Comme nts HEMOGLOBIN A1c (test code = 08644) 6.2 % 4.2-5.6 H [employer] GUIDELINES FOR HGB A1C: [...] ETC.). CONSIDER ALTERNATE TESTING OR LABORATORY CONSULTATION. LIPID [id number] 05:00:53* Test Item Value Reference Range Interpretation [...] SPECIMENS. FOR MOREINFORMATION, SEE CLIENT ANNOUNCEMENT AT [email or web address] /[email or web address] RISK RATIO LDL/HDL (test code = 2238) 3.74 RATIO <3.22 H COMPREHENSIVE METABOLIC [id number] 05:00:53* Test Item Value Reference Range Interpretation Comme nts GLUCOSE (test code = 2217) 121 MG/DL 70-99 H BUN (test code = 2208) 11 MG/DL 6-20 CREATININE (test code = 2214) 0.73 MG/DL 0.60-1.30 eGFR (2020 CKD-EPI) (test code = 45240) 97 ML/MIN/1.73 >60 CALC BUN/CREAT (test code [...] TESTING PERFORMED AT [facility] [address] [place] [id number] DELIVERY AND MAIL SORTER: AMINAH SANCHEZ M.D. [place] NUMBER [id number] [facility] [place]. [id number] HEMOGLOBIN [id number] 00:00:00* Test Item Value Reference Range Interpretation Comme nts HEMOGLOBIN A1c (test code = 38822) 6.2 % Juvenal BuenrostroLIPID [id number] 00:00:00* Test Item Value Reference Range Interpretation Comme nts CHOLESTEROL (test code = 2210) 222 MG/DL TRIGLYCERIDES (test code = 2232) 112 MG/DL HDL CHOLESTEROL (test code = 2220) 42 MG/DL CALC LDL CHOL (test code = 2237) 157 MG/DL RISK RATIO LDL/HDL (test cod e = 2238) 3.74 RATIO Juvenal BuenrostroCOMPREHENSIVE METABOLIC [id number] 00:00:00* Test Item Value Reference Range Interpretation Comme nts GLUCOSE (test code = 2217) 121 MG/DL BUN (test code = 2208) 11 MG/DL CREATININE (test code = 2214) 0.73 MG/DL eGFR (2020 CKD-EPI) (test co de = 62902) 97 ML/MIN/1.73 CALC BUN/CREAT (test code = [...] (test code = 2219) 28 U/L Juvenal BuenrostroHEMOGLOBIN [id number] 00:00:00* Test Item Value Reference Range Interpretation Comme nts HEMOGLOBIN A1c (test code = 99175) 6.2 % Juvenal BuenrostroLIPID [id number] 00:00:00* Test Item Value Reference Range Interpretation Comme nts CHOLESTEROL (test code = 2210) 222 MG/DL TRIGLYCERIDES (test code = 2232) 112 MG/DL HDL CHOLESTEROL (test code = 2220) 42 MG/DL CALC LDL CHOL (test code = 2237) 157 MG/DL RISK RATIO LDL/HDL (test cod e = 2238) 3.74 RATIO Juvenal BuenrostroCOMPREHENSIVE METABOLIC [id number] 00:00:00* Test Item Value Reference Range Interpretation Comme nts GLUCOSE (test code = 2217) 121 MG/DL BUN (test code = 2208) 11 MG/DL CREATININE (test code = 2214) 0.73 MG/DL eGFR (2020 CKD-EPI) (test co de = 06035) 97 ML/MIN/1.73 CALC BUN/CREAT (test code = [...] (test code = 2219) 28 U/L Juvenal BuenrostroHEMOGLOBIN [id number] 00:00:00* Test Item Value Reference Range Interpretation Comme nts HEMOGLOBIN A1c (test code = 27924) 6.2 % Juvenal BuenrostroLIPID [id number] 00:00:00* Test Item Value Reference Range Interpretation Comme nts CHOLESTEROL (test code = 2210) 222 MG/DL TRIGLYCERIDES (test code = 2232) 112 MG/DL HDL CHOLESTEROL (test code = 2220) 42 MG/DL CALC LDL CHOL (test code = 2237) 157 MG/DL RISK RATIO LDL/HDL (test cod e = 2238) 3.74 RATIO Juvenal BuenrostroCOMPREHENSIVE METABOLIC [id number] 00:00:00* Test Item Value Reference Range Interpretation Comme nts GLUCOSE (test code = 2217) 121 MG/DL BUN (test code = 2208) 11 MG/DL CREATININE (test code = 2214) 0.73 MG/DL eGFR (2020 CKD-EPI) (test co de = 03021) 97 ML/MIN/1.73 CALC BUN/CREAT (test code = [...] (test code = 2219) 28 U/L Juvenal BuenrostroHEMOGLOBIN [id number] 00:00:00* Test Item Value Reference Range Interpretation Comme nts HEMOGLOBIN A1c (test code = 63714) 6.2 % Juvenal BuenrostroLIPID [id number] 00:00:00* Test Item Value Reference Range Interpretation Comme nts CHOLESTEROL (test code = 2210) 222 MG/DL TRIGLYCERIDES (test code = 2232) 112 MG/DL HDL CHOLESTEROL (test code = 2220) 42 MG/DL CALC LDL CHOL (test code = 2237) 157 MG/DL RISK RATIO LDL/HDL (test cod e = 2238) 3.74 RATIO Juvenal BuenrostroCOMPREHENSIVE METABOLIC [id number] 00:00:00* Test Item Value Reference Range Interpretation Comme nts GLUCOSE (test code = 2217) 121 MG/DL BUN (test code = 2208) 11 MG/DL CREATININE (test code = 2214) 0.73 MG/DL eGFR (2020 CKD-EPI) (test co de = 69365) 97 ML/MIN/1.73 CALC BUN/CREAT (test code = [...] (test code = 2219) 28 U/L Juvenal BuenrostroHEMOGLOBIN [id number] 00:00:00* Test Item Value Reference Range Interpretation Comme nts HEMOGLOBIN A1c (test code = 98837) 6.2 % Juvenal Contreras AustinLIPID [id number] 00:00:00* Test Item Value Reference Range Interpretation Comme nts CHOLESTEROL (test code = 2210) 222 MG/DL TRIGLYCERIDES (test code = 2232) 112 MG/DL HDL CHOLESTEROL (test code = 2220) 42 MG/DL CALC LDL CHOL (test code = 2237) 157 MG/DL RISK RATIO LDL/HDL (test cod e = 2238) 3.74 RATIO Juvenal BuenrostroCOMPREHENSIVE METABOLIC [id number] 00:00:00* Test Item Value Reference Range Interpretation Comme nts GLUCOSE (test code = 2217) 121 MG/DL BUN (test code = 2208) 11 MG/DL CREATININE (test code = 2214) 0.73 MG/DL eGFR (2020 CKD-EPI) (test co de = 22692) 97 ML/MIN/1.73 CALC BUN/CREAT (test code = [...] (test code = 2219) 28 U/L Juvenal BuenrostroHEMOGLOBIN [id number] 00:00:00* Test Item Value Reference Range Interpretation Comme nts HEMOGLOBIN A1c (test code = 96016) 6.2 % Juvenal BuenrostroLIPID [id number] 00:00:00* Test Item Value Reference Range Interpretation Comme nts CHOLESTEROL (test code = 2210) 222 MG/DL TRIGLYCERIDES (test code = 2232) 112 MG/DL HDL CHOLESTEROL (test code = 2220) 42 MG/DL CALC LDL CHOL (test code = 2237) 157 MG/DL RISK RATIO LDL/HDL (test cod e = 2238) 3.74 RATIO Juvenal BuenrostroCOMPREHENSIVE METABOLIC [id number] 00:00:00* Test Item Value Reference Range Interpretation Comme nts GLUCOSE (test code = 2217) 121 MG/DL BUN (test code = 2208) 11 MG/DL CREATININE (test code = 2214) 0.73 MG/DL eGFR (2020 CKD-EPI) (test co de = 60732) 97 ML/MIN/1.73 CALC BUN/CREAT (test code = [...] (test code = 2219) 28 U/L Juvenal BuenrostroHEMOGLOBIN [id number] 00:00:00* Test Item Value Reference Range Interpretation Comme nts HEMOGLOBIN A1c (test code = 57927) 6.2 % Juvenal BuenrostroLIPID [id number] 00:00:00* Test Item Value Reference Range Interpretation Comme nts CHOLESTEROL (test code = 2210) 222 MG/DL TRIGLYCERIDES (test code = 2232) 112 MG/DL HDL CHOLESTEROL (test code = 2220) 42 MG/DL CALC LDL CHOL (test code = 2237) 157 MG/DL RISK RATIO LDL/HDL (test cod e = 2238) 3.74 RATIO Juvenal BuenrostroCOMPREHENSIVE METABOLIC [id number] 00:00:00* Test Item Value Reference Range Interpretation Comme nts GLUCOSE (test code = 2217) 121 MG/DL BUN (test code = 2208) 11 MG/DL CREATININE (test code = 2214) 0.73 MG/DL eGFR (2020 CKD-EPI) (test co de = 91112) 97 ML/MIN/1.73 CALC BUN/CREAT (test code = [...] 1.7 RATIO BILIRUBIN, TOTAL (test code = 220) 0.4 MG/DL ALKALINE PHOSPHATASE (test code = 2203) 99 U/L AST (test code = 2218) 22 U/L ALT (test code = 2219) 28 U/L Juvenal BuenrostroCOMPREHENSIVE METABOLIC [id number] 04:13:15* Test Item Value Reference Range Interpretation Comme nts GLUCOSE (test code = 2216) 113 MG/DL 70-99 H BUN (test code = 2207) 13 MG/DL 6-20 CREATININE (test code = 221) 0.66 MG/DL 0.60-1.30 eGFR (2020 CKD-EPI) (test code = 54975) 104 ML/MIN/1.73 >60 CALC BUN/CREAT (test code = 2235) 20 RATIO 6-28 SODIUM (test code = 223) 140 MEQ/L 133-146 POTASSIUM (test code = 222) 4.4 MEQ/L 3.5-5.4 CHLORIDE (test code = 2215) 103 MEQ/L 95-107 CARBON DIOXIDE (test code = 2206) 26 MEQ/L 19-31 CALCIUM (test code = 2209) 9.3 MG/DL 8.5-10.5 PROTEIN, TOTAL (test code = 222) 6.9 G/DL 6.1-8.3 ALBUMIN (test code = 2201) 4.5 G/DL 3.5-5.2 CALC GLOBULIN (test code = 2240) 2.4 G/DL 1.9-3.7 CALC A/G RATIO (test code = 2234) 1.9 RATIO 1.0-2.6 BILIRUBIN, TOTAL (test code = 220) 0.4 MG/DL See_Comment [Automated me ssage] The system which generated this result transmitted reference range: <=1.2. The reference range was not used to interpret this result as normal/abnormal. ALKALINE PHOSPHATASE (test code = 2203) 90 U/L 40-133 AST (test code = 2218) 25 U/L 9-40 ALT (test code = 2219) 34 U/L 5-40 LIPID [id number] 04:13:15* Test Item Value Reference Range Interpretation [...] SPECIMENS. FOR MOREINFORMATION, SEE CLIENT ANNOUNCEMENT AT [email or web address] RISK RATIO LDL/HDL (test code = 2238) 3.85 RATIO <3.22 H HEMOGLOBIN [id number] 02:47:35* Test Item Value Reference Range Interpretation Comme nts HEMOGLOBIN A1c (test code = 97072) 6.3 % 4.2-5.6 H [employer] GUIDELINES FOR HGB A1C: [...] TESTING PERFORMED AT [facility] [address] [place] [address] DELIVERY AND MAIL SORTER: AMINAH SANCHEZ M.D. CLIA NUMBER [id number] [facility] [place]. [id number] CBC W/AUTO DIFF WITH [id number] 02:01:11* Test Item Value Reference Range Interpretation [...] 0.00-0.10 ABS NUCLEATED RBCS (test code = 64761) 0.00 K/UL 0.00-0.11 CBC W/AUTO [id number] 00:00:00* Test Item Value Reference Range Interpretation [...] ABS NUCLEATED RBCS (test cod e = 00067) 0.00 K/UL Juvenal BuenrostroCOMPREHENSIVE METABOLIC [id number] 00:00:00* Test Item Value Reference Range Interpretation Comme nts GLUCOSE (test code = 2217) 113 MG/DL BUN (test code = 2208) 13 MG/DL CREATININE (test code = 2214) 0.66 MG/DL eGFR (2020 CKD-EPI) (test code = 80678) 104 ML/MIN/1.73 CALC BUN/CREAT (test code = [...] (test code = 2219) 34 U/L Juvenal F AustinLIPID [id number] 00:00:00* Test Item Value Reference Range Interpretation Comme nts CHOLESTEROL (test code = 2210) 213 MG/DL TRIGLYCERIDES (test code = 2232) 122 MG/DL HDL CHOLESTEROL (test code = 2220) 39 MG/DL CALC LDL CHOL (test code = 2237) 150 MG/DL RISK RATIO LDL/HDL (test cod e = 2238) 3.85 RATIO Juvenal BuenrostroHEMOGLOBIN [id number] 00:00:00* Test Item Value Reference Range Interpretation Comme nts HEMOGLOBIN A1c (test code = 42485) 6.3 % Juvenal BuenrostroCBC W/AUTO [id number] 00:00:00* Test Item Value Reference Range Interpretation [...] ABS NUCLEATED RBCS (test cod e = 29221) 0.00 K/UL Juvenal BuenrostroCOMPREHENSIVE METABOLIC [id number] 00:00:00* Test Item Value Reference Range Interpretation Comme nts GLUCOSE (test code = 2217) 113 MG/DL BUN (test code = 2208) 13 MG/DL CREATININE (test code = 2214) 0.66 MG/DL eGFR (2020 CKD-EPI) (test code = 27078) 104 ML/MIN/1.73 CALC BUN/CREAT (test code = [...] (test code = 2219) 34 U/L Juvenal Contreras PorterLIPID [id number] 00:00:00* Test Item Value Reference Range Interpretation Comme nts CHOLESTEROL (test code = 2210) 213 MG/DL TRIGLYCERIDES (test code = 2232) 122 MG/DL HDL CHOLESTEROL (test code = 2220) 39 MG/DL CALC LDL CHOL (test code = 2237) 150 MG/DL RISK RATIO LDL/HDL (test cod e = 2238) 3.85 RATIO Juvenal BuenrostroHEMOGLOBIN [id number] 00:00:00* Test Item Value Reference Range Interpretation Comme nts HEMOGLOBIN A1c (test code = 47410) 6.3 % Juvenal Contreras PorterCBC W/AUTO [id number] 00:00:00* Test Item Value Reference Range Interpretation [...] ABS NUCLEATED RBCS (test cod e = 20271) 0.00 K/UL Juvenal F PorterCOMPREHENSIVE METABOLIC [id number] 00:00:00* Test Item Value Reference Range Interpretation Comme nts GLUCOSE (test code = 2217) 113 MG/DL BUN (test code = 2208) 13 MG/DL CREATININE (test code = 2214) 0.66 MG/DL eGFR (2020 CKD-EPI) (test code = 58225) 104 ML/MIN/1.73 CALC BUN/CREAT (test code = [...] code = 2219) 34 U/L Juvenal BuenrostroLIPID [id number] 00:00:00* Test Item Value Reference Range Interpretation Comme nts CHOLESTEROL (test code = 2210) 213 MG/DL TRIGLYCERIDES (test code = 2232) 122 MG/DL HDL CHOLESTEROL (test code = 2220) 39 MG/DL CALC LDL CHOL (test code = 2237) 150 MG/DL RISK RATIO LDL/HDL (test cod e = 2238) 3.85 RATIO Juvenal BuenrostroHEMOGLOBIN [id number] 00:00:00* Test Item Value Reference Range Interpretation Comme nts HEMOGLOBIN A1c (test code = 36680) 6.3 % Juvenal BuenrostroCBC W/AUTO [id number] 00:00:00* Test Item Value Reference Range Interpretation [...] ABS NUCLEATED RBCS (test cod e = 86455) 0.00 K/UL Juvenal BuenrostroCOMPREHENSIVE METABOLIC [id number] 00:00:00* Test Item Value Reference Range Interpretation Comme nts GLUCOSE (test code = 2217) 113 MG/DL BUN (test code = 2208) 13 MG/DL CREATININE (test code = 2214) 0.66 MG/DL eGFR (2020 CKD-EPI) (test code = 31336) 104 ML/MIN/1.73 CALC BUN/CREAT (test code = [...] code = 2219) 34 U/L Juvenal BuenrostroLIPID [id number] 00:00:00* Test Item Value Reference Range Interpretation Comme nts CHOLESTEROL (test code = 2210) 213 MG/DL TRIGLYCERIDES (test code = 2232) 122 MG/DL HDL CHOLESTEROL (test code = 2220) 39 MG/DL CALC LDL CHOL (test code = 2237) 150 MG/DL RISK RATIO LDL/HDL (test cod e = 2238) 3.85 RATIO Juvenal BuenrostroHEMOGLOBIN [id number] 00:00:00* Test Item Value Reference Range Interpretation Comme nts HEMOGLOBIN A1c (test code = 22897) 6.3 % Juvenal BuenrostroCBC W/AUTO [id number] 00:00:00* Test Item Value Reference Range Interpretation [...] ABS NUCLEATED RBCS (test cod e = 22219) 0.00 K/UL Juvenal F PorterCOMPREHENSIVE METABOLIC [id number] 00:00:00* Test Item Value Reference Range Interpretation Comme nts GLUCOSE (test code = 2217) 113 MG/DL BUN (test code = 2208) 13 MG/DL CREATININE (test code = 2214) 0.66 MG/DL eGFR (2020 CKD-EPI) (test code = 06762) 104 ML/MIN/1.73 CALC BUN/CREAT (test code = [...] code = 2219) 34 U/L Juvenal BuenrostroLIPID [id number] 00:00:00* Test Item Value Reference Range Interpretation Comme nts CHOLESTEROL (test code = 2210) 213 MG/DL TRIGLYCERIDES (test code = 2232) 122 MG/DL HDL CHOLESTEROL (test code = 2220) 39 MG/DL CALC LDL CHOL (test code = 2237) 150 MG/DL RISK RATIO LDL/HDL (test cod e = 2238) 3.85 RATIO Juvenal BuenrostroHEMOGLOBIN [id number] 00:00:00* Test Item Value Reference Range Interpretation Comme jo HEMOGLOBIN A1c (test code = 22114) 6.3 % Juvenal BuenrostroCBC W/AUTO [id number] 00:00:00* Test Item Value Reference Range Interpretation [...] ABS NUCLEATED RBCS (test cod e = 82263) 0.00 K/UL Juvenal BuenrostroCOMPREHENSIVE METABOLIC [id number] 00:00:00* Test Item Value Reference Range Interpretation Comme nts GLUCOSE (test code = 2217) 113 MG/DL BUN (test code = 2208) 13 MG/DL CREATININE (test code = 2214) 0.66 MG/DL eGFR (2020 CKD-EPI) (test code = 69350) 104 ML/MIN/1.73 CALC BUN/CREAT (test code = [...] code = 2219) 34 U/L Juvenal BuenrostroLIPID [id number] 00:00:00* Test Item Value Reference Range Interpretation Comme nts CHOLESTEROL (test code = 2210) 213 MG/DL TRIGLYCERIDES (test code = 2232) 122 MG/DL HDL CHOLESTEROL (test code = 2220) 39 MG/DL CALC LDL CHOL (test code = 2237) 150 MG/DL RISK RATIO LDL/HDL (test cod e = 2238) 3.85 RATIO Juvenal BuenrostroHEMOGLOBIN [id number] 00:00:00* Test Item Value Reference Range Interpretation Comme nts HEMOGLOBIN A1c (test code = 37459) 6.3 % Juvenal BuenrostroCBC W/AUTO [id number] 00:00:00* Test Item Value Reference Range Interpretation [...] ABS NUCLEATED RBCS (test cod e = 10435) 0.00 K/UL Juvenal BuenrostroCOMPREHENSIVE METABOLIC [id number] 00:00:00* Test Item Value Reference Range Interpretation Comme nts GLUCOSE (test code = 2217) 113 MG/DL BUN (test code = 2208) 13 MG/DL CREATININE (test code = 2214) 0.66 MG/DL eGFR (2020 CKD-EPI) (test code = 30373) 104 ML/MIN/1.73 CALC BUN/CREAT (test code = [...] code = 2219) 34 U/L Juvenal BuenrostroLIPID [id number] 00:00:00* Test Item Value Reference Range Interpretation Comme nts CHOLESTEROL (test code = 2210) 213 MG/DL TRIGLYCERIDES (test code = 2232) 122 MG/DL HDL CHOLESTEROL (test code = 2220) 39 MG/DL CALC LDL CHOL (test code = 2237) 150 MG/DL RISK RATIO LDL/HDL (test cod e = 2238) 3.85 RATIO Juvenal BuenrostroHEMOGLOBIN [id number] 00:00:00* Test Item Value Reference Range Interpretation Comme nts HEMOGLOBIN A1c (test code = 60632) 6.3 % Juvenal BuenrostroCBC W/AUTO [id number] 00:00:00* Test Item Value Reference Range Interpretation [...] ABS NUCLEATED RBCS (test cod e = 50674) 0.00 K/UL Juvenal Contreras PorterCOMPREHENSIVE METABOLIC [id number] 00:00:00* Test Item Value Reference Range Interpretation Comme nts GLUCOSE (test code = 2217) 113 MG/DL BUN (test code = 2208) 13 MG/DL CREATININE (test code = 2214) 0.66 MG/DL eGFR (2020 CKD-EPI) (test code = 86162) 104 ML/MIN/1.73 CALC BUN/CREAT (test code = [...] code = 2219) 34 U/L Juvenal BuenrostroLIPID [id number] 00:00:00* Test Item Value Reference Range Interpretation Comme nts CHOLESTEROL (test code = 2210) 213 MG/DL TRIGLYCERIDES (test code = 2232) 122 MG/DL HDL CHOLESTEROL (test code = 2220) 39 MG/DL CALC LDL CHOL (test code = 2237) 150 MG/DL RISK RATIO LDL/HDL (test cod e = 2238) 3.85 RATIO Juvenal BuenrostroHEMOGLOBIN [id number] 00:00:00* Test Item Value Reference Range Interpretation Comme nts HEMOGLOBIN A1c (test code = 14246) 6.3 % Juvenal BuenrostroTSH, THIRD [id number] 05:10:00* Test Item Value Reference Range Interpretation Comme nts TSH, THIRD GENERATION (test code = 2821) 0.650 UIU/ML 0.400-4.100 UNLESS OTHERWISE INDICATED, ALL TESTING PERFORMED [facility] [address] [place] [address], [place] [address] DELIVERY AND MAIL SORTER: JACOB OCHOA M.D. CLIA NUMBER [id number] [facility] [place] [place]. [id number] HEMOGLOBIN [id number] 04:49:05* Test Item Value Reference Range Interpretation Comme nts HEMOGLOBIN A1c (test code = 84480) 6.4 % 4.2-5.6 H COMPREHENSIVE METABOLIC [id number] 04:05:12* Test Item Value Reference Range Interpretation Comme nts GLUCOSE (test code = 2217) 137 MG/DL 70-99 H BUN (test code = 2208) 17 MG/DL 6-20 CREATININE (test code = 2214) 0.67 MG/DL 0.60-1.30 eGFR (2020 CKD-EPI) (test code = 20826) 104 ML/MIN/1.73 >60 CALC BUN/CREAT (test code [...] CALC A/G RATIO (test code = 223) 1.6 RATIO 1.0-2.6 BILIRUBIN, TOTAL (test code = 7) 0.5 MG/DL See_Comment [Automated me ssage] The system which generated this result transmitted reference range: <=1.2. The reference range was not used to interpret this result as normal/abnormal. ALKALINE PHOSPHATASE (test code = 2203) 102 U/L 40-133 AST (test code = 2218) 17 U/L 9-40 ALT (test code = 2219) 34 U/L 5-40 LIPID [id number] 04:05:12* Test Item Value Reference Range Interpretation Comme nts CHOLESTEROL (test code = 0) 215 MG/DL <200 H TRIGLYCERIDES (test code [...] SPECIMENS. FOR MOREINFORMATION, SEE CLIENT ANNOUNCEMENT AT [email or web address] RISK RATIO LDL/HDL (test code = 223) 2.94 RATIO <3.22 CBC W/AUTO DIFF WITH [id number] 03:58:54* Test Item Value Reference Range Interpretation [...] = 1065) 0.0 /100 WBC'S See_Comment [Automated Follicuma ge] The system which generated this result [...] 0.00-0.10 ABS NUCLEATED RBCS (test code = 80605) 0.00 K/UL 0.00-0.11 HEMOGLOBIN [id number] 00:00:00* Test Item Value Reference Range Interpretation Comme nts HEMOGLOBIN A1c (test code = 79494) 6.4 % [facility] [id number] 00:00:00* Test Item Value Reference Range Interpretation [...] ABS NUCLEATED RBCS (test cod e = 08968) 0.00 K/UL Juvenal BuenrostroCOMPREHENSIVE METABOLIC [id number] 00:00:00* Test Item Value Reference Range Interpretation Comme nts GLUCOSE (test code = 2217) 137 MG/DL BUN (test code = 2208) 17 MG/DL CREATININE (test code = 2214) 0.67 MG/DL eGFR (2020 CKD-EPI) (test code = 21638) 104 ML/MIN/1.73 CALC BUN/CREAT (test code = [...] code = 2219) 34 U/L Juvenal BuenrostroLIPID [id number] 00:00:00* Test Item Value Reference Range Interpretation Comme nts CHOLESTEROL (test code = 2210) 215 MG/DL TRIGLYCERIDES (test code = 2232) 75 MG/DL HDL CHOLESTEROL (test code = 2220) 50 MG/DL CALC LDL CHOL (test code = 2237) 147 MG/DL RISK RATIO LDL/HDL (test cod e = 2238) 2.94 RATIO Juvenal BuenrostroTSH, THIRD [id number] 00:00:00* Test Item Value Reference Range Interpretation Comme jo TSH, THIRD GENERATION (test code = 2821) 0.650 UIU/ML Juvenal BuenrostroHEMOGLOBIN [id number] 00:00:00* Test Item Value Reference Range Interpretation Comme nts HEMOGLOBIN A1c (test code = 70768) 6.4 % Juvenal BuenrostroCBC W/AUTO [id number] 00:00:00* Test Item Value Reference Range Interpretation [...] ABS NUCLEATED RBCS (test cod e = 94429) 0.00 K/UL Juvenal BuenrostroCOMPREHENSIVE METABOLIC [id number] 00:00:00* Test Item Value Reference Range Interpretation Comme nts GLUCOSE (test code = 2217) 137 MG/DL BUN (test code = 2208) 17 MG/DL CREATININE (test code = 2214) 0.67 MG/DL eGFR (2020 CKD-EPI) (test code = 43355) 104 ML/MIN/1.73 CALC BUN/CREAT (test code = [...] code = 2219) 34 U/L Juvenal BuenrostroLIPID [id number] 00:00:00* Test Item Value Reference Range Interpretation Comme nts CHOLESTEROL (test code = 2210) 215 MG/DL TRIGLYCERIDES (test code = 2232) 75 MG/DL HDL CHOLESTEROL (test code = 2220) 50 MG/DL CALC LDL CHOL (test code = 2237) 147 MG/DL RISK RATIO LDL/HDL (test cod e = 2238) 2.94 RATIO Juvenal BuenrostroTSH, THIRD [id number] 00:00:00* Test Item Value Reference Range Interpretation Comme jo TSH, THIRD GENERATION (test code = 2821) 0.650 UIU/ML Juvenal BuenrostroHEMOGLOBIN [id number] 00:00:00* Test Item Value Reference Range Interpretation Comme nts HEMOGLOBIN A1c (test code = 90089) 6.4 % Juvenal BuenrostroCBC W/AUTO [id number] 00:00:00* Test Item Value Reference Range Interpretation [...] ABS NUCLEATED RBCS (test cod e = 72759) 0.00 K/UL Juvenalhollie BuenrostroCOMPREHENSIVE METABOLIC [id number] 00:00:00* Test Item Value Reference Range Interpretation Comme nts GLUCOSE (test code = 2217) 137 MG/DL BUN (test code = 2208) 17 MG/DL CREATININE (test code = 2214) 0.67 MG/DL eGFR (2020 CKD-EPI) (test code = 84575) 104 ML/MIN/1.73 CALC BUN/CREAT (test code = [...] code = 2219) 34 U/L Juvenal BuenrostroLIPID [id number] 00:00:00* Test Item Value Reference Range Interpretation Comme nts CHOLESTEROL (test code = 2210) 215 MG/DL TRIGLYCERIDES (test code = 2232) 75 MG/DL HDL CHOLESTEROL (test code = 2220) 50 MG/DL CALC LDL CHOL (test code = 2237) 147 MG/DL RISK RATIO LDL/HDL (test cod e = 2238) 2.94 RATIO Juvenal BuenrostroTSH, THIRD [id number] 00:00:00* Test Item Value Reference Range Interpretation Comme jo TSH, THIRD GENERATION (test code = 2821) 0.650 UIU/ML Juvenal BuenrostroHEMOGLOBIN [id number] 00:00:00* Test Item Value Reference Range Interpretation Comme nts HEMOGLOBIN A1c (test code = 18089) 6.4 % Juvenal BuenrostroCBC W/AUTO [id number] 00:00:00* Test Item Value Reference Range Interpretation [...] ABS NUCLEATED RBCS (test cod e = 77206) 0.00 K/UL Juvenal Ben PorterCOMPREHENSIVE METABOLIC [id number] 00:00:00* Test Item Value Reference Range Interpretation Comme nts GLUCOSE (test code = 2217) 137 MG/DL BUN (test code = 2208) 17 MG/DL CREATININE (test code = 2214) 0.67 MG/DL eGFR (2020 CKD-EPI) (test code = 32650) 104 ML/MIN/1.73 CALC BUN/CREAT (test code = [...] (test code = 2219) 34 U/L Juvenal Contreras AustinLIPID [id number] 00:00:00* Test Item Value Reference Range Interpretation Comme nts CHOLESTEROL (test code = 2210) 215 MG/DL TRIGLYCERIDES (test code = 2232) 75 MG/DL HDL CHOLESTEROL (test code = 2220) 50 MG/DL CALC LDL CHOL (test code = 2237) 147 MG/DL RISK RATIO LDL/HDL (test cod e = 2238) 2.94 RATIO Juvenal Hoskins, THIRD [id number] 00:00:00* Test Item Value Reference Range Interpretation Comme nts TSH, THIRD GENERATION (test code = 2821) 0.650 UIU/ML Juvenal BuenrostroHEMOGLOBIN [id number] 00:00:00* Test Item Value Reference Range Interpretation Comme nts HEMOGLOBIN A1c (test code = 99045) 6.4 % Juvenal BuenrostroCBC W/AUTO [id number] 00:00:00* Test Item Value Reference Range Interpretation [...] ABS NUCLEATED RBCS (test cod e = 61599) 0.00 K/UL Juvenal BuenrostroCOMPREHENSIVE METABOLIC [id number] 00:00:00* Test Item Value Reference Range Interpretation Comme nts GLUCOSE (test code = 2217) 137 MG/DL BUN (test code = 2208) 17 MG/DL CREATININE (test code = 2214) 0.67 MG/DL eGFR (2020 CKD-EPI) (test code = 78802) 104 ML/MIN/1.73 CALC BUN/CREAT (test code = [...] code = 2219) 34 U/L Juvenal BuenrostroLIPID [id number] 00:00:00* Test Item Value Reference Range Interpretation Comme nts CHOLESTEROL (test code = 2210) 215 MG/DL TRIGLYCERIDES (test code = 2232) 75 MG/DL HDL CHOLESTEROL (test code = 2220) 50 MG/DL CALC LDL CHOL (test code = 2237) 147 MG/DL RISK RATIO LDL/HDL (test cod e = 2238) 2.94 RATIO Juvenal BuenrostroTSH, THIRD [id number] 00:00:00* Test Item Value Reference Range Interpretation Comme nts TSH, THIRD GENERATION (test code = 2821) 0.650 UIU/ML Juvenal BuenrostroHEMOGLOBIN [id number] 00:00:00* Test Item Value Reference Range Interpretation Comme nts HEMOGLOBIN A1c (test code = 45975) 6.4 % Juvenal BuenrostroCBC W/AUTO [id number] 00:00:00* Test Item Value Reference Range Interpretation [...] ABS NUCLEATED RBCS (test cod e = 76153) 0.00 K/UL Juvenal F PorterCOMPREHENSIVE METABOLIC [id number] 00:00:00* Test Item Value Reference Range Interpretation Comme nts GLUCOSE (test code = 2217) 137 MG/DL BUN (test code = 2208) 17 MG/DL CREATININE (test code = 2214) 0.67 MG/DL eGFR (2020 CKD-EPI) (test code = 25380) 104 ML/MIN/1.73 CALC BUN/CREAT (test code = [...] code = 2219) 34 U/L Juvenal BuenrostroLIPID [id number] 00:00:00* Test Item Value Reference Range Interpretation Comme nts CHOLESTEROL (test code = 2210) 215 MG/DL TRIGLYCERIDES (test code = 2232) 75 MG/DL HDL CHOLESTEROL (test code = 2220) 50 MG/DL CALC LDL CHOL (test code = 2237) 147 MG/DL RISK RATIO LDL/HDL (test cod e = 2238) 2.94 RATIO Juvenal BuenrostroTSH, THIRD [id number] 00:00:00* Test Item Value Reference Range Interpretation Comme nts TSH, THIRD GENERATION (test code = 2821) 0.650 UIU/ML Juvenal BuenrostroHEMOGLOBIN [id number] 00:00:00* Test Item Value Reference Range Interpretation Comme nts HEMOGLOBIN A1c (test code = 60272) 6.4 % Juvenal BuenrostroCBC W/AUTO [id number] 00:00:00* Test Item Value Reference Range Interpretation [...] ABS NUCLEATED RBCS (test cod e = 85328) 0.00 K/UL Juvenal BuenrostroCOMPREHENSIVE METABOLIC [id number] 00:00:00* Test Item Value Reference Range Interpretation Comme nts GLUCOSE (test code = 2217) 137 MG/DL BUN (test code = 2208) 17 MG/DL CREATININE (test code = 2214) 0.67 MG/DL eGFR (2020 CKD-EPI) (test code = 56189) 104 ML/MIN/1.73 CALC BUN/CREAT (test code = [...] code = 2219) 34 U/L Juvenal BuenrostroLIPID [id number] 00:00:00* Test Item Value Reference Range Interpretation Comme nts CHOLESTEROL (test code = 2210) 215 MG/DL TRIGLYCERIDES (test code = 2232) 75 MG/DL HDL CHOLESTEROL (test code = 2220) 50 MG/DL CALC LDL CHOL (test code = 2237) 147 MG/DL RISK RATIO LDL/HDL (test cod e = 2238) 2.94 RATIO Juvenal Hoskins, THIRD [id number] 00:00:00* Test Item Value Reference Range Interpretation Comme jo TSH, THIRD GENERATION (test code = 2821) 0.650 UIU/ML Juvenal BuenrostroHEMOGLOBIN [id number] 00:00:00* Test Item Value Reference Range Interpretation Comme nts HEMOGLOBIN A1c (test code = 51369) 6.4 % Juvenal BuenrostroCBC W/AUTO [id number] 00:00:00* Test Item Value Reference Range Interpretation [...] ABS NUCLEATED RBCS (test cod e = 37432) 0.00 K/UL Juvenal BuenrostroCOMPREHENSIVE METABOLIC [id number] 00:00:00* Test Item Value Reference Range Interpretation Comme nts GLUCOSE (test code = 2217) 137 MG/DL BUN (test code = 2208) 17 MG/DL CREATININE (test code = 2214) 0.67 MG/DL eGFR (2020 CKD-EPI) (test code = 50311) 104 ML/MIN/1.73 CALC BUN/CREAT (test code = [...] code = 2219) 34 U/L Juvenal BuenrostroLIPID [id number] 00:00:00* Test Item Value Reference Range Interpretation Comme nts CHOLESTEROL (test code = 2210) 215 MG/DL TRIGLYCERIDES (test code = 2232) 75 MG/DL HDL CHOLESTEROL (test code = 2220) 50 MG/DL CALC LDL CHOL (test code = 2237) 147 MG/DL RISK RATIO LDL/HDL (test cod e = 2238) 2.94 RATIO Juvenal Contreras PorterTSH, THIRD [id number] 00:00:00* Test Item Value Reference Range Interpretation Comme nts TSH, THIRD GENERATION (test code = 2821) 0.650 UIU/ML Juvenal Contreras PorterBASIC METABOLIC [id number] 07:22:00* Test Item Value Reference Range Interpretation [...] be done morning of Heart CathCBC W/AUTO [id number] 06:56:00* Test Item Value Reference Range Interpretation [...] COMMENTS: To be done morning of Heart CathTSH REFLEX TO [id number] 14:03:00* Test Item Value Reference Range Interpretation Comme nts TSH REFLEX TO FT4 (test code = TSHREFLEX) 1.22 IU/mL 0.42-5.47 N COMMENTS: If already ordered in ED, Adjust times to equal only 3 sets 2 hoursComment: apart.TROP-I HIGH [id number] 14:03:00* Test Item Value Reference Range Interpretation [...] URL. These results were obtained using [employer]@ IM Tn[employer]reagent. Results from different methodologies should not becompared to one another as quantitative results and URLs mayvary by method. COMMENTS: If already ordered in ED, Adjust times to equal only 3 sets 2 hoursComment: apart.LIPID PROFILE (CORONARY RISK)2022-09-06 14:03:00* Test Item Value Reference Range Interpretation [...] = LDL) 152.2 mg/dL 0-100 H <100 IZLIITC00 0-129 NEAR OPTIMAL/ABOVE [id number] [id number] HIGH>BQ=649 VERY HIGH*Guidelines provided by the National Cholesterol EducationProgram Adult Treatment Panel III COMMENTS: If already ordered in ED, Adjust times to equal only 3 sets 2 hoursComment: apart.SED RATE [id number] 12:16:00* Test Item Value Reference Range Interpretation Comme nts SED RATE WESTERGREN (test co de = SEDW) 8 mm/hr 0-20 N HGBA1C%2022-09-06 11:57:00* Test Item Value Reference Range Interpretation Comme nts HGBA1C% (test code = HGBA1C%) 5.9 %A1C 4.8-6.0 N C REACTIVE [id number] 11:43:00* Test Item Value Reference Range Interpretation Comme nts C REACTIVE PROTEIN (test cod e = CRP) 10.0 mg/L <10.0 H HGBA1C%2022-09-06 10:14:00* Test Item Value Reference Range Interpretation Comme nts HGBA1C% (test code = HGBA1C%) 5.9 %A1C 4.8-6.0 N COMMENTS: If patient DiabeticB-TYPE NATRIURETIC [id number] 08:26:00* Test Item Value Reference Range Interpretation Comme nts B-TYPE NATRIURETIC PEPTIDE ( test code = BNP) 12.0 PG/ML 0-100 N COMPREHENSIVE METABOLIC [id number] 08:10:00* Test Item Value Reference Range Interpretation [...] to equal only 3 sets 2 hoursComment: apart.[id number] 08:10:00* Test Item Value Reference Range Interpretation Comme nts MAGNESIUM (test code = MAG) 1.80 mg/dL 1.80-2.40 N COMMENTS: If already ordered in ED, Adjust times to equal only 3 sets 2 hoursComment: apart.TROP-I HIGH [id number] 08:10:00* Test Item Value Reference Range Interpretation [...] only 3 sets 2 hoursComment: apart.TROP-I HIGH [id number] 07:12:00* Test Item Value Reference Range Interpretation [...] the URL. These results were obtained using [employer] Tn[employer]reagent. Results from different methodologies should not becompared to one another as quantitative results and URLs mayvary by method. COMMENTS: If already ordered in ED, Adjust times to equal only 3 sets 2 hoursComment: apart.PROTHROMBIN [id number] 05:42:00* Test Item Value Reference Range Interpretation [...] on Coumadin/with pacer/Swanz-Cortney insertion/heparinization therapy THROMBOPLASTIN TIME [id number] 05:42:00* Test Item Value Reference Range Interpretation Comme nts THROMBOPLASTIN TIME PARTIAL (test code = PTT) 29.0 Seconds 25.0-39.5 N Therapeutic Rang e: 50.4 - 88.3 Seconds Effective 01/11/2019 COMMENTS: If on Coumadin/with pacer/Swanz-Cortney insertion/heparinization therapy CBC W/AUTO [id number] 00:10:00* Test Item Value Reference Range Interpretation [...] = MX#) 0.5 k/mm3 0.1-0.8 N GLUCOSE [id number] 22:33:00* Test Item Value Reference Range Interpretation Comme nts GLUCOSE BEDSIDE (test code = GLUBED) 109 MG/DL 70-110 N Performed by tarun rhodes band aid machine operator at [facility] TROPONIN-I [id number] 22:33:00* Test Item Value Reference Range Interpretation Comme nts TROPONIN-I RAPID (test code = TROPIRAP) < 0.05 <0.05 Performed by [facility] tified band aid machine operator at [facility]"Point of Care test critical value notification [...] in troponin levels. - XR CHEST 1 [id number] 00:00:00 [facility] 1970 Sex: FFAX: Pio Demarco DO [phone] [place]: [address]: PRE Name: DYEREMA FSED : 1970 Age/S: 51/F [address] [facility] Unit #: [id number] Loc: [place], [place] [address] Phys: NilamHenry DO Acct: [id number] Dis Date: Status: PRE ER PHONE #: Exam Date: 09/05/2022 0954 FAX #: Reason: Chest Pain EXAMS: CPT CODE: [id number] XR CHEST 1 V 24342 PROCEDURE INFORMATION: Exam: XR Chest Exam date [...] M.D. CC: Pio Demarco DO Technologist: RT Kirstin(Geno)(CT) TrnscrdDate/Time/By: 09/05/2022 (4096) : By: [email or web address] Orig Print D/T: S: 09/05/2022 (0680) PAGE 1 SignedReportBI ULTRASOUND BREAST COMPLETE LEFT 2020-08-16 19:46:03Examination:BI DIAGNOSTIC [...] consistent with superimposition of normal breast tissue. ULTRASOUND BREAST COMPLETE LEFTSurvey ultrasound of the [...] - Left BI-RADS Category: Left [facility] LEFT 2020-08-16 19:46:02Examination:BI [...] consistent with superimposition of normal breast tissue. ULTRASOUND BREAST COMPLETE LEFTSurvey ultrasound of the [...] - Left BI-RADS Category: Left 1 - NegativeUnCHRISTUS [facility]ohn [facility] KlebergBI SCREENING MAMMOGRAM BILATERAL 2020-04-24 21:24:53Examination:BI SCREENING MAMMOGRAM [...] NegativeOverall: 0 - Incomplete: Needs Additional Imaging EvaluationUnCHRISTUS [facility]ohn Hospital – KlebergVITAMIN D,1,88-[id number] 00:00:00* Test Item Value Reference Range Interpretation Comme nts VITAMIN D,1,25-DIHYDROXY (te st code = 4960) 62.3 PG/ML Juvenal Contreras AustinVITAMIN D,1,75-[id number] 00:00:00* Test Item Value Reference Range Interpretation Comme nts VITAMIN D,1,25-DIHYDROXY (te st code = 4960) 62.3 PG/ML Juvenal Contreras AustinVITAMIN D,1,47-[id number] 00:00:00* Test Item Value Reference Range Interpretation Comme nts VITAMIN D,1,25-DIHYDROXY (te st code = 4960) 62.3 PG/ML Juvenal BuenrostroVITAMIN D,1,61-[id number] 00:00:00* Test Item Value Reference Range Interpretation Comme jo VITAMIN D,1,25-DIHYDROXY (te st code = 4960) 62.3 PG/ML Juvenal BuenrostroVITAMIN D,1,06-[id number] 00:00:00* Test Item Value Reference Range Interpretation Comme jo VITAMIN D,1,25-DIHYDROXY (te st code = 4960) 62.3 PG/ML Juvenal BuenrostroVITAMIN D,1,72-[id number] 00:00:00* Test Item Value Reference Range Interpretation Comme jo VITAMIN D,1,25-DIHYDROXY (te st code = 4960) 62.3 PG/ML Juvenal BuenrostroVITAMIN D,1,39-[id number] 00:00:00* Test Item Value Reference Range Interpretation Comme jo VITAMIN D,1,25-DIHYDROXY (te st code = 4960) 62.3 PG/ML Juvenal BuenrostroVITAMIN D,1,55-[id number] 00:00:00* Test Item Value Reference Range Interpretation Comme jo VITAMIN D,1,25-DIHYDROXY (te st code = 4960) 62.3 PG/ML Juvenal BuenrostroCOMPREHENSIVE METABOLIC [id number] 00:00:00* Test Item Value Reference Range Interpretation Comme [facility] GLUCOSE (test code = 2217) 93 MG/DL BUN (test code = 2208) 9 MG/DL CREATININE (test code = 2214) 0.6 MG/DL eGFR AMER. (test cod e = 02632) 130 ML/MIN/1.73 eGFR NON- AMER. (test code = 29910) 108 ML/MIN/1.73 CALCULATED BUN/CREAT (test code = [...] code = 2219) 16 U/L Juvenal BuenrostroLIPID [id number] 00:00:00* Test Item Value Reference Range Interpretation Comme nts CHOLESTEROL (test code = 2210) 188 MG/DL TRIGLYCERIDES (test code = 2232) 126 MG/DL HDL CHOLESTEROL (test code = 2220) 40 MG/DL CALCULATED LDL CHOL (test co de = 2237) 123 MG/DL RISK RATIO LDL/HDL (test cod e = 2238) 3.07 RATIO Juvenal [id number] 00:00:00* Test Item Value Reference Range Interpretation Comme nts TSH (test code = 2821) 1.6 UIU/ML Juvenal BuenrostroCBC W/AUTO [id number] 00:00:00* Test Item Value Reference Range Interpretation [...] code = 1015) 293 K/UL Juvenal BuenrostroHEMOGLOBIN [id number] 00:00:00* Test Item Value Reference Range Interpretation Comme jo HEMOGLOBIN A1c (test code = 55247) 6.4 % Juvenal BuenrostroCOMPREHENSIVE METABOLIC [id number] 00:00:00* Test Item Value Reference Range Interpretation Comme nts GLUCOSE (test code = 2217) 93 MG/DL BUN (test code = 2208) 9 MG/DL CREATININE (test code = 2214) 0.6 MG/DL eGFR AMER. (test cod e = 21394) 130 ML/MIN/1.73 eGFR NON- AMER. (test code = 52603) 108 ML/MIN/1.73 CALCULATED BUN/CREAT (test code = [...] (test code = 2219) 16 U/L Juvenal Contreras PorterLIPID [id number] 00:00:00* Test Item Value Reference Range Interpretation Comme nts CHOLESTEROL (test code = 2210) 188 MG/DL TRIGLYCERIDES (test code = 2232) 126 MG/DL HDL CHOLESTEROL (test code = 2220) 40 MG/DL CALCULATED LDL CHOL (test co de = 223) 123 MG/DL RISK RATIO LDL/HDL (test cod e = 2238) 3.07 RATIO Juvenal [id number] 00:00:00* Test Item Value Reference Range Interpretation Comme nts TSH (test code = 2821) 1.6 UIU/ML Juvenal Contreras PorterCBC W/AUTO [id number] 00:00:00* Test Item Value Reference Range Interpretation [...] code = 1015) 293 K/UL Juvenal BuenrostroHEMOGLOBIN [id number] 00:00:00* Test Item Value Reference Range Interpretation Comme nts HEMOGLOBIN A1c (test code = 04825) 6.4 % Juvenal BuenrostroCOMPREHENSIVE METABOLIC [id number] 00:00:00* Test Item Value Reference Range Interpretation Comme nts GLUCOSE (test code = 2217) 93 MG/DL BUN (test code = 2208) 9 MG/DL CREATININE (test code = 2214) 0.6 MG/DL eGFR AMER. (test cod e = 89552) 130 ML/MIN/1.73 eGFR NON- AMER. (test code = 12748) 108 ML/MIN/1.73 CALCULATED BUN/CREAT (test code = [...] code = 2219) 16 U/L Juvenal BuenrostroLIPID [id number] 00:00:00* Test Item Value Reference Range Interpretation Comme nts CHOLESTEROL (test code = 2210) 188 MG/DL TRIGLYCERIDES (test code = 2232) 126 MG/DL HDL CHOLESTEROL (test code = 2220) 40 MG/DL CALCULATED LDL CHOL (test co de = 2237) 123 MG/DL RISK RATIO LDL/HDL (test cod e = 2238) 3.07 RATIO Juvenal [id number] 00:00:00* Test Item Value Reference Range Interpretation Comme nts TSH (test code = 2821) 1.6 UIU/ML Juvenal BuenrostroCBC W/AUTO [id number] 00:00:00* Test Item Value Reference Range Interpretation [...] code = 1015) 293 K/UL Juvenal BuenrostroHEMOGLOBIN [id number] 00:00:00* Test Item Value Reference Range Interpretation Comme jo HEMOGLOBIN A1c (test code = 09835) 6.4 % Juvenal BuenrostroCOMPREHENSIVE METABOLIC [id number] 00:00:00* Test Item Value Reference Range Interpretation Comme nts GLUCOSE (test code = 2217) 93 MG/DL BUN (test code = 2208) 9 MG/DL CREATININE (test code = 2214) 0.6 MG/DL eGFR AMER. (test cod e = 56045) 130 ML/MIN/1.73 eGFR NON- AMER. (test code = 40396) 108 ML/MIN/1.73 CALCULATED BUN/CREAT (test code = [...] code = 2219) 16 U/L Juvenal BuenrostroLIPID [id number] 00:00:00* Test Item Value Reference Range Interpretation Comme nts CHOLESTEROL (test code = 2210) 188 MG/DL TRIGLYCERIDES (test code = 2232) 126 MG/DL HDL CHOLESTEROL (test code = 2220) 40 MG/DL CALCULATED LDL CHOL (test co de = 2237) 123 MG/DL RISK RATIO LDL/HDL (test cod e = 2238) 3.07 RATIO Juvenal [id number] 00:00:00* Test Item Value Reference Range Interpretation Comme nts TSH (test code = 2821) 1.6 UIU/ML Juvenal BuenrostroCBC W/AUTO [id number] 00:00:00* Test Item Value Reference Range Interpretation [...] code = 1015) 293 K/UL Juvenal BuenrostroHEMOGLOBIN [id number] 00:00:00* Test Item Value Reference Range Interpretation Comme nts HEMOGLOBIN A1c (test code = 48081) 6.4 % Juvenal BuenrostroCOMPREHENSIVE METABOLIC [id number] 00:00:00* Test Item Value Reference Range Interpretation Comme nts GLUCOSE (test code = 2217) 93 MG/DL BUN (test code = 2208) 9 MG/DL CREATININE (test code = 2214) 0.6 MG/DL eGFR AMER. (test cod e = 29614) 130 ML/MIN/1.73 eGFR NON- AMER. (test code = 15862) 108 ML/MIN/1.73 CALCULATED BUN/CREAT (test code = [...] code = 2219) 16 U/L Juvenal BuenrostroLIPID [id number] 00:00:00* Test Item Value Reference Range Interpretation Comme nts CHOLESTEROL (test code = 2210) 188 MG/DL TRIGLYCERIDES (test code = 2232) 126 MG/DL HDL CHOLESTEROL (test code = 2220) 40 MG/DL CALCULATED LDL CHOL (test co de = 2237) 123 MG/DL RISK RATIO LDL/HDL (test cod e = 2238) 3.07 RATIO Juvenal [id number] 00:00:00* Test Item Value Reference Range Interpretation Comme nts TSH (test code = 2821) 1.6 UIU/ML Juvenal BuenrostroCBC W/AUTO [id number] 00:00:00* Test Item Value Reference Range Interpretation [...] code = 1015) 293 K/UL Juvenal BuenrostroHEMOGLOBIN [id number] 00:00:00* Test Item Value Reference Range Interpretation Comme [facility] HEMOGLOBIN A1c (test code = 89884) 6.4 % Juvenal BuenrostroCOMPREHENSIVE METABOLIC [id number] 00:00:00* Test Item Value Reference Range Interpretation Comme nts GLUCOSE (test code = 2217) 93 MG/DL BUN (test code = 2208) 9 MG/DL CREATININE (test code = 2214) 0.6 MG/DL eGFR AMER. (test cod e = 37269) 130 ML/MIN/1.73 eGFR NON- AMER. (test code = 34087) 108 ML/MIN/1.73 CALCULATED BUN/CREAT (test code = [...] code = 2219) 16 U/L Juvenal BuenrostroLIPID [id number] 00:00:00* Test Item Value Reference Range Interpretation Comme nts CHOLESTEROL (test code = 2210) 188 MG/DL TRIGLYCERIDES (test code = 2232) 126 MG/DL HDL CHOLESTEROL (test code = 2220) 40 MG/DL CALCULATED LDL CHOL (test co de = 2237) 123 MG/DL RISK RATIO LDL/HDL (test cod e = 2238) 3.07 RATIO Juvenal [id number] 00:00:00* Test Item Value Reference Range Interpretation Comme nts TSH (test code = 2821) 1.6 UIU/ML Juvenal BuenrostroCBC W/AUTO [id number] 00:00:00* Test Item Value Reference Range Interpretation [...] code = 1015) 293 K/UL Juvenal BuenrostroHEMOGLOBIN [id number] 00:00:00* Test Item Value Reference Range Interpretation Comme jo HEMOGLOBIN A1c (test code = 77386) 6.4 % Juvenal BuenrostroCOMPREHENSIVE METABOLIC [id number] 00:00:00* Test Item Value Reference Range Interpretation Comme nts GLUCOSE (test code = 2217) 93 MG/DL BUN (test code = 2208) 9 MG/DL CREATININE (test code = 2214) 0.6 MG/DL eGFR AMER. (test cod e = 92661) 130 ML/MIN/1.73 eGFR NON- AMER. (test code = 81626) 108 ML/MIN/1.73 CALCULATED BUN/CREAT (test code = [...] code = 2219) 16 U/L Juvenal BuenrostroLIPID [id number] 00:00:00* Test Item Value Reference Range Interpretation Comme nts CHOLESTEROL (test code = 2210) 188 MG/DL TRIGLYCERIDES (test code = 2232) 126 MG/DL HDL CHOLESTEROL (test code = 2220) 40 MG/DL CALCULATED LDL CHOL (test co de = 2237) 123 MG/DL RISK RATIO LDL/HDL (test cod e = 2238) 3.07 RATIO Juvenal [id number] 00:00:00* Test Item Value Reference Range Interpretation Comme nts TSH (test code = 2821) 1.6 UIU/ML Juvenal BuenrostroCBC W/AUTO [id number] 00:00:00* Test Item Value Reference Range Interpretation [...] code = 1015) 293 K/UL Juvenal BuenrostroHEMOGLOBIN [id number] 00:00:00* Test Item Value Reference Range Interpretation Comme jo HEMOGLOBIN A1c (test code = 56112) 6.4 % Juvenal BuenrostroCOMPREHENSIVE METABOLIC [id number] 00:00:00* Test Item Value Reference Range Interpretation Comme jo GLUCOSE (test code = 2217) 93 MG/DL BUN (test code = 2208) 9 MG/DL CREATININE (test code = 2214) 0.6 MG/DL eGFR AMER. (test cod e = 50077) 130 ML/MIN/1.73 eGFR NON- AMER. (test code = 22679) 108 ML/MIN/1.73 CALCULATED BUN/CREAT (test code = [...] code = 2219) 16 U/L Juvenal BuenrostroLIPID [id number] 00:00:00* Test Item Value Reference Range Interpretation Comme nts CHOLESTEROL (test code = 2210) 188 MG/DL TRIGLYCERIDES (test code = 2232) 126 MG/DL HDL CHOLESTEROL (test code = 2220) 40 MG/DL CALCULATED LDL CHOL (test co de = 2237) 123 MG/DL RISK RATIO LDL/HDL (test cod e = 2238) 3.07 RATIO Juvenal [id number] 00:00:00* Test Item Value Reference Range Interpretation Comme nts TSH (test code = 2821) 1.6 UIU/ML Juvenal BuenrostroCBC W/AUTO [id number] 00:00:00* Test Item Value Reference Range Interpretation [...] code = 1015) 293 K/UL Juvenal BuenrostroHEMOGLOBIN [id number] 00:00:00* Test Item Value Reference Range Interpretation Comme [facility] HEMOGLOBIN A1c (test code = 41041) 6.4 % Juvenal BuenrostroDIGITAL MAMMOGRAM, [id number] 18:55:00 *.*.*.*.*.*.*.*.*.*.*.*.*.*FINAL*.*.*.*.*.*.*.*.*.*.*.*.*.*.*Computer aided detection (CAD) utilized. Comparison is made to images from 05/27/2010. ?There is no significant interval change. ? Bilateral Breast Findings:The breasts are heterogeneously dense (51% - 75% fibroglandular). This may lower the sensitivity of mammography. ?No significant masses, calcifications or other abnormalities are seen. LUPE SAMPSON MD ?Personally interpreted by: OMA CALHOUN MD /Signed/ OMA CALHOUN MDUnCHRIST[facility] Notes Date/Time Note Provider Source Juvenal Pearson [facility]2025-08-27 00:00:00 Juvenal F. [facility]2025-04-12 00[facility]00[facility]2025-03-07 00:00:00 Juvenal F. [facility]2025-03-06 00:00:00 Juvenal Buenrostro [facility]2025-02-12 00:00:00 Juvenal Buenrostro [facility]2024-10-15 00:00:00 Juvenal Buenrostro [facility]2024-07-22 00:00:00 Juvenal Buenrostro [facility]2022-12-12 17:43:00 [facility] Hospitalist Discharge Summary REPORT#:[id number] REPORT STATUS: Signed DATE:09/08/22 TIME: 1742 PATIENT: EMA DYER UNIT #: [id number] ROOM/BED: [place] [address] : 68 AGE: 51 SEX: F ATTEND: [...] distention Extremities: no edema Musculoskeletal: normal inspection Neuro/SMOKING PIPE LINER: alert, oriented X 3, normal speech Skin: [...] (Auto) (14.0 - 32.0 %) 43.5 H Boundary % (Auto) (4.8 - 9.0 %) 6.6 Eos % (Auto) (0.3 - 3.7 %) 2.3 Baso % (Auto) (0.0 - 2.0 %) 0.6 Neut # (Auto) (2.0 - 7.6 x10 3/uL) 2.50 Lymph # (Auto) (1.0 - 3.8 x10 3/uL) 2.32 Boundary # (Auto) (0.1 - 0.8 x10 3/uL) [...] Home/Self Care Additional Discharge Routines: PCP Follow-Up, [employer] Follow-Up Diet: Cardiac Activity: Resume Normal Activity Follow-up Appointments PCP follow-up: PCP: No Primary or Family Physician PCP follow up timeframe: In 1-2 weeks Consulting provider 1: Provider 1: Torsten Christianson MD Specialty: CardiologyInterventional Consult follow up timeframe: In 1-2 weeks Quality: Discharge Advanced Care Plan 65 or Older Discussed with: patient, DAUGHTER AT at 4273 RPT #:[id number] END OF [id number] 11:43:00 [facility] ([facility]) Cardiology Progress Note REPORT#:[id number] REPORT STATUS: Signed DATE:09/08/22 TIME: 1143 PATIENT: EMA DYER UNIT #: [id number] ROOM/BED: [place] [address] : 68 AGE: 51 SEX: F ATTEND: [...] Sodium Chloride (SODIUM CHLORIDE 0.9%) 1,000 ML .S62Q09Q ONE IV (DC) Aspirin (ASPIRIN) 81 MG [...] Musculoskeletal: full range of motion, normal inspection Neuro/SMOKING PIPE LINER: alert, normal speech Skin: dry, intact Psychiatry: normal affect, normal mood Results Findings/Data: Laboratory Tests 09/08 05 Chemistry Sodium (134 - 147 mEq/L) 142 [...] - 10.5 mg/dL) 8.6 Laboratory Tests 09/08 05 Hematology WBC (4.5 - 11.0 x10 3/uL) [...] (Auto) (14.0 - 32.0 %) 43.5 H Boundary % (Auto) (4.8 - 9.0 %) 6.6 Eos % (Auto) (0.3 - 3.7 %) 2.3 Baso % (Auto) (0.0 - 2.0 %) 0.6 Neut # (Auto) (2.0 - 7.6 x10 3/uL) 2.50 Lymph # (Auto) (1.0 - 3.8 x10 3/uL) 2.32 Boundary # (Auto) (0.1 - 0.8 x10 3/uL) [...] ok by primary team at 1145 RPT #:[id number] END OF [id number] 11:33:[id number] [place] [address] PATIENT NAME: EMA DYER ADMIT DATE: 09/06/22 ACCOUNT NO: [id number] [place] [facility] AGE: 51 REPORT TYPE: CARDIAC CATHETERIZATION REPORT SEX: F ADMITTING PHYSICIAN:Ralph Slater MD ATTENDING PHYSICIAN:Sudhakar Baker MD PROCEDURE DATE: 09/08/2022 CARDIAC CATHETERIZATION REPORT PROCEDURES PERFORMED: 1. Left heart cardiac catheterization with coronary angiography. 2. Left ventricular pressure assessment. OPERATORS: 1. Lluvia Christianson MD 2. Torsten Christianson MD INDICATIONS FOR [...] obtained and we ended up placing a 6-[place]um[place] slender sheath. Selective coronary angiography of the [place] left and right groin was performed with a [place] 4.0 diagnostic catheter. This catheter was dropped [...] Date Transcribed: 09/08/2022 12:54:45 JESSE/MISHEL/ERIK/AMARJIT Receipt ID: [id number] Authenticated by Lluvia Christianson MD On 09/10/2022 02:43:38 PM at 0243 PATIENT NAME: EMA DYER 13:20:00 [facility] Cardiology Progress Note REPORT#:[id number] REPORT STATUS: Signed DATE:09/07/22 TIME: 1320 PATIENT: EMA DYER UNIT #: [id number] ROOM/BED: [place] [address] : 68 AGE: 51 SEX: F ATTEND: [...] Sodium Chloride (SODIUM CHLORIDE 0.9%) 1,000 ML .Y32S07Q ONE IV Aspirin (ASPIRIN) 81 MG DAILY [...] Musculoskeletal: full range of motion, normal inspection Neuro/SMOKING PIPE LINER: alert, normal speech Skin: dry, intact Psychiatry: [...] it as it arises. at 1322 RPT #:[id number] END OF [id number] 10:10:00 [facility] ([facility]) Hospitalist Progress Note REPORT#:[id number] REPORT STATUS: Signed DATE:09/07/22 TIME: 1010 PATIENT: EMA DYER UNIT #: [id number] ROOM/BED: [place] [address] : 68 AGE: 51 SEX: F ATTEND: [...] no distention Extremities: moves all, no edema Neuro/SMOKING PIPE LINER: alert, oriented X 3, normal speech Skin: [...] THURSDAY. dispo per cards at 1012 RPT #:[id number] END OF [id number] 07:40:[id number] [place] [address] PATIENT NAME: EMA DYER ADMIT DATE: 09/06/22 ACCOUNT NO: [id number] [place] [facility] AGE: 51 REPORT TYPE: eELECTROCARDIOGRAM REPORT SEX: F ADMITTING PHYSICIAN:Ralph Slater MD ATTENDING PHYSICIAN:Sudhakar Baker MD Order: [id number] Test Reason : chest pain Test Date/Time Stamp: ThuSep 07 2022 07:40:39 Blood Pressure : / mmHG Vent. Rate : 074 BPM Atrial Rate : 074 BPM P-R Int : 148 ms QRS Dur : 088 ms QT Int : 386 ms P-R-T Axes : 071 082 042 degrees QTc Int : 428 ms Normal sinus rhythm Low voltage QRS Borderline ECG Confirmed by MD MEGHAN, TORSTEN ([id number]) on 09/09/2022 10:44:52 AM Referred By: Self Referred Confirmed by:TORSTEN CHRISTIANSON MD at 1044 PATIENT NAME: EMA DYER 14:11:00 [id number] [place] [address] PATIENT NAME: EMA DYER ADMIT DATE: 09/06/22 ACCOUNT NO: [id number] ROOM NO: [id number] AGE: 51 REPORT TYPE: eECHOCARDIOGRAM REPORT SEX: F ADMITTING PHYSICIAN:Ralph Slater MD ATTENDING PHYSICIAN:Ralph Slater MD *[address] [address] Transthoracic Echocardiogram Patient: Ema Dyer Study Date: 09/06/2022 BP: Location: [facility] URN: [id number] : 1970 Age: 51 Height: 61 in / 154.9 cm Gender: F Weight: 232 lb / 105.5 kg BMI/BSA: 43.9 kg/m 2 / 2.19 m 2 *Ordering Physician: * Torsten Christianson MD *Interpreting Physician: * Torsten Christianson MD *Salon Receptionist: Diamond Hung [facility] Indications: Chest Pain, unspecified. Study data: Transthoracic [...] ratio 1.27 ------- Pulmonic valve Value Ref CO v, ED 0.74 m/sec ------- Tricuspid valve [...] at 1411 PATIENT NAME: EMA DYER 12:25:00 [facility] ([facility] Cardiology Consultation REPORT#:[id number] REPORT STATUS: Signed DATE:09/06/22 TIME: 1225 PATIENT: EMA DYER UNIT #: [id number] ROOM/BED: [place] [address] : 68 AGE: 51 SEX: F ATTEND: [...] Sodium Chloride (SODIUM CHLORIDE 0.9%) 1,000 ML .K41P36C IV (DC) Nitroglycerin (NITROSTAT) 0.4 MG X1ED [...] Musculoskeletal: full range of motion, normal inspection Neuro/SMOKING PIPE LINER: alert, normal speech Skin: dry, intact Psychiatry: [...] 2157 Report Impression - Status: SIGNED Entered: 09/05/20227 IMPRESSION: No acute cardiopulmonary findings. Impression By: [...] ischemia evaluation will be Thursday. at 1251 [facility] #:[id number] END OF [id number] 11:52:00 [facility] ([facility]) Clinical Note REPORT#:[id number] REPORT STATUS: Signed DATE:09/06/22 TIME: 1152 PATIENT: EMA DYER UNIT #: [id number] ROOM/BED: [place] [address] : 68 AGE: 51 SEX: F ATTEND: Ralph Slater MD ADM AUTHOR: Ralph Slater MD * ALL edits or amendments must be made on the electronic/computer document * Clinical Note Note: seen by Dr León this morning 51 y/o with CP CP - w/u per cards. stress test or cath on THURSDAY. echo pending depression - cont cymbalta HTN - on metopol dispo - per cards at 1152 RPT #:[id number] END OF [id number] 07:51:[id number] [place] [address] PATIENT NAME: EMA DYER ADMIT DATE: 09/06/22 ACCOUNT NO: [id number] [place] NO[place] [facility] AGE: 51 REPORT TYPE: eELECTROCARDIOGRAM REPORT SEX: F ADMITTING PHYSICIAN:Ralph Slater MD ATTENDING PHYSICIAN:Ralph Slater MD Order: [id number] Test Reason : chest pain Test Date/Time Stamp: ThuSep 06 2022 07:51:36 Blood Pressure : / mmHG Vent. Rate : 063 BPM Atrial Rate : 063 BPM P-R Int : 154 ms QRS Dur : 086 ms QT Int : 430 ms P-R-T Axes : 080 086 086 degrees QTc Int : 440 ms Normal sinus rhythm Low voltage QRS Borderline ECG Confirmed by MD MEGHAN, TORSTEN ([id number]) on 09/06/2022 2:12:29 PM Referred By: Eryn Rosas Confirmed by:TORSTEN CHRISTIANSON MD at 1412 PATIENT NAME: EMA DYER 04:34:00 [facility] ([facility]) Hospitalist History Physical REPORT#:[id number] REPORT STATUS: Signed DATE:09/06/22 TIME: 0434 PATIENT: EMA DYER UNIT #: [id number] ROOM/BED: [place] [address] : 68 AGE: 51 SEX: F ATTEND: [...] 107/65 09/06 0153 B/P Mean 78.9 09/06 015 O2 Delivery Room air 09/06 153 Temp 97.3 09/06 015 Pulse 58 09/06 0153 Resp 16 09/06 [...] no distention Extremities: moves all, no edema Neuro/SMOKING PIPE LINER: alert, oriented X 3, normal speech Skin: dry, no rash Results Findings/Data: Laboratory Tests: 09/05 2221 2144 Chemistry POC Glucose (70 - [...] (0.1 - 0.8 k/mm3) 0.5 Laboratory Tests 09/05/222143: [Embedded Image Not Available] Radiology data: Recent [...] VTE proph with lovenox. at 0447 RPT #:[id number] END OF [id number] 21:44:00 [facility] ([facility]) EMERGENCY PROVIDER REPORT REPORT#:[id number] REPORT STATUS: Signed DATE:09/05/22 TIME: 2143 PATIENT: EMA DYER UNIT #: [id number] ROOM/BED: [place] [address] AGE: 51 SEX: F PCP PHYS: No Primary or Family Physician SERVICE AUTHOR: Pio Demarco DO * ALL edits or amendments must be made on the electronic/computer document * HPI-Chest Pain 40 and Over Free Text HPI Notes Free Text HPI Notes 51-year-old female with past medical history of hypertension, strong family history of [place], CAD, presents with acute left-sided chest pain [...] [Embedded Image Not Available] Laboratory Tests: 09/05 Chemistry POC Glucose (70 - 110 MG/DL) [...] Report Impression - Status: SIGNED Entered: 09/05/2022 5296 IMPRESSION: No acute cardiopulmonary findings. Impression By: [email or web address] - Israel Pacheco M.D. Lab Imaging Statement [...] 09/05 2158 DC 09/05 SL 09/05 2159 220 Central Nervous System Agents Sig/Onesimo Start time Last Medication Dose Route Stop Time Status Admin Aspirin 324 MG X1ED STA 09/05 2144 DC 09/05 PO 09/05 2145 215 Consultation Consultation Referral/Consult Name Torsten Christianson MD [employer] Called Cardiology Requested Call Date 09/05/22 Call [...] over this patient's care. at 0248 RPT #:[id number] END OF REPORTHCACL
[2025-07-17 09:46] LABS: Absolute Lymphocytes (CBC) 2.2 K/uL (0.7-4.9); Hematocrit 42.6 % (36.0-45.0); Hemoglobin 14.2 g/dL (12.0-15.0); MCH 28.4 pg (27.0-35.0); MCHC 33.4 g/dL (32.0-36.0); MCV 85.2 fL (80-100); MPV 7.9 fL (7.6-11.3); Nucleated RBC Absolute Count 0.0 (0-0); Nucleated Red Blood Cells % 0.1 % (0-0); RBC Red Blood Cell Count 5.00 M/uL (3.86-4.86); White Blood Count 8.50 thou/uL (4.3-10.9)
[2025-07-17 09:50] LABS: Urine Microscopic Reflex YN NO UMIC
[2025-07-17 10:10] LABS: ALT/SGPT 27 U/L (13-56); Albumin 3.3 g/dL (3.4-5.0); Albumin/Globulin Ratio 0.8 (1.1-1.8); Alkaline Phosphatase 108 U/L (45-117); Anion Gap 8.9 mEq/L (5.0-15.0); BUN Blood Urea Nitrogen 11 mg/dL (7-18); Globulin 4.2 g/dL (2.3-3.5); Glucose Level 125 mg/dL (74-106); Lipase 16 U/L (13-75); Potassium 3.9 mEq/L (3.5-5.1)
[2025-07-17 10:12] LABS: AST/SGOT < 10 U/L (15-37)
[2025-07-17] MEDS ORDERED: FENTANYL CITR 100 MCG/2 ML ONE (10:17)
[2025-07-17] MEDS ORDERED: NA CHLORIDE 0.9% 1,000 ML ONE (10:23)
[2025-07-17] MEDS ORDERED: ONDANSETRON 4 MG/2 ML VIAL ONE (10:23)
--- NOTE | 2025-07-17 10:50 | RAD REPORT ---
EXAMINATION: CT ABDOMEN AND PELVIS WITH CONTRAST CLINICAL INDICATION: ABD PAIN TECHNIQUE: CT abdomen and pelvis was performed, after the administration of IV contrast, as per [facility]. Axial, sagittal and coronal reconstructions were obtained. One or more of the following dose reduction techniques were used: Automated exposure control, adjustment of the mA and k V according to patient size, and iterative reconstruction. Unless otherwise specified, incidental findings do not require dedicated imaging follow-up. COMPARISON: 05/09/2024 FINDINGS: LOWER CHEST: The visualized lung bases are clear. LIVER: Mild fatty liver is present. Small low-density lesion measuring 9 mm in the right lobe inferio rly. No biliary dilatation is seen. Grossly unremarkable gallbladder. SPLEEN: Normal size. No focal lesion. PANCREAS: No mass, ductal dilation, or lisa-pancreatic fluid. ADRENALS: Normal; no mass. KIDNEYS: Normal size and contour. No hydronephrosis. GASTROINTESTINAL TRACT: Sigmoid diverticulosis with moderate surrounding inflammation in the left low er quadrant. A somewhat focal wall thickening is present in this region. Findings probably indicate acute diverticulitis. No peridiverticular abscess. APPENDIX: Normal appendix. LYMPH NODES: No lymphadenopathy. MUSCULOSKELETAL: Mild multilevel spinal degenerative changes. ADDITIONAL FINDINGS: None. IMPRESSION: Prominent sigmoid diverticulosis is present with surrounding inflammation involving a short segment o f the sigmoid colon in the left lower quadrant likely acute diverticulitis. Given the focal nature, however, recommend colonoscopy follow-up after appropriate treatment to exclude underlying mass. No abscess or other complication evident. Diffuse fatty liver.
--- NOTE | 2025-07-17 11:29 | EDPHYS ---
Physician Documentation [facility] Name: Ema Turner Age: 54 yrs Sex: Female : 1970 Arrival Date: 07/17/2025 Time: 08:38 Bed 5 Private MD: ED Physician Maddy Campuzano HPI: 07/17 09:50 This 54 yrs old Female presents to ER via Ambulatory with complaints of dr5 Abdominal Pain. 09:50 The patient presents with abdominal pain in the left lower quadrant. dr5 Historical: - Allergies: 09:01 No Known Allergies; hb - PMHx: 09:01 diabetes mellitus; Fibromyalgia; Diverticulitis; Arthritis; High Cholesterol; hb Hypertension; Anxiety; - PSHx: 09: partial hysterectomy; hb ROS: 11:38 Constitutional: as per hpi dr5 Exam: 11:38 Constitutional: This is a well developed, well nourished patient who is awake, alert, dr5 and in no acute distress. Head/Face: Normocephalic, atraumatic. Eyes: Pupils equal round and reactive to light, extra-ocular motions intact. Lids and lashes normal. Conjunctiva and sclera are non-icteric and not injected. Cornea within normal limits. Periorbital areas with no swelling, redness, or edema. Chest/axilla: Normal chest wall appearance and motion. Nontender with no deformity. No lesions are appreciated. Cardiovascular: Regular rate and rhythm with a normal S1 and S2. Normal PMI, no JVD. No pulse deficits. Respiratory: Lungs have equal breath sounds bilaterally, clear to auscultation. No rales, rhonchi or wheezes noted. No increased work of breathing, no retractions or nasal flaring. Back: No spinal tenderness. No costovertebral tenderness. Full range of motion. Skin: Warm, dry with normal turgor. Normal color with no rashes, no lesions, and no evidence of cellulitis. MS/ Extremity: Pulses equal, no cyanosis. Neurovascular intact. Full, normal range of motion. Neuro: Awake and alert, GCS 15, oriented to person, place, time, and situation. Cranial nerves II-XII grossly intact. Motor strength 5/5 in all extremities. Sensory grossly intact. Cerebellar exam normal. Normal gait. 11:38 Abdomen/GI: Inspection: abdomen appears normal, Bowel sounds: normal, Palpation: moderate abdominal tenderness, in the left lower quadrant, Vital Signs: 09:03 BP 165 / 90; Pulse 68; Resp 18; Temp 98.3(O); Pulse Ox 100% ; Weight 90.72 kg; Height 5 hb ft. 1 in. ; Pain 10/10; 09:03 Body Mass Index 37.79 (90.72 kg, 154.94 cm) hb 09:03 Pain Scale: Adult hb MDM: 08:41 Medical Screening Exam initiated dr5 11:38 Differential diagnosis: diverticulitis, GI Bleed, Irritable bowel syndrome, urinary dr5 tract infection. Data reviewed: vital signs, nurses notes, lab test result(s), CBC, white blood cell count, hemoglobin, hematocrit, platelets, electrolytes, sodium, potassium, chloride, serum bicarbonate, BUN, creatinine, serum glucose, urinalysis, radiologic studies, CT scan. Consideration of Admission/Observation Escalation of care including admission/observation considered. Escalation considered patient found to have diverticulitis with perforation. I considered the following discharge prescriptions or medication management in the emergency department I discussed and recommended Over The Counter medications, Medications were administered in the Emergency Department. See MAR. Historians other than the Patient: Daughter/Son: Daughter at bedside. Care significantly affected by the following chronic conditions: Diabetes, diverticulitis, hyperlipidemia, hypertension. Care significantly affected by the following Social Determinants of Health: Poor access to healthcare and/or lack of insurance, Poor access to transportation, Problems related to employment. Counseling: I had a detailed discussion with the patient and/or guardian regarding the historical points, exam findings, and any diagnostic results supporting the discharge/admit diagnosis, the presence of at least one elevated blood pressure reading (>120/80) during this emergency department visit, lab results, radiology results, the need for outpatient follow up, for definitive care, a family practitioner, to return to the emergency department if symptoms worsen or persist or if there are any questions or concerns that arise at home. Medication response: Tramadol, Cipro, metronidazole, normal saline, fentanyl. Response to treatment: the patient's symptoms have markedly improved after treatment. Special discussion: I discussed with the patient/guardian in detail that at this point there is no indication for admission to the hospital. It is understood, however, that if the symptoms persist or worsen the patient needs to return immediately for re-evaluation. Based on the history and exam findings, there is no indication for further emergent testing or inpatient evaluation. I discussed with the patient/guardian the need to see the primary care provider for further evaluation of the symptoms. ED course: Explained CT scan results in detail with patient concerning for localized diverticulitis without perforation and need for colonoscopy afterward to look for underlying mass. Patient verbalized understanding. First dose of antibiotics given in ER. All question answered. Strict ER precautions given. CT scan results and lab work printed and given to patient to take with her to primary care doctor.. 07/17 09:06 Order name: CBC with Diff; Complete Time: 09:59 dr5 07/17 09:06 Order name: CMP; Complete Time: 10:14 dr5 07/17 09:06 Order name: Lipase; Complete Time: 10:14 dr5 07/17 09:06 Order name: Test, Urine; Complete Time: :59 dr5 07/17 09:06 Order name: UA Rfx Renato Cult if indicated; Complete Time: :59 dr5 07/17 09:06 Order name: CT Abd/Pelvis - IV Contrast Only; Complete Time: 10:53 dr5 07/17 09:06 Order name: IV Saline Lock; Complete Time: 09:36 dr5 07/17 09:06 Order name: Labs collected and sent; Complete Time: 09:36 dr5 Administered Medications: 10:24 Not Given (Physician Discretion): morphineor iv 4 mg IVP once over 4 mins dr5 10:45 Drug: Ondansetron IVP 4 mg IVP once; over 2 minutes Route: IVP; Site: left antecubital; iw 10:45 Drug: NS 0.9% IV 1000 ml IV at 1 bolus Per protocol; to be given as a bolus over 60 iw minutes Route: IV; Rate: 1 bolus; Site: left antecubital; 13:00 Follow up: IV Status: Completed infusion iw 10:45 Drug: fentaNYL (PF) IVP 50 mcg IVP once Route: IVP; Site: left antecubital; iw 11:54 Drug: traMADol PO 50 mg PO once Route: PO; iw 11:54 Drug: Ciprofloxacin PO 500 mg PO once Route: PO; iw 11:54 Drug: metroNIDAZOLE PO 500 mg PO once Route: PO; iw 12:10 Follow up: Response: No adverse reaction iw Disposition Summary: 10/20/25 11:29 Discharge Ordered Notes: Location: Home dr5 Condition: Stable dr5 Diagnosis - Diverticulitis of small intestine without perforation or abscess without bleeding dr5 Followup: dr5 - With: Emergency Department - When: As needed - Reason: Worsening of condition Followup: dr5 - With: Private Physician - When: 1 - 2 days - Reason: Recheck today's complaints, Continuance of care, Re-evaluation by your physician Discharge Instructions: - Discharge Summary Sheet dr5 - Diverticulitis dr5 Forms: - Work release form hb - Medication Reconciliation Form dr5 - Antibiotic Education dr5 - Patient Portal Instructions dr5 - Leadership Thank You Letter dr5 Prescriptions: - Cipro 500 mg Oral Tablet - take 1 tablet ORAL route every 12 hours for 7 days; 14 tablet; Refills: 0, dr5 Product Selection Permitted - Metronidazole 500 mg Oral tablet - take 1 tablet ORAL route every 12 hours for 7 days; 14 tablet; Refills: 0, dr5 Product Selection Permitted - Tramadol 50 mg Oral Tablet - take 1 tablet ORAL route every 8 hours as needed; 12 tablet; Refills: 0, dr5 Product Selection Permitted Signatures: Dispatcher [employer] Radhika Harmon, Freda Wang RN, RN RN Gopal Loza, CHANNEL WORKER-C CHANNEL WORKER-Cdr5
--- NOTE | 2025-07-17 11:29 | ER ---
Nurse's Notes [facility] Name: Ema Turner Age: 54 yrs Sex: Female : 1970 Arrival Date: 07/17/2025 Time: 08:38 Bed 5 Private MD: Diagnosis: Diverticulitis of small intestine without perforation or abscess without bleeding Presentation: 07/17 09:03 Chief complaint: Chief complaint: LLQ pain since yesterday, became severe and sharp hb this morning. Coronavirus screen: At this time, the client does not indicate any symptoms associated with coronavirus-19. Ebola Screen: No symptoms or risks identified at this time. Initial Sepsis Screen: Does the patient meet any 2 criteria? No. Patient's initial sepsis screen is negative. Does the patient have a suspected source of infection? No. Patient's initial sepsis screen is negative. Risk Assessment: Do you want to hurt yourself or someone else? Patient reports no desire to harm self or others. Onset of symptoms was July 17, 2025. 09:03 Method Of Arrival: Ambulatory hb 09:03 Acuity: AGUSTIN 3 hb Historical: - Allergies: 09:01 No Known Allergies; hb - PMHx: 09:01 diabetes mellitus; Fibromyalgia; Diverticulitis; Arthritis; High Cholesterol; hb Hypertension; Anxiety; - PSHx: 09:01 partial hysterectomy; hb Screenin:47 [facility] ED Fall Risk Assessment (Adult) History of falling in the last 3 months, iw including since admission No falls in past 3 months (0 pts) Confusion or Disorientation No (0 pts) Intoxicated or Sedated No (0 pts) Impaired Gait No (0 pts) Mobility Assist Device Used No (0 pt) Altered Elimination No (0 pt) Score/Fall Risk Level 0 - 2 = Low Risk Oriented to surroundings, Maintained a safe environment. Abuse screen: Denies threats or abuse. Nutritional screening: No deficits noted. Tuberculosis screening: No symptoms or risk factors identified. Assessment: 10:46 General: Appears uncomfortable, Behavior is calm, cooperative. Pain: Complains of pain iw in left lower quadrant Pain currently is 10 out of 10 on a pain scale. Neuro: Level of Consciousness is awake, alert, obeys commands, Oriented to person, place, time, situation, Moves all extremities. Full function. Cardiovascular: Patient's skin is warm and dry. Respiratory: Respiratory effort is even, unlabored, Respiratory pattern is regular, symmetrical. GI: Abdomen is non-distended, Abd is soft X 4 quads Reports lower abdominal pain, nausea. Derm: Skin is intact, is healthy with good turgor. Musculoskeletal: Range of motion: intact in all extremities. Vital Signs: 09:03 BP 165 / 90; Pulse 68; Resp 18; Temp 98.3(O); Pulse Ox 100% ; Weight 90.72 kg; Height 5 hb ft. 1 in. ; Pain 10/10; 09:03 Body Mass Index 37.79 (90.72 kg, 154.94 cm) hb 09:03 Pain Scale: Adult hb ED Course: 08:40 Patient arrived in ED. im 08:40 Gopal Gibbs FNP-C is PHCP. dr5 08:40 Maddy Campuzano MD is Attending Physician. dr5 09:02 Arm band placed on. hb 09:04 Triage completed. hb 09:36 UA Rfx Renato Cult if indicated Sent. bc6 09:36 CBC with Diff Sent. bc6 09:36 CMP Sent. bc6 09:36 Lipase Sent. bc6 09:36 Test, Urine Sent. bc6 09:36 Initial lab(s) drawn, by va, sent to lab. Urine collected: clean catch specimen, clear. bc6 Inserted saline lock: 20 gauge in left antecubital area, using aseptic technique. Blood collected. Flushed with 10 mL NS. 10:12 Radhika Alan, RN is Primary Nurse. iw 10:32 CT Abd/Pelvis - IV Contrast Only In Process Unspecified. EDMS 10:46 Patient has correct armband on for positive identification. Provided Education on: . iw 11:57 No provider procedures requiring assistance completed. IV discontinued, intact, iw bleeding controlled, No redness/swelling at site. Pressure dressing applied. Administered Medications: 10:24 Not Given (Physician Discretion): morphineor iv 4 mg IVP once over 4 mins dr5 10:45 Drug: Ondansetron IVP 4 mg IVP once; over 2 minutes Route: IVP; Site: left antecubital; iw 10:45 Drug: NS 0.9% IV 1000 ml IV at 1 bolus Per protocol; to be given as a bolus over 60 iw minutes Route: IV; Rate: 1 bolus; Site: left antecubital; 13:00 Follow up: IV Status: Completed infusion iw 10:45 Drug: fentaNYL (PF) IVP 50 mcg IVP once Route: IVP; Site: left antecubital; iw 11:54 Drug: traMADol PO 50 mg PO once Route: PO; iw 11:54 Drug: Ciprofloxacin PO 500 mg PO once Route: PO; iw 11:54 Drug: metroNIDAZOLE PO 500 mg PO once Route: PO; iw 12:10 Follow up: Response: No adverse reaction iw Outcome: 11:29 Discharge ordered by . dr5 11:57 Discharged to home ambulatory, with family, iw 11:57 Condition: good 11:57 Discharge instructions given to patient, family, Instructed on discharge instructions, follow up and referral plans. medication usage, Demonstrated understanding of instructions, follow-up care, medications, Prescriptions given X 3, 11:58 Patient left the ED. iw Signatures: Dispatcher [employer] EDRadhika Davis RN RN Freda Phelan RN RN Stacie Wilkinson 6 Caroline Siegel Dustin, COKEMAN-C COKEMAN-[id number] Corrections: (The following items were deleted from the chart) 09:05 09:03 Resp 18bpm; Pulse Ox 100%; 90.72 kg; Height 5 ft. 1 in.; BMI: 37.7; hb hb
[2025-07-17] MEDS ORDERED: CIPROFLOXACIN HCL 500 MG TAB ONE (11:45)
[2025-07-17] MEDS ORDERED: TRAMADOL HCL 50 MG TAB ONE (11:46)
[2025-07-17 15:03] VITALS: BP 165/90; TEMP 98.3; O2SAT 100
== END 2025-07-17 11:58 | disposition home or self-care (01) ==
LOC: ER 08:38
DX: K57.12 Diverticulitis of small intestine without perforation or abscess without bleeding (principal); E11.9 Type 2 diabetes mellitus without complications; E78.00 Pure hypercholesterolemia, unspecified; I10 Essential (primary) hypertension; F41.9 Anxiety disorder, unspecified; M19.90 Unspecified osteoarthritis, unspecified site
CPT/HCPCS: 36415; 74177; 80053; 81003; 81025; 83690; 85025; 96361; 96374; 96375; 99284; J2405; J3010; J7030; Q9967